=== PATIENT | male | born 1945 | race Caucasian/White ===

== ENCOUNTER 2017-02-23 08:22 | Inpatient (IN) | payer MEDICARE, MEDICAID ==
[~2017-02-23] VITALS: Ht 195.6 cm; Wt 133.3 kg
[~2017-02-23 08:22] MED LIST: /PANT40TA OR; AMLO5TAB OR; ATEN25TA OR; BACL10TA2 OR; CAPT50TA4 OR; CARA1SUS OR; COLA100C2 OR; ECOT325T5 OR; FAMO20TA2 OR; MULTIVIT PO; NITR0.2D TD; NITROGLYCERIN PATCH TD; NORVASC PO; PERC7.5T8 OR; TRAM50TA2 OR; VALI5TAB OR; VITA500T OR
[2017-02-23] MEDS ORDERED: NITR0.4D TD (08:38)
[2017-02-23] MEDS ORDERED: BACL10TA2 PO ×2 (08:38→10:57)
[2017-02-23 09:26] LABS: BASO % 0.7 % (0.0-1.0); EOS # 0.2 K/mm3 (0.0-0.50); EOS % 3.6 % (0.0-3.0); LARGE UNSTAINED CELL # 0.1 K/mm3 (0.0-0.4); LARGE UNSTAINED CELL % 2.7 % (0.0-4.0); LYMPH # 0.8 K/mm3 (1.5-4.5); LYMPH % 17.9 % (24.0-44.0); MEAN CORPUSCULAR HEMOGLOBIN 34.2 pg (27.0-33.0); MEAN CORPUSCULAR HGB CONC 34.3 g/dl (32.0-36.5); MEAN CORPUSCULAR VOLUME 99.8 fl (80.0-96.0); MONO # 0.3 K/mm3 (0.0-0.8); NEUTROPHILS % 68.1 % (36.0-66.0); PLATELET COUNT, AUTOMATED 133 k/mm3 (150-450); RED CELL DISTRIBUTION WIDTH 12.2 % (11.5-14.5); WHITE BLOOD COUNT 4.4 K/mm3 (4.0-10.0)
--- NOTE | 2017-02-23 09:27 | REP ---
CT BRAIN WITHOUT CONTRAST: 02/23/2017. CLINICAL HISTORY: Syncope. The patient fell. Trauma. COMPARISON: None. FINDINGS: Soft-tissue and bone windows are reviewed for each slice level. Ventricles are midline, symmetric and mildly dilated and proportionate to the diffuse cerebral atrophy. All of this is age appropriate. The basal ganglia show no acute lacunar infarct. There is some white matter changes in the basal ganglia and bilateral hemispheres representing chronic small vessel white matter ischemic change. I do not see a vascular territory infarct, intracranial hemorrhage, mass or mass effect. Brainstem and cerebellum are grossly intact. No mass, hemorrhage or focal lesion. Minimal atrophy of the cerebellum. Basal cisterns intact. Tortuous basilar artery. Calcified carotid siphons are noted. Mastoids and sinuses are clear. The skull base and calvarium show no fracture. There is a prominent right posterior parietal scalp hematoma near the vertex. No subjacent skull fracture and no contrecoup injury on the left. IMPRESSION: 1. No intracranial hemorrhage, acute infarct, mass or edema. 2. Ventricular size and atrophy are proportionate and age appropriate. 3. Sinuses, mastoids, skull base and calvarium intact without fracture or focal lesion. 4. Large scalp hematoma right posterior parietal vertex without subjacent injury, skull fracture or contrecoup injury. Signed by Erasmo Markham MD 02/23/2017 10:54 A
[2017-02-23 09:29] LABS: ANION GAP 5 MEQ/L (8-16); BLOOD UREA NITROGEN 21 MG/DL (7-18); CALCIUM LEVEL 8.3 MG/DL (8.8-10.2); CARBON DIOXIDE LEVEL 28 MEQ/L (21-32); CHLORIDE LEVEL 107 MEQ/L (98-107); GLOMERULAR FILTRATION RATE > 60.0 (>42); GLUCOSE, FASTING 119 MG/DL (83-110); MAGNESIUM LEVEL 2.2 MG/DL (1.8-2.4); POTASSIUM SERUM 4.1 MEQ/L (3.5-5.1); SODIUM LEVEL 140 MEQ/L (136-145)
--- NOTE | 2017-02-23 09:32 | REP ---
AP PORTABLE CHEST: 02/23/2017 at 09:05 AM. CLINICAL HISTORY: Syncope. COMPARISON: 02/23/2016, 01/06/2014. FINDINGS: This seated portable chest shows the lungs marginally adequate in the degree of inflation. Heart size difficult to multimedia artist because of AP portable technique with lordotic projection which exaggerates heart size. Scarring and elevation of the lateral attachment of the left diaphragm as on the previous chest. There is no pulmonary edema or definite acute infiltrate. Some minor fibrotic changes are suggested. IMPRESSION: 1. Lordotic chest exaggerates heart size with heart difficult to assess because of this and marginally adequate inflation. 2. No pulmonary edema, gross effusion or dense consolidation. Some underlying fibrotic change is seen. Diaphragm remains visible on that left side except for its lateral margin with effaced chronic scarring. 3. The aorta is mildly tortuous without aneurysm. Airway is intact. No vascular redistribution or pulmonary edema. Signed by Erasmo Markham MD 02/23/2017 10:56 A
[2017-02-23] MEDS ORDERED: COLA100C3 PO (10:57)
[2017-02-23] MEDS ORDERED: AMLO5TAB2 PO (10:57)
[2017-02-23] MEDS ORDERED: ATEN25TA PO (10:57)
[2017-02-23] MEDS ORDERED: NITR0.4D6 TD (10:57)
[2017-02-23] MEDS ORDERED: ASPI81TA13 PO (10:59)
[2017-02-23] MEDS ORDERED: OXYC1TAB23 PO (10:59)
[2017-02-23] MEDS ORDERED: TAB-TAB PO (10:59)
[2017-02-23] MEDS ORDERED: VITA500T88 PO (10:59)
[2017-02-23] MEDS ORDERED: CAPT1TAB18 PO (11:00)
[2017-02-23 11:03] LABS: ALBUMIN 3.5 GM/DL (3.2-5.2); ALBUMIN/GLOBULIN RATIO 1.21 (1.00-1.93); ALKALINE PHOSPHATASE 73 U/L (45-117); ALT/SGPT 20 U/L (12-78); AST/SGOT 14 U/L (15-37); BILIRUBIN,DIRECT 0.1 MG/DL (0.0-0.2); BILIRUBIN,TOTAL 0.6 MG/DL (0.2-1.0); TOTAL PROTEIN 6.4 GM/DL (6.4-8.2)
[2017-02-23] MEDS ORDERED: ONDANSETRON 4MG/2ML VIAL (J2405) IV PRN (11:15)
[2017-02-23] MEDS ORDERED: PERCOCET 5MG/325MG TAB PO PRN (11:15)
--- NOTE | 2017-02-23 11:57 | HPE ---
DATE OF ADMISSION: 02/23/2017 Mr. Al is a patient of Dr. Gilmore. The patient's tub attendant is Dr. Walton. CHIEF COMPLAINT: Passed out. SUMMARY OF HIS PRESENTATION: This is a 71-year-old who has been feeling well recently. He has had no complaints of pain or chest pain. No shortness of breath. No palpitations. He does have known atrial fibrillation and is not anticoagulated. He has a loop recorder in place for over a year for concern about possible arrhythmia. He was feeling well this morning, went to the [facility] to shop because traffic is less on Sundays, went shopping, came back and unlocked his door. In the process of unlocking his door, he lost consciousness and the next thing he knows, he was aroused by his neighbors who had called an ambulance because he was down. He has had no recent medication changes. He has not suffered from previous episodes like this. He does not use any alcohol or recreational drugs. PAST MEDICAL HISTORY: Notable for: 1. Hypertension. 2. Gastroesophageal reflux disease (GERD). 3. He had a schwannoma removed at T6-7. 4. He has a history of an aneurysm in the lower thoracic aorta which is stented. 5. He has a loop recorder in place. 6. He has known atrial fibrillation and has chosen not to be anticoagulated. FAMILY HISTORY: Noncontributory. SOCIAL HISTORY: He lives alone. He does have a wheelchair that he uses sometimes but he has been doing quite well recently and does not even use a cane. He does not use any tobacco, alcohol, or recreational drugs. 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 ALLERGIES: No known drug allergies. HOME MEDICATIONS: Are listed as: - Norvasc 5 mg daily - aspirin 81 mg daily - atenolol 25 mg daily - baclofen 10 mg twice a day - Colace 100 mg twice a day - sublingual nitroglycerin patch - Percocet tablet twice a day as needed for pain - vitamin C supplement - Captopril 50 mg daily - multivitamin tablet daily REVIEW OF SYSTEMS: Notable for headache where he struck his head. No visual changes. He has had previous laser corrective surgeries. No runny nose. No sore throat. No neck pain. He did have a cough recently and came to the emergency department yesterday. He is not complaining of a cough today. He is not short of breath. No abdominal pain. No changes in bowel or bladder habits. Otherwise unremarkable. PHYSICAL EXAMINATION: Temperature is 97.6, pulse 82, respiratory rate 18, blood pressure 146/86, 98% on room air. He is awake, appropriately interactive, good historian. Head is normocephalic. Sinuses are nontender. Pupils are equal, round, and reactive to light, anicteric, noninjected. Nasal septum is midline. He has poor dentition. Neck is supple, thick, partially obscured by a large beal. Breathing is symmetrical. I:E ratio is 1:3. No wheezes, rales, or rhonchi. No costovertebral angle (CVA) tenderness. Trace sacral edema. Heart is in an irregular rate and rhythm, distant sounding. Normal S1, S2. Radial pulses are 2+ bilaterally. There is trace to 1+ bilateral lower extremity edema. There are no foot ulcers. Sensation is grossly intact in his feet. Abdomen is soft, somewhat distended, nontender. He is moving all four extremities. Strength is symmetrical. Cranial nerves II-XII are grossly intact. He has normal mood and affect. LABORATORY DATA: White cell count 4.4, hemoglobin 16.5, and platelets of 133. BUN 21, creatinine 1.1, glucose of 119, troponin negative, TSH within normal limits. Blood glucose upon arrival was 114. Chest x-ray is unremarkable. Head CT shows no intracranial hemorrhage, acute infarct, mass or edema, intact skull with a large right posterior scalp hematoma. ASSESSMENT: This is a 71-year-old with a syncopal event, most likely from a cardiac arrhythmia. PLAN: 1. Cardiovascular. The patient has a loop recorder. We will need to attempt to figure out how to have the loop recorder read in regards to his event today because that seems the most likely cause of his syncope. He does have atrial fibrillation. During the course of my examination, his heart rate did run up to 115 at times. We will switch him to metoprolol and aim for rate control. He has chosen not to pursue anticoagulation. We will continue with blood pressure medications with hold parameters. We will monitor the patient on telemetry and obtain a 2D echocardiogram. 2. The patient seems to have macrocytosis. We will get a B12 and folate level. 3. The patient has a history of what appears to be chronic back pain. We will continue his pain medications. 4. Deep vein thrombosis (DVT) prophylaxis is ordered.
[2017-02-23] MEDS: NITROGLYCERIN 0.4 MG/HR PATCH TD SCH (12:22)
[2017-02-23] MEDS: amLODIPine 5 MG TAB PO SCH (12:23)
[2017-02-23] MEDS: ASPIRIN 81 MG ENTERIC TAB PO SCH (12:23)
[2017-02-23] MEDS: BACLOFEN 10 MG TAB PO SCH ×2 (12:23→21:03)
[2017-02-23] MEDS: DOCUSATE SODIUM 100 MG CAP PO SCH ×2 (12:23→21:04)
[2017-02-23 12:33] VITALS: BP 144/83
[2017-02-23 15:21] LABS: INR 1.06
[2017-02-23 16:00] VITALS: BP 167/74
--- NOTE | 2017-02-23 16:15 | ECGEPIP ---
Stationary ECG Study [facility] - ED Test Date: 2017-02-23 Pat Name: MARA RAUSCH Department: Room: [place] [address] Gender: M Bond Analyst: vaughn : 1945 Requested By: Manuel Mendoza Order Number: [id number] Reading MD: Manuel Flood Measurements Intervals [place] Rate: 78 P: ND: 0 QRS: 51 QRSD: 95 T: 56 QT: 356 QTc: 407 Interpretive Statements ATRIAL FIBRILLATION LOW QRS VOLTAGE IN EXTREMITY LEADS SIMILAR TO 10/30/15 Electronically Signed On 02-23-2017 16:15:02 EDT by Manuel Flood
[2017-02-23] MEDS: ACETAMINOPHEN TAB 650MG DOSE (2X325MG) PO PRN (18:26)
[2017-02-23 20:23] VITALS: BP 137/82
[2017-02-23] MEDS: **NOTE PATIENT COMMENT** MISC XX SCH (21:00)
[2017-02-24 00:43] VITALS: BP 110/59
[2017-02-24 04:28] VITALS: BP 140/79
[2017-02-24] MEDS: ACETAMINOPHEN TAB 650MG DOSE (2X325MG) PO PRN ×2 (04:31→13:46)
[2017-02-24 05:05] LABS: MEAN CORPUSCULAR HEMOGLOBIN 33.1 pg (27.0-33.0); MEAN CORPUSCULAR HGB CONC 33.3 g/dl (32.0-36.5); MEAN CORPUSCULAR VOLUME 99.4 fl (80.0-96.0); RED CELL DISTRIBUTION WIDTH 12.7 % (11.5-14.5); WHITE BLOOD COUNT 6.1 K/mm3 (4.0-10.0)
[2017-02-24 05:22] LABS: ANION GAP 6 MEQ/L (8-16); BLOOD UREA NITROGEN 22 MG/DL (7-18); CALCIUM LEVEL 8.5 MG/DL (8.8-10.2); CARBON DIOXIDE LEVEL 29 MEQ/L (21-32); CHLORIDE LEVEL 108 MEQ/L (98-107); CREATININE FOR GFR 0.99 MG/DL (0.70-1.30); GLOMERULAR FILTRATION RATE > 60.0 (>42); GLUCOSE, FASTING 118 MG/DL (83-110); MAGNESIUM LEVEL 2.2 MG/DL (1.8-2.4); POTASSIUM SERUM 4.1 MEQ/L (3.5-5.1); SODIUM LEVEL 143 MEQ/L (136-145)
[2017-02-24 08:00] VITALS: BP 142/96
[2017-02-24] MEDS: ENOXAPARIN 40 MG/0.4 ML SYRINGE (J1650) SC SCH (09:31)
[2017-02-24] MEDS: DOCUSATE SODIUM 100 MG CAP PO SCH ×2 (09:31→21:31)
[2017-02-24] MEDS: BACLOFEN 10 MG TAB PO SCH ×2 (09:31→21:31)
[2017-02-24] MEDS: amLODIPine 5 MG TAB PO SCH (09:32)
[2017-02-24] MEDS: ASPIRIN 81 MG ENTERIC TAB PO SCH (09:32)
[2017-02-24] MEDS: NITROGLYCERIN 0.4 MG/HR PATCH TD SCH (09:33)
[2017-02-24 09:56] LABS: VITAMIN B12 LEVEL 339 PG/ML (247-911)
[2017-02-24 09:57] LABS: FOLATE > 24.0 NG/ML (>5.4)
[2017-02-24] MEDS ORDERED: SLF 3 ML SYR IV PRN (10:30)
[2017-02-24 12:00] VITALS: BP 147/79
[2017-02-24] MEDS: SLF 3 ML SYR IV SCH ×2 (12:57→21:32)
[2017-02-24 16:05] VITALS: BP 165/94
--- NOTE | 2017-02-24 17:18 | IPN ---
DATE: 02/24/2017 Mr. Al is feeling well this morning. He has no complaints of pain, chest pain, shortness of breath. 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 PHYSICAL EXAMINATION: Temperature 98.8, pulse 76, respiratory rate 19, blood pressure 142/96, oxygen saturation 98% on room air. Intake and output notable for a negative fluid status of -435. Body mass index is 35.7. He is awake, pleasantly conversant. Breathing is symmetrical and rested. Heart is distant sounding and normal S1, S2. Telemetry shows periods of tachycardiac and relative bradycardia without significant pauses or other arrhythmias. Abdomen is soft, doughy, and nontender. There is a trace bilateral lower extremity edema. LABORATORY DATA: White cell count 6.1, hemoglobin 15.7, platelets 136, BUN 22, creatinine 0.99, magnesium 2.2, trops have been negative times 3. ASSESSMENT: This is a 71-year-old with a syncopal event, possibly from cardiac arhythmia. PLAN: 1. Cardiovascular. Patient has a loop recorder. I did arrange to have [employer] hospital insurance representative come to evaluate that today. It did not show any events around the time of his syncope. Over the course of the last month he did have a couple of brief pauses of 3 seconds or less but no other significant arhythmia. He has chosen not to pursue anticoagulation. 2D echocardiogram is pending. Patient's tax auditor Dr. Hardin who does have an office in [place], but does not come to our hospital. 2. Patient has macrocytosis. B12 level and folic acid level are within normal limits. 3. Patient has chronic back pain. Continue with pain medications. 4. Patient has appropriate deep venous thrombosis (DVT) prophylaxis. 5. Would recommend at least another 24 hours of monitoring based on his presentation and quick recovery, I believe this is most likely a cardiac cause and as such I am not pursing an aggressive neurologic workup.
[2017-02-24 20:00] VITALS: BP 155/83
[2017-02-24] MEDS: **NOTE PATIENT COMMENT** MISC XX SCH (21:00)
--- NOTE | 2017-02-24 22:48 | ECHO ---
DATE OF PROCEDURE: 02/24/2017 REFERRING PHYSICIAN: Alexis Barber MD INDICATION: Syncope. HEIGHT: 176 cm WEIGHT: 120 kg 2D MEASUREMENTS: Left atrium: 4.7 cm Ventricular septum: 1.59 cm Posterior wall: 1.40 cm Left ventricle diastole: 4.2 cm Aortic root: 4.0 cm LVOT: 2.5 cm Inferior vena cava: 2.6 cm DOPPLER MEASUREMENTS: Aortic valve velocity: 101 cm/s LVOT velocity: 80.5 cm/s Pulmonary artery systolic pressure: 52 mmHg by pulmonary acceleration time method. DESCRIPTION: Rhythm was atrial fibrillation with mostly controlled ventricular rate. This was a moderately technically difficult echocardiogram. No pericardial effusion. This is a 2D, M-mode, color flow Doppler and pulse wave Doppler examination that included mitral annular tissue Doppler. CONCLUSIONS: 1. Hyperdynamic IV systolic function. Left ventricular ejection fraction (LVEF) of 75% by visual estimate. Moderate concentric left ventricle hypertrophy. No regional LV wall motion abnormalities. Unable to adequately assess LV diastolic function in the setting of atrial fibrillation. 2. Moderate left atrial dilatation. 3. Mild dilatation of the aortic root at the level of sinus Valsalva. 4. Mild aortic valve sclerosis of a three-cuspid aortic valve. 5. 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 Suggestive of moderate elevation of pulmonary artery systolic pressure. 5. Moderately technically difficult echocardiogram.
[2017-02-25] VITALS: BP 124/64
[2017-02-25 04:00] VITALS: BP 130/64
[2017-02-25] MEDS: SLF 3 ML SYR IV SCH ×3 (05:05→20:36)
[2017-02-25 05:25] LABS: MEAN CORPUSCULAR HEMOGLOBIN 33.3 pg (27.0-33.0); MEAN CORPUSCULAR HGB CONC 33.7 g/dl (32.0-36.5); MEAN CORPUSCULAR VOLUME 99.1 fl (80.0-96.0); RED CELL DISTRIBUTION WIDTH 12.5 % (11.5-14.5); WHITE BLOOD COUNT 5.8 K/mm3 (4.0-10.0)
[2017-02-25 05:42] LABS: ANION GAP 4 MEQ/L (8-16); BLOOD UREA NITROGEN 22 MG/DL (7-18); CALCIUM LEVEL 8.4 MG/DL (8.8-10.2); CARBON DIOXIDE LEVEL 31 MEQ/L (21-32); CHLORIDE LEVEL 108 MEQ/L (98-107); CREATININE FOR GFR 1.01 MG/DL (0.70-1.30); GLOMERULAR FILTRATION RATE > 60.0 (>42); GLUCOSE, FASTING 114 MG/DL (83-110); MAGNESIUM LEVEL 2.2 MG/DL (1.8-2.4); POTASSIUM SERUM 4.6 MEQ/L (3.5-5.1); SODIUM LEVEL 143 MEQ/L (136-145)
[2017-02-25] MEDS: BACLOFEN 10 MG TAB PO SCH ×2 (07:52→20:35)
[2017-02-25] MEDS: amLODIPine 5 MG TAB PO SCH (07:52)
[2017-02-25] MEDS: DOCUSATE SODIUM 100 MG CAP PO SCH ×2 (07:53→20:35)
[2017-02-25] MEDS: ASPIRIN 81 MG ENTERIC TAB PO SCH (07:53)
[2017-02-25] MEDS: NITROGLYCERIN 0.4 MG/HR PATCH TD SCH (07:53)
[2017-02-25] MEDS: ENOXAPARIN 40 MG/0.4 ML SYRINGE (J1650) SC SCH (07:54)
[2017-02-25] MEDS: ACETAMINOPHEN TAB 650MG DOSE (2X325MG) PO PRN ×2 (07:54→20:43)
[2017-02-25 08:00] VITALS: BP 152/90
[2017-02-25] MEDS: FUROSEMIDE 40 MG/4 ML VIAL (J1940) IV SCH ×2 (08:48→16:04)
[2017-02-25] MEDS ORDERED: PREVNAR 13 VACCINE SYRINGE (CPT CODE:90670) IM ONE (09:00)
[2017-02-25] MEDS: ATENOLOL 25 MG TAB PO SCH (10:49)
[2017-02-25 12:00] VITALS: BP 144/83
--- NOTE | 2017-02-25 12:32 | IPN ---
DATE OF EXAMINATION: 02/25/2017 SUBJECTIVE: This morning, the patient tells me that he is feeling well. He has no complaints. He tells me that he still has shortness of breath with ambulation but otherwise he has not had any further episodes of dizziness or losing consciousness. OBJECTIVE: VITAL SIGNS: Temperature 97.8, pulse 80, respiratory rate 20, blood pressure (BP) 152/90, oxygen (O2) saturation 98% on room air. GENERAL: He is an elderly morbidly obese man lying in bed at a 30-degree angle. He does not appear to be in any acute distress. He is wearing sunglasses. HEENT: He has a large white beal which hides his neck. It is difficult to assess for any elevation in central venous pressure (CVP). CARDIOVASCULAR EXAMINATION: S2, S2, irregularly irregular. RESPIRATORY EXAMINATION: Diminished breath sounds at the bases. ABDOMINAL EXAMINATION: Grossly obese. EXTREMITIES: No clubbing or cyanosis. Trace edema bilaterally. LABORATORY STUDIES: WBC 5.8, hemoglobin 15.8, hematocrit 46.8, platelet count 145. Chemistry panel: Sodium 143, potassium 4.6, chloride 108, bicarbonate 31, BUN 22, creatinine 1.0. Two sets of cardiac enzymes were negative. He has a folate , B12, and TSH levels all within normal limits. INR of 1.0. The patient did have a CT scan of his head, which revealed no intracranial hemorrhage. Ventricular size and atrophy appropriate for age. A large scalp hematoma on the right parietal vertex. ASSESSMENT AND PLAN: This is a 71-year-old man, status post syncopal episode. PROBLEMS: 1. Syncope. Unclear etiology. The patient tells me that he sometimes gets off balance in carrying heavy bags, which he was, and this was an unusually strenuous activity for the patient. He also tells me that he has been feeling shortness of breath. His echocardiogram reveals elevation in CVP. I suspect he may have some fluid retention, as well as left ventricular hypertrophy (LVH). I suspect he may have some decompensated diastolic congestive heart failure, which may predispose him to a syncopal episode. The patient did have his Holter investigated. There was concerning arhythmia. He did have a brief pause of 3 seconds or less, but he has not had any other symptoms or any other episodes, and he has not had any other frequent falls or presyncopal-like symptoms; and as such, I do not feel that sick sinus syndrome or tachybrady syndrome is the culprit for his presentation. However, his atenolol will be restarted today and titrated down at a lower dose. I think he would benefit from followup with his adoption counselor, Dr. Walton. We will continuing following his loop recorder results. He does not have any neurological deficits. I suspect this may have been a vasovagal syncope. There has not been any recurrence. He is awaiting clearance from physical therapy (PT) prior to dispositioning. As mentioned above, will diurese him. 2. Macrocytosis. Thyroid-stimulating hormone (TSH), folic acid, and B12 levels are all within normal limits. He consented for the followup with his outpatient provider. 3. Chronic back pain. The patient is continued on Tylenol, Percocet, Baclofen. 4. Hypertension. The patient is continued on captopril, Norvasc, and atenolol. We will diurese him, as well. 5. Deep venous thrombosis (DVT) prophylaxis. The patient is on Lovenox. 6. Thoracic aortic aneurysm. The patient is on aspirin and beta boy. 7. Atrial fibrillation. He has declined anticoagulation in the past. He is rate controlled with atenolol, which we are restarting today. DISPOSITION: Will continue to follow his progress with physical therapy and with diuresis. I suspect he may be ready for discharge within the next 24-48 hours. [facility]
[2017-02-25 16:00] VITALS: BP_SYST 170; BP_SYST 172; BP_SYST 195; BP_DIAS 73; BP_DIAS 81; BP_DIAS 88
[2017-02-25 20:00] VITALS: BP 126/71
[2017-02-25] MEDS: **NOTE PATIENT COMMENT** MISC XX SCH (20:35)
[2017-02-26] VITALS: BP 124/72
[2017-02-26 04:00] VITALS: BP 131/89
[2017-02-26] MEDS: SLF 3 ML SYR IV SCH (04:38)
[2017-02-26] MEDS: ACETAMINOPHEN TAB 650MG DOSE (2X325MG) PO PRN (04:38)
[2017-02-26 05:14] LABS: MEAN CORPUSCULAR HEMOGLOBIN 33.1 pg (27.0-33.0); MEAN CORPUSCULAR VOLUME 100.2 fl (80.0-96.0); RED CELL DISTRIBUTION WIDTH 12.6 % (11.5-14.5); WHITE BLOOD COUNT 7.1 K/mm3 (4.0-10.0)
[2017-02-26 05:30] LABS: ANION GAP 4 MEQ/L (8-16); CALCIUM LEVEL 9.2 MG/DL (8.8-10.2); CARBON DIOXIDE LEVEL 33 MEQ/L (21-32); CHLORIDE LEVEL 106 MEQ/L (98-107); CREATININE FOR GFR 1.22 MG/DL (0.70-1.30); GLOMERULAR FILTRATION RATE > 60.0 (>42); GLUCOSE, FASTING 118 MG/DL (83-110); MAGNESIUM LEVEL 2.1 MG/DL (1.8-2.4); SODIUM LEVEL 143 MEQ/L (136-145)
[2017-02-26 05:54] LABS: BLOOD UREA NITROGEN 35 MG/DL (7-18)
[2017-02-26 08:00] VITALS: BP 169/92
[2017-02-26] MEDS ORDERED: ATEN25TA PO (08:51)
[2017-02-26] MEDS: ENOXAPARIN 40 MG/0.4 ML SYRINGE (J1650) SC SCH ×2 (09:00→09:28)
[2017-02-26] MEDS: NITROGLYCERIN 0.4 MG/HR PATCH TD SCH (09:26)
[2017-02-26] MEDS: amLODIPine 5 MG TAB PO SCH (09:27)
[2017-02-26] MEDS: ASPIRIN 81 MG ENTERIC TAB PO SCH (09:27)
[2017-02-26] MEDS: BACLOFEN 10 MG TAB PO SCH (09:27)
[2017-02-26] MEDS: DOCUSATE SODIUM 100 MG CAP PO SCH (09:27)
[2017-02-26 09:28] VITALS: BP 169/92
[2017-02-26] MEDS: ATENOLOL 25 MG TAB PO SCH (09:28)
--- NOTE | 2017-02-26 11:08 | DSES ---
DATE OF ADMISSION: 02/23/2017 DATE OF DISCHARGE: DISCHARGE DIAGNOSIS: Syncope. SECONDARY DIAGNOSES: 1. Atrial fibrillation. 2. Chronic back pain. 3. Macrocytosis. 4. Hypertension. 5. Thoracic aortic aneurysm. HOSPITAL COURSE: The patient is a 71-year-old man who was carrying heavy bags through his building, was having difficulty doing this, was struggling to open up with a blankenship to his apartment when he became lightheaded and collapsed. He lost consciousness very briefly, and he immediately woke up, oriented. There was no evidence of seizure activity. No bowel or bladder incontinence. He denied any concerning prodromal symptoms. He has known atrial fibrillation and has been wearing a loop recorded, as per treatment plant mechanic, Dr. Walton. This was interrogated and did not show any significant events at that time. He has previously had events, pauses close to 3 seconds, but no other falling or episodes or feeling faint-like episodes. While admitted in the hospital, he did have an echocardiogram, which revealed an ejection fraction (EF) of 75%, moderate concentric left ventricular hypertrophy (LVH), moderate left atrial dilation, and inferior vena cava plethora. He did receive minimal Lasix, which he did not report any change in symptoms. His symptoms did spontaneously resolve while in the hospital. He had no further episodes of vertigo, passing out, or fainting spells. He was seen by physical therapy, who have cleared him for discharge home at this time. SUBJECTIVE: Today, the patient reports he feels great. He is completely back to normal. He has no complaints. OBJECTIVE: VITAL SIGNS: Temperature 98. Pulse 62. Respiratory rate 20. Blood pressure (BP) 131/89. Oxygen (O2) saturation 94% on room air. GENERAL: He is a large morbidly obese elderly man, lying flat in bed, wearing sunglasses. He is in no acute distress. HEENT: Cranial nerves II-XII are grossly intact. He has moist mucous membranes. Difficult to assess for any elevation in central venous pressure (CVP) secondary to his large beal. CARDIOVASCULAR EXAMINATION: S1, S2, irregularly irregular. He is not tachycardic. RESPIRATORY EXAMINATION: Is clear. ABDOMINAL EXAMINATION: Is grossly obese. EXTREMITIES: No clubbing, cyanosis, or edema. LABORATORY STUDIES: WBC 7.1, hemoglobin 16.9, platelet count 155. Chemistry panel: Sodium 143, potassium 4.0, chloride 106, bicarbonate 33, BUN 35, creatinine 1.2. He had multiple sets of cardiac enzymes, which were negative. TSH within normal limits. He did have a CT scan of the head, which revealed no intracranial hemorrhage, large scalp hematoma of the right posterior parietal vertex without subjacent injury, skull fracture, or contrecoup injury. He had a chest x-ray, which was a lordotic chest. No pulmonary edema, gross effusion, or dense consolidation. ASSESSMENT AND PLAN: This is a 71-year-old man, status post a syncopal episode, likely vasovagal syncope. PROBLEMS: 1. Syncope, likely vasovagal. The patient tells me that he has a history of being off balance and difficulty with carrying many bags and heavy objects. He has had no further episodes and no significant events on telemetry since being in the hospital. He has been asymptomatic otherwise. His loop recorder did show some brief pauses. However, he did not have any associated symptoms with this. We are titrating down his atenolol from 25 mg daily to 12.5 mg daily. New prescription has been sent. 2. Hypertensive heart disease. He was treated with intravenous (IV) Lasix. He did not have changes in symptomatology significantly. I think he would benefit from close followup with his primary treatment plant mechanic, Dr. Walton, regarding the possibility of diastolic congestive heart failure and further interrogation and monitoring of his loop recorder. 3. Macrocytosis. Outpatient followup. His folate, B12 levels, and thyroid-stimulating hormone (TSH) were all within normal limits during his stay here. 4. Chronic back pain. He was continued on Tylenol, Percocet, and Baclofen. 5. Hypertension. He was continued on captopril and Norvasc. We did titrate down on the Tylenol as outlined above. 6. Thoracic aortic aneurysm. The patient is on aspirin and beta boy. He will followup with his primary care provider. 7. Atrial fibrillation. The patient has declined anticoagulation. He was rate controlled. He does not have an indication for a pacer at this time. 8. Deep venous thrombosis (DVT) prophylaxis. The patient has been on Lovenox. DISPOSITION: The patient is being discharged home. He has been cleared by physical therapy. He is independent of his activities of daily living (ADLs). He is to followup with his primary care provider within 7 days and followup with Dr. Walton, his treatment plant mechanic, as soon as possible. His activity and diet are as prior to admission. MEDICATIONS AT THE TIME OF DISCHARGE: - atenolol 12.5 mg daily - Norvasc 5 mg daily - vitamin C 500 mg daily - aspirin 81 mg daily - Baclofen 10 mg twice a day - captopril 50 mg daily - Colace 100 mg twice a day - nitroglycerin 0.4 mg transdermally daily - Percocet 5/325 one tablet by mouth daily, as per patient Greater than 30 minutes spent organizing disposition.
== END 2017-02-26 12:10 | disposition home health service (06) | DRG 312 ==
LOC: EDBD 08:22 → M ED 09:54 → M ED INP 11:33 → M PCU 11:59
PROVIDERS: ADMIT Internal Medicine; ATTEND Internal Medicine
DX: R55 Syncope and collapse (principal); D75.89 Other specified diseases of blood and blood-forming organs; I71.2 Thoracic aortic aneurysm, without rupture; I11.9 Hypertensive heart disease without heart failure; I48.91 Unspecified atrial fibrillation; M54.5 Low back pain; Z79.899 Other long term (current) drug therapy; Z79.82 Long term (current) use of aspirin; K21.9 Gastro-esophageal reflux disease without esophagitis

== ENCOUNTER 2017-03-09 08:11 | Inpatient (IN) | payer MEDICARE, MEDICAID ==
[~2017-03-09] VITALS: Ht 195.6 cm; Wt 125.7 kg
[~2017-03-09 08:11] MED LIST changes: +AMLO5TAB2 PO; +ASPI81TA24 PO; +ATEN25TA PO; +BACL10TA2 PO; +CAPT1TAB18 PO; +COLA100C5 PO; +NITR0.4D TD; +NITR0.4D6 TD; +OXYC1TAB23 PO; +TAB-TAB PO; +VITA500T88 PO
--- NOTE | 2017-03-09 08:55 | REP ---
Clinical: Syncope. Trauma. Comparison: 02/23/2017. Findings: Age-related atrophy and microvascular ischemic changes are appreciated. The ventricles and sulci are symmetric. Louie-white differentiation is maintained. There is no evidence for acute intracranial hemorrhage, mass/mass effect, pathology or infarction. No extra-axial fluid collection. Calvarium is intact. Paranasal sinuses and mastoid air cells are clear. A large right posterior parietal scalp hematoma and contusion has increased since prior examination and may represent acute on subacute trauma. Impression: Age related atrophy and microvascular ischemic changes. No acute intracranial hemorrhage, infarction, or mass/mass effect. Large right posterior parietal scalp hematoma/contusion increased from prior examination. Signed by Lobo Bonner MD 03/09/2017 08:46 A
--- NOTE | 2017-03-09 09:03 | REP ---
Clinical: Syncope . Comparison: 02/23/2017 . Findings: The mediastinum and cardiac silhouette are stable and within normal limits for portable technique. The lung gregory are clear without acute consolidation, effusion, or pneumothorax. Skeletal structures are intact. Impression: Chronic stable changes. No acute cardiopulmonary process appreciated. Signed by Lobo Bonner MD 03/09/2017 08:54 A
[2017-03-09 09:09] LABS: BASO # 0.2 K/mm3 (0.0-0.2); BASO % 2.4 % (0.0-1.0); EOS # 0.1 K/mm3 (0.0-0.50); EOS % 1.9 % (0.0-3.0); LARGE UNSTAINED CELL # 0.1 K/mm3 (0.0-0.4); LARGE UNSTAINED CELL % 1.7 % (0.0-4.0); LYMPH # 0.7 K/mm3 (1.5-4.5); LYMPH % 9.8 % (24.0-44.0); MEAN CORPUSCULAR HEMOGLOBIN 33.3 pg (27.0-33.0); MEAN CORPUSCULAR HGB CONC 33.7 g/dl (32.0-36.5); MONO # 0.3 K/mm3 (0.0-0.8); MONO % 4.5 % (0.0-5.0); NEUTROPHILS # 5.9 K/mm3 (1.8-7.7); NEUTROPHILS % 79.8 % (36.0-66.0); PLATELET COUNT, AUTOMATED 132 k/mm3 (150-450); RED CELL DISTRIBUTION WIDTH 12.5 % (11.5-14.5); WHITE BLOOD COUNT 7.4 K/mm3 (4.0-10.0)
[2017-03-09 09:33] LABS: ANION GAP 8 MEQ/L (8-16); BLOOD UREA NITROGEN 18 MG/DL (7-18); CALCIUM LEVEL 8.5 MG/DL (8.8-10.2); CARBON DIOXIDE LEVEL 26 MEQ/L (21-32); CHLORIDE LEVEL 106 MEQ/L (98-107); CREATININE FOR GFR 1.13 MG/DL (0.70-1.30); GLOMERULAR FILTRATION RATE > 60.0 (>42); GLUCOSE, FASTING 126 MG/DL (83-110); POTASSIUM SERUM 4.1 MEQ/L (3.5-5.1); SODIUM LEVEL 140 MEQ/L (136-145)
[2017-03-09] MEDS ORDERED: KETOROLAC 30 MG/ML VIAL (J1885) IV ONE (10:15)
[2017-03-09] MEDS ORDERED: ACETAMINOPHEN 500 MG TAB PO PRN (11:45)
[2017-03-09] MEDS: DOCUSATE SODIUM 100 MG CAP PO SCH ×2 (13:44→21:32)
[2017-03-09 13:45] VITALS: BP 142/88
[2017-03-09] MEDS: ASPIRIN 81 MG ENTERIC TAB PO SCH (13:45)
[2017-03-09] MEDS: amLODIPine 5 MG TAB PO SCH (13:45)
[2017-03-09] MEDS: LISINOPRIL 10 MG TAB PO SCH (13:45)
[2017-03-09] MEDS: KETOROLAC 30 MG/ML VIAL (J1885) IV PRN ×2 (13:48→21:33)
[2017-03-09] MEDS: FLUDROCORTISONE ACETATE 0.1 MG TAB PO SCH (14:13)
[2017-03-09] MEDS: ATENOLOL 12.5MG PER 1/2 TABLET PO SCH ×2 (14:13→21:32)
[2017-03-09 16:00] VITALS: BP 131/75
--- NOTE | 2017-03-09 17:59 | ECGEPIP ---
Stationary ECG Study 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
[2017-03-09 19:42] VITALS: BP 118/64
--- NOTE | 2017-03-09 21:31 | HPE ---
DATE OF ADMISSION: 03/09/2017 PRIMARY CARE PROVIDER: Dr. Ramon RESEARCH EDITOR: Dr. Walton CHIEF COMPLAINT: Sudden dizziness and passing out. PAST MEDICAL HISTORY: 1. Syncope, thought to be vasovagal syncope. 2. Hypertension. 3. Chronic atrial fibrillation, has chosen not to be anticoagulated. 4. History of schwannoma at T6-7 remote. 5. Has a loop recorder in place. 6. Lower thoracic aneurysm which has been stented. 7. Morbid obesity. 8. Chronic back pain. 9. History of cataracts status post removal and intraocular lens placement, now has light sensitivity. HISTORY OF PRESENT ILLNESS: This is a 71-year-old male who lives alone and is in a [place] rise apartment building who went out of his apartment to drop the garbage in the shoot, came back and was trying to unlock his door when he suddenly felt lightheaded and passed out. The next thing he remembered was there were two people trying to wake him up. He did not have any bowel or bladder incontinence, no one saw any seizure activity. Patient was brought to the emergency room for evaluation. Patient has a loop recorded in place which was interrogated by Dr. Gifford in the emergency room and it showed atrial fibrillation but no episodes of bradycardia or pauses so, as per Dr. Gifford, he does not have any cardiac event resulting in his syncope. Patient was noted to be in atrial fibrillation with rapid ventricular response. Patient was also noted to have a scalp hematoma on the back of his head. In the emergency department (ED), patient continued to complain of lightheadedness and dizziness when he was made to stand up for orthostatic blood pressure, so patient could not stand up for the full duration of the measurement and had to be put back into the bed. Patient is very anxious as this is his second syncopal episode in 2 weeks. Patient had a full workup of the syncope in the prior admission in January 2017, including an echocardiogram. Patient, however, did not have a carotid ultrasound, which we will get done this time. At present, patient is being admitted to the hospitalist service for syncope. PAST SURGICAL HISTORY: Loop recorded implantation, removal of schwannoma from T6-7, stenting of thoracic aortic aneurysm, left parotid resection and femoral bypass. SOCIAL HISTORY: Patient lives alone. Has a wheelchair which he sometimes uses, but at present he says he is doing very well and does not even use a cane. Does not use any tobacco, alcohol, or recreational drugs. ALLERGIES: To LATEX. REVIEW OF SYSTEMS: Patient denies any fever or chills. Denies any chest pain or shortness of breath. Does have mild tenderness at the back of the head where he hit when he fell. Denies any abdominal pain, nausea, vomiting, or diarrhea. Denies any palpitation. Patient does have light sensitivity so he is wearing dark glasses. He also complains of feeling very lightheaded and dizzy when he is standing up. HOME MEDICATIONS: - atenolol 12.5 mg by mouth daily - aspirin 81 mg by mouth daily - captopril 50 mg by mouth daily - Colace 100 mg by mouth twice a day - nitroglycerin 0.4 mg daily for 12 hours - oxycodone/acetaminophen one tablet twice a day as needed for pain - A-Sid one tablet by mouth daily - baclofen 10 mg by mouth twice a day - vitamin C 500 mg by mouth daily - amlodipine 5 mg by mouth daily PHYSICAL EXAMINATION: VITAL SIGNS: Temperature 97.2, pulse 104, blood pressure 150/72, pulse oximetry 93% in room air. Patient had second set of orthostatic blood pressure done in ED. Lying down his blood pressure was 165/90, sitting up his blood pressure 139/78 without any symptoms, and standing up his blood pressure was 154/80 with positive symptoms for dizziness, lightheadedness, tendency to fall. Patient's pulse also jumped from around 100 to 130s on standing up. GENERAL: Patient awake, alert, oriented times three, laying down in bed in no acute distress. HEENT: Normocephalic. Has two scalp hematomas on the back of the head. Moist mucous membranes. Anicteric eyes. CHEST: Clear to auscultation. CARDIOVASCULAR: S1, S2, irregular. No rub, murmur, or gallop. ABDOMEN: Obese, soft, nontender. Bowel sounds present. EXTREMITIES: No edema. LABORATORY DATA: WBC 7.4, hemoglobin 16.6, platelets 132, sodium 140, potassium 4.1, chloride 106, bicarbonate 26, BUN 18, creatinine 1.1, glucose 126, calcium 8.5, cardiac enzymes are negative. ASSESSMENT: This is a 71-year-old male admitted for syncope. PLAN: 1. For syncope, most probably this is orthostatic hypotension, but the patient's orthostatic blood pressures are positive in emergency department (ED) with symptoms. We have started the patient on fludrocortisone to see if it makes any difference. Patient did have an echocardiogram and loop recorder interrogation done which did not show any cardiology cause of syncope. Will also get a carotid ultrasound. Patient also was noted to hold his head in one particular position so that he would be able to overcome his lightheadedness and dizziness, so will also get physical therapy (PT) to evaluate the patient for benign positional vertigo. 2. Atrial fibrillation with rapid ventricular response (RVR). Will increase atenolol to 12.5 twice a day. Will monitor in telemetry. Patient has chosen not to be anticoagulated. 3. Hypertension. Will continue the patient on atenolol. Will change captopril to lisinopril as captopril is not available in the hospital. 4. Chronic back pain. Will continue only on Tylenol. Will discontinue baclofen and oxycodone as these may be contributing to his dizziness and lightheadedness. Will give the patient ketorolac if required for pain. 5. Scalp hematoma from the fall. CT scan did not show any intracranial bleed. 6. Deep venous thrombosis (DVT) prophylaxis has been ordered. 7. History of thoracic aortic aneurysm status post stenting.
[2017-03-10 00:07] VITALS: BP_SYST 119; BP_SYST 128; BP_SYST 138; BP_DIAS 61; BP_DIAS 69; BP_DIAS 76
[2017-03-10] MEDS ORDERED: SLF 3 ML SYR IV PRN (01:45)
[2017-03-10 05:25] VITALS: BP 159/83
[2017-03-10] MEDS: SLF 3 ML SYR IV SCH ×3 (05:32→21:46)
[2017-03-10 07:50] LABS: BASO % 0.2 % (0.0-1.0); EOS # 0.3 K/mm3 (0.0-0.50); EOS % 3.9 % (0.0-3.0); LARGE UNSTAINED CELL # 0.1 K/mm3 (0.0-0.4); LARGE UNSTAINED CELL % 1.7 % (0.0-4.0); LYMPH # 0.7 K/mm3 (1.5-4.5); LYMPH % 10.1 % (24.0-44.0); MEAN CORPUSCULAR HEMOGLOBIN 33.5 pg (27.0-33.0); MEAN CORPUSCULAR HGB CONC 33.4 g/dl (32.0-36.5); MEAN CORPUSCULAR VOLUME 100.2 fl (80.0-96.0); MONO # 0.4 K/mm3 (0.0-0.8); MONO % 5.4 % (0.0-5.0); NEUTROPHILS # 5.7 K/mm3 (1.8-7.7); NEUTROPHILS % 78.8 % (36.0-66.0); PLATELET COUNT, AUTOMATED 120 k/mm3 (150-450); RED CELL DISTRIBUTION WIDTH 12.6 % (11.5-14.5); WHITE BLOOD COUNT 7.3 K/mm3 (4.0-10.0)
[2017-03-10 07:51] VITALS: BP 160/98
[2017-03-10 08:11] LABS: ANION GAP 5 MEQ/L (8-16); BLOOD UREA NITROGEN 26 MG/DL (7-18); CALCIUM LEVEL 8.4 MG/DL (8.8-10.2); CARBON DIOXIDE LEVEL 28 MEQ/L (21-32); CHLORIDE LEVEL 109 MEQ/L (98-107); CREATININE FOR GFR 0.98 MG/DL (0.70-1.30); GLOMERULAR FILTRATION RATE > 60.0 (>42); GLUCOSE, FASTING 125 MG/DL (83-110); POTASSIUM SERUM 4.7 MEQ/L (3.5-5.1); SODIUM LEVEL 142 MEQ/L (136-145)
--- NOTE | 2017-03-10 08:39 | REP ---
CAROTID ULTRASOUND: Real-time ultrasound evaluation and duplex Doppler interrogation of the extracranial carotid vasculature is performed. There is mild to moderate plaquing and narrowing in both carotid bulbs extending into the internal and external carotid arteries. Luminal narrowing is less than 50%. There is no evidence of hemodynamically significant stenosis of either internal carotid artery. Normal flow velocities are seen. Vertebral arteries are not visualized. RIGHT LEFT Peak systolic velocity ICA 94.7 cm/s 46.3 cm/s End diastolic velocity ICA 28.5 cm/s 14.8 cm/s Peak systolic velocity CCA 111.6 cm/s 58 cm/s Peak systolic velocity ECA 149.4 cm/s 77.7 cm/s ICA/CCA ratio 0.85 0.8 IMPRESSION: Bilateral luminal narrowing of the internal carotid arteries less than 50%. No evidence of hemodynamically significant stenosis. Signed by Yash Louie MD 03/10/2017 08:31 A
[2017-03-10] MEDS: FLUDROCORTISONE ACETATE 0.1 MG TAB PO SCH (08:53)
[2017-03-10] MEDS: amLODIPine 5 MG TAB PO SCH (08:53)
[2017-03-10] MEDS: LISINOPRIL 10 MG TAB PO SCH (08:53)
[2017-03-10] MEDS: ASPIRIN 81 MG ENTERIC TAB PO SCH (08:54)
[2017-03-10] MEDS: DOCUSATE SODIUM 100 MG CAP PO SCH ×2 (08:54→21:44)
[2017-03-10] MEDS: ATENOLOL 12.5MG PER 1/2 TABLET PO SCH ×2 (08:54→21:44)
--- NOTE | 2017-03-10 09:53 | IPNPDOC ---
Subjective Date Seen The patient was seen on 03/10/17. Subjective Chief Complaint/HPI The patient is a 71-year-old male admitted with a reason for visit of Syncope. General: Denies: Chills, Night Sweats Constitutional: Denies: Chills, Fever, Malaise Eyes: Denies: Vision change, Conjunctivae inflammation Skin: Denies: Rash, Lesions, Jaundice, Bruising Pulmonary: Denies: Dyspnea, Cough Cardiovascular: Denies: Chest Pain, Palpitations Gastrointestinal: Denies: Nausea, Vomiting Genitourinary: Denies: Dysuria, Frequency Psych: Reports: Mood Normal Objective Physical Examination General Exam: Positive: Alert, Cooperative, No Acute Distress Eye Exam: Positive: EOMI ENT Exam: Positive: Atraumatic, Mucous membr. moist/pink Neck Exam: Positive: Supple Chest Exam: Positive: Clear to auscultation, Normal air movement, Negative: Rales, Rhonchi, Wheezing Heart Exam: Positive: Rate Normal, Normal S1, Normal S2 Abdomen Exam: Positive: Normal bowel sounds, Soft, Tenderness, Negative: Hepatospenomegaly Extremity Exam: Negative: Clubbing, Cyanosis, Edema Skin Exam: Positive: Nl turgor and temperature Assessment /Plan Problems (1) Syncope Status: Acute Response to Treatment: Stable Problem Text: pt still states dizziness upon standing, lasting a few seconds orthostatics positive pt begun on fludrocortisone loop recorder interrogated showed intermittent pauses will continue to monitor for improvement on fludrocortisone (2) Atrial fibrillation Status: Chronic Response to Treatment: Stable Problem Text: pt refused to be anticoagulated will continue atenolol Denies CP or palpitations (3) HTN (hypertension) Status: Chronic Response to Treatment: Stable Problem Text: stable around 160/90 continue atenolol caution w/addition of BP meds, for risk of hypotension and potential worsening of syncope orthostatics positive have begun fludrocortisone (4) Insomnia Status: Acute Response to Treatment: Stable Problem Text: pt states hes having a hard time sleeping at night will schedule ramelteon QHS (5) DVT prophylaxis Status: Acute Response to Treatment: Stable Problem Text: SCD TEDS Plan/VTE VTE Prophylaxis Ordered?: Yes VS, I&O, 24H, Fishbone Vital Signs/I&O Vital Signs Date Time Temp Pulse Resp B/P (MAP) Pulse Ox O2 Delivery O2 Flow Rate FiO2 03/10/17 08:54 74 160/98 03/10/17 07:51 98.2 19 96 Room Air I&O- Last 24 Hours up to 6 AM 03/10/17 06:00 Intake Total 1260 ml Output Total 975 ml Balance 285 ml Laboratory Data 24H LABS Laboratory Tests 2 03/10/17 07:40: White Blood Count 7.3, Red Blood Count 4.67, Hemoglobin 15.6, Hematocrit 46.8, Mean Corpuscular Volume 100.2H, Mean Corpuscular Hemoglobin 33.5H, Mean Corpuscular Hemoglobin Concent 33.4, Red Cell Distribution Width 12.6, Platelet Count 120L, Neutrophils (%) (Auto) 78.8H, Lymphocytes (%) (Auto) 10.1L, Monocytes (%) (Auto) 5.4H, Eosinophils (%) (Auto) 3.9H, Basophils (%) (Auto) 0.2 , Neutrophils # (Auto) 5.7, Lymphocytes # (Auto) 0.7L, Monocytes # (Auto) 0.4, Eosinophils # (Auto) 0.3, Basophils # (Auto) 0.0, Large Unclassified Cells % 1.7 , Large Unclassified Cells # 0.1, Anion Gap 5L, Glomerular Filtration Rate > 60.0, Blood Urea Nitrogen 26H, Creatinine 0.98, Sodium Level 142, Potassium Level 4.7, Chloride Level 109H, Carbon Dioxide Level 28, Calcium Level 8.4L CBC/BMP Laboratory Tests 03/10/17 07:40 Red Blood Count 4.67, Mean Corpuscular Volume 100.2 H, Mean Corpuscular Hemoglobin 33.5 H, Mean Corpuscular Hemoglobin Concent 33.4, Red Cell Distribution Width 12.6, Neutrophils (%) (Auto) 78.8 H, Lymphocytes (%) (Auto) 10.1 L, Monocytes (%) (Auto) 5.4 H, Eosinophils (%) (Auto) 3.9 H, Basophils (%) (Auto) 0.2, Neutrophils # (Auto) 5.7, Lymphocytes # (Auto) 0.7 L, Monocytes # ( Auto) 0.4, Eosinophils # (Auto) 0.3, Basophils # (Auto) 0.0, Calcium Level 8.4 L GME ATTESTATION GME ATTESTATION My preceptor for this patient encounter was physically present in the building during the encounter and was fully available. As needed, all aspects of the patient interview, examination, medical decision making process, and medical care plan development were reviewed and approved by the preceptor. Preceptor is aware and concurs with the plan as stated in the body of this note and will attest to such by his/her cosignature. LIZZY WU DO Mar 10, 2017 09:53
[2017-03-10 12:00] VITALS: BP_SYST 140; BP_SYST 151; BP_SYST 153; BP_DIAS 78; BP_DIAS 88; BP_DIAS 90
[2017-03-10] MEDS: KETOROLAC 30 MG/ML VIAL (J1885) IV PRN (14:12)
[2017-03-10 16:00] VITALS: BP 135/81
[2017-03-10 20:00] VITALS: BP 120/77
[2017-03-10] MEDS: RAMELTEON 8 MG TAB (ROZEREM) PO SCH (21:44)
[2017-03-11] VITALS: BP_SYST 111; BP_SYST 112; BP_SYST 141; BP_DIAS 77; BP_DIAS 78
[2017-03-11 04:00] VITALS: BP 119/64
[2017-03-11] MEDS: SLF 3 ML SYR IV SCH ×3 (05:34→20:15)
[2017-03-11 08:00] VITALS: BP 121/70
[2017-03-11] MEDS: amLODIPine 5 MG TAB PO SCH (08:46)
[2017-03-11] MEDS: FLUDROCORTISONE ACETATE 0.1 MG TAB PO SCH (08:47)
[2017-03-11] MEDS: LISINOPRIL 10 MG TAB PO SCH (08:47)
[2017-03-11] MEDS: DOCUSATE SODIUM 100 MG CAP PO SCH ×2 (08:47→20:15)
[2017-03-11] MEDS: ATENOLOL 12.5MG PER 1/2 TABLET PO SCH ×2 (08:47→20:15)
[2017-03-11] MEDS: ASPIRIN 81 MG ENTERIC TAB PO SCH (08:47)
--- NOTE | 2017-03-11 11:49 | IPNPDOC ---
Subjective Date Seen The patient was seen on 03/11/17. Subjective Chief Complaint/HPI The patient is a 71-year-old male admitted with a reason for visit of Syncope. Events since last encounter feeling a little better, still light headed on standing up but no longer nauseaous. feels very weak. Objective Physical Examination General Exam: Positive: Alert, Cooperative, No Acute Distress Eye Exam: Positive: EOMI ENT Exam: Positive: Atraumatic, Mucous membr. moist/pink Neck Exam: Positive: Supple Chest Exam: Positive: Clear to auscultation, Normal air movement, Negative: Rales, Rhonchi, Wheezing Heart Exam: Positive: Rate Normal, Normal S1, Normal S2 Abdomen Exam: Positive: Normal bowel sounds, Soft, Tenderness, Negative: Hepatospenomegaly Extremity Exam: Negative: Clubbing, Cyanosis, Edema Skin Exam: Positive: Nl turgor and temperature Assessment /Plan Problems (1) Syncope Status: Acute Response to Treatment: Stable Problem Text: Orthostatic hypotension and syncope. pt still states dizziness upon standing, lasting a few seconds orthostatics positive pt begun on fludrocortisone loop recorder interrogated showed intermittent pauses will continue to monitor for improvement on fludrocortisone (2) Atrial fibrillation Status: Chronic Response to Treatment: Stable Problem Text: pt refused to be anticoagulated will continue atenolol Denies CP or palpitations (3) HTN (hypertension) Status: Chronic Response to Treatment: Stable Problem Text: stable around 160/90 continue atenolol caution w/addition of BP meds, for risk of hypotension and potential worsening of syncope orthostatics positive have begun fludrocortisone (4) Insomnia Status: Acute Response to Treatment: Stable Problem Text: pt states hes having a hard time sleeping at night will schedule ramelteon QHS (5) DVT prophylaxis Status: Acute Response to Treatment: Stable Problem Text: SCD TEDS (6) Morbid obesity Plan/VTE VTE Prophylaxis Ordered?: Yes VS, I&O, 24H, Fishbone Vital Signs/I&O Vital Signs Date Time Temp Pulse Resp B/P (MAP) Pulse Ox O2 Delivery O2 Flow Rate FiO2 03/11/17 08:47 121/70 03/11/17 08:47 79 03/11/17 08:00 97.3 18 98 Room Air I&O- Last 24 Hours up to 6 AM 03/11/17 06:00 Intake Total 2040 ml Output Total 550 ml Balance 1490 ml MIGUEL BUTLER MD Mar 11, 2017 11:49
[2017-03-11 12:00] VITALS: BP_SYST 137; BP_SYST 145; BP_SYST 148; BP_DIAS 85; BP_DIAS 88; BP_DIAS 96
[2017-03-11 16:00] VITALS: BP 131/76
[2017-03-11] MEDS: KETOROLAC 30 MG/ML VIAL (J1885) IV PRN (17:53)
[2017-03-11 20:00] VITALS: BP 115/59
[2017-03-11] MEDS: RAMELTEON 8 MG TAB (ROZEREM) PO SCH (20:15)
[2017-03-12] VITALS: BP_SYST 106; BP_SYST 114; BP_SYST 131; BP_DIAS 65
[2017-03-12 04:00] VITALS: BP 151/90
[2017-03-12 05:19] LABS: BASO % 0.7 % (0.0-1.0); EOS # 0.5 K/mm3 (0.0-0.50); EOS % 8.5 % (0.0-3.0); LARGE UNSTAINED CELL # 0.1 K/mm3 (0.0-0.4); LARGE UNSTAINED CELL % 2.2 % (0.0-4.0); LYMPH # 1.1 K/mm3 (1.5-4.5); LYMPH % 18.4 % (24.0-44.0); MEAN CORPUSCULAR HEMOGLOBIN 33.5 pg (27.0-33.0); MEAN CORPUSCULAR HGB CONC 33.2 g/dl (32.0-36.5); MONO # 0.4 K/mm3 (0.0-0.8); MONO % 7.8 % (0.0-5.0); NEUTROPHILS # 3.4 K/mm3 (1.8-7.7); NEUTROPHILS % 62.4 % (36.0-66.0); PLATELET COUNT, AUTOMATED 111 k/mm3 (150-450); RED CELL DISTRIBUTION WIDTH 12.7 % (11.5-14.5); WHITE BLOOD COUNT 5.5 K/mm3 (4.0-10.0)
[2017-03-12] MEDS: SLF 3 ML SYR IV SCH (05:21)
[2017-03-12 05:31] LABS: ANION GAP 3 MEQ/L (8-16); BLOOD UREA NITROGEN 27 MG/DL (7-18); CALCIUM LEVEL 8.4 MG/DL (8.8-10.2); CARBON DIOXIDE LEVEL 30 MEQ/L (21-32); CHLORIDE LEVEL 109 MEQ/L (98-107); CREATININE FOR GFR 0.99 MG/DL (0.70-1.30); GLOMERULAR FILTRATION RATE > 60.0 (>42); GLUCOSE, FASTING 114 MG/DL (83-110); POTASSIUM SERUM 4.6 MEQ/L (3.5-5.1); SODIUM LEVEL 142 MEQ/L (136-145)
[2017-03-12 08:00] VITALS: BP 160/92
[2017-03-12 09:14] VITALS: BP 160/92
[2017-03-12] MEDS: LISINOPRIL 10 MG TAB PO SCH (09:14)
[2017-03-12] MEDS: ASPIRIN 81 MG ENTERIC TAB PO SCH (09:14)
[2017-03-12] MEDS: amLODIPine 5 MG TAB PO SCH (09:14)
[2017-03-12] MEDS: FLUDROCORTISONE ACETATE 0.1 MG TAB PO SCH (09:14)
[2017-03-12] MEDS: ATENOLOL 12.5MG PER 1/2 TABLET PO SCH (09:14)
[2017-03-12] MEDS: DOCUSATE SODIUM 100 MG CAP PO SCH (09:15)
[2017-03-12] MEDS ORDERED: ROZE8TAB16 PO (10:12)
[2017-03-12] MEDS ORDERED: FLUD0.1T PO (10:12)
[2017-03-12] MEDS ORDERED: ATEN25TA PO (10:12)
[2017-03-12 12:12] VITALS: BP 130/58
--- NOTE | 2017-03-13 23:45 | DSES ---
DATE OF ADMISSION: 03/11/2017 DATE OF DISCHARGE: 03/12/2017 PRIMARY CARE PROVIDER: Dr. Ramon DISCHARGE DIAGNOSES: Syncope due to orthostatic hypotension. Atrial fibrillation, not well controlled. Hypertension. Insomnia. Morbid obesity. Gait instability. History of lower thoracic aortic aneurysm, which has been stented. Chronic back pain. History of schwannoma at T6-T7 level, status post removal. Has a loop recorder in place. Chronic thrombocytopenia, etiology unknown. DISCHARGE MEDICATIONS: - atenolol 12.5 mg by mouth twice a day - fludrocortisone 0.1 mg by mouth daily - ramelteon 8 mg by mouth at bedtime - amlodipine 5 mg by mouth daily - ascorbic acid 500 mg by mouth daily - aspirin 81 mg by mouth daily - captopril 50 mg by mouth daily - Colace 100 mg by mouth twice a day - nitroglycerin 0.4 mg transdermal daily - oxycodone/acetaminophen 5-325 one tablet twice a day as needed for pain - multivitamin one tablet by mouth daily HOSPITAL COURSE: This is a 71-year-old male who lives in a handicapped apartment by himself. He was brought into the emergency room after an episode of syncope in the corridor of his apartment building. The patient had gone from his apartment to the garbage disposal shoot on his floor and after he disposed of garbage and came back to his apartment, he was trying to open his door when he apparently felt dizzy, lightheaded and the next thing he knows he was on the floor with two of the other neighbors trying to wake him up. Subsequently, the patient was brought to the emergency room. In the emergency department, the patient was found to be significantly positive for orthostatic hypotension, accompanied by drop in systolic and diastolic blood pressure, as well as severe symptoms of lightheadedness and dizziness. The patient was admitted for orthostatic syncope. The patient was noted to be in atrial fibrillation with rapid ventricular response (RVR). The patient's loop recorder was interrogated by Dr. Gifford, and there were no pauses or any other abnormality except for atrial fibrillation to account for his syncope. He was monitored in telemetry, and he was noted to have persistently high pulse rate, over 100, so his atenolol was again increased to 12.5 twice a day. After increase of atenolol, there were no significant pauses or bradycardia on the telemetry. The patient was also started on fludrocortisone for his orthostatic hypotension. Subsequently, the patient's symptoms improved, and the patient's drop in blood pressure with change of posture also improved, though it did not correct completely. The patient was educated regarding slow change in posture and to have enough time in between sitting and standing positions. The patient had a full workup for syncope in his prior admission 2 weeks ago. So we only did a carotid vascular ultrasound, which did not show any significant luminal narrowing. He was seen by physical therapy (PT), and it was felt that he would benefit from home PT as he did have lots of gait instability. The patient was referred to outpatient PT for addressing vestibular component and progression of dynamic balance. On the day of discharge, the patient was comfortable, did not have any complaints, his vital signs were stable. Functionally, he was close to his baseline. The patient was discharged home with home services set up and home PT referral. PHYSICAL EXAMINATION: Temperature 98.1, pulse 60, respiratory rate 17, blood pressure 160/92, pulse oximetry 98% in room air. GENERAL: Patient awake, alert, oriented times three, sitting up in bed in no acute distress. HEENT: Normocephalic but there is scalp hematoma present with bruising present on the right occipital region extending to the neck, as well as on the top of the head, which is mildly tender to palpation. Moist mucous membranes. Anicteric eyes. CHEST: Clear to auscultation. CARDIOVASCULAR: S1, S2, irregular, rate is controlled. No rub, murmur or gallop. ABDOMEN: Obese, soft, nontender. Bowel sounds present. EXTREMITIES: No edema. LABORATORY DATA: WBC 5.5, hemoglobin 14.2, platelets 111. Sodium 142, potassium 4.6, chloride 109, bicarbonate 30, BUN 27, creatinine 0.9, glucose 114, calcium 8.4. CT head showed age-related atrophy and microvascular ischemic changes. No acute intracranial hemorrhage, infarction or mass. There was a large right posterior parietal scalp hematoma and contusion, which is increased from the prior admission. Chest x-ray: Chronic stable changes. No acute cardiopulmonary process. Carotid vascular ultrasound as mentioned above. DISPOSITION: The patient is discharged home with home services in stable condition. DISCHARGE INSTRUCTIONS: Patient to followup with primary care provider in 1 week. Diet as tolerated. Activity as tolerated. MTDD
== END 2017-03-12 12:01 | disposition home health service (06) | DRG 312 ==
LOC: EDBD 08:11 → M ED 08:11 → M ED INP 11:32 → M PCU 13:24 → OBSVTOIN 03-11 11:38
PROVIDERS: ADMIT Internal Medicine Nephrology; ATTEND Internal Medicine Nephrology
DX: I95.1 Orthostatic hypotension (principal); I48.2 Chronic atrial fibrillation; G47.00 Insomnia, unspecified; E66.01 Morbid (severe) obesity due to excess calories; I10 Essential (primary) hypertension; D69.6 Thrombocytopenia, unspecified; M54.5 Low back pain; R26.89 Other abnormalities of gait and mobility; Z79.899 Other long term (current) drug therapy; Z79.82 Long term (current) use of aspirin; Z91.040 Latex allergy status

== ENCOUNTER → 2018-03-30 | Outpatient (CLI) | payer MEDICARE, MEDICAID ==
[2018-03-30 10:25] LABS: HEMATOCRIT 49.4 % (42.0-52.0); HEMOGLOBIN 16.6 g/dl (13.5-17.5); MEAN CORPUSCULAR HEMOGLOBIN 33.4 pg (27.0-33.0); MEAN CORPUSCULAR HGB CONC 33.6 g/dl (32.0-36.5); MEAN CORPUSCULAR VOLUME 99.4 fl (80.0-96.0); PLATELET COUNT, AUTOMATED 164 10^3/uL (150-450); RED BLOOD COUNT 4.97 10^6/uL (4.30-6.10); RED CELL DISTRIBUTION WIDTH 13.2 % (11.5-14.5); WHITE BLOOD COUNT 6.6 10^3/uL (4.0-10.0)
[2018-03-30 10:42] LABS: ANION GAP 8 MEQ/L (8-16); BLOOD UREA NITROGEN 27 MG/DL (7-18); CALCIUM LEVEL 8.5 MG/DL (8.8-10.2); CARBON DIOXIDE LEVEL 28 MEQ/L (21-32); CHLORIDE LEVEL 107 MEQ/L (98-107); GLOMERULAR FILTRATION RATE > 60.0 (>42); GLUCOSE, FASTING 125 MG/DL (70-100); POTASSIUM SERUM 4.6 MEQ/L (3.5-5.1); SODIUM LEVEL 143 MEQ/L (136-145)
== END ==
LOC: M LAB 09:34
DX: I48.91 Unspecified atrial fibrillation (principal)
CPT/HCPCS: 80048

== ENCOUNTER 2018-06-30 09:28 | Inpatient (IN) | payer MEDICARE, MEDICAID ==
[~2018-06-30] VITALS: Ht 195.6 cm; Wt 130.8 kg
[~2018-06-30 09:28] MED LIST changes: -AMLO5TAB2 PO; +AMLO5TAB6 PO; +FLUD0.1T PO; -NITR0.4D TD; +NITR0.4D10 TD; +ROZE8TAB16 PO
[2018-06-30 10:29] LABS: BASO % 0.4 % (0.0-1.0); EOS # 0.2 10^3/uL (0.0-0.50); EOS % 2.8 % (0.0-3.0); HEMATOCRIT 48.8 % (42.0-52.0); HEMOGLOBIN 16.5 g/dl (13.5-17.5); LYMPH # 1.2 10^3/uL (1.5-4.5); LYMPH % 14.9 % (24.0-44.0); MEAN CORPUSCULAR HGB CONC 33.8 g/dl (32.0-36.5); MEAN CORPUSCULAR VOLUME 97.6 fl (80.0-96.0); MONO # 0.9 10^3/uL (0.0-0.8); NEUTROPHILS # 5.9 10^3/uL (1.8-7.7); NEUTROPHILS % 70.4 % (36.0-66.0); PLATELET COUNT, AUTOMATED 152 10^3/uL (150-450); WHITE BLOOD COUNT 8.4 10^3/uL (4.0-10.0)
[2018-06-30] MEDS: NS 1,000 ML IV SCH ×4 (10:34→22:30)
[2018-06-30 10:38] LABS: INR 0.95; PROTHROMBIN TIME 12.8 SECONDS (12.1-14.4)
[2018-06-30 10:41] LABS: BLOOD UREA NITROGEN 23 MG/DL (7-18); CALCIUM LEVEL 8.5 MG/DL (8.8-10.2); CARBON DIOXIDE LEVEL 29 MEQ/L (21-32); CHLORIDE LEVEL 107 MEQ/L (98-107); CREATININE FOR GFR 0.99 MG/DL (0.70-1.30); GLOMERULAR FILTRATION RATE > 60.0 (>42); GLUCOSE, FASTING 138 MG/DL (70-100); POTASSIUM SERUM 4.5 MEQ/L (3.5-5.1); SODIUM LEVEL 140 MEQ/L (136-145)
--- NOTE | 2018-06-30 12:25 | REP ---
Emergency right lower extremity arterial Doppler ultrasound: History: Right foot pain and numbness. Cold to touch. Findings: A patent left to right fem-fem crossover graft is seen. Ankle brachial index could not be obtained on the right due to noncompressible vessels. The right external iliac artery is occluded. The right common femoral artery appears occluded. The profunda is patent and shows monophasic flow. The superficial femoral artery is occluded from its origin through the popliteal artery segment which is also occluded. The proximal anterior tibial artery is occluded. The tibioperoneal trunk, proximal [employer], distal [employer] and distal AT a are patent. Extensive plaquing is seen. Reversal of flow is seen in the distal anterior tibial artery. Velocity chart right lower extremity: Right profunda 93 cm/S, tibioperoneal trunk 24, proximal [employer] 7, distal [employer] 14, distal [employer] 5 cm/s. Electronically Signed by Harmeet Rodarte MD 06/30/2018 12:16 P
[2018-06-30] MEDS ORDERED: ATEN25TA PO (14:12)
[2018-06-30] MEDS ORDERED: VITMTA PO (14:12)
[2018-06-30] MEDS ORDERED: LOSA100T50 PO (14:13)
[2018-06-30] MEDS ORDERED: PLAV1TAB2 PO (14:13)
[2018-06-30] MEDS ORDERED: BACL1TAB8 PO (14:13)
[2018-06-30] MEDS ORDERED: HEPARIN SOD (PORCINE) 5000 UNITS/ML VIAL IV PRN (15:15)
--- NOTE | 2018-06-30 15:17 | HPEPDOC ---
General Date of Admission 06/3018 Attending Physician: Hiren Mcdonough MD Chief Complaint The patient is a 72-year-old male admitted with a reason for visit of Leg Problem. History of Present Illness A 72 yo former smoking male with PMH significant for HTN, PVD, AAA s/p EVAR, s/p Lt to Rt FemFem crossover bypass graft d/t RLE shut down secondary to EVAR and A Fib s/p Watchman procedure presents for RLE coldness, numbness and claudication. Pt had an AAA and enderwent EVAR with Dr Lees in [place] in 2007. 2 weeks after the procedure, Pt's RLE shut down. He was admitted to the hospital in [facility] for emergent Lt to Rt FemFem crossover bypass with Dr. Lees. Pt has followed up with Dr. Lees annually since then until March. Pt has Hx A Fib with episodic syncope. Pt underwent Watchman procedure in the [facility] in [place] on 03/18/18. Pt has been on prophylactic anticoagulation with Eliquis x 45 days then switched to Plavix 2-3 weeks ago. 4 days ago, pt noticed his RLE below knee to ankle was very cold and numbing. He couldn't stand on his foot for 2 minutes w/o causing the right leg pain. He has monitored the symptoms for 3 days w/o improvement and decided to come to ER today. Patient denies rest pain, TIA, amaurosis fugax, weakness of extremity, chest pain , SOB and N/V. RLE arterial US today shows patent left to right fem-fem crossover graft. DUSTIN could not be obtained on the right due to noncompressible vessels. The EIA, CARD GRINDER HELPER are occluded. The profunda is patent with monophasic flow. SFA is occluded from its origin through the PA segment which is also occluded. The proximal CEE is occluded. The TP trunk, proximal COURTROOM DEPUTY OR CALENDAR CLERK, distal COURTROOM DEPUTY OR CALENDAR CLERK and distal AT are patent. Extensive plaquing is seen. Reversal of flow is seen in the distal CEE. Pt was admitted for angiography tomorrow. Vascular surgery was consulted. Pt was admitted to hospital for RLE angiography with angioplasty and possible stenting. CBC, chem and coag profile are wnl. Home Medications Scheduled Amlodipine Besylate (Amlodipine Besylate) 5 Mg Tab, 5 MG PO DAILY, (Reported) Ascorbic Acid (Vitamin C) 500 Mg Tab, 500 MG PO DAILY, (Reported) Aspirin (Aspirin EC) 81 Mg Tab, 81 MG PO DAILY, (Reported) Atenolol (Atenolol) 25 Mg Tab, 25 MG PO DAILY, (Reported) Baclofen (Baclofen) 10 Mg Tab, 10 MG PO BID, (Reported) Clopidogrel Bisulfate (Plavix) 75 Mg Tab, 75 MG PO DAILY, (Reported) Docusate Sodium (Colace) 100 Mg Cap, 100 MG PO BID, (Reported) Losartan Potassium (Losartan Potassium) 100 Mg Tab, 100 MG PO DAILY, (Reported) Multivitamins *[facility] STOCKED* (Thera M Plus *[facility] STOCKED*) 1 Tab Tab, 1 TAB PO DAILY, (Reported) Nitroglycerin (Nitroglycerin) 0.4 Mg/Hr Dis, 0.4 MG TD DAILY, (Reported) APPLIES AT 0800 AND REMOVES AT 2000, EVEN DAYS RIGHT ARM, ODD DAYS LEFT ARM Scheduled PRN Oxycodone/Acetaminophen (Oxycodone/Acetaminophen 5-325 mg) 1 Tab Tab, 1 TAB PO BID PRN for PAIN, (Reported) Allergies Coded Allergies: Latex (Verified Allergy, Severe, RED BLOTCHES AND SOB, 12/02/12) Past Medical History Medical History 1. HTN 2. AAA 3. PVD RLE 4. A Fib w/Hx syncopy 5.Morbid obesity Surgical History 1. Watchman procedure for A Fib 04/07/18 2. EVAR for AAA 2007 3. 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 Father: d/t lung Ca GM: congenital heart disease Social History * Smoker: former Smoker (quit in 2007) Alcohol: Denies Drugs: denies Recent Travel/Sick Contacts: Denies: Recent travel, Recent sick contacts Psychosocial History: No pertinent psych hx Review of Systems Constitutional: Denies: Chills, Fever, Malaise, Night Sweats, Weakness Eyes: Denies: Vision change, Conjunctivae inflammation ENT: Denies: Head Aches, Ear Pain, Dysphagia Skin: Reports: Other (hyperpigmentation BLE below calves) Pulmonary: Denies: Dyspnea, Cough Cardiovascular: Denies: Chest Pain, Palpitations, Orthopnea, Edema, Lt Headedness Gastrointestinal: Denies: Nausea, Vomiting, Abdominal Pain, Diarrhea, Constipation Genitourinary: Denies: Dysuria, Frequency, Incontinence Hematologic: Denies: Bruising, Bleeding Excessively, Petecchia, Purpura Endocrine: Denies: Polydipsia, Polyphagia, Polyuria, Heat Intolerance, Cold Intolerance Musculoskeletal: Reports: Leg Pain; Denies: Neck Pain, Back Pain, Foot Pain, Joint Pain, Muscle Pain, Spasms Neurological: Denies: Weakness, Numbness, Change in speech, Confusion Psych: Reports: Mood Normal Physical Examination General Exam: Positive: Alert, Cooperative, Mild Distress Eye Exam: Positive: PERRLA, Conjunctiva & lids normal, EOMI ENT Exam: Positive: Atraumatic Neck Exam: Positive: Supple; Negative: JVD, +2 carotid pulse wo bruit, Other Chest Exam: Positive: Clear to auscultation, Normal air movement; Negative: Rales, Rhonchi, Wheezing, Diminished, Other Heart Exam: Positive: Rate Normal, Normal S1, Normal S2, Other (PP: all not pa lpable. Audible to Rt DP and PD, DP monophasic, audible to Lt PT, absent to DP) Abdomen Exam: Positive: Normal bowel sounds, Soft; Negative: Tenderness, Mass Extremity Exam: Positive: Tenderness (RLE below knee), Other (RLE: purple red and swelling toes ); Negative: Clubbing, Cyanosis, Edema, Normal pulses, Swelling Neuro Exam: Positive: Strength at 5/5 X4 ext, Cranial Nerves 3-12 NL Psych Exam: Positive: Mood NL, Oriented x 3 Vital Signs Vital Signs Date Time Temp Pulse Resp B/P (MAP) Pulse Ox O2 Delivery O2 Flow Rate FiO2 06/30/18 12:30 15 134/66 (88) 06/30/18 12:28 89 97 06/30/18 12:06 Room Air 06/30/18 09:39 97.5 Laboratory Data Labs 24H Laboratory Tests 2 06/30/18 10:20: Immature Granulocyte % (Auto) 0.5, White Blood Count 8.4, Red Blood Count 5.00, Hemoglobin 16.5, Hematocrit 48.8, Mean Corpuscular Volume 97.6H, Mean Corpuscular Hemoglobin 33.0, Mean Corpuscular Hemoglobin Concent 33.8, Red Cell Distribution Width 12.3, Platelet Count 152, Neutrophils (%) (Auto) 70.4H, Lymphocytes (%) (Auto) 14.9L, Monocytes (%) (Auto) 11.0H, Eosinophils (%) (Auto) 2.8, Basophils (%) (Auto) 0.4, Neutrophils # (Auto) 5.9, Lymphocytes # (Auto) 1.2L, Monocytes # (Auto) 0.9H, Eosinophils # (Auto) 0.2, Basophils # (Auto) 0.0, Nucleated Red Blood Cells % (auto) 0.0, Prothrombin Time 12.8, Prothromb Time International Ratio 0.95, Activated Partial Thromboplast Time 26.0, Anion Gap 4L, Glomerular Filtration Rate > 60.0, Blood Urea Nitrogen 23H, Creatinine 0.99, Sodium Level 140, Potassium Level 4.5, Chloride Level 107, Carbon Dioxide Level 29, Calcium Level 8.5L CBC/BMP Laboratory Tests 06/30/18 10:20 Red Blood Count 5.00, Mean Corpuscular Volume 97.6 H, Mean Corpuscular Hemoglobin 33.0, Mean Corpuscular Hemoglobin Concent 33.8, Red Cell Distribution Width 12.3, Neutrophils (%) (Auto) 70.4 H, Lymphocytes (%) (Auto) 14.9 L, Monocytes (%) (Auto) 11.0 H, Eosinophils (%) (Auto) 2.8, Basophils (%) (Auto) 0.4, Neutrophils # (Auto) 5.9, Lymphocytes # (Auto) 1.2 L, Monocytes # (Auto) 0.9 H, Eosinophils # (Auto) 0.2, Basophils # (Auto) 0.0, Calcium Level 8.5 L Assessment/Plan Pt is PVD with RLE ischemia s/p Rt to Lt FemFem 10 yrs ago Pt is a 72 yo former smoker with PMH significant for AAA s/p EVAR, Lt to Rt FemFem crossover bypass graft secondary to RLE inflow shut down from EVAR. Pt was admitted with severe RLE PVD with acute RLE ischemia. Arterial US demonstrated extensive atherosclerotic arterial occlusive disease in RLE arterial system including occlusion in EIA, CARD GRINDER HELPER SFA, PA and proximal CEE. The Lt to Rt FemFem crossover bypass is patent. Pt will undergo RLE angiography with possible angioplasty +/-stenting tomorrow. The risks and benefits of the procedure were thoroughly explained to and discussed with patient. Pt verbally understood it. Plan / VTE VTE Prophylaxis Ordered?: Yes Plan Plan 1. NPO after midnight 2. CBC, Coag profile, Chem 7 done 3. Heparin drip weight based protocol 4. Consent will be signed before procedure JEANNETTE TOMLINSON PA-C Jun 30, 2018 15:16
[2018-06-30 15:57] LABS: HEMOGLOBIN 15.6 g/dl (13.5-17.5); MEAN CORPUSCULAR HEMOGLOBIN 32.6 pg (27.0-33.0); MEAN CORPUSCULAR HGB CONC 32.5 g/dl (32.0-36.5); MEAN CORPUSCULAR VOLUME 100.2 fl (80.0-96.0); PLATELET COUNT, AUTOMATED 138 10^3/uL (150-450); RED BLOOD COUNT 4.79 10^6/uL (4.30-6.10); WHITE BLOOD COUNT 7.2 10^3/uL (4.0-10.0)
[2018-06-30] MEDS: HEPARIN DRIP 25,000 UNITS in APPROPRIATE DILUENT 1 EA IV SCH (16:08)
[2018-06-30 20:52] VITALS: BP 140/90
[2018-07-01] VITALS (11 sets, daily range): BP systolic 123–169; BP diastolic 65–94
[2018-07-01] MEDS ORDERED: DOCUSATE SODIUM 100 MG CAP PO PRN (02:15)
[2018-07-01] MEDS: PERCOCET 5MG/325MG TAB PO PRN ×2 (02:40→20:17)
[2018-07-01] MEDS ORDERED: LIDOCAINE 2% MDV 20 ML VIAL As Ordered ONE (06:55)
[2018-07-01] MEDS ORDERED: HEPARIN 1,000 UNITS/ML 10ML VIAL (FOR RADIOLOGY& DIALYSIS ONLY) As Ordered ONE (06:55)
[2018-07-01] MEDS ORDERED: ISOVUE-300 61% 50ML VIAL (Q9967) As Ordered ONE (06:56)
[2018-07-01] MEDS: LOSARTAN 50 MG TAB PO SCH ×2 (09:41→14:35)
[2018-07-01] MEDS: ASPIRIN 81 MG ENTERIC TAB PO SCH ×2 (09:41→14:35)
[2018-07-01] MEDS: NITROGLYCERIN 0.4 MG/HR PATCH TD SCH (09:41)
[2018-07-01] MEDS: CLOPIDOGREL 75 MG TAB PO SCH ×2 (09:42→14:37)
[2018-07-01] MEDS: ATENOLOL 25 MG TAB PO SCH ×2 (09:42→14:36)
[2018-07-01] MEDS: ASCORBIC ACID 500 MG TAB PO SCH ×2 (09:42→14:42)
[2018-07-01] MEDS: DOCUSATE SODIUM 100 MG CAP PO SCH ×3 (09:42→20:15)
[2018-07-01] MEDS: amLODIPine 5 MG TAB PO SCH ×2 (09:42→14:36)
[2018-07-01] MEDS: MULTIVITAMINS/MINERALS THERAP 1 TAB PO SCH ×2 (09:42→14:36)
[2018-07-01] MEDS: BACLOFEN 10 MG TAB PO SCH ×3 (09:43→20:17)
[2018-07-01] MEDS: HEPARIN DRIP 25,000 UNITS in APPROPRIATE DILUENT 1 EA IV SCH ×2 (09:48→13:30)
[2018-07-01] MEDS ORDERED: MIDAZOLAM INJ 2 MG/2 ML VIAL (J2250) As Ordered ONE (10:54)
[2018-07-01] MEDS ORDERED: fentaNYL 100 MCG/2 ML INJECTION (J3010) As Ordered ONE (10:54)
[2018-07-01] MEDS ORDERED: ALTEPLASE 2 MG/2 ML VIAL (J2997 PER 1MG) As Ordered ONE (12:01)
[2018-07-01] MEDS ORDERED: ALTEPLASE RECOMBINANT 10 MG in APPROPRIATE DILUENT 1 EA IV ONE (12:30)
[2018-07-01] MEDS: ALTEPLASE RECOMBINANT 25 MG in NS 225 ML IV SCH (13:30)
--- NOTE | 2018-07-01 17:29 | ECGEPIP ---
Stationary ECG Study [facility] - ED Test Date: 2018-06-30 Pat Name: MARA RAUSCH Department: Room: - Gender: M Fitness Coach: JRichelle : 1945 Requested By: MARIA INES NAVA PA-C. Order Number: [id number] Reading MD: Manuel Flood Measurements Intervals [place] Rate: 79 P: [place]: 0 QRS: 61 QRSD: 87 T: 58 QT: 361 QTc: 416 Interpretive Statements ATRIAL FIBRILLATION RATE CHANGE COMPARED TO 03/09/17 Electronically Signed On 07-01-2018 17:29:10 EDT by Manuel Flood
[2018-07-01 18:08] LABS: HEMATOCRIT 44.8 % (42.0-52.0); HEMOGLOBIN 15.2 g/dl (13.5-17.5)
[2018-07-01 18:28] LABS: INR 1.03; PROTHROMBIN TIME 13.6 SECONDS (12.1-14.4)
[2018-07-01 18:29] LABS: PARTIAL THROMBOPLASTIN TIME 40.8 SECONDS (25.4-37.6)
[2018-07-01] MEDS: **NOTE PATIENT COMMENT** MISC XX SCH (20:00)
[2018-07-02] VITALS (23 sets, daily range): BP systolic 112–198; BP diastolic 58–114
[2018-07-02 00:28] LABS: PARTIAL THROMBOPLASTIN TIME 32.8 SECONDS (25.4-37.6)
[2018-07-02 00:33] LABS: HEMATOCRIT 46.6 % (42.0-52.0); HEMOGLOBIN 15.4 g/dl (13.5-17.5)
[2018-07-02] MEDS: PERCOCET 5MG/325MG TAB PO PRN ×3 (00:55→14:23)
[2018-07-02 05:33] LABS: HEMATOCRIT 46.8 % (42.0-52.0); HEMOGLOBIN 15.9 g/dl (13.5-17.5); MEAN CORPUSCULAR HEMOGLOBIN 33.3 pg (27.0-33.0); MEAN CORPUSCULAR VOLUME 97.9 fl (80.0-96.0); PLATELET COUNT, AUTOMATED 127 10^3/uL (150-450); RED BLOOD COUNT 4.78 10^6/uL (4.30-6.10); WHITE BLOOD COUNT 7.8 10^3/uL (4.0-10.0)
[2018-07-02 05:43] LABS: PARTIAL THROMBOPLASTIN TIME 41.1 SECONDS (25.4-37.6)
[2018-07-02 05:54] LABS: BLOOD UREA NITROGEN 21 MG/DL (7-18); CALCIUM LEVEL 8.2 MG/DL (8.8-10.2); CARBON DIOXIDE LEVEL 25 MEQ/L (21-32); CHLORIDE LEVEL 109 MEQ/L (98-107); GLOMERULAR FILTRATION RATE > 60.0 (>42); GLUCOSE, FASTING 122 MG/DL (70-100); POTASSIUM SERUM 4.4 MEQ/L (3.5-5.1); SODIUM LEVEL 142 MEQ/L (136-145)
[2018-07-02] MEDS: MULTIVITAMINS/MINERALS THERAP 1 TAB PO SCH (07:52)
[2018-07-02] MEDS: BACLOFEN 10 MG TAB PO SCH ×2 (07:52→20:06)
[2018-07-02] MEDS: NITROGLYCERIN 0.4 MG/HR PATCH TD SCH (07:52)
[2018-07-02] MEDS: ATENOLOL 25 MG TAB PO SCH (07:53)
[2018-07-02] MEDS: DOCUSATE SODIUM 100 MG CAP PO SCH ×2 (07:53→20:06)
[2018-07-02] MEDS: amLODIPine 5 MG TAB PO SCH (07:53)
[2018-07-02] MEDS: ASPIRIN 81 MG ENTERIC TAB PO SCH (07:54)
[2018-07-02] MEDS: CLOPIDOGREL 75 MG TAB PO SCH (07:54)
[2018-07-02] MEDS: LOSARTAN 50 MG TAB PO SCH (07:54)
--- NOTE | 2018-07-02 10:00 | IPNPDOC ---
Subjective Date Seen The patient was seen on 07/02/18. Subjective Chief Complaint/HPI Pt stated his Rt foot got warm, still feels numbing. Objective Physical Examination General Exam: Positive: Alert, Cooperative, Mild Distress Eye Exam: Positive: PERRLA, Conjunctiva & lids normal, EOMI ENT Exam: Positive: Atraumatic Neck Exam: Positive: Supple; Negative: JVD, +2 carotid pulse wo bruit Chest Exam: Positive: Clear to auscultation, Normal air movement; Negative: Rales, Rhonchi, Wheezing, Diminished, Other Heart Exam: Positive: Rate Normal, Normal S1, Normal S2, Other (PP: Rt PT audible biphasic, Rt DP audible with intermittent monophsic and biphasic, Lt DP and PT biphasic) Abdomen Exam: Positive: Normal bowel sounds, Soft; Negative: Tenderness, Mass Extremity Exam: Positive: Tenderness (RLE below knee), Other (RLE: Rt foot warm and toes returned normal color.); Negative: Clubbing, Cyanosis, Edema, Normal pulses, Swelling Neuro Exam: Positive: Strength at 5/5 X4 ext, Cranial Nerves 3-12 NL Psych Exam: Positive: Mood NL, Oriented x 3 Assessment /Plan Assessment 1. Severe PVD with acute RLE ischemia on thrombolysis Plan/VTE VTE Prophylaxis Ordered?: Yes Plan 1. Continue thrombolysis with Heparin drip and TPA drip 2. Continue to monitor CBC, BMP, APTT, Fibrinogen 3. Plan to perform angiogram RLE this pm or tomorrow VS, I&O, 24H, Fishbone Vital Signs/I&O Vital Signs Date Time Temp Pulse Resp B/P (MAP) Pulse Ox O2 Delivery O2 Flow Rate FiO2 07/02/18 07:53 19 96 Room Air 07/02/18 07:53 86 07/02/18 07:52 198/89 07/02/18 07:33 99.4 I&O- Last 24 Hours up to 6 AM0 07/02/18 06:00 Intake Total 1000 ml Output Total 1255 ml Balance -255 ml Laboratory Data 24H LABS Laboratory Tests 2 07/01/18 17:52: Prothrombin Time 13.6, Prothromb Time International Ratio 1.03, Activated Partial Thromboplast Time 40.8H, Fibrinogen 339 07/01/18 23:55: Activated Partial Thromboplast Time 32.8, Fibrinogen 351 07/02/18 05:25: Activated Partial Thromboplast Time 41.1H, Fibrinogen 363, Nucleated Red Blood Cells % (auto) 0.0, Anion Gap 8, Glomerular Filtration Rate > 60.0, Blood Urea Nitrogen 21H, Creatinine 0.90, Sodium Level 142, Potassium Level 4.4, Chloride Level 109H, Carbon Dioxide Level 25, Calcium Level 8.2L CBC/BMP Laboratory Tests 07/01/18 17:52 07/01/18 23:55 07/02/18 05:25 Red Blood Count 4.78, Mean Corpuscular Volume 97.9 H, Mean Corpuscular Hemoglobin 33.3 H, Mean Corpuscular Hemoglobin Concent 34.0, Red Cell Dis tribution Width 12.5, Calcium Level 8.2 L JEANNETTE TOMLINSON PA-C Jul 02, 2018 10:00
[2018-07-02] MEDS: ALTEPLASE RECOMBINANT 25 MG in NS 225 ML IV SCH (11:05)
[2018-07-02] MEDS: HEPARIN DRIP 25,000 UNITS in APPROPRIATE DILUENT 1 EA IV SCH (11:06)
[2018-07-02 12:51] LABS: HEMATOCRIT 46.1 % (42.0-52.0); HEMOGLOBIN 15.3 g/dl (13.5-17.5)
[2018-07-02 12:57] LABS: PARTIAL THROMBOPLASTIN TIME 46.4 SECONDS (25.4-37.6)
[2018-07-02] MEDS: ASCORBIC ACID 500 MG TAB PO SCH (14:22)
[2018-07-02] MEDS ORDERED: SLF 3 ML SYR IV PRN (17:15)
[2018-07-02 18:13] LABS: HEMATOCRIT 43.9 % (42.0-52.0); HEMOGLOBIN 14.5 g/dl (13.5-17.5)
[2018-07-02 18:22] LABS: PARTIAL THROMBOPLASTIN TIME 35.8 SECONDS (25.4-37.6)
[2018-07-02] MEDS: **NOTE PATIENT COMMENT** MISC XX SCH (20:00)
[2018-07-02] MEDS: SLF 3 ML SYR IV SCH (22:00)
[2018-07-02] MEDS: ACETAMINOPHEN TAB 650MG DOSE (2X325MG) PO PRN (22:50)
[2018-07-02 23:19] LABS: HEMATOCRIT 46.5 % (42.0-52.0); HEMOGLOBIN 15.5 g/dl (13.5-17.5)
[2018-07-02 23:31] LABS: PARTIAL THROMBOPLASTIN TIME 34.3 SECONDS (25.4-37.6)
[2018-07-03] VITALS (20 sets, daily range): BP systolic 104–164; BP diastolic 55–85
[2018-07-03] MEDS: ACETAMINOPHEN TAB 650MG DOSE (2X325MG) PO PRN (04:38)
[2018-07-03] MEDS: SLF 3 ML SYR IV SCH ×3 (05:14→20:31)
[2018-07-03 05:54] LABS: HEMATOCRIT 46.3 % (42.0-52.0); HEMOGLOBIN 15.4 g/dl (13.5-17.5); MEAN CORPUSCULAR HEMOGLOBIN 32.3 pg (27.0-33.0); MEAN CORPUSCULAR HGB CONC 33.3 g/dl (32.0-36.5); MEAN CORPUSCULAR VOLUME 97.1 fl (80.0-96.0); PLATELET COUNT, AUTOMATED 115 10^3/uL (150-450); RED BLOOD COUNT 4.77 10^6/uL (4.30-6.10); WHITE BLOOD COUNT 6.4 10^3/uL (4.0-10.0)
[2018-07-03 06:16] LABS: BLOOD UREA NITROGEN 24 MG/DL (7-18); CALCIUM LEVEL 8.2 MG/DL (8.8-10.2); CARBON DIOXIDE LEVEL 24 MEQ/L (21-32); CHLORIDE LEVEL 109 MEQ/L (98-107); CREATININE FOR GFR 0.86 MG/DL (0.70-1.30); GLOMERULAR FILTRATION RATE > 60.0 (>42); GLUCOSE, FASTING 134 MG/DL (70-100); POTASSIUM SERUM 4.2 MEQ/L (3.5-5.1); SODIUM LEVEL 141 MEQ/L (136-145)
[2018-07-03 06:47] LABS: PARTIAL THROMBOPLASTIN TIME 39.4 SECONDS (25.4-37.6)
--- NOTE | 2018-07-03 09:14 | IPNPDOC ---
Subjective Date Seen The patient was seen on 07/03/18. Subjective Chief Complaint/HPI C/o numbness in RLE, not comfortable for bedridden but understand it is necessary for his Tx Objective Physical Examination General Exam: Positive: Alert, Cooperative, Mild Distress Eye Exam: Positive: PERRLA, Conjunctiva & lids normal, EOMI ENT Exam: Positive: Atraumatic Neck Exam: Positive: Supple; Negative: JVD, +2 carotid pulse wo bruit Chest Exam: Positive: Clear to auscultation, Normal air movement; Negative: Rales, Rhonchi, Wheezing, Diminished, Other Heart Exam: Positive: Rate Normal, Normal S1, Normal S2, Other (PP: Rt PT and DP audible with strong flow, biphasic, Lt DP and PT biphasic) Abdomen Exam: Positive: Normal bowel sounds, Soft; Negative: Tenderness, Mass Extremity Exam: Positive: Tenderness (RLE below knee improved, +numbnss), Other (RLE: Rt foot warm and toes returned normal color. LLE: no C/C/E, nontender but has been cold); Negative: Clubbing, Cyanosis, Edema, Normal pulses, Swelling Neuro Exam: Positive: Strength at 5/5 X4 ext, Cranial Nerves 3-12 NL Psych Exam: Positive: Mood NL, Oriented x 3 Assessment /Plan Assessment Severe PVD with acute RLE ischemia on thrombolysis, significantly improved with strong distal flow biphasic Plan/VTE VTE Prophylaxis Ordered?: Yes Plan Continue thrombolysis Keep NPO Will proceed with angiogram today VS, I&O, 24H, Fishbone Vital Signs/I&O Vital Signs Date Time Temp Pulse Resp B/P (MAP) Pulse Ox O2 Delivery O2 Flow Rate FiO2 07/03/18 06:00 78 117/76 (90) 96 Room Air 07/03/18 04:00 97.6 20 I&O- Last 24 Hours up to 6 AM 07/03/18 06:00 Intake Total 1109 ml Output Total 1220 ml Balance -111 ml Laboratory Data 24H LABS Laboratory Tests 2 07/02/18 12:13: Activated Partial Thromboplast Time 46.4H, Fibrinogen 339 07/02/18 17:56: Activated Partial Thromboplast Time 35.8, Fibrinogen 337 07/02/18 23:10: Activated Partial Thromboplast Time 34.3, Fibrinogen 352 07/03/18 05:38: Activated Partial Thromboplast Time 39.4H, Fibrinogen 348, Nucleated Red Blood Cells % (auto) 0.0, Anion Gap 8, Glomerular Filtration Rate > 60.0, Blood Urea Nitrogen 24H, Creatinine 0.86, Sodium Level 141, Potassium Level 4.2, Chloride Level 109H, Carbon Dioxide Level 24, Calcium Level 8.2L CBC/BMP Laboratory Tests 07/02/18 12:13 07/02/18 17:56 07/02/18 23:10 07/03/18 05:38 Red Blood Count 4.77, Mean Corpuscular Volume 97.1 H, Mean Corpuscular Hemoglobin 32.3, Mean Corpuscular Hemoglobin Concent 33.3, Red Cell Distribution Width 12.5, Calcium Level 8.2 L JEANNETTE TOMLINSON PA-C Jul 03, 2018 09:14
[2018-07-03] MEDS: LOSARTAN 50 MG TAB PO SCH (09:16)
[2018-07-03] MEDS: NITROGLYCERIN 0.4 MG/HR PATCH TD SCH (09:16)
[2018-07-03] MEDS: BACLOFEN 10 MG TAB PO SCH ×2 (09:16→20:27)
[2018-07-03] MEDS: ASPIRIN 81 MG ENTERIC TAB PO SCH (09:17)
[2018-07-03] MEDS: amLODIPine 5 MG TAB PO SCH (09:17)
[2018-07-03] MEDS: ATENOLOL 25 MG TAB PO SCH (09:17)
[2018-07-03] MEDS: DOCUSATE SODIUM 100 MG CAP PO SCH ×2 (09:17→20:27)
[2018-07-03] MEDS: ASCORBIC ACID 500 MG TAB PO SCH (09:17)
[2018-07-03] MEDS: MULTIVITAMINS/MINERALS THERAP 1 TAB PO SCH (09:17)
[2018-07-03] MEDS: CLOPIDOGREL 75 MG TAB PO SCH (09:18)
[2018-07-03] MEDS ORDERED: fentaNYL 100 MCG/2 ML INJECTION (J3010) As Ordered ONE (12:17)
[2018-07-03] MEDS ORDERED: MIDAZOLAM INJ 2 MG/2 ML VIAL (J2250) As Ordered ONE (12:17)
[2018-07-03] MEDS ORDERED: ISOVUE-300 61% 50ML VIAL (Q9967) As Ordered ONE (12:18)
[2018-07-03] MEDS ORDERED: LIDOCAINE 2% MDV 20 ML VIAL As Ordered ONE (12:18)
[2018-07-03] MEDS ORDERED: HEPARIN 1,000 UNITS/ML 10ML VIAL (FOR RADIOLOGY& DIALYSIS ONLY) As Ordered ONE (12:55)
[2018-07-03] MEDS: PERCOCET 5MG/325MG TAB PO PRN (18:20)
[2018-07-03] MEDS: **NOTE PATIENT COMMENT** MISC XX SCH (20:00)
[2018-07-04] VITALS (10 sets, daily range): BP systolic 118–150; BP diastolic 60–91
[2018-07-04] MEDS: PERCOCET 5MG/325MG TAB PO PRN ×3 (01:22→20:59)
[2018-07-04 04:30] LABS: HEMOGLOBIN 14.8 g/dl (13.5-17.5); MEAN CORPUSCULAR HEMOGLOBIN 32.7 pg (27.0-33.0); MEAN CORPUSCULAR HGB CONC 33.6 g/dl (32.0-36.5); MEAN CORPUSCULAR VOLUME 97.1 fl (80.0-96.0); PLATELET COUNT, AUTOMATED 104 10^3/uL (150-450); RED BLOOD COUNT 4.53 10^6/uL (4.30-6.10); WHITE BLOOD COUNT 7.6 10^3/uL (4.0-10.0)
[2018-07-04 04:50] LABS: BLOOD UREA NITROGEN 30 MG/DL (7-18); CALCIUM LEVEL 8.2 MG/DL (8.8-10.2); CARBON DIOXIDE LEVEL 25 MEQ/L (21-32); CHLORIDE LEVEL 111 MEQ/L (98-107); CREATININE FOR GFR 0.86 MG/DL (0.70-1.30); GLOMERULAR FILTRATION RATE > 60.0 (>42); GLUCOSE, FASTING 132 MG/DL (70-100); POTASSIUM SERUM 4.4 MEQ/L (3.5-5.1); SODIUM LEVEL 142 MEQ/L (136-145)
[2018-07-04] MEDS: SLF 3 ML SYR IV SCH ×3 (06:00→20:59)
[2018-07-04] MEDS: CLOPIDOGREL 75 MG TAB PO SCH (09:22)
[2018-07-04] MEDS: BACLOFEN 10 MG TAB PO SCH ×2 (09:22→20:59)
[2018-07-04] MEDS: ASPIRIN 81 MG ENTERIC TAB PO SCH (09:22)
[2018-07-04] MEDS: MULTIVITAMINS/MINERALS THERAP 1 TAB PO SCH (09:22)
[2018-07-04] MEDS: DOCUSATE SODIUM 100 MG CAP PO SCH ×2 (09:23→20:58)
[2018-07-04] MEDS: NITROGLYCERIN 0.4 MG/HR PATCH TD SCH (09:23)
[2018-07-04] MEDS: ASCORBIC ACID 500 MG TAB PO SCH (09:23)
[2018-07-04] MEDS: LOSARTAN 50 MG TAB PO SCH (09:24)
[2018-07-04] MEDS: amLODIPine 5 MG TAB PO SCH (09:24)
[2018-07-04] MEDS: ATENOLOL 25 MG TAB PO SCH (09:24)
[2018-07-04] MEDS: **NOTE PATIENT COMMENT** MISC XX SCH (20:00)
--- NOTE | 2018-07-04 22:39 | ROOPDOC ---
Hiren Mcdonough MD Jul 04, 2018 22:38
--- NOTE | 2018-07-04 22:39 | ROOPDOC ---
Hiren Mcdonough MD Jul 04, 2018 22:39
--- NOTE | 2018-07-04 22:40 | IPNPDOC ---
Subjective General Date/Time Seen The patient was seen on 07/04/18 at 22:39. Subject Chief Complaint/History The patient is a 72-year-old male admitted with a reason for visit of Peripheral Vascular Disease. Patient without complaints is beginning to ambulate and feels better. Current Medications Current Medications Current Medications Acetaminophen (Tylenol Tab) 650 mg Q6HP PRN PO PAIN Last administered on 07/03/18at 04:38; Start 07/02/18 at 22:45 Alteplase, Recombinant 25 mg/ Sodium Chloride 250 ml @ 10 mls/hr Q24H IV Last administered on 07/02/18at 11:05; Start 07/01/18 at 13:00; Stop 07/03/18 at 15:25; Status DC Amlodipine Besylate (Norvasc) 5 mg DAILY PO Last administered on 07/04/18at 09:24; Start 07/01/18 at 09:00 Ascorbic Acid (Vitamin C) 500 mg DAILY PO Last administered on 07/04/18at 09:23; Start 07/01/18 at 09:00 Aspirin (Ecotrin) 81 mg DAILY PO Last administered on 07/04/18at 09:22; Start 07/01/18 at 09:00 Atenolol (Tenormin) 25 mg DAILY PO Last administered on 07/04/18at 09:24; Start 07/01/18 at 09:00 Baclofen (Lioresal) 10 mg BID PO Last administered on 07/04/18at 20:59; Start 07/01/18 at 09:00 Clopidogrel Bisulfate (PLAVix) 75 mg DAILY PO Last administered on 07/04/18at 09:22; Start 07/01/18 at 09:00 Docusate Sodium (Colace) 100 mg BID PO Last administered on 07/04/18at 20:58; Start 07/01/18 at 09:00 Docusate Sodium (Colace) 100 mg BIDP PRN PO CONSTIPATION; Start 07/01/18 at 02:15; Stop 07/01/18 at 02:57; Status DC Heparin Sodium (Porcine) (Heparin) ASDIRECTED PRN IV SEE LABEL COMMENTS; Start 06/30/18 at 15:15; Stop 07/01/18 at 12:20; Status DC Heparin Sodium (Porcine) 87370 units/IV Miscellaneous Supplies 250 ml @ 0 mls/hr Q0M IV Last administered on 07/01/18at 09:48; Start 06/30/18 at 15:09; Stop 07/01/18 at 12:20; Status DC Heparin Sodium (Porcine) 00435 units/IV Miscellaneous Supplies 250 ml @ 9 mls/hr Q24H IV Last administered on 07/02/18at 11:06; Start 07/01/18 at 12:30; Stop 07/03/18 at 15:25; Status DC Home Med (Med Rec Complete!) ASDIRECTED XX ; Start 06/30/18 at 14:15; Stop 1 at 14:15; Status DC Losartan Potassium (Cozaar) 100 mg DAILY PO Last administered on 07/04/18at 09:24; Start 07/01/18 at 09:00 Multivitamins (Theragram-M) 1 tab DAILY PO Last administered on 07/04/18at 09:22; Start 07/01/18 at 09:00 Nitroglycerin (Nitrodur 0.4 Mg/ Hr) 1 patch DAILY@0800 TD Last administered on 07/04/18at 09:23; Start 07/01/18 at 08:00 Non-Formulary Medication ( See Comment Field Below ) DAILY@2000 XX Last administered on 07/04/18at 20:00; Start 07/01/18 at 20:00 Non-Formulary Medication (Heparin Iv Rate Change Documentation ml/ Hr) ASDIRECTED XX ; Start 06/30/18 at 15:00; Stop 06/30/18 at 15:25; Status DC Non-Formulary Medication (Heparin Iv Rate Change Documentation ml/ Hr) ASDIRECTED XX ; Start 06/30/18 at 15:15; Stop 07/01/18 at 12:20; Status DC Oxycodone/ Acetaminophen (Percocet 5mg/ 325mg Tablet) 1 tab BID PRN PO PAIN Last administered on 07/01/18at 20:17; Start 07/01/18 at 02:15; Stop 07/02/18 at 00:48; Status DC Oxycodone/ Acetaminophen (Percocet 5mg/ 325mg Tablet) 1 tab Q4HP PRN PO PAIN Last administered on 07/04/18at 20:59; Start 07/02/18 at 01:00 Sodium Chloride 1,000 ml @ 200 mls/hr Q5H IV Last administered on 06/30/18at 22:30; Start 06/30/18 at 10:00; Stop 07/01/18 at 02:37; Status DC Sodium Chloride (Saline Lock Flush) 2 ml ASDIRECTED PRN IV SEE LABEL COMMENTS; Start 07/02/18 at 17:15 Sodium Chloride (Saline Lock Flush) 2 ml SLF IV Last administered on 07/04/18at 20:59; Start 07/02/18 at 22:00 Allergies Coded Allergies: Latex (Verified Allergy, Severe, RED BLOTCHES AND SOB, 12/02/12) VITAL SIGNS VITAL SIGNS Vital Signs Date Time Temp Pulse Resp B/P (MAP) Pulse Ox O2 Delivery O2 Flow Rate FiO2 07/04/18 22:00 97.7 75 20 130/66 (87) 96 Room Air 07/04/18 21:29 16 Room Air 07/04/18 20:59 20 Room Air 07/04/18 16:30 97.8 78 18 121/68 (85) 95 07/04/18 13:00 97.7 73 18 118/60 (79) 95 Room Air 07/04/18 12:01 22 07/04/18 09:24 110 07/04/18 09:23 144/87 07/04/18 09:00 80 20 144/87 (106) 96 Room Air 07/04/18 07:00 97.4 105 20 149/68 (95) 96 Room Air 07/04/18 06:00 81 18 130/73 (92) 96 Room Air 07/04/18 05:00 79 19 118/82 (94) 95 Room Air 07/04/18 04:00 97.8 76 17 118/64 (82) 96 Room Air 07/04/18 03:30 79 18 118/72 (87) 97 Room Air 07/04/18 01:22 106 18 138/84 98 Room Air 07/04/18 00:00 98.0 74 21 150/91 (110) 98 Room Air 07/03/18 23:00 82 21 138/84 (102) 98 Room Air Intake & Output 07/04/18 05:59 Intake Total 739 ml Output Total 1025 ml Balance -286 ml Laboratory Tests 07/04/18 04:22: White Blood Count 7.6, Red Blood Count 4.53, Hemoglobin 14.8, Hematocrit 44.0, Mean Corpuscular Volume 97.1H, Mean Corpuscular Hemoglobin 32.7, Mean Corpuscular Hemoglobin Concent 33.6, Red Cell Distribution Width 12.8, Platelet Count 104L, Nucleated Red Blood Cells % (auto) 0.0, Blood Urea Nitrogen 30H, Creatinine 0.86, Sodium Level 142, Potassium Level 4.4, Chloride Level 111H, Carbon Dioxide Level 25, Calcium Level 8.2L, Anion Gap 6L, Glomerular Filtration Rate > 60.0, Fasting Glucose 132H Current Medications Medications (Trade) Dose Ordered Sig/Soraida Route PRN Reason Start Time Stop Time Status Last Admin Dose Admin Acetaminophen (Tylenol Tab) 650 mg Q6HP PRN PO PAIN 07/02/18 22:45 07/03/18 04:38 Amlodipine Besylate (Norvasc) 5 mg DAILY PO 07/01/18 09:00 07/04/18 09:24 Ascorbic Acid (Vitamin C) 500 mg DAILY PO 07/01/18 09:00 07/04/18 09:23 Aspirin (Ecotrin) 81 mg DAILY PO 07/01/18 09:00 07/04/18 09:22 Atenolol (Tenormin) 25 mg DAILY PO 07/01/18 09:00 07/04/18 09:24 Baclofen (Lioresal) 10 mg BID PO 07/01/18 09:00 07/04/18 20:59 Clopidogrel Bisulfate (PLAVix) 75 mg DAILY PO 07/01/18 09:00 07/04/18 09:22 Docusate Sodium (Colace) 100 mg BID PO 07/01/18 09:00 07/04/18 20:58 Losartan Potassium (Cozaar) 100 mg DAILY PO 07/01/18 09:00 07/04/18 09:24 Multivitamins (Theragram-M) 1 tab DAILY PO 07/01/18 09:00 07/04/18 09:22 Nitroglycerin (Nitrodur 0.4 Mg/ Hr) 1 patch DAILY@0800 TD 07/01/18 08:00 07/04/18 09:23 Non-Formulary Medication ( See Comment Field Below ) DAILY@1999 XX 07/01/18 20:00 07/04/18 20:00 Oxycodone/ Acetaminophen (Percocet 5mg/ 325mg Tablet) 1 tab Q4HP PRN PO PAIN 07/02/18 01:00 07/04/18 20:59 Sodium Chloride (Saline Lock Flush) 2 ml SLF IV 07/02/18 22:00 07/04/18 20:59 Laboratory Tests 07/02/18 23:10 07/03/18 05:38 Red Blood Count 4.77, Mean Corpuscular Volume 97.1 H, Mean Corpuscular Hemoglobin 32.3, Mean Corpuscular Hemoglobin Concent 33.3, Red Cell Distribution Width 12.5, Calcium Level 8.2 L 07/04/18 04:22 Red Blood Count 4.53, Mean Corpuscular Volume 97.1 H, Mean Corpuscular Hemoglobin 32.7, Mean Corpuscular Hemoglobin Concent 33.6, Red Cell Distribution Width 12.8, Calcium Level 8.2 L Objective Physical Examination General Exam: Positive: Alert, Cooperative, Mild Distress Eye Exam: Positive: PERRLA, Conjunctiva & lids normal, EOMI ENT Exam: Positive: Atraumatic Neck Exam: Positive: Supple; Negative: JVD, +2 carotid pulse wo bruit Chest Exam: Positive: Clear to auscultation, Normal air movement; Negative: Rales, Rhonchi, Wheezing, Diminished, Other Heart Exam: Positive: Rate Normal, Normal S1, Normal S2, Other (PP: Rt PT and DP audible with strong flow, biphasic, Lt DP and PT biphasic) Abdomen Exam: Positive: Normal bowel sounds, Soft; Negative: Tenderness, Mass Extremity Exam: Positive: Tenderness (RLE below knee improved, +numbnss), Other (RLE: Rt foot warm and toes returned normal color. LLE: no C/C/E, nontender but has been cold); Negative: Clubbing, Cyanosis, Edema, Normal pulses, Swelling Neuro Exam: Positive: Strength at 5/5 X4 ext, Cranial Nerves 3-12 NL Psych Exam: Positive: Mood NL, Oriented x 3 Assessment/Plan Assessment Right lower extremity is well-perfused. Pain is well controlled. Patient has begun to work with physical therapy and is aiming towards discharge in the next 2-3 days. Plan Continue to work with physical therapy with possible discharge in the next 2-3 days. Hiren Mcdonough MD Jul 04, 2018 22:40
[2018-07-05] MEDS: SLF 3 ML SYR IV SCH ×3 (05:07→20:57)
[2018-07-05 05:52] LABS: HEMATOCRIT 42.2 % (42.0-52.0); HEMOGLOBIN 13.6 g/dl (13.5-17.5); MEAN CORPUSCULAR HEMOGLOBIN 32.6 pg (27.0-33.0); MEAN CORPUSCULAR HGB CONC 32.2 g/dl (32.0-36.5); MEAN CORPUSCULAR VOLUME 101.2 fl (80.0-96.0); PLATELET COUNT, AUTOMATED 105 10^3/uL (150-450); RED BLOOD COUNT 4.17 10^6/uL (4.30-6.10)
[2018-07-05 06:00] VITALS: BP 136/72
[2018-07-05 06:17] LABS: BLOOD UREA NITROGEN 32 MG/DL (7-18); CALCIUM LEVEL 8.4 MG/DL (8.8-10.2); CARBON DIOXIDE LEVEL 22 MEQ/L (21-32); CHLORIDE LEVEL 115 MEQ/L (98-107); CREATININE FOR GFR 0.97 MG/DL (0.70-1.30); GLOMERULAR FILTRATION RATE > 60.0 (>42); GLUCOSE, FASTING 132 MG/DL (70-100); POTASSIUM SERUM 4.6 MEQ/L (3.5-5.1); SODIUM LEVEL 144 MEQ/L (136-145)
[2018-07-05] MEDS: DOCUSATE SODIUM 100 MG CAP PO SCH ×2 (08:37→20:56)
[2018-07-05] MEDS: MULTIVITAMINS/MINERALS THERAP 1 TAB PO SCH (08:37)
[2018-07-05] MEDS: NITROGLYCERIN 0.4 MG/HR PATCH TD SCH (08:37)
[2018-07-05] MEDS: ATENOLOL 25 MG TAB PO SCH (08:37)
[2018-07-05] MEDS: CLOPIDOGREL 75 MG TAB PO SCH (08:38)
[2018-07-05] MEDS: amLODIPine 5 MG TAB PO SCH (08:38)
[2018-07-05] MEDS: BACLOFEN 10 MG TAB PO SCH ×2 (08:38→20:56)
[2018-07-05] MEDS: ASPIRIN 81 MG ENTERIC TAB PO SCH (08:38)
[2018-07-05] MEDS: LOSARTAN 50 MG TAB PO SCH (08:39)
[2018-07-05] MEDS: ASCORBIC ACID 500 MG TAB PO SCH (08:39)
[2018-07-05] MEDS: PERCOCET 5MG/325MG TAB PO PRN (08:40)
[2018-07-05 14:00] VITALS: BP 135/75
[2018-07-05] MEDS: ACETAMINOPHEN TAB 650MG DOSE (2X325MG) PO PRN (15:04)
[2018-07-05] MEDS: **NOTE PATIENT COMMENT** MISC XX SCH (20:57)
[2018-07-05 22:00] VITALS: BP 141/72
--- NOTE | 2018-07-05 22:43 | IPNPDOC ---
Subjective General Date/Time Seen The patient was seen on 07/05/18 at 22:42. Subject Chief Complaint/History The patient is a 72-year-old male admitted with a reason for visit of Peripheral Vascular Disease. Current Medications Current Medications Current Medications Acetaminophen (Tylenol Tab) 650 mg Q6HP PRN PO PAIN Last administered on 07/05/18at 15:04; Start 07/02/18 at 22:45 Alteplase, Recombinant 25 mg/ Sodium Chloride 250 ml @ 10 mls/hr Q24H IV Last administered on 07/02/18at 11:05; Start 07/01/18 at 13:00; Stop 07/03/18 at 15:25; Status DC Amlodipine Besylate (Norvasc) 5 mg DAILY PO Last administered on 07/05/18at 08:38; Start 07/01/18 at 09:00 Ascorbic Acid (Vitamin C) 500 mg DAILY PO Last administered on 07/05/18at 08:39; Start 07/01/18 at 09:00 Aspirin (Ecotrin) 81 mg DAILY PO Last administered on 07/05/18at 08:38; Start 07/01/18 at 09:00 Atenolol (Tenormin) 25 mg DAILY PO Last administered on 07/05/18at 08:37; Start 07/01/18 at 09:00 Baclofen (Lioresal) 10 mg BID PO Last administered on 07/05/18at 20:56; Start 07/01/18 at 09:00 Clopidogrel Bisulfate (PLAVix) 75 mg DAILY PO Last administered on 07/05/18at 08:38; Start 07/01/18 at 09:00 Docusate Sodium (Colace) 100 mg BID PO Last administered on 07/05/18at 20:56; Start 07/01/18 at 09:00 Docusate Sodium (Colace) 100 mg BIDP PRN PO CONSTIPATION; Start 07/01/18 at 02:15; Stop 07/01/18 at 02:57; Status DC Heparin Sodium (Porcine) (Heparin) ASDIRECTED PRN IV SEE LABEL COMMENTS; Start 06/30/18 at 15:15; Stop 07/01/18 at 12:20; Status DC Heparin Sodium (Porcine) 88482 units/IV Miscellaneous Supplies 250 ml @ 0 mls/hr Q0M IV Last administered on 07/01/18at 09:48; Start 06/30/18 at 15:09; Stop 07/01/18 at 12:20; Status DC Heparin Sodium (Porcine) 99493 units/IV Miscellaneous Supplies 250 ml @ 9 mls/hr Q24H IV Last administered on 07/02/18at 11:06; Start 07/01/18 at 12:30; Stop 07/03/18 at 15:25; Status DC Home Med (Med Rec Complete!) ASDIRECTED XX ; Start 06/30/18 at 14:15; Stop 06/30/18 at 14:15; Status DC Losartan Potassium (Cozaar) 100 mg DAILY PO Last administered on 07/05/18at 08:39; Start 07/01/18 at 09:00 Multivitamins (Theragram-M) 1 tab DAILY PO Last administered on 07/05/18at 08:37; Start 07/01/18 at 09:00 Nitroglycerin (Nitrodur 0.4 Mg/ Hr) 1 patch DAILY@0800 TD Last administered on 07/05/18at 08:37; Start 07/01/18 at 08:00 Non-Formulary Medication ( See Comment Field Below ) DAILY@2000 XX Last administered on 07/05/18at 20:57; Start 07/01/18 at 20:00 Non-Formulary Medication (Heparin Iv Rate Change Documentation ml/ Hr) ASDIRECTED XX ; Start 06/30/18 at 15:00; Stop 06/30/18 at 15:25; Status DC Non-Formulary Medication (Heparin Iv Rate Change Documentation ml/ Hr) ASDIRECTED XX ; Start 06/30/18 at 15:15; Stop 07/01/18 at 12:20; Status DC Oxycodone/ Acetaminophen (Percocet 5mg/ 325mg Tablet) 1 tab BID PRN PO PAIN Last administered on 07/01/18at 20:17; Start 07/01/18 at 02:15; Stop 07/02/18 at 00:48; Status DC Oxycodone/ Acetaminophen (Percocet 5mg/ 325mg Tablet) 1 tab Q4HP PRN PO PAIN Last administered on 07/05/18at 08:40; Start 07/02/18 at 01:00 Sodium Chloride 1,000 ml @ 200 mls/hr Q5H IV Last administered on 06/30/18at 22:30; Start 06/30/18 at 10:00; Stop 07/01/18 at 02:37; Status DC Sodium Chloride (Saline Lock Flush) 2 ml ASDIRECTED PRN IV SEE LABEL COMMENTS; Start 07/02/18 at 17:15 Sodium Chloride (Saline Lock Flush) 2 ml SLF IV Last administered on 07/05/18at 20:57; Start 07/02/18 at 22:00 Allergies Coded Allergies: Latex (Verified Allergy, Severe, RED BLOTCHES AND SOB, 12/02/12) VITAL SIGNS VITAL SIGNS Vital Signs Date Time Temp Pulse Resp B/P (MAP) Pulse Ox O2 Delivery O2 Flow Rate FiO2 07/05/18 14:00 97.5 98 19 135/75 (95) 97 Room Air 07/05/18 09:10 18 07/05/18 08:40 18 07/05/18 08:39 136/72 07/05/18 08:38 98 136/72 07/05/18 08:37 136/72 07/05/18 08:37 98 136/72 07/05/18 06:00 97.7 98 20 136/72 (93) 96 Room Air Intake & Output 07/05/18 06:00 Intake Total 1320 ml Output Total 775 ml Balance 545 ml Laboratory Tests 07/05/18 05:33: White Blood Count 7.0, Red Blood Count 4.17L, Hemoglobin 13.6, Hematocrit 42.2, Mean Corpuscular Volume 101.2H, Mean Corpuscular Hemoglobin 32.6, Mean Corpuscular Hemoglobin Concent 32.2, Red Cell Distribution Width 13.1, Platelet Count 105L, Nucleated Red Blood Cells % (auto) 0.0, Blood Urea Nitrogen 32H, Creatinine 0.97, Sodium Level 144, Potassium Level 4.6, Chloride Level 115H, Carbon Dioxide Level 22, Calcium Level 8.4L, Anion Gap 7L, Glomerular Filtration Rate > 60.0, Fasting Glucose 132H Current Medications Medications (Trade) Dose Ordered Sig/Soraida Route PRN Reason Start Time Stop Time Status Last Admin Dose Admin Acetaminophen (Tylenol Tab) 650 mg Q6HP PRN PO PAIN 07/02/18 22:45 07/05/18 15:04 Amlodipine Besylate (Norvasc) 5 mg DAILY PO 10/31/18 09:00 07/05/18 08:38 Ascorbic Acid (Vitamin C) 500 mg DAILY PO 07/01/18 09:00 07/05/18 08:39 Aspirin (Ecotrin) 81 mg DAILY PO 07/01/18 09:00 07/05/18 08:38 Atenolol (Tenormin) 25 mg DAILY PO 07/01/18 09:00 07/05/18 08:37 Baclofen (Lioresal) 10 mg BID PO 07/01/18 09:00 07/05/18 20:56 Clopidogrel Bisulfate (PLAVix) 75 mg DAILY PO 07/01/18 09:00 07/05/18 08:38 Docusate Sodium (Colace) 100 mg BID PO 07/01/18 09:00 07/05/18 20:56 Losartan Potassium (Cozaar) 100 mg DAILY PO 07/01/18 09:00 07/05/18 08:39 Multivitamins (Theragram-M) 1 tab DAILY PO 07/01/18 09:00 07/05/18 08:37 Nitroglycerin (Nitrodur 0.4 Mg/ Hr) 1 patch DAILY@0800 TD 07/01/18 08:00 07/05/18 08:37 Non-Formulary Medication ( See Comment Field Below ) DAILY@1999 XX 07/01/18 20:00 07/05/18 20:57 Oxycodone/ Acetaminophen (Percocet 5mg/ 325mg Tablet) 1 tab Q4HP PRN PO PAIN 07/02/18 01:00 07/05/18 08:40 Sodium Chloride (Saline Lock Flush) 2 ml SLF IV 07/02/18 22:00 07/05/18 20:57 Laboratory Tests 07/04/18 04:22 Red Blood Count 4.53, Mean Corpuscular Volume 97.1 H, Mean Corpuscular Hemoglobin 32.7, Mean Corpuscular Hemoglobin Concent 33.6, Red Cell Distribution Width 12.8, Calcium Level 8.2 L 07/05/18 05:33 Red Blood Count 4.17 L, Mean Corpuscular Volume 101.2 H, Mean Corpuscular Hemog lobin 32.6, Mean Corpuscular Hemoglobin Concent 32.2, Red Cell Distribution Width 13.1, Calcium Level 8.4 L Objective Physical Examination General Exam: Positive: Alert, Cooperative, Mild Distress Eye Exam: Positive: PERRLA, Conjunctiva & lids normal, EOMI ENT Exam: Positive: Atraumatic Neck Exam: Positive: Supple; Negative: JVD, +2 carotid pulse wo bruit Chest Exam: Positive: Clear to auscultation, Normal air movement; Negative: Rales, Rhonchi, Wheezing, Diminished, Other Heart Exam: Positive: Rate Normal, Normal S1, Normal S2, Other (PP: Rt PT and DP audible with strong flow, biphasic, Lt DP and PT biphasic) Abdomen Exam: Positive: Normal bowel sounds, Soft; Negative: Tenderness, Mass Extremity Exam: Positive: Tenderness (RLE below knee improved, +numbnss), Other (RLE: Rt foot warm and toes returned normal color. 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 Plan Continue with physical therapy possible discharge next 24-48 hours. Hiren Mcdonough MD Jul 05, 2018 22:43
[2018-07-06] MEDS: SLF 3 ML SYR IV SCH ×3 (06:00→21:14)
[2018-07-06 06:15] LABS: HEMATOCRIT 42.2 % (42.0-52.0); HEMOGLOBIN 13.5 g/dl (13.5-17.5); MEAN CORPUSCULAR HEMOGLOBIN 32.3 pg (27.0-33.0); PLATELET COUNT, AUTOMATED 119 10^3/uL (150-450); RED BLOOD COUNT 4.18 10^6/uL (4.30-6.10); WHITE BLOOD COUNT 6.6 10^3/uL (4.0-10.0)
[2018-07-06 06:31] LABS: BLOOD UREA NITROGEN 34 MG/DL (7-18); CALCIUM LEVEL 8.4 MG/DL (8.8-10.2); CARBON DIOXIDE LEVEL 30 MEQ/L (21-32); CHLORIDE LEVEL 110 MEQ/L (98-107); CREATININE FOR GFR 1.05 MG/DL (0.70-1.30); GLOMERULAR FILTRATION RATE > 60.0 (>42); GLUCOSE, FASTING 121 MG/DL (70-100); POTASSIUM SERUM 4.2 MEQ/L (3.5-5.1); SODIUM LEVEL 145 MEQ/L (136-145)
[2018-07-06] MEDS: NITROGLYCERIN 0.4 MG/HR PATCH TD SCH (09:20)
[2018-07-06] MEDS: DOCUSATE SODIUM 100 MG CAP PO SCH ×2 (09:20→21:00)
[2018-07-06] MEDS: ASPIRIN 81 MG ENTERIC TAB PO SCH (09:20)
[2018-07-06] MEDS: LOSARTAN 50 MG TAB PO SCH (09:21)
[2018-07-06] MEDS: ATENOLOL 25 MG TAB PO SCH (09:21)
[2018-07-06] MEDS: BACLOFEN 10 MG TAB PO SCH ×2 (09:22→21:14)
[2018-07-06] MEDS: MULTIVITAMINS/MINERALS THERAP 1 TAB PO SCH (09:22)
[2018-07-06] MEDS: amLODIPine 5 MG TAB PO SCH (09:22)
[2018-07-06] MEDS: CLOPIDOGREL 75 MG TAB PO SCH (09:22)
[2018-07-06] MEDS: ASCORBIC ACID 500 MG TAB PO SCH (09:22)
[2018-07-06 14:00] VITALS: BP 119/60
--- NOTE | 2018-07-06 15:05 | IPNPDOC ---
Subjective Date Seen The patient was seen on 07/06/18. Subjective Chief Complaint/HPI Feeling better, OOB, up to chair, ambulate, +flatus, no BM yet. Objective Physical Examination General Exam: Positive: Alert, Cooperative, Mild Distress Eye Exam: Positive: PERRLA, Conjunctiva & lids normal, EOMI ENT Exam: Positive: Atraumatic Neck Exam: Positive: Supple; Negative: JVD, +2 carotid pulse wo bruit Chest Exam: Positive: Clear to auscultation, Normal air movement; Negative: Rales, Rhonchi, Wheezing, Diminished, Other Heart Exam: Positive: Rate Normal, Regular Rhythm, Normal S1, Normal S2, Other (PP: All audible biphasic and strong flow); Negative: Irregular Rhythm, Gallops, Murmurs, Rubs Abdomen Exam: Positive: BS Hyperactive, Soft, Other (very large elongated dark purple bruises across LLQ and pubic area, non tender); Negative: Tenderness, Mass Extremity Exam: Positive: Edema (Rt foot), Normal pulses, Tenderness (RLE below knee improved, +numbnss), Other (RLE: Rt foot warm and toes returned normal color. LLE: no C/C/E, nontender but has been cold); Negative: Clubbing, Cyanosis, Swelling Neuro Exam: Positive: Normal Speech, Strength at 5/5 X4 ext, Cranial Nerves 3- 12 NL Psych Exam: Positive: Mental status NL, Mood NL, Oriented x 3 Assessment /Plan Assessment Severe PVD with acute RLE ischemia, s/p RLE thrombolysis + angioplasty ans stenting of Rt PA aneurysm. Pt significantly improved with strong distal flow biphasic. Plan/VTE VTE Prophylaxis Ordered?: Yes Plan Continue current management per PMR PT Stool softener as directed May DC home in 2-3 days per PMR VS, I&O, 24H, Fishbone Vital Signs/I&O Vital Signs Date Time Temp Pulse Resp B/P (MAP) Pulse Ox O2 Delivery O2 Flow Rate FiO2 07/06/18 14:00 98.3 76 20 119/60 (79) 95 Room Air I&O- Last 24 Hours up to 6 AM 07/06/18 06:00 Intake Total 2140 ml Output Total 1750 ml Balance 390 ml Laboratory Data 24H LABS Laboratory Tests 2 07/06/18 05:40: Nucleated Red Blood Cells % (auto) 0.0, Anion Gap 5L, Glomerular Filtration Rate > 60.0, Blood Urea Nitrogen 34H, Creatinine 1.05, Sodium Level 145, Potassium Level 4.2, Chloride Level 110H, Carbon Dioxide Level 30, Calcium Level 8.4L CBC/BMP Laboratory Tests 07/06/18 05:40 Red Blood Count 4.18 L, Mean Corpuscular Volume 101.0 H, Mean Corpuscular Hemoglobin 32.3, Mean Corpuscular Hemoglobin Concent 32.0, Red Cell Distribution Width 12.9, Calcium Level 8.4 L JEANNETTE TOMLINSON PA-C Jul 06, 2018 15:05
[2018-07-06] MEDS: ACETAMINOPHEN TAB 650MG DOSE (2X325MG) PO PRN (15:40)
[2018-07-06] MEDS ORDERED: MOM 30ML SUSPENSION UDC PO PRN (19:30)
[2018-07-06] MEDS: **NOTE PATIENT COMMENT** MISC XX SCH (21:14)
[2018-07-06 22:00] VITALS: BP 120/66
[2018-07-07] MEDS: SLF 3 ML SYR IV SCH ×3 (05:33→20:09)
[2018-07-07 06:45] LABS: HEMATOCRIT 42.6 % (42.0-52.0); HEMOGLOBIN 13.8 g/dl (13.5-17.5); MEAN CORPUSCULAR HEMOGLOBIN 32.6 pg (27.0-33.0); MEAN CORPUSCULAR HGB CONC 32.4 g/dl (32.0-36.5); MEAN CORPUSCULAR VOLUME 100.7 fl (80.0-96.0); PLATELET COUNT, AUTOMATED 145 10^3/uL (150-450); RED BLOOD COUNT 4.23 10^6/uL (4.30-6.10)
[2018-07-07 07:03] LABS: BLOOD UREA NITROGEN 30 MG/DL (7-18); CALCIUM LEVEL 8.6 MG/DL (8.8-10.2); CARBON DIOXIDE LEVEL 30 MEQ/L (21-32); CHLORIDE LEVEL 108 MEQ/L (98-107); CREATININE FOR GFR 0.89 MG/DL (0.70-1.30); GLOMERULAR FILTRATION RATE > 60.0 (>42); GLUCOSE, FASTING 123 MG/DL (70-100); POTASSIUM SERUM 4.4 MEQ/L (3.5-5.1); SODIUM LEVEL 143 MEQ/L (136-145)
[2018-07-07] MEDS: NITROGLYCERIN 0.4 MG/HR PATCH TD SCH (09:58)
[2018-07-07] MEDS: DOCUSATE SODIUM 100 MG CAP PO SCH ×2 (09:59→20:00)
[2018-07-07] MEDS: ASCORBIC ACID 500 MG TAB PO SCH (09:59)
[2018-07-07] MEDS: MULTIVITAMINS/MINERALS THERAP 1 TAB PO SCH (09:59)
[2018-07-07] MEDS: BACLOFEN 10 MG TAB PO SCH ×2 (09:59→20:08)
[2018-07-07] MEDS: ATENOLOL 25 MG TAB PO SCH (10:00)
[2018-07-07] MEDS: amLODIPine 5 MG TAB PO SCH (10:00)
[2018-07-07] MEDS: CLOPIDOGREL 75 MG TAB PO SCH (10:00)
[2018-07-07] MEDS: ASPIRIN 81 MG ENTERIC TAB PO SCH (10:01)
[2018-07-07] MEDS: LOSARTAN 50 MG TAB PO SCH (10:02)
[2018-07-07 14:00] VITALS: BP 115/62
--- NOTE | 2018-07-07 16:02 | IPNPDOC ---
Subjective Date Seen The patient was seen on 07/07/18. Subjective Chief Complaint/HPI Doing good, no complaint. Take Tylenol only for pain control, ambulated x 3 w/o difficulty. Wanting to be discharged to home care on . Objective Physical Examination General Exam: Positive: Alert, Cooperative, Mild Distress Eye Exam: Positive: PERRLA, Conjunctiva & lids normal, EOMI ENT Exam: Positive: Atraumatic Neck Exam: Positive: Supple; Negative: JVD Chest Exam: Positive: Clear to auscultation, Normal air movement; Negative: Rales, Rhonchi, Wheezing, Diminished, Other Heart Exam: Positive: Rate Normal, Regular Rhythm, Normal S1, Normal S2, Other (PP: All audible biphasic and strong flow); Negative: Irregular Rhythm, Gallops, Murmurs, Rubs Abdomen Exam: Positive: Normal bowel sounds, Soft, Other (very large elongated dark purple bruises across LLQ and pubic area, non tender); Negative: Tenderness, Mass Extremity Exam: Positive: Normal pulses; Negative: Clubbing, Cyanosis, Edema Skin Exam: Positive: Nl turgor and temperature Neuro Exam: Positive: Normal Speech, Strength at 5/5 X4 ext, Cranial Nerves 3- 12 NL Psych Exam: Positive: Mental status NL, Mood NL, Oriented x 3 Assessment /Plan Assessment Severe PVD with acute RLE ischemia, s/p RLE thrombolysis + angioplasty and stenting of Rt PA aneurysm. Doing well w/o concern. Plan/VTE VTE Prophylaxis Ordered?: Yes Plan Continue current regimen. Continue PT. Increase ambulation as able. Plan to dc home /home care on . VS, I&O, 24H, Jacqueline Vital Signs/I&O Vital Signs Date Time Temp Pulse Resp B/P (MAP) Pulse Ox O2 Delivery O2 Flow Rate FiO2 07/07/18 10:00 100 136/72 07/06/18 22:00 96.7 18 97 Room Air I&O- Last 24 Hours up to 6 AM 07/07/18 06:00 Intake Total 840 ml Output Total 325 ml Balance 515 ml Laboratory Data 24H LABS Laboratory Tests 2 07/07/18 06:25: Nucleated Red Blood Cells % (auto) 0.0, Anion Gap 5L, Glomerular Filtration Rate > 60.0, Blood Urea Nitrogen 30H, Creatinine 0.89, Sodium Level 143, Potassium Level 4.4, Chloride Level 108H, Carbon Dioxide Level 30, Calcium Level 8.6L CBC/BMP Laboratory Tests 07/07/18 06:25 Red Blood Count 4.23 L, Mean Corpuscular Volume 100.7 H, Mean Corpuscular Hemoglobin 32.6, Mean Corpuscular Hemoglobin Concent 32.4, Red Cell Distribution Width 12.9, Calcium Level 8.6 L JEANNETTE TOMLINSON PA-C Jul 07, 2018 16:02
[2018-07-07] MEDS: ACETAMINOPHEN TAB 650MG DOSE (2X325MG) PO PRN (20:08)
[2018-07-07] MEDS: **NOTE PATIENT COMMENT** MISC XX SCH (20:10)
[2018-07-07 22:00] VITALS: BP 121/82
[2018-07-08] MEDS: SLF 3 ML SYR IV SCH ×3 (05:08→21:29)
[2018-07-08 06:00] VITALS: BP 127/78
[2018-07-08] MEDS: DOCUSATE SODIUM 100 MG CAP PO SCH ×2 (10:11→20:15)
[2018-07-08] MEDS: MULTIVITAMINS/MINERALS THERAP 1 TAB PO SCH (10:11)
[2018-07-08] MEDS: BACLOFEN 10 MG TAB PO SCH ×2 (10:11→20:14)
[2018-07-08] MEDS: ASCORBIC ACID 500 MG TAB PO SCH (10:11)
[2018-07-08] MEDS: NITROGLYCERIN 0.4 MG/HR PATCH TD SCH (10:11)
[2018-07-08] MEDS: ASPIRIN 81 MG ENTERIC TAB PO SCH (10:12)
[2018-07-08] MEDS: CLOPIDOGREL 75 MG TAB PO SCH (10:12)
[2018-07-08] MEDS: ATENOLOL 25 MG TAB PO SCH (10:13)
[2018-07-08] MEDS: amLODIPine 5 MG TAB PO SCH (10:13)
[2018-07-08] MEDS: LOSARTAN 50 MG TAB PO SCH (10:13)
[2018-07-08 14:00] VITALS: BP 139/72
--- NOTE | 2018-07-08 15:34 | IPNPDOC ---
Subjective Date Seen The patient was seen on 07/08/18. Subjective Chief Complaint/HPI Increased ambulation w/o intolerance. Wanting to be discharged to home care on Friday. Objective Physical Examination General Exam: Positive: Alert, Cooperative, Mild Distress Eye Exam: Positive: PERRLA, Conjunctiva & lids normal, EOMI ENT Exam: Positive: Atraumatic Neck Exam: Positive: Supple; Negative: JVD Chest Exam: Positive: Clear to auscultation, Normal air movement; Negative: Rales, Rhonchi, Wheezing, Diminished, Other Heart Exam: Positive: Rate Normal, Regular Rhythm, Normal S1, Normal S2, Other (PP: All audible biphasic and strong flow); Negative: Irregular Rhythm, Gallops, Murmurs, Rubs Abdomen Exam: Positive: Normal bowel sounds, Soft, Other (very large elongated dark purple bruises across LLQ and pubic area, non tender); Negative: Tenderness, Mass Extremity Exam: Positive: Normal pulses; Negative: Clubbing, Cyanosis, Edema Skin Exam: Positive: Nl turgor and temperature Neuro Exam: Positive: Normal Speech, Strength at 5/5 X4 ext, Cranial Nerves 3- 12 NL Psych Exam: Positive: Mental status NL, Mood NL, Oriented x 3 Assessment /Plan Assessment Severe PVD with acute RLE ischemia, s/p RLE thrombolysis + angioplasty and stenting of Rt PA aneurysm. Doing well w/o concern. Plan/VTE VTE Prophylaxis Ordered?: Yes Plan Continue current regimen Continue PT Planing to DC to home care on Friday VS, I&O, 24H, Fishbone Vital Signs/I&O Vital Signs Date Time Temp Pulse Resp B/P (MAP) Pulse Ox O2 Delivery O2 Flow Rate FiO2 07/08/18 14:00 98.3 80 16 139/72 (94) 95 Room Air I&O- Last 24 Hours up to 6 AM 07/08/18 06:00 Intake Total 1820 ml Output Total 200 ml Balance 1620 ml JEANNETTE TOMLINSON PA-C Jul 08, 2018 15:34
[2018-07-08] MEDS: **NOTE PATIENT COMMENT** MISC XX SCH (20:15)
[2018-07-08 22:00] VITALS: BP 133/75
[2018-07-09] MEDS: SLF 3 ML SYR IV SCH ×3 (05:19→20:28)
[2018-07-09 06:00] VITALS: BP 148/81
[2018-07-09] MEDS: CLOPIDOGREL 75 MG TAB PO SCH (08:51)
[2018-07-09] MEDS: BACLOFEN 10 MG TAB PO SCH ×2 (08:51→20:26)
[2018-07-09] MEDS: NITROGLYCERIN 0.4 MG/HR PATCH TD SCH (08:51)
[2018-07-09] MEDS: LOSARTAN 50 MG TAB PO SCH (08:51)
[2018-07-09] MEDS: DOCUSATE SODIUM 100 MG CAP PO SCH ×2 (08:52→20:26)
[2018-07-09] MEDS: ASCORBIC ACID 500 MG TAB PO SCH (08:52)
[2018-07-09] MEDS: ATENOLOL 25 MG TAB PO SCH (08:52)
[2018-07-09] MEDS: MULTIVITAMINS/MINERALS THERAP 1 TAB PO SCH (08:52)
[2018-07-09] MEDS: amLODIPine 5 MG TAB PO SCH (08:52)
[2018-07-09] MEDS: ASPIRIN 81 MG ENTERIC TAB PO SCH (08:52)
--- NOTE | 2018-07-09 11:33 | IPNPDOC ---
Subjective Date Seen The patient was seen on 07/09/18. Subjective Chief Complaint/HPI Doing good no c/o. Objective Physical Examination General Exam: Positive: Alert, Cooperative, No Acute Distress Eye Exam: Positive: PERRLA, Conjunctiva & lids normal, EOMI ENT Exam: Positive: Atraumatic Neck Exam: Positive: Supple Chest Exam: Positive: Clear to auscultation, Normal air movement Heart Exam: Positive: Rate Normal, Regular Rhythm, Normal S1, Normal S2, Other Abdomen Exam: Positive: Normal bowel sounds, Soft, Other (large black purple bruises from dissipating hematoma, nontender) Extremity Exam: Positive: Normal pulses; Negative: Clubbing, Cyanosis, Edema, Tenderness Skin Exam: Positive: Nl turgor and temperature Neuro Exam: Positive: Normal Speech, Strength at 5/5 X4 ext, Cranial Nerves 3- 12 NL Psych Exam: Positive: Mental status NL, Mood NL, Oriented x 3 Assessment /Plan Assessment Severe PVD with acute RLE ischemia, s/p RLE thrombolysis + angioplasty and stenting of Rt PA aneurysm. Continually improving. Plan/VTE VTE Prophylaxis Ordered?: Yes Plan Continue current regimen. Continue PT. Will DC to home care tomorrow. VS, I&O, 24H, Fishbone Vital Signs/I&O Vital Signs Date Time Temp Pulse Resp B/P (MAP) Pulse Ox O2 Delivery O2 Flow Rate FiO2 07/09/18 08:51 135/88 07/09/18 06:00 96.7 78 16 99 Room Air I&O- Last 24 Hours up to 6 AM 07/09/18 06:00 Intake Total 1320 ml Output Total 400 ml Balance 920 ml JEANNETTE TOMLINSON PA-C Jul 09, 2018 11:33
[2018-07-09 14:00] VITALS: BP 145/80
[2018-07-09] MEDS: **NOTE PATIENT COMMENT** MISC XX SCH (20:00)
[2018-07-09] MEDS: PERCOCET 5MG/325MG TAB PO PRN (20:27)
[2018-07-10 06:00] VITALS: BP 113/60
[2018-07-10] MEDS: SLF 3 ML SYR IV SCH (06:59)
[2018-07-10] MEDS: CLOPIDOGREL 75 MG TAB PO SCH (08:09)
[2018-07-10] MEDS: DOCUSATE SODIUM 100 MG CAP PO SCH (08:09)
[2018-07-10] MEDS: MULTIVITAMINS/MINERALS THERAP 1 TAB PO SCH (08:09)
[2018-07-10] MEDS: ASCORBIC ACID 500 MG TAB PO SCH (08:09)
[2018-07-10] MEDS: NITROGLYCERIN 0.4 MG/HR PATCH TD SCH (08:09)
[2018-07-10 08:10] VITALS: BP 143/91
[2018-07-10] MEDS: ATENOLOL 25 MG TAB PO SCH (08:10)
[2018-07-10] MEDS: LOSARTAN 50 MG TAB PO SCH (08:10)
[2018-07-10] MEDS: BACLOFEN 10 MG TAB PO SCH (08:10)
[2018-07-10] MEDS: amLODIPine 5 MG TAB PO SCH (08:10)
[2018-07-10] MEDS: ASPIRIN 81 MG ENTERIC TAB PO SCH (08:11)
[2018-07-10] MEDS ORDERED: OXYC1TAB23 PO (10:13)
--- NOTE | 2018-07-10 10:27 | IPNPDOC ---
Subjective Date Seen The patient was seen on 07/10/18. Subjective Chief Complaint/HPI Doing well w/o concern, Ambulating x3 per day, ready to be discharged to home care. Objective Physical Examination General Exam: Positive: Alert, Cooperative, No Acute Distress Eye Exam: Positive: PERRLA, Conjunctiva & lids normal, EOMI ENT Exam: Positive: Atraumatic Neck Exam: Positive: Supple Chest Exam: Positive: Clear to auscultation, Normal air movement Heart Exam: Positive: Rate Normal, Regular Rhythm, Normal S1, Normal S2, Other Abdomen Exam: Positive: Normal bowel sounds, Soft, Other (large black purple bruises from dissipating hematoma, nontender) Extremity Exam: Positive: Normal pulses (PP: Rt DP +PT biphasic, Lt DP + PT biphasic, but DP is weak); Negative: Clubbing, Cyanosis, Edema, Tenderness Skin Exam: Positive: Nl turgor and temperature Neuro Exam: Positive: Normal Speech, Strength at 5/5 X4 ext, Cranial Nerves 3- 12 NL Psych Exam: Positive: Mental status NL, Mood NL, Oriented x 3 Assessment /Plan Assessment Severe PVD with acute RLE ischemia, s/p RLE thrombolysis + angioplasty ans stenting of Rt PA aneurysm. Pt is doing well, and clinically RLE pain free. Ready to DC to home care. Plan/VTE VTE Prophylaxis Ordered?: Yes Plan DC to home care today. Instruction given. F/u with Dr. Mcdonough in 1-2 weeks. VS, I&O, 24H, Fishbone Vital Signs/I&O Vital Signs Date Time Temp Pulse Resp B/P (MAP) Pulse Ox O2 Delivery O2 Flow Rate FiO2 07/10/18 08:10 86 143/91 07/10/18 06:00 97.9 20 91 Room Air I&O- Last 24 Hours up to 6 AM 07/10/18 05:59 Intake Total 2460 ml Output Total 1100 ml Balance 1360 ml JEANNETTE TOMLINSON PA-C Jul 10, 2018 10:27
--- NOTE | 2018-07-10 10:51 | DS.PDOC ---
Discharge Summary General Date of Admission Jul 02, 2018 at 13:16 Date of Discharge 07/10/18 Attending Physician: Hiren Mcdonough MD Discharge Summary PROCEDURES PERFORMED DURING STAY: 1. RLE Thrombolysis. 2. RLE angiogram + angioplasty + Rt PA aneurysm stenting ADMITTING DIAGNOSES: 1. Critical PVD with RLE ACI 2. AAA s/p EVAR 3. Hx Lt to Rt FemFem bypass DISCHARGE DIAGNOSES: 1-3. same above. 4. Rt PA aneurysm. COMPLICATIONS/CHIEF COMPLAINT: Peripheral Vascular Disease. HISTORY OF PRESENT ILLNESS: A 72 yo former smoking male with PMH significant for HTN, PVD, AAA s/p EVAR, s/p Lt to Rt FemFem crossover bypass graft d/t RLE shut down secondary to EVAR and A Fib s/p Watchman procedure presents for RLE coldness, numbness and claudication. Pt had an AAA and enderwent EVAR with Dr Lees in [place] in 2007. 2 weeks after the procedure, Pt's RLE shut down. He was admitted to the hospital in [place] for emergent Lt to Rt FemFem crossover bypass with Dr. Lees. Pt has followed up with Dr. Lees annually since then until March. Pt has Hx A Fib with episodic syncope. Pt underwent Watchman procedure in the [facility] in [place] on 03/18/18. Pt has been on prophylactic anticoagulation with Eliquis x 45 days then switched to Plavix 2-3 weeks ago. 4 days ago, pt noticed his RLE below knee to ankle was very cold and numbing. He couldn't stand on his foot for 2 minutes w/o causing the right leg pain. He has monitored the symptoms for 3 days w/o improvement and decided to come to ER today. Patient denies rest pain, TIA, amaurosis fugax, weakness of extremity, chest pain , SOB and N/V. RLE arterial US today shows patent left to right fem-fem crossover graft. DUSTIN could not be obtained on the right due to noncompressible vessels. The EIA, [employer] are occluded. The profunda is patent with monophasic flow. SFA is occluded from its origin through the PA segment which is also occluded. The proximal CEE is occluded. The TP trunk, proximal [employer], distal [employer] and distal AT are patent. Extensive plaquing is seen. Reversal of flow is seen in the distal CEE. Pt was admitted for angiography tomorrow. Vascular surgery was consulted. Pt was admitted to hospital for RLE angiography with angioplasty and possible stenting. CBC, chem and coag profile are wnl. HOSPITAL COURSE: Pt was started immediately on thrombolysis and anticoagulation therapy. On 07/03/18 pt underwent RLE angiography with angioplasty and stenting of Rt PA aneurysm. Pt recuperated well. His RLE pain was resolved. He resumed ambulation w/o claudication. Since pt lives alone, he was discharged to home care today DISCHARGE MEDICATIONS: Please see below. ALLERGIES: Please see below. PHYSICAL EXAMINATION ON DISCHARGE: VITAL SIGNS: Please see below. GENERAL: AAO x3 no distress HEENT: NACD, DARREN, EOMI. NECK: SUpple, no carotid bruits CARDIOVASCULAR EXAMINATION: RRR, no G/M/R, PP: biphasic x4, Lt DP weaker RESPIRATORY EXAMINATION: CTAB ABDOMINAL EXAMINATION: BS nl, NT/ND, no pulsatile mass EXTREMITIES: No C/C/E. RLE: warm no paresthesia SKIN: moist and warm NEUROLOGICAL EXAMINATION: CN 2-12, motor and sensory intact no focal deficits PSYCHIATRIC EXAMINATION: appropriate mood and affect. LABORATORY DATA: Please see below. IMAGING: Angiogram PROGNOSIS: Good ACTIVITY: As tolerated. DIET: DASH DISCHARGE PLAN: discharge today DISPOSITION: Home care DISCHARGE INSTRUCTIONS: 1. Keep dressing clean and dry, change as needed. 2. No strenuous activity x 4 weeks. 3. Can have shower. 4. No driving prior to office visit. ITEMS TO FOLLOWUP ON ON OUTPATIENT: 1. F/u with Dr Mcdonough in 1-2 weeks DISCHARGE CONDITION: Good. TIME SPENT ON DISCHARGE: Greater than 60 minutes. Vital Signs/I&Os Vital Signs Date Time Temp Pulse Resp B/P (MAP) Pulse Ox O2 Delivery O2 Flow Rate FiO2 07/10/18 08:10 86 143/91 07/10/18 06:00 97.9 20 91 Room Air I&O- Last 24 Hours up to 6 AM 07/10/18 05:59 Intake Total 2460 ml Output Total 1100 ml Balance 1360 ml Discharge Medications Scheduled Amlodipine Besylate (Amlodipine Besylate) 5 Mg Tab, 5 MG PO DAILY, (Reported) Ascorbic Acid (Vitamin C) 500 Mg Tab, 500 MG PO DAILY, (Reported) Aspirin (Aspirin EC) 81 Mg Tab, 81 MG PO DAILY, (Reported) Atenolol (Atenolol) 25 Mg Tab, 25 MG PO DAILY, (Reported) Baclofen (Baclofen) 10 Mg Tab, 10 MG PO BID, (Reported) Clopidogrel Bisulfate (Plavix) 75 Mg Tab, 75 MG PO DAILY, (Reported) Docusate Sodium (Colace) 100 Mg Cap, 100 MG PO BID, (Reported) Losartan Potassium (Losartan Potassium) 100 Mg Tab, 100 MG PO DAILY, (Reported) Multivitamins *[facility] STOCKED* (Thera M Plus *[facility] STOCKED*) 1 Tab Tab, 1 TAB PO DAILY, (Reported) Nitroglycerin (Nitroglycerin) 0.4 Mg/Hr Dis, 0.4 MG TD DAILY, (Reported) APPLIES AT 0800 AND REMOVES AT 2000, EVEN DAYS RIGHT ARM, ODD DAYS LEFT ARM Scheduled PRN Oxycodone/Acetaminophen (Oxycodone/Acetaminophen 5-325 mg) 1 Tab Tab, 1 TAB PO BID PRN for PAIN Allergies Coded Allergies: Latex (Verified Allergy, Severe, RED BLOTCHES AND SOB, 12/02/12) JEANNETTE TOMLINSON PA-C Jul 10, 2018 10:51
--- NOTE | 2018-07-15 13:57 | REPIR ---
DATE OF PROCEDURE: 07/03/2018 ATTENDING PHYSICIAN: Dr. 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 PROCEDURE: Right lower extremity angiogram, right popliteal artery angioplasty and stent with an 8 x 55 Viabahn stent postdilated with 7 x 150 mm balloon, right superficial femoral artery angioplasty stent with an 8 x 100 Viabahn postdilated with a 7 x 150 mm balloon, right common femoral artery angioplasty with 7 x 150 balloon, right femoral-femoral bypass graft angioplasty with 7 x 150 balloon, Mynx closure of the left limb of the xjmv-vx-atlli femoral-femoral bypass graft. INDICATION: The patient is a 72-year-old male who presented with ischemia of his right lower extremity and was found to have a thrombosed popliteal artery aneurysm who underwent thrombolysis, which is now opened in the thrombosed aneurysm and the patient will undergo angioplasty and stenting to exclude the right popliteal artery aneurysm, as he is not a good operative candidate. ANESTHESIA: Local. FLUORO TIME: 4.0 minutes. HEPARIN: 6000 units. COMPLICATIONS: None. DRAINS: None. SPECIMENS: None. IMPLANTS: Viabahn stents. DESCRIPTION OF PROCEDURE: The patient was taken to the angiography suite, placed supine on the angiography room table and then prepped and draped in a standard surgical fashion. The infusion catheter was removed over a Bentson wire after which the right lower extremity angiogram was performed, after which the popliteal artery and superficial femoral artery were angioplasty and stented with two Viabahn stents. There was also stenosis noted at the graft to femoral artery, which was angioplastied with a 7 x 150 balloon. A completion angiogram showed resolution of the stenosis with excellent flow through the Viabahn with exclusion of the popliteal artery aneurysm and good flow distally into the foot. Catheters and wires were removed. A Mynx closure device was used close the arteriotomy in the left limb of the left femoral to right femoral bypass graft with an additional 20 minutes of adjunctive pressure applied for hemostasis. Dressings were then applied. The patient tolerated the procedure well. All instrument, sponge and needle counts were correct at the end of the case. There were no complications. Dr. Mcdonough was present for and directed the entire case. The patient was transferred to holding area and subsequently to the intensive care unit (ICU) in stable condition.
--- NOTE | 2018-07-15 14:42 | REPIR ---
DATE OF PROCEDURE: 07/01/2018 ATTENDING PHYSICIAN: Dr. Law Mcdonough WATERPROOFING MIXER: PREOPERATIVE DIAGNOSES: Right lower extremity ischemia, right popliteal artery aneurysm, occluded abdominal aortic aneurysm status post repair. POSTOPERATIVE DIAGNOSES: Right lower extremity ischemia, right popliteal artery aneurysm, occluded abdominal aortic aneurysm status post repair. PROCEDURE: Ultrasound-guided left femoral-femoral bypass graft, right lower extremity angiogram, selective right popliteal artery catheter placement, placement of a 50 cm infusion catheter with initiation of right lower extremity arterial thrombolysis. INDICATION: The patient is a 72-year-old male who presented with ischemia and pain in his right lower extremity and underwent an ultrasound, which showed a thrombosed popliteal artery aneurysm. The patient will undergo an angiogram with possible angioplasty stent and/or atherectomy. Risks, benefits and alternative options discussed with the patient. Anesthesia was local with sedation of 1 mg Versed, 50 mcg of fentanyl and 10 mL of 2% lidocaine. FLUORO TIME: 4.6 minutes. CONTRAST: 6 mL of Isovue-300. SEDATION TIME: From 11:45 a.m. to 12:15 a.m. for a total of 30 minutes. TPA bolus 10 mg. COMPLICATIONS: None. DRAINS: None. SPECIMENS: None. IMPLANTS: None. PROCEDURE: The patient was taken to the angiography suite, placed on the angiography room table and then prepped and draped in a standard surgical fashion. Ultrasound was used to guide cannulation of the left rim of his khbu-oi-ngmsi femoral-femoral bypass graft and a right lower extremity angiogram showed complete occlusion of his superficial femoral and popliteal arteries. These were recannulated and then a 50 cm infusion catheter was placed and thrombolysis initiated. Dressings were then applied. The patient tolerated the procedure well. All instrument, sponge and needle counts were correct at the end of the case were no complications. Dr. Mcdonough was present for and directed the entire case. The patient was transferred to the intensive care unit (ICU) for right lower extremity arterial thrombolysis for limb salvage. edited: 09/14/2018 1308 [id number] [id number]
== END 2018-07-10 13:05 | disposition home health service (06) | DRG 254 ==
LOC: M ED 09:28 → M ED INP 14:22 → M MSPAV 20:52 → M ICU 07-01 13:42 → OBSVTOIN 07-02 13:16 → M MS5PR 07-04 16:23
PROVIDERS: ADMIT Surgery Vascular Surgery; ATTEND Surgery Vascular Surgery
PROC: B41F1ZZ Fluoroscopy of Right Lower Extremity Arteries using Low Osmolar Contrast (ICD-10-PCS; 2018-07-01)
PROC: 3E05317 Introduction of Other Thrombolytic into Peripheral Artery, Percutaneous Approach (ICD-10-PCS; 2018-07-01)
PROC: 047M3DZ Dilation of Right Popliteal Artery with Intraluminal Device, Percutaneous Approach (ICD-10-PCS; principal; 2018-07-03)
PROC: 047K3DZ Dilation of Right Femoral Artery with Intraluminal Device, Percutaneous Approach (ICD-10-PCS; 2018-07-03)
PROC: B41F1ZZ Fluoroscopy of Right Lower Extremity Arteries using Low Osmolar Contrast (ICD-10-PCS; 2018-07-03)
DX: I70.211 Atherosclerosis of native arteries of extremities with intermittent claudication, right leg (principal); I72.4 Aneurysm of artery of lower extremity; Z87.891 Personal history of nicotine dependence; I10 Essential (primary) hypertension; I48.2 Chronic atrial fibrillation; Z79.01 Long term (current) use of anticoagulants; Z79.899 Other long term (current) drug therapy; Z79.82 Long term (current) use of aspirin; Z91.040 Latex allergy status; E66.01 Morbid (severe) obesity due to excess calories

== ENCOUNTER → 2018-08-17 | Outpatient (CLI) | payer MEDICARE, MEDICAID ==
[~2018-08-17] MED LIST changes: +AMLO5TAB4 PO; -AMLO5TAB6 PO; +BACL1TAB8 PO; +LOSA-4 PO; +PLAV1TAB2 PO; +VITMTA PO
--- NOTE | 2018-08-17 13:41 | REP ---
Bilateral lower extremity Doppler arterial ultrasound: History: Bilateral intermittent claudication. [place] artery atherosclerosis. Follow-up bypass graft. Status post thrombolysis right lower extremity. Sonographic findings: The right ankle-brachial index is 0.83 and the left 0.81. A patent left to right fem-fem crossover graft is seen. Arterial velocity in the proximal, left side of the crossover graft is 75 cm/sec and that in the distal, right side is 47 cm/sec. Right lower extremity flows improved post intervention. A patent popliteal artery stent is noted on the right. Monophasic waveforms are noted throughout both lower extremities. Arterial Doppler velocity chart right lower extremity: Right AUTOTRANSFUSIONIST 69 cm/S, profunda 108, proximal SFA 37, mid SFA 34, distal SFA 34, popliteal 47, proximal CEE not seen, tibioperoneal trunk 47, proximal PROCESS DEVELOPER 32, distal PROCESS DEVELOPER 67, distal CEE 12 reversed. Velocity chart left lower extremity arterial Doppler: Left AUTOTRANSFUSIONIST 75 cm/S, profunda 89, proximal SFA 46, mid SFA 46, distal SFA 61, popliteal 25, proximal AT A 59, tibioperoneal trunk 25, proximal PROCESS DEVELOPER 38, distal PROCESS DEVELOPER 29, distal CEE 20. Electronically Signed by Harmeet Rodarte MD 08/17/2018 08:05 P
== END ==
LOC: M RAD 08:54
PROVIDERS: ATTEND Surgery Vascular Surgery
DX: I70.213 Atherosclerosis of native arteries of extremities with intermittent claudication, bilateral legs (principal)

== ENCOUNTER → 2019-03-08 | Outpatient (CLI) | payer MEDICARE, MEDICAID ==
[~2019-03-08] MED LIST changes: -/PANT40TA OR; -AMLO5TAB4 PO; +AMLO5TAB6 PO; -LOSA-4 PO; +LOSA100T50 PO; +PROT1TAB2 OR
--- NOTE | 2019-03-08 23:14 | REP ---
Clinical: Right lower extremity claudication with history of recent intervention. Comparison: 08/17/2018 Technique: Real time gonzalez scale and color Doppler evaluation of the right lower extremity arterial vasculature using linear high frequency transducer. Findings: The right ankle to brachial index of the right lower extremity is 0.63. Patent qlml-ld-ljrqv femoral - femoral bypass graft is again identified. Velocity within the mid graft measures 53 cm/sec and that the distal outflow of the graft measures 58 cm/sec with a monophasic wave pattern noted throughout the visualized stent graft. Current examination demonstrates area of significant stenosis in the distal superficial femoral artery with subsequent decreased downstream flow velocities and monophasic wave patterns. A patent popliteal stent is again noted as well as reversed flow in the distal anterior tibial artery (CEE). PSV(cm/sec) LEFT Common femoral artery 29.0 cm/s Profunda femoris artery 90.0 cm/s Proximal superficial femoral artery 44.0 cm/s Mid superficial femoral artery 71.0 cm/s Distal superficial femoral artery 49 - 180 - 25 cm/s Popliteal artery 20 cm/s Proximal CEE not visualized cm/s Tibioperoneal trunk 24.0 cm/s Proximal SPEED BELT SANDER 38.0 cm/s Distal SPEED BELT SANDER 40.0 cm/s Distal CEE reversed Impression: New area of significant stenosis in the distal superficial femoral artery. Decreased velocities with monophasic wave patterns noted. Decreased DUSTIN. Electronically Signed by Lobo Bonner MD 03/08/2019 11:06 P
== END ==
LOC: M RAD 09:12
PROVIDERS: ATTEND Surgery Vascular Surgery
DX: I70.211 Atherosclerosis of native arteries of extremities with intermittent claudication, right leg (principal)

== ENCOUNTER → 2019-04-05 | Outpatient (CLI) | payer MEDICARE, MEDICAID ==
[~2019-04-05] MED LIST changes: +BUPIVACAINE HCL 0.5% 10 ML VIAL As Ordered ONE; +HEPARIN 1,000 UNITS/ML 10ML VIAL (FOR RADIOLOGY& DIALYSIS ONLY) As Ordered ONE; +ISOVUE-300 61% 50ML VIAL (Q9967) As Ordered ONE; +LIDOCAINE 2% MDV 20 ML VIAL As Ordered ONE; +MIDAZOLAM INJ 2 MG/2 ML VIAL (J2250) As Ordered ONE; +diphenhydrAMINE INJ 50MG/ML VIAL (J1200) As Ordered ONE; +fentaNYL 100 MCG/2 ML INJECTION (J3010) As Ordered ONE
[2019-04-05 14:20] VITALS: BP 138/62
--- NOTE | 2019-04-15 09:20 | REPIR ---
DATE OF PROCEDURE: 04/05/2019 ATTENDING SURGEON: Dr. Aimee Mcdonough PREOPERATIVE DIAGNOSIS: Abdominal aortic aneurysm, right lower extremity claudication. POSTOPERATIVE DIAGNOSIS: Abdominal aortic aneurysm, right lower extremity claudication. PROCEDURE: Right lower extremity angiogram. INDICATION: The patient is a 73-year-old male with an abdominal aortic aneurysm who underwent endovascular repair who now has a jzlp-as-ayutk femoral-femoral bypass graft. The patient has right lower extremity claudication and will undergo a right lower extremity angiogram. Risks, benefits and alternative options were discussed with the patient. PROCEDURE: The patient was taken to the angiography suite and placed supine on angiography table and then prepped and draped in a standard surgical fashion. The left limb of the femoral-femoral bypass graft was cannulated and a micropuncture catheter placed with an angiogram performing showing diffuse disease and the superficial femoral and popliteal arteries. Catheters and wires were removed. The micropuncture sheath was removed and manual compression applied at the puncture site for hemostasis. Dressings were then applied. The patient tolerated the procedure well. All instruments, sponge, and needle counts were correct at the end the case, There were no complications. Dr. Mcdonough was present for and directed the entire case. The patient was transferred to the holding area and subsequently discharged in stable condition.
== END ==
LOC: M IRPRO 07:50
PROVIDERS: ATTEND Surgery Vascular Surgery
DX: I70.211 Atherosclerosis of native arteries of extremities with intermittent claudication, right leg (principal); I10 Essential (primary) hypertension; I71.4 Abdominal aortic aneurysm, without rupture; I48.91 Unspecified atrial fibrillation
CPT/HCPCS: 36247; 75710; C1894; J1200; J2250; J3010; Q9967

== ENCOUNTER → 2019-04-12 | Outpatient (CLI) | payer MEDICARE, MEDICAID ==
[2019-04-12 12:30] VITALS: BP 158/85
--- NOTE | 2019-04-15 09:38 | REPIR ---
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 PROCEDURE: Left common femoral arterial cannulation. ATTENDING SURGEON: Dr. Law Mcdonough. CLOSET ORGANIZER: Wendy Miles, Robert Reed and Carmel Kim. ANESTHESIA: Local with 20 mL of 2% lidocaine mixed 0.5% Marcaine. FLUORO TIME: 0.1 minutes. CONTRAST: None. COMPLICATION: None. DRAINS: None. SPECIMENS: None. IMPLANTS: None. DESCRIPTION OF PROCEDURE: The patient was taken to the angiography suite, placed supine on the angiography room table and then prepped and draped in standard surgical fashion. The left common femoral artery was cannulated with a micropuncture needle after anesthetizing the overlying skin and subcutaneous tissue with local anesthesia. A micropuncture wire was advanced through the micropuncture needle, which was upsized to a micropuncture sheath. There was difficulty advancing the micropuncture sheath into the femoral artery and a stiff micropuncture was required during which a hematoma formed necessitating the termination of the procedure and removal of the micropuncture sheath with compression applied for hemostasis. Once hemostasis was obtained. Dressings were then applied. The patient tolerated the procedure well. All instrument, sponge and needle counts were correct at the end the case. There were no complications. Dr. Mcdonough was present for and directed the entire case. The patient was transferred to the holding area and subsequently discharged in stable condition.
== END ==
LOC: M IRPRO 06:17
PROVIDERS: ATTEND Surgery Vascular Surgery
DX: I70.213 Atherosclerosis of native arteries of extremities with intermittent claudication, bilateral legs (principal); I97.418 Intraoperative hemorrhage and hematoma of a circulatory system organ or structure complicating other circulatory system procedure; I65.23 Occlusion and stenosis of bilateral carotid arteries; T81.718A Complication of other artery following a procedure, not elsewhere classified, initial encounter; I10 Essential (primary) hypertension; I71.4 Abdominal aortic aneurysm, without rupture; I48.91 Unspecified atrial fibrillation; Z91.040 Latex allergy status; Z79.899 Other long term (current) drug therapy; Z79.82 Long term (current) use of aspirin; Z87.891 Personal history of nicotine dependence; X58.XXXA Exposure to other specified factors, initial encounter; Y93.9 Activity, unspecified; Y92.9 Unspecified place or not applicable; Y99.9 Unspecified external cause status
CPT/HCPCS: 36140; 99152; 99153; C1769; C1887; C1894; Q9967

== ENCOUNTER → 2019-04-21 | Outpatient (CLI) | payer MEDICARE, MEDICAID ==
[~2019-04-21] MED LIST changes: -BUPIVACAINE HCL 0.5% 10 ML VIAL As Ordered ONE; -HEPARIN 1,000 UNITS/ML 10ML VIAL (FOR RADIOLOGY& DIALYSIS ONLY) As Ordered ONE; -ISOVUE-300 61% 50ML VIAL (Q9967) As Ordered ONE; -LIDOCAINE 2% MDV 20 ML VIAL As Ordered ONE; -MIDAZOLAM INJ 2 MG/2 ML VIAL (J2250) As Ordered ONE; -diphenhydrAMINE INJ 50MG/ML VIAL (J1200) As Ordered ONE; -fentaNYL 100 MCG/2 ML INJECTION (J3010) As Ordered ONE
[2019-04-21 09:41] LABS: HEMATOCRIT 49.1 % (42.0-52.0); HEMOGLOBIN 16.4 g/dl (13.5-17.5); MEAN CORPUSCULAR HEMOGLOBIN 32.2 pg (27.0-33.0); MEAN CORPUSCULAR HGB CONC 33.4 g/dl (32.0-36.5); MEAN CORPUSCULAR VOLUME 96.5 fl (80.0-96.0); PLATELET COUNT, AUTOMATED 167 10^3/uL (150-450); RED BLOOD COUNT 5.09 10^6/uL (4.30-6.10)
[2019-04-21 10:00] LABS: BLOOD UREA NITROGEN 26 MG/DL (7-18); CALCIUM LEVEL 8.8 MG/DL (8.8-10.2); CARBON DIOXIDE LEVEL 26 MEQ/L (21-32); CHLORIDE LEVEL 107 MEQ/L (98-107); CREATININE FOR GFR 1.12 MG/DL (0.70-1.30); GLOMERULAR FILTRATION RATE > 60.0 (>42); GLUCOSE, FASTING 167 MG/DL (70-100); POTASSIUM SERUM 4.8 MEQ/L (3.5-5.1); SODIUM LEVEL 139 MEQ/L (136-145)
--- NOTE | 2019-04-21 12:24 | REP ---
REASON: Carotid arterial stenosis. COMPARISON: 03/09/2017, which showed less than 50% stenosis of the internal carotid artery bilaterally. Once again, there is patchy echogenic material seen along the carotid arterial farris, some of which casts an acoustic shadow, consistent with calcific deposition. RIGHT LEFT CCA systolic 75.9 cm/s 60.2 cm/s CCA diastolic 10.3 cm/s 8.4 cm/s ICA systolic 54.6 cm/s 81.0 cm/s ICA diastolic 19.7 cm/s 56.4 cm/s ICA/CCA ratio 0.72 1.34 Spectral waveform analysis shows no significant spectral broadening. There is antegrade flow seen in both vertebral arteries. IMPRESSION: According to the NASCET consensus criteria, once again, there is less than 50% stenosis of the internal carotid artery bilaterally. This is secondary to both calcified and noncalcified atheromatous plaque formation. Electronically Signed by Jesus Vasquez DO 04/21/2019 12:41 P
--- NOTE | 2019-04-21 12:26 | REP ---
ABDOMINAL AORTIC ULTRASOUND: 04/21/2019 CLINICAL HISTORY: Abdominal aortic aneurysm with an aortobi-iliac stent graft. He also has a hjdj-rl-nhrct cross femoral bypass. FINDINGS: No prior ultrasound or CT of this area available. Proximal aorta: 3.4 cm AP, 3 cm transverse. Renal artery level: 3.1 cm AP, 2.7 cm transverse. Mid aorta: 4.4 cm AP, 4.9 cm transverse. Distal aorta: 4.5 cm AP, 3.8 cm transverse. Right CL: 1.7 cm AP, 1.9 cm transverse. Left CL: 2.7 cm AP, 2.4 cm transverse. The aorta is ectatic throughout its course and the iliacs. There is an aortobi-iliac stent noted beginning at the level of the main renal arteries. The right stent is occluded. Cross femoral graft is noted. IMPRESSION: 1. Infrarenal abdominal aortic aneurysm, fusiform with maximum AP diameter 4.5 cm. Some atherosclerotic plaque noted. 2. Aortobi-iliac stent graft present with graft beginning just below the main renal arteries and with the right side of the graft occluded. 3. 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 Electronically Signed by Erasmo Markham MD 04/21/2019 12:30 P
== END ==
LOC: M RAD 08:53
PROVIDERS: ATTEND Physician Assistant
DX: I65.23 Occlusion and stenosis of bilateral carotid arteries (principal); I71.4 Abdominal aortic aneurysm, without rupture; I70.0 Atherosclerosis of aorta; I72.3 Aneurysm of iliac artery

== ENCOUNTER → 2019-04-26 | Outpatient (CLI) | payer MEDICARE, MEDICAID ==
[~2019-04-26] MED LIST changes: +BUPIVACAINE HCL 0.5% 10 ML VIAL As Ordered ONE; +HEPARIN 1,000 UNITS/ML 10ML VIAL (FOR RADIOLOGY& DIALYSIS ONLY) As Ordered ONE; +ISOVUE-300 61% 50ML VIAL (Q9967) As Ordered ONE; +LIDOCAINE 2% MDV 20 ML VIAL As Ordered ONE; +MIDAZOLAM INJ 2 MG/2 ML VIAL (J2250) As Ordered ONE; +diphenhydrAMINE INJ 50MG/ML VIAL (J1200) As Ordered ONE; +fentaNYL 100 MCG/2 ML INJECTION (J3010) As Ordered ONE
[2019-04-26 13:00] VITALS: BP 161/94
--- NOTE | 2019-05-05 07:44 | REPIR ---
Date or procedure: 04/26/2019 PREOPERATIVE DIAGNOSIS: Right lower extremity claudication. POSTOPERATIVE DIAGNOSIS: Right lower extremity claudication. PROCEDURE: Ultrasound-guided left femoral/femoral bypass graft cannulation. Selective right common femoral artery catheter placement with right lower extremity angiogram. Selective right superficial femoral artery catheter placement with right lower extremity angiogram. Selective right popliteal artery catheter placement with right lower extremity angiogram. Right superficial femoral and popliteal artery angioplasty stent with 7 x 120 Michelle drug-eluding stent postdilated with 6 x200 balloon. Right common femoral artery angioplasty with a 6 x 200 balloon. Right femoral/femoral bypass graft angioplasty with 6 x 200 balloon. Right superficial femoral artery angioplasty with a 6 x 200 balloon MYNX closure of the left limb of the femoral/femoral bypass graft. SURGEON: Dr. Law Mcdonough INTERVENTIONAL NEURORADIOLOGIST: Carmel Kim and Johnna Silvestre. ANESTHESIA: Local with sedation with 1 mg Versed 50, mcg fentanyl and 10 mL of 2% lidocaine mixed with 0.5% Marcaine. FLUORO TIME: 3.4 minutes. CONTRAST: 5 mL of Isovue-300. SEDATION TIME: 8:32 a.m. to 8:57 a.m. for a total of 25 minutes. HEPARIN: 7000 units. PROTAMINE: None. FINDINGS: The patient had nonpalpable pulses prior to the intervention. At the completion of the intervention, the patient had a 2+ palpable posterior tibial pulse on the right foot. INDICATION: The patient is a 73-year-old male with claudication in his right lower extremity who had previously undergone a qzad-wc-ylirx femoral/femoral bypass graft after occlusion of the right iliac artery secondary to placement of an Endograft. The patient has right lower extremity claudication and underwent angiography, which showed superficial femoral and popliteal arterial outlet exclusive disease as well as stenosis in the graft to the common femoral artery anastomosis. The patient undergo angiogram, possible angioplasty stent and/or atherectomy. Risks, benefits and alternative options discussed with the patient in the local. DESCRIPTION OF PROCEDURE: The patient was taken to the angiography room, placed supine on the angiography room table and then prepped draped in a standard surgical fashion. Ultrasound was used to guide cannulation of the left limb of the femoral/femoral bypass graft after which right lower extremity angiogram was performed. The right superficial femoral and popliteal artery underwent angioplasty and stenting with a 7 x 120 Michelle drug-eluting stent postdilated with a 6 x 200 balloon. The 6 x 200 balloon was then used to angioplasty the remainder of superficial femoral artery, common femoral artery, and the anastomosis of the femoral/femoral bypass graft to right common femoral artery with a completion angiogram showing resolution of stenosis with excellent flow distally. Catheters and wires were removed. A MYNX closure device was used to close the arteriotomy in the left limb of the femoral/femoral bypass graft with an additional 10 minutes of adjunctive pressure applied for hemostasis. Dressings were then applied. The patient tolerated the procedure well. All instrument, sponge, needle counts were correct at the end the case. There were no complications. Dr. Mcdonough was present for and directed the entire case. The patient was transferred to the holding area and subsequent discharged in stable condition.
== END ==
LOC: M IRPRO 06:30
PROVIDERS: ATTEND Surgery Vascular Surgery
DX: I70.213 Atherosclerosis of native arteries of extremities with intermittent claudication, bilateral legs (principal); I10 Essential (primary) hypertension; I48.91 Unspecified atrial fibrillation
CPT/HCPCS: 37226; 99152; 99153; C1725; C1760; C1769; C1874; C1887; C1894; J1200; J2250; J3010; Q9967

== ENCOUNTER → 2019-06-21 | Outpatient (CLI) | payer MEDICARE, MEDICAID ==
[~2019-06-21] MED LIST changes: -BUPIVACAINE HCL 0.5% 10 ML VIAL As Ordered ONE; -HEPARIN 1,000 UNITS/ML 10ML VIAL (FOR RADIOLOGY& DIALYSIS ONLY) As Ordered ONE; -ISOVUE-300 61% 50ML VIAL (Q9967) As Ordered ONE; -LIDOCAINE 2% MDV 20 ML VIAL As Ordered ONE; -MIDAZOLAM INJ 2 MG/2 ML VIAL (J2250) As Ordered ONE; -diphenhydrAMINE INJ 50MG/ML VIAL (J1200) As Ordered ONE; -fentaNYL 100 MCG/2 ML INJECTION (J3010) As Ordered ONE
--- NOTE | 2019-06-21 19:12 | REP ---
Clinical: Symptoms related to atherosclerotic disease and intermittent claudication. Technique: Real time gonzalez scale and color Doppler evaluation of the bilateral lower extremity arterial vasculature using linear high frequency transducer. Findings: Right DUSTIN 1.07 Left DUSTIN 0.87 A patent clcx-wz-twrqs femoral bypass graft is appreciated without evidence for significant stenosis. Velocity at the origin of the graft measures 51 cm/sec; the mid graft measures 55 cm/sec; the distal graft at the anastomosis to right femoral artery measures 63 cm/sec. A right superficial femoral arterial stent extending to the popliteal artery appears patent. Peak systolic velocities (cm/sec) RIGHT LEFT Common femoral artery 37 monophasic 85 biphasic Profunda femoris 76 monophasic 49 biphasic SFA (proximal) 42 monophasic 31 biphasic SFA (mid) 41 monophasic 65 biphasic SFA (distal) 29 monophasic 49 biphasic Popliteal artery 48 monophasic 20 biphasic CEE (prox.) 26 monophasic 9 monophasic Tibioperoneal trunk 35 monophasic 29 biphasic RN REHABILITATION (prox.) 62 monophasic 63 biphasic RN REHABILITATION (distal) 68 monophasic 39 monophasic CEE (distal) 11 monophasic 13 monophasic Impression: 1. Patent xbmb-fp-qtpqh femoral bypass graft. 2. Patent right femoral arterial stent. 3. Right lower extremity velocities slightly increased compared to prior examination. Left lower extremity essentially no change from prior examination. Electronically Signed by Lobo Bonner MD 06/21/2019 07:04 P
== END ==
LOC: M RAD 12:29
PROVIDERS: ATTEND Physician Assistant
DX: I70.213 Atherosclerosis of native arteries of extremities with intermittent claudication, bilateral legs (principal); Z95.820 Peripheral vascular angioplasty status with implants and grafts

== ENCOUNTER → 2019-09-28 | Outpatient (CLI) | payer MEDICARE, MEDICAID ==
[2019-09-28 11:11] LABS: BLOOD UREA NITROGEN 20 MG/DL (7-18); CREATININE FOR GFR 1.04 MG/DL (0.70-1.30); GLOMERULAR FILTRATION RATE > 60.0 (>42)
== END ==
LOC: M LAB 09:52
PROVIDERS: ATTEND Physician Assistant
DX: Z01.818 Encounter for other preprocedural examination (principal)

== ENCOUNTER → 2019-09-30 | Outpatient (CLI) | payer MEDICARE, MEDICAID ==
[~2019-09-30] MED LIST changes: +ISOVUE-370 76% 100ML VIAL (Q9967) As Ordered ONE
--- NOTE | 2019-10-01 10:47 | REP ---
CT ANGIOGRAM OF THE ABDOMINAL AORTA AND BILATERAL LOWER EXTREMITIES: CT angiogram abdominal aorta and bilateral lower extremities is performed following the intravenous administration of 100 mL of Isovue 370. Sagittal, coronal and 3D MIP reconstruction images are performed. Visualized lung bases demonstrate mild interstitial fibrotic change. Liver, spleen, adrenals, pancreas are grossly unremarkable. Small gallstones are seen in the dependent portion of the gallbladder without evidence of gallbladder wall edema. I do not see biliary dilatation. There is some cortical atrophy of both kidneys with what appear to be small subcentimeter cysts bilaterally. A two tiny calcifications are seen in the right lower pole collecting system. There is no adenopathy, free air or free fluid. No bowel wall thickening is seen. No pelvic mass is seen. There is mild atherosclerotic calcification of the abdominal aorta diffusely. There is slight aneurysmal dilatation of the distal abdominal aorta at 3.3 cm in maximum AP dimension. The main hepatic artery originates directly from the superior abdominal aorta and demonstrates mild to moderate stenosis at its origin. The splenic artery originates directly from the abdominal aorta as well with no stenosis. Superior mesenteric artery is widely patent. Inferior mesenteric artery occluded. Two small caliber right renal arteries are noted without evidence of focal stenosis. There is a single left main renal artery which demonstrates mild narrowing proximally. There is an aortobiiliac stent. The right iliac limb is occluded at its origin. The left iliac limb is patent. The distal right external iliac artery is quite small in caliber and is occluded. Right common femoral artery is also occluded. A left femoral artery cross over graft feeds the origin of the left superficial femoral artery, which demonstrates mild narrowing at its origin. Right profunda also appears mild to moderately narrowed at its origin. The more distal right superficial femoral artery, a few centimeters distal to its origin demonstrates moderate stenosis. Multiple stenoses are seen throughout the mid aspect of the right superficial femoral artery. There is a stent in the distal right superficial femoral artery with patent internal flow and there is also a stent in the popliteal artery with patient internal flow with mild peripheral eccentric thrombus not causing significant stenosis. There is mild narrowing of the distal end of the right popliteal artery. The proximal trifurcation vessels appear patent but there is apparent occlusion of the proximal right anterior tibial artery. A small caliber posterior tibial artery does traverse into the right foot. The peroneal artery is quite small in caliber and becomes occluded in the proximal third of the calf. There is single vessel runoff into the right foot via the posterior tibial artery. On the left, the common iliac artery is dilated up to 3.7 cm in diameter. This diameter is at the junction of the distal end of the stent with the cachil dehe vessel. There is moderate eccentric thrombus at that level within the lumen of the common iliac artery. The left internal iliac artery appears occluded. Left external iliac artery demonstrates mild narrowing at its origin and also diffusely throughout the more distal aspect. The left common femoral artery demonstrates some mild plaquing and narrowing. There is no stenosis at the anastomosis with the femoral cross-over graft. There is mild narrowing of the distal common femoral artery. There is moderate stenosis at the origin of the left superficial femoral artery. There is mild narrowing at the origin of the left profunda artery. Mild diffuse plaquing and narrowing is seen in the left superficial femoral artery with focal mild stenosis distally. Left popliteal artery demonstrates mild diffuse plaquing and narrowing without stenosis. Trifurcation vessels are patent. There is mild diffuse plaquing throughout the trifurcation arteries. The posterior tibial artery is dominant and traverses into the left foot. Posterior tibial artery is quite small in caliber and appears to be occluded in the distal third of the calf. The peroneal artery is also quite small in caliber but does appear to traverse into the left foot, with two-vessel runoff. IMPRESSION: There are separate origins of the main hepatic artery and splenic artery with mild to moderate stenosis at the origin of the main hepatic artery. Inferior mesenteric artery is occluded. Aortobiiliac stent present with occlusion of the right iliac limb, with occlusion of the right common iliac, external iliac and common femoral arteries. Right superficial femoral artery is supplied by a left femoral cross-over graft. Mild multifocal stenoses are seen in the right superficial femoral artery. There are patent stents in the distal right superficial femoral artery and popliteal artery. There is single vessel runoff into the right foot. On the left, the common iliac artery is dilated as discussed above. The left iliac limb of the stent is patent. There is moderate stenosis at the origin of the left superficial femoral artery There is two-vessel runoff into the left foot. Electronically Signed by Yash Louie MD 10/01/2019 12:54 P
== END ==
LOC: M RAD 10:10
PROVIDERS: ATTEND Physician Assistant
DX: I70.0 Atherosclerosis of aorta (principal); I70.213 Atherosclerosis of native arteries of extremities with intermittent claudication, bilateral legs; I71.4 Abdominal aortic aneurysm, without rupture; Z95.5 Presence of coronary angioplasty implant and graft
CPT/HCPCS: 75635; Q9967

== ENCOUNTER 2019-12-29 11:57 | Inpatient (IN) | payer OTHER, MEDICAID ==
[~2019-12-29] VITALS: Ht 195.6 cm; Wt 132.6 kg
[~2019-12-29 11:57] MED LIST changes: -ISOVUE-370 76% 100ML VIAL (Q9967) As Ordered ONE
[2019-12-29] MEDS ORDERED: CAPT1TAB18 PO (12:18)
[2019-12-29] MEDS ORDERED: NS 1,000 ML IV ONE (12:30)
[2019-12-29] MEDS ORDERED: PANTOPRAZOLE 40MG VIAL (C9113 PER 1) IV ONE (12:30)
[2019-12-29] MEDS ORDERED: MORPHINE 4 MG/ML 1ML VIAL/SYRINGE (J2270) IV ONE (13:15)
[2019-12-29 13:19] LABS: BASO # 0.1 10^3/uL (0.0-0.2); BASO % 0.5 % (0.0-1.0); EOS # 0.1 10^3/uL (0.0-0.5); EOS % 0.7 % (0.0-3.0); HEMATOCRIT 50.8 % (42.0-52.0); HEMOGLOBIN 16.6 g/dl (13.5-17.5); LYMPH # 1.1 10^3/uL (1.5-5.0); LYMPH % 10.5 % (24.0-44.0); MEAN CORPUSCULAR HGB CONC 32.7 g/dl (32.0-36.5); MEAN CORPUSCULAR VOLUME 98.1 fl (80.0-96.0); MONO # 1.1 10^3/uL (0.0-0.8); MONO % 10.4 % (0.0-5.0); NEUTROPHILS # 8.3 10^3/uL (1.5-8.5); NEUTROPHILS % 77.2 % (36.0-66.0); PLATELET COUNT, AUTOMATED 138 10^3/uL (150-450); RED BLOOD COUNT 5.18 10^6/uL (4.30-6.10); WHITE BLOOD COUNT 10.7 10^3/uL (4.0-10.0)
[2019-12-29 13:48] LABS: ALBUMIN 3.7 GM/DL (3.2-5.2); ALT/SGPT 28 U/L (12-78); BILIRUBIN,DIRECT 0.2 MG/DL (0.0-0.2); BILIRUBIN,TOTAL 0.7 MG/DL (0.2-1.0); BLOOD UREA NITROGEN 29 MG/DL (7-18); CALCIUM LEVEL 8.9 MG/DL (8.8-10.2); CARBON DIOXIDE LEVEL 29 MEQ/L (21-32); CHLORIDE LEVEL 107 MEQ/L (98-107); CK-MB VALUE MASS 2.8 NG/ML (<3.6); CPK CREATINE PHOSPHOKINASE 39 U/L (39-308); CREATININE FOR GFR 1.43 MG/DL (0.70-1.30); GLOMERULAR FILTRATION RATE 51.2 (>42); GLUCOSE, FASTING 179 MG/DL (70-100); LIPASE 56 U/L (73-393); MB/CK RELATIVE INDEX 7.18 (< OR =4); POTASSIUM SERUM 4.6 MEQ/L (3.5-5.1); SODIUM LEVEL 141 MEQ/L (136-145); TOTAL PROTEIN 6.6 GM/DL (6.4-8.2); TROPONIN I < 0.02 NG/ML (< 0.10)
--- NOTE | 2019-12-29 14:02 | REP ---
REASON FOR EXAM: Syncopal episode. COMPARISON: 03/09/2017 The ventricles and sulci are unchanged. The deep cerebral white matter is unchanged. There are no acute extra-axial fluid collections. There is no shift of the midline structures. The posterior fossa is unchanged. There is no evidence of an acute intracranial hemorrhagic or nonhemorrhagic event. There is no skull fracture. IMPRESSION: No change from the prior exam. Age-related chronic changes status quo. Electronically Signed by Jesus Vasquez DO 12/29/2019 02:26 P
[2019-12-29 14:34] LABS: INR 1.03; PROTHROMBIN TIME 13.2 SECONDS (11.8-14.0)
--- NOTE | 2019-12-29 14:38 | REP ---
ABDOMINAL SERIES: Supine and erect views of the abdomen demonstrate no free air and no evidence for bowel obstruction. No dilated small bowel loops are seen. Aortobiiliac graft stent is noted. Metallic clips are seen in both inguinal regions. Scattered vascular calcifications are noted. There are mild degenerative changes of the spine. An accompanying view of the chest demonstrates chronic pleural scarring on the left, unchanged since the prior study of 02/23/2016. No infiltrate is seen in either lung. IMPRESSION: No free air or obstruction. Lungs are clear. Electronically Signed by Yash Louie MD 12/29/2019 02:57 P
[2019-12-29] MEDS ORDERED: traMADol 50 MG TAB PO ONE (15:15)
[2019-12-29] MEDS ORDERED: ACETAMINOPHEN TAB 650MG DOSE (2X325MG) PO PRN (15:30)
--- NOTE | 2019-12-29 16:01 | HPEPDOC ---
General Date of Admission 12/29/19 Date of Service: Dec 29, 2019 Chief Complaint The patient is a 74-year-old male admitted with a reason for visit of Near Syncope. Source: Patient Exam Limitations: No limitations, Clinical conditions Timing/Duration: Day(s) Severity: Moderate Associated Symptoms: Syncope, Weakness, Mechanical fall History of Present Illness Patient 74 years old male with past medical history of syncope, atrial fibrillation has chosen not to be anticoagulated, loop recorder in place, hypertension presented to the hospital with lightheadedness, history of mechanical fall and bloody stool. Patient stated that he has been having red blood in his stool for past 2 days, subsequently he developed lightheadedness and today he developed mechanical fall because of syncope. After mechanical fall patient complains of left hip pain. In emergency room patient was found to have stool positive for blood, CT head was negative for acute bleed, hemoglobin was 16.6, hematocrit 50.8. Abdomen x- ray was unremarkable. Also patient was found to have tachycardia with heart rate of 108. Ortho vital signs were positive in ER. Home Medications Scheduled Amlodipine Besylate (Amlodipine Besylate) 5 Mg Tab, 5 MG PO DAILY, (Reported) Ascorbic Acid (Vitamin C) 500 Mg Tab, 500 MG PO DAILY, (Reported) Aspirin (Aspirin EC) 81 Mg Tab, 81 MG PO DAILY, (Reported) Atenolol (Atenolol) 25 Mg Tab, 12.5 MG PO DAILY, (Reported) Baclofen (Baclofen) 10 Mg Tab, 10 MG PO BID, (Reported) Captopril (Captopril) 50 Mg Tablet, 50 MG PO DAILY, (Reported) Docusate Sodium (Colace) 100 Mg Cap, 100 MG PO BID, (Reported) Multivitamins (Thera M Plus Tablet) 1 Tab Tab, 1 TAB PO DAILY, (Reported) Nitroglycerin (Nitroglycerin Patch) 0.4 Mg/Hr Dis, 0.4 MG TD DAILY, (Reported) APPLIES AT 0800 AND REMOVES AT 2000, EVEN DAYS RIGHT ARM, ODD DAYS LEFT ARM Allergies Coded Allergies: latex (Verified Allergy, Unknown, 12/29/19) Past Medical History Medical History PAST MEDICAL HISTORY: 1. Syncope, thought to be vasovagal syncope. 2. Hypertension. 3. Chronic atrial fibrillation, has chosen not to be anticoagulated. 4. History of schwannoma at T6-7 remote. 5. Has a loop recorder in place. 6. Lower thoracic aneurysm which has been stented. 7. Morbid obesity. 8. Chronic back pain. Surgical History Loop recorded implantation, removal of schwannoma from T6-7, stenting of thoracic aortic aneurysm, left parotid resection and femoral bypass. Family History I reviewed family history and found not pertinent Social History * Smoker: former Smoker Alcohol: Denies Drugs: denies A-FIB/CHADSVASC A-FIB History Current/History of A-Fib/PAF?: Yes Current PO Anticoag Therapy: No Treatment Reason Anticoagulant not given: Patient refusal, Other (patient doesn't want anticoagulation) Other reason anticoagulant not: refusal Review of Systems Constitutional: Reports: Weakness; Denies: Chills, Fever Eyes: Denies: Pain, Vision change ENT: Denies: Head Aches Skin: Denies: Rash, Lesions Pulmonary: Denies: Dyspnea Cardiovascular: Denies: Chest Pain Gastrointestinal: Denies: Nausea, Vomiting Genitourinary: Denies: Dysuria Hematologic: Denies: Bruising, Bleeding Excessively Endocrine: Denies: Polydipsia, Polyphagia Musculoskeletal: Denies: Neck Pain Neurological: Reports: Weakness, Numbness Psych: Reports: Mood Normal Physical Examination General Exam: Positive: Alert, Cooperative Eye Exam: Positive: PERRLA ENT Exam: Positive: Atraumatic Neck Exam: Positive: Supple; Negative: JVD Chest Exam: Positive: Clear to auscultation Heart Exam: Positive: Tachycardic; Negative: Rate Normal Telemetry: Positive: Tachycardia Abdomen Exam: Positive: Normal bowel sounds Extremity Exam: Negative: Clubbing, Cyanosis Skin Exam: Positive: Nl turgor and temperature Neuro Exam: Positive: Strength at 5/5 X4 ext, Cranial Nerves 3-12 NL Psych Exam: Positive: Mental status NL Vital Signs Vital Signs Date Time Temp Pulse Resp B/P (MAP) Pulse Ox O2 Delivery O2 Flow Rate FiO2 12/29/19 15:22 16 12/29/19 15:15 174/98 (123) 12/29/19 15:12 115 12/29/19 14:00 96 Room Air 12/29/19 12:16 97.0 Laboratory Data Labs 24H Laboratory Tests 2 12/29/19 12:59: Immature Granulocyte % (Auto) 0.7, Neutrophils (%) (Auto) 77.2H, Lymphocytes (%) (Auto) 10.5L, Monocytes (%) (Auto) 10.4H, Eosinophils (%) (Auto) 0.7, Basophils (%) (Auto) 0.5, Neutrophils # (Auto) 8.3, Lymphocytes # (Auto) 1.1L, Monocytes # (Auto) 1.1H, Eosinophils # (Auto) 0.1, Basophils # (Auto) 0.1, Nucleated Red Blood Cells % (auto) 0.0, Prothrombin Time 13.2, Prothromb Time International Ratio 1.03, Anion Gap 5L, Glomerular Filtration Rate 51.2, Calcium Level 8.9, Total Bilirubin 0.7, Direct Bilirubin 0.2, Aspartate Amino Transf (AST/SGOT) 18, Alanine Aminotransferase (ALT/SGPT) 28, Alkaline Phosphatase 84, Total Creatine Kinase 39, Creatine Kinase MB 2.8, Creatine Kinase MB Relative Index 7.18H, Troponin I < 0.02, Total Protein 6.6, Albumin 3.7, Albumin/Globulin Ratio 1.28, Lipase 56L CBC/BMP Laboratory Tests 12/29/19 12:59 Assessment/Plan Patient 74 years old male with past medical history of syncope, atrial fibrillation has chosen not to be anticoagulated, loop recorder in place, hypertension presented to the hospital with lightheadedness, history of mechanical fall and bloody stool. Patient stated that he has been having red blood in his stool for past 2 days, subsequently he developed lightheadedness and today he developed mechanical fall because of syncope. After mechanical fall patient complains of left hip pain. In emergency room patient was found to have stool positive for blood, CT head was negative for acute bleed, hemoglobin was 16.6, hematocrit 50.8. Abdomen x- ray was unremarkable. Also patient was found to have tachycardia with heart rate of 108. Problems (1) Syncope Status: Acute Problem Text: Patient described lightheadedness before syncope Most likely orthostatic due to dehydration or medication side effect. Unlikely GI bleed was cause of it given normal hemoglobin We'll proceed with echo Patient has loop recorder, I will ask cancellation clerk evaluated it EKG did not show any acute ischemic changes (2) GI bleed Status: Acute Problem Text: Acute GI bleed Patient takes aspirin Hemoglobin is stable We will hold aspirin Continue IV fluid We will transfuse if hemoglobin less than 7 (3) Atrial fibrillation Status: Chronic Problem Text: Patient was tachycardic most likely due to dehydration Continue cardioprotective medication Patient doesn't want anticoagulation (4) HTN (hypertension) Status: Chronic (5) Peripheral vascular disease Status: Chronic Problem Text: We will hold aspirin for now due to GI bleed (6) Hip pain, left Status: Acute Problem Text: There is concern for left hip fracture Left hip/pelvis x-ray Plan / VTE VTE Prophylaxis Ordered?: Yes FRANCIE PENA DO Dec 29, 2019 16:01
--- NOTE | 2019-12-29 16:03 | REP ---
PELVIS, SINGLE VIEW: Single view of the pelvis is performed. No fracture or dislocation is seen. There is mild degenerative change of each hip joint. Scattered vascular calcifications are present. There is aortobi-iliac stent graft present. Multiple metallic clips are seen in the inguinal regions. IMPRESSION: No acute fracture or dislocation. Electronically Signed by Yash Louie MD 12/29/2019 04:09 P
--- NOTE | 2019-12-29 16:06 | REP ---
LEFT FEMUR, AP AND LATERAL: AP and lateral views of left femur are performed. No acute fracture or dislocation is seen. There are mild degenerative changes at the left hip joint. Multiple metallic clips are seen in the left inguinal region. Scattered vascular calcifications are present. IMPRESSION: No acute fracture or dislocation. Mild degenerative changes left hip joint. Electronically Signed by Yash Louie MD 12/29/2019 04:09 P
--- NOTE | 2019-12-29 16:47 | ECGEPIP ---
[facility] - ED Test Date: 2019-12-29 Pat Name: MARA RAUSCH Department: Room: - Gender: Male Public Service Representative: : 1945 Requested By: INGE CUTLER Order Number: [id number] Reading MD: Viri Lee Measurements Intervals [place] Rate: 100 P: [place]: 0 QRS: 55 QRSD: 86 T: 52 QT: 328 QTc: 423 Interpretive Statements ATRIAL FIBRILLATION WITH RAPID VENTRICULAR RESPONSE LOW QRS VOLTAGE IN EXTREMITY LEADS ABNORMAL RHYTHM ECG INCREASED RATE 06/30/18 Electronically Signed on 12-29-2019 16:47:21 EDT by Viri Lee
[2019-12-29 16:54] LABS: HEMATOCRIT 49.2 % (42.0-52.0)
[2019-12-29 17:10] VITALS: BP 140/90
[2019-12-29] MEDS: NS 1,000 ML IV SCH (17:29)
[2019-12-29 17:43] VITALS: BP_SYST 100; BP_SYST 130; BP_SYST 140; BP_DIAS 70; BP_DIAS 80; BP_DIAS 90
[2019-12-29] MEDS: PERCOCET 5MG/325MG TAB PO PRN (19:50)
[2019-12-29] MEDS ORDERED: HEPARIN SOD (PORCINE) 5000UNITS/ML VIAL (J1644 PER 1000UNITS) SQ SCH (21:00)
[2019-12-29] MEDS: traMADol 50 MG TAB PO SCH (21:04)
[2019-12-29] MEDS: BACLOFEN 10 MG TAB PO SCH (21:04)
[2019-12-29] MEDS: PANTOPRAZOLE 40MG VIAL (C9113 PER 1) IV SCH (21:05)
[2019-12-29] MEDS: DOCUSATE SODIUM 100 MG CAP PO SCH (21:05)
[2019-12-29 22:00] VITALS: BP 143/90
[2019-12-29 22:16] LABS: HEMATOCRIT 47.4 % (42.0-52.0); HEMOGLOBIN 15.6 g/dl (13.5-17.5)
--- NOTE | 2019-12-30 00:10 | CR ---
DATE OF CONSULTATION: 12/29/2019 CARDIOLOGY CONSULTATION: REFERRING PHYSICIAN: Dr. Nabeel Ramirez REASON FOR CONSULTATION: Request for interrogation of implantable loop recorder because of syncope. Mr. Lg Al had a syncope episode earlier today. The patient tells me he follows with Dr. Beverly Walton, foreign language instructor/precision honing machine operator, out of [place], who follows the loop recorder. The patient tells me that his implantable loop recorder is a [employer]tronic and he, to his knowledge, believes it was placed about 2-1/2 years ago. I used the Medtronic interrogator and was unable to interrogate the device. No signal was detected. Therefore, assuming that the device actually is [employer], it would appear that the patient's implantable loop recorder battery is at end of life and cannot record or transmit. I reached out by text message to Dr. Nabeel Ramirez to let him know the situation, that I was unable to interrogate the patient's loop recorder because of battery. I suggested that, if nothing shows up on telemetry, that the patient be sent back to Dr. Beverly Walton for a followup of syncope.
[2019-12-30 02:00] VITALS: BP_SYST 148; BP_SYST 150; BP_SYST 158; BP_DIAS 78; BP_DIAS 80; BP_DIAS 88
[2019-12-30] MEDS: PERCOCET 5MG/325MG TAB PO PRN ×3 (02:06→21:48)
[2019-12-30] MEDS: NS 1,000 ML IV SCH ×2 (03:18→13:23)
[2019-12-30 04:09] LABS: HEMATOCRIT 47.5 % (42.0-52.0); HEMOGLOBIN 15.6 g/dl (13.5-17.5); MEAN CORPUSCULAR HEMOGLOBIN 32.1 pg (27.0-33.0); MEAN CORPUSCULAR HGB CONC 32.8 g/dl (32.0-36.5); MEAN CORPUSCULAR VOLUME 97.7 fl (80.0-96.0); PLATELET COUNT, AUTOMATED 126 10^3/uL (150-450); RED BLOOD COUNT 4.86 10^6/uL (4.30-6.10); WHITE BLOOD COUNT 8.5 10^3/uL (4.0-10.0)
[2019-12-30 04:32] LABS: CALCIUM LEVEL 8.2 MG/DL (8.8-10.2); CREATININE FOR GFR 1.48 MG/DL (0.70-1.30); GLOMERULAR FILTRATION RATE 49.2 (>42); POTASSIUM SERUM 4.7 MEQ/L (3.5-5.1)
[2019-12-30 06:00] VITALS: BP 160/98
[2019-12-30] MEDS: NITROGLYCERIN 0.4 MG/HR PATCH TD SCH (08:00)
[2019-12-30] MEDS ORDERED: amLODIPine 5 MG TAB PO SCH (09:00)
[2019-12-30] MEDS: BACLOFEN 10 MG TAB PO SCH ×2 (09:18→21:47)
[2019-12-30] MEDS: amLODIPine 10 MG TAB PO SCH (09:19)
[2019-12-30] MEDS: ATENOLOL 12.5MG PER 1/2 TABLET PO SCH (09:20)
[2019-12-30] MEDS: DOCUSATE SODIUM 100 MG CAP PO SCH ×2 (09:20→21:47)
[2019-12-30] MEDS: lisinopriL 20 MG TAB PO SCH ×2 (09:20→21:47)
[2019-12-30] MEDS: PANTOPRAZOLE 40MG VIAL (C9113 PER 1) IV SCH ×2 (09:21→21:48)
[2019-12-30] MEDS: traMADol 50 MG TAB PO SCH ×2 (09:31→17:30)
[2019-12-30 10:07] LABS: HEMATOCRIT 50.2 % (42.0-52.0); HEMOGLOBIN 16.3 g/dl (13.5-17.5)
[2019-12-30] MEDS ORDERED: MORPHINE 2 MG/ML 1ML VIAL (J2270) IV ONE (10:30)
[2019-12-30] MEDS ORDERED: LIDOCAINE 5% (LIDODERM) PATCH TD PRN (11:15)
[2019-12-30] MEDS ORDERED: LIDOCAINE 5% (LIDODERM) PATCH TD SCH (11:15)
[2019-12-30 14:00] VITALS: BP 148/62
--- NOTE | 2019-12-30 15:09 | IPNPDOC ---
Text Note Date of Service The patient was seen on 12/30/19. NOTE Subjective: Patient continues to complain of back pain in the lumbar area exa ggerated movement. Patient denied fever, chills, nausea, vomiting. PHYSICAL EXAMINATION ON DISCHARGE: VITAL SIGNS: Please see below. GENERAL: Obese male HEENT: NCAT, anicteric sclera, DARERN NECK: supple, no JVD CARDIOVASCULAR EXAMINATION: NS1S2, irregularly irregular RESPIRATORY EXAMINATION: CTA b/l, no wheezes/rales/rhonchi ABDOMINAL EXAMINATION: positive bowel sounds x 4, NT, obese EXTREMITIES: no cyanosis, clubbing, edema SKIN: warm, no rashes. NEUROLOGICAL EXAMINATION: AAO x 3, no motor/sensory deficits PSYCHIATRIC EXAMINATION: calm, normal affect Assessment/Plan Patient 74 years old male with past medical history of syncope, atrial fibrillation has chosen not to be anticoagulated, loop recorder in place, hypertension presented to the hospital with lightheadedness, history of mechan ical fall and bloody stool. Patient stated that he has been having red blood in his stool for past 2 days, subsequently he developed lightheadedness and today he developed mechanical fall because of syncope. After mechanical fall patient complains of left hip pain. In emergency room patient was found to have stool positive for blood, CT head was negative for acute bleed, hemoglobin was 16.6, hematocrit 50.8. Abdomen x- ray was unremarkable. Also patient was found to have tachycardia with heart rate of 108 and positive orthostatic vital signs. During hospital stay patient was treated with IV fluid. Aspirin is on hold due to GI bleed. Hb is stable. Follow-up with GI team in the outpatient settings. Patient will need follow-up with soils technician for loop recorder. DC tomorrow Problems (1) Syncope Patient described lightheadedness before syncope Most likely orthostatic due to dehydration or medication side effect. Unlikely GI bleed was cause of it given normal hemoglobin I changed captopril to lisinopril. We'll proceed with echo Dr. Gifford found that loop recorder does not work due to run out of batteries EKG did not show any acute ischemic changes (2) GI bleed Acute GI bleed Patient took aspirin. Hemoglobin is stable We will hold aspirin We will transfuse if hemoglobin less than 7 Follow-up with GI team in the outpatient settings (3) Atrial fibrillation Patient was tachycardic most likely due to dehydration Continue cardioprotective medication Patient doesn't want anticoagulation medicine (4) HTN (hypertension) Status: Chronic (5) Peripheral vascular disease We will hold aspirin for now due to GI bleed (6) Hip pain, left Left hip/pelvis x-ray negative for acute fracture 7) back pain I will proceed with lumbosacral x-ray Pain management Plan / VTE VS,Fishbone, I+O VS, Fishbone, I+O Laboratory Tests 12/29/19 16:27 12/29/19 21:54 12/30/19 03:58 12/30/19 09:53 Vital Signs Date Time Temp Pulse Resp B/P (MAP) Pulse Ox O2 Delivery O2 Flow Rate FiO2 12/30/19 14:00 98.2 87 18 148/62 (90) 94 Room Air I&O- Last 24 Hours up to 6 AM 12/30/19 06:00 Intake Total 2400 ml Output Total 550 ml Balance 1850 ml FRANCIE PENA DO Dec 30, 2019 15:09
[2019-12-30 16:16] LABS: HEMATOCRIT 49.9 % (42.0-52.0); HEMOGLOBIN 16.1 g/dl (13.5-17.5)
[2019-12-30] MEDS: **NOTE PATIENT COMMENT** MISC XX SCH (21:00)
[2019-12-30 21:10] VITALS: BP 149/73
--- NOTE | 2019-12-30 21:25 | ECHO ---
DATE OF PROCEDURE: 12/30/2019 REFERRING PHYSICIAN: Dr. Nabeel Lemonshzhijaydon HEIGHT: 196 cm WEIGHT: 133 kg INDICATION: Cardiac dysrhythmias, unspecified. 2D MEASUREMENTS: Aortic annulus: 2.1 cm Aortic root: 3.8 cm Left atrium: 4.1 cm Ventricular septum: 1.24 cm Posterior wall: 1.21 cm Left ventricle diastole: 4.7 cm Inferior vena cava: 2.6 cm DOPPLER MEASUREMENTS: No aortic stenosis. No aortic regurgitation. Aortic valve velocity: 91.4 cm/s LVOT velocity: 79.6 cm/s No mitral stenosis. No mitral regurgitation. Mitral E velocity: 89.5 cm/s Mitral deceleration time: 127 ms No tricuspid regurgitation. No pulmonic regurgitation. Pulmonary acceleration time: 106 ms MITRAL ANNULAR TISSUE DOPPLER: E prime septal: 12.8 cm/s E prime lateral: 10.6 cm/s DESCRIPTION: Rhythm was atrial fibrillation with controlled ventricular response. Occasional premature ventricular contractions (PVCs). No pericardial effusion. This was a technically difficult echocardiogram. CONCLUSIONS: 1. Very mild concentric left ventricle hypertrophy. Normal regional left ventricular (LV) wall motion and wall thickening. Normal LV systolic function. Left ventricular ejection fraction (LVEF) 60% by visual estimate. Difficult to fully assess LV diastolic function in the setting of atrial fibrillation. 2. Appearance of normal right ventricle size and systolic function. 3. Mild dilatation of the aortic root at the level of the sinus of Valsalva. 4. Inferior vena cava plethora. 5. Possible mild elevation of pulmonary artery systolic pressure.
[2019-12-30 21:42] LABS: HEMATOCRIT 47.2 % (42.0-52.0); HEMOGLOBIN 15.5 g/dl (13.5-17.5)
[2019-12-30] MEDS ORDERED: ACETAMINOPHEN 325 MG TAB PO ONE (21:45)
[2019-12-30] MEDS: CIPROFLOXACIN 400 MG in IV 1 EA IV SCH (21:47)
--- NOTE | 2019-12-30 23:05 | REP ---
LUMBOSACRAL SPINE: Five views of the lumbosacral spine are performed. I see no evidence of acute fracture or dislocation. There is normal alignment and lumbar lordosis. There is mild diffuse spurring. There are degenerative changes at the facets of L5-S1. Posterior elements are intact. IMPRESSION: No acute fracture or dislocation. Electronically Signed by Yash Louie MD 12/31/2019 09:31 A
[2019-12-31] MEDS: traMADol 50 MG TAB PO SCH ×4 (00:36→17:42)
[2019-12-31 04:20] LABS: HEMATOCRIT 45.9 % (42.0-52.0); HEMOGLOBIN 14.7 g/dl (13.5-17.5)
[2019-12-31 06:00] VITALS: BP 142/76
[2019-12-31] MEDS: lisinopriL 20 MG TAB PO SCH (08:28)
[2019-12-31] MEDS: NITROGLYCERIN 0.4 MG/HR PATCH TD SCH (08:28)
[2019-12-31] MEDS: DOCUSATE SODIUM 100 MG CAP PO SCH ×2 (08:29→20:59)
[2019-12-31] MEDS: amLODIPine 10 MG TAB PO SCH (08:29)
[2019-12-31] MEDS: PANTOPRAZOLE 40MG VIAL (C9113 PER 1) IV SCH ×2 (08:29→20:58)
[2019-12-31] MEDS: BACLOFEN 10 MG TAB PO SCH ×2 (08:29→20:59)
[2019-12-31] MEDS: ATENOLOL 12.5MG PER 1/2 TABLET PO SCH (08:29)
[2019-12-31] MEDS: CIPROFLOXACIN 400 MG in IV 1 EA IV SCH (08:30)
[2019-12-31 09:55] LABS: BASO % 0.4 % (0.0-1.0); EOS # 0.2 10^3/uL (0.0-0.5); EOS % 3.2 % (0.0-3.0); HEMATOCRIT 46.6 % (42.0-52.0); HEMOGLOBIN 15.2 g/dl (13.5-17.5); LYMPH # 1.2 10^3/uL (1.5-5.0); LYMPH % 15.6 % (24.0-44.0); MEAN CORPUSCULAR HEMOGLOBIN 32.2 pg (27.0-33.0); MEAN CORPUSCULAR HGB CONC 32.6 g/dl (32.0-36.5); MEAN CORPUSCULAR VOLUME 98.7 fl (80.0-96.0); MONO % 13.2 % (0.0-5.0); NEUTROPHILS % 67.1 % (36.0-66.0); PLATELET COUNT, AUTOMATED 110 10^3/uL (150-450); RED BLOOD COUNT 4.72 10^6/uL (4.30-6.10); WHITE BLOOD COUNT 7.5 10^3/uL (4.0-10.0)
[2019-12-31 10:23] LABS: BLOOD UREA NITROGEN 25 MG/DL (7-18); CALCIUM LEVEL 8.4 MG/DL (8.8-10.2); CARBON DIOXIDE LEVEL 28 MEQ/L (21-32); CHLORIDE LEVEL 109 MEQ/L (98-107); CREATININE FOR GFR 1.04 MG/DL (0.70-1.30); GLOMERULAR FILTRATION RATE > 60.0 (>42); GLUCOSE, FASTING 150 MG/DL (70-100); SODIUM LEVEL 141 MEQ/L (136-145)
[2019-12-31] MEDS: LACTOBACILLUS ACIDOPHILUS CAP (BACID) PO SCH ×2 (11:14→17:42)
[2019-12-31] MEDS: cefTRIAXone SOD 1 GM in D5W MINI-BAG PLUS 50 ML IV SCH (11:15)
[2019-12-31 14:00] VITALS: BP 121/74
--- NOTE | 2019-12-31 14:57 | REP ---
REASON FOR EXAM: Acute renal failure. There are no priors for comparison. The right kidney measures 11.4 x 6.2 x 5 cm and the left kidney measures 12.3 x 5.7 x 5.5. The renal cortical echoes are within normal limits bilaterally with preservation of cortical medullary differentiation. There is no hydronephrosis on either side. There are no right renal cystic or solid masses. In the left kidney, there are two hypoechoic structures, one in the upper mid pole region measuring 1.3 x 0.9 x 1.1 cm and the other in the lower pole region measuring 1.3 x 1.1 x 1.2 cm. Although both of these exhibit some posterior wall enhancement, there is no definite increased through transmission. Imaging of the urinary bladder was obtained for the sole purpose of assessing for urojet phenomena which was seen bilaterally. IMPRESSION: Two hypoechoic nodules seen in the left kidney as described above and whether or not they represent complex cysts or solid nodules, cannot be determined by this exam. Consider pre- and post-gadolinium enhanced renal MRI provided the patient has sufficient GFR to tolerate at last half dose of gadolinium. Electronically Signed by Jesus Vasquez DO 12/31/2019 04:16 P
[2019-12-31] MEDS: **NOTE PATIENT COMMENT** MISC XX SCH (20:59)
[2019-12-31 22:00] VITALS: BP 145/84
[2020-01-01] MEDS: traMADol 50 MG TAB PO SCH ×4 (05:27→18:03)
[2020-01-01 06:00] VITALS: BP 141/86
[2020-01-01 07:00] VITALS: BP_SYST 141; BP_SYST 144; BP_SYST 147; BP_DIAS 78; BP_DIAS 80
[2020-01-01] MEDS: NITROGLYCERIN 0.4 MG/HR PATCH TD SCH (09:11)
[2020-01-01] MEDS: PANTOPRAZOLE 40MG VIAL (C9113 PER 1) IV SCH (09:11)
[2020-01-01] MEDS: DOCUSATE SODIUM 100 MG CAP PO SCH (09:11)
[2020-01-01] MEDS: ATENOLOL 12.5MG PER 1/2 TABLET PO SCH (09:11)
[2020-01-01] MEDS: amLODIPine 10 MG TAB PO SCH (09:12)
[2020-01-01] MEDS: cefTRIAXone SOD 1 GM in D5W MINI-BAG PLUS 50 ML IV SCH (09:12)
[2020-01-01] MEDS: BACLOFEN 10 MG TAB PO SCH ×2 (09:12→21:02)
[2020-01-01] MEDS: LACTOBACILLUS ACIDOPHILUS CAP (BACID) PO SCH ×2 (09:13→18:03)
[2020-01-01] MEDS ORDERED: SENOKOT S TAB PO PRN (10:15)
[2020-01-01 10:20] LABS: BASO % 0.4 % (0.0-1.0); EOS # 0.2 10^3/uL (0.0-0.5); EOS % 3.5 % (0.0-3.0); HEMATOCRIT 48.6 % (42.0-52.0); HEMOGLOBIN 15.9 g/dl (13.5-17.5); LYMPH # 1.2 10^3/uL (1.5-5.0); LYMPH % 16.8 % (24.0-44.0); MEAN CORPUSCULAR HEMOGLOBIN 32.1 pg (27.0-33.0); MEAN CORPUSCULAR HGB CONC 32.7 g/dl (32.0-36.5); MONO # 0.8 10^3/uL (0.0-0.8); MONO % 12.2 % (0.0-5.0); NEUTROPHILS # 4.6 10^3/uL (1.5-8.5); NEUTROPHILS % 66.5 % (36.0-66.0); PLATELET COUNT, AUTOMATED 116 10^3/uL (150-450); RED BLOOD COUNT 4.96 10^6/uL (4.30-6.10); WHITE BLOOD COUNT 6.9 10^3/uL (4.0-10.0)
--- NOTE | 2020-01-01 10:25 | IPN ---
DATE: 12/31/2019 Patient complains of left-sided flank pain and not feeling well with nausea this morning. Patient had a temperature of 100.7 at 2100 hours yesterday. Had no increase in white count, but urine was positive for urinary tract infection (UTI). Was started on intravenous (IV) Cipro. Changed to IV ceftriaxone pending culture results. VITALS: Maximum temperature (Tmax) 100.7. Current temperature 98. Pulse 67. Respiratory rate 19. Blood pressure 121/74. 96% on room air. Generally, awake, alert, oriented times three. Answering questions appropriately. No jugular venous distention (JVD). No thyromegaly. No cervical lymphadenopathy. Lungs are clear to auscultation. No wheezing, rales, or rhonchi. Heart: S1, S2, irregular. Abdomen is obese, soft. Tender left flank. No rebound, guarding. Positive bowel sounds times four quadrants. Extremities: Chronic edema. No clubbing or cyanosis. LABORATORY DATA: Imaging studies have been reviewed. Urine culture contaminated. Renal ultrasound pending. ASSESSMENT AND PLAN: 74-year-old male, history of atrial fibrillation, ejection fracture (EF) of 60%, obesity, body mass index (BMI) of 34.7. Loop recorder secondary to history of syncope evaluated by Dr. Gifford. Unable to interrogate because of battery. Patient is to be sent back to Dr. Walton for followup of syncope if telemetry is unremarkable. History of Watchman procedure. Chose not to be anticoagulated. Had a mechanical fall at home and blood stool with stable hemoglobin of 16.6, hematocrit of 50 with a loop recorder. History of schwannoma, lower thoracic aneurysm which has been stented, morbid obesity, and probable sleep apnea. ACTIVE ISSUES ARE FOLLOWS: 1. Syncope. Loop recorder could not be interrogated has it had an battery. 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 Continued on telemetry. If negative, may discharge home once passes home safety evaluation. 2. Urinary tract infection. Currently on IV ceftriaxone. Received Cipro overnight. Patient had a Tmax of 100.7. If currently with no leukocytosis, to complete a 7-day course of antibiotics. 3. Gastrointestinal (GI) bleed. Takes aspirin, which has been held. Patient hemoglobin has remained stable. 4. Atrial fibrillation. Refused anticoagulation. Follows with a supervisor fireworks assembly in [place]. 5. Hypertension. Chronic. 6. Peripheral vascular disease. Held aspirin due to active GI bleed. 7. Left hip pain. X-rays show no acute fracture with mild degenerative disc disease. 8. Acute kidney injury. Resolved. DISPOSITION: Await physical therapy (PT) clearance. Continue antibiotics. MTDD
[2020-01-01 10:44] LABS: BLOOD UREA NITROGEN 24 MG/DL (7-18); CALCIUM LEVEL 8.6 MG/DL (8.8-10.2); CARBON DIOXIDE LEVEL 29 MEQ/L (21-32); CHLORIDE LEVEL 106 MEQ/L (98-107); CREATININE FOR GFR 1.01 MG/DL (0.70-1.30); GLOMERULAR FILTRATION RATE > 60.0 (>42); GLUCOSE, FASTING 157 MG/DL (70-100); POTASSIUM SERUM 4.4 MEQ/L (3.5-5.1); SODIUM LEVEL 141 MEQ/L (136-145)
[2020-01-01] MEDS ORDERED: PHENAZOPYRIDINE 100 MG TAB PO ONE (11:00)
[2020-01-01 14:00] VITALS: BP 121/70
[2020-01-01] MEDS: PHENAZOPYRIDINE 100 MG TAB PO SCH ×2 (16:15→21:02)
--- NOTE | 2020-01-01 17:03 | IPN ---
DATE: 01/01/2020 The patient this morning complains of dysuria, polyuria. He was found to have a fever of 100.7 two days ago and was started on Cipro initially but changed to ceftriaxone for presumed urinary tract infection. Initial urine culture shows contamination, repeat one on 12/31/2019 is still pending. The patient also states that after returning from renal ultrasound he felt very dizzy and lightheaded. When he sat down in the chair, the monitor put the telemetry unit on him again but they could not detect anything but rate controlled atrial fibrillation. Overnight at around 02:00 to 03:00 a.m., his heart rate did drop down to the 50s but recovered. He was hemodynamically stable and had no complaints and sleeping at that time. This morning, the patient denies any palpitations, lightheadedness, or dizziness. He says that he is still quite weak. He had an encouraging conversation with our physical therapist who recommended small devices to help at home that might make his transition safely for discharge. Afebrile overnight. No chills. Temperature 97.2, pulse 74, respiratory rate 17, blood pressure is 141/86, 94% on room air. GENERAL: Awake, alert and oriented to person, place and time. No jugular venous distention (JVD). No thyromegaly. Moist mucous membranes. LUNGS: Diminished breath sounds. Clear to auscultation. No wheezing or rales. HEART: S1, S2, irregularly irregular. Loop recorder noted in anterior chest. No erythema. No tenderness. No murmurs noted. ABDOMEN: Obese, soft, nontender, nondistended. Positive bowel sounds times four quadrants. EXTREMITIES: No clubbing or cyanosis. LABORATORY DATA: White count 6.9, hemoglobin 15, hematocrit 48, platelet count 116, previous platelet count 110. Sodium 141, potassium 4.4, chloride 106, bicarbonate 29, BUN 24, creatinine 1, glucose of 157. Urine culture 12/29/2019 contaminated. Repeat urine culture 12/31/2019 pending. Renal ultrasound: Two hypoechoic nodules seen in the left kidney as described, whether or not they represent complex cysts or solid nodules can not be determined, consider pre and post gadolinium contrast renal MRI provided the patient has sufficient GFR to tolerate at least half the dose of gadolinium. ASSESSMENT AND PLAN: This is a 74-year-old male admitted on 12/29/2019 with complaints of a mechanical fall and bloody stools. He was found to have a stable hemoglobin of 16 and was admitted for the following issues. 1. Syncope. Loop recorder could not be interrogated as the battery has . The patient is kept on telemetry. The patient is symptomatic with atrial fibrillation with rapid ventricular response (RVR). Cardiology, Dr. Gifford, recommends following up with Dr. Walton in order to replace the battery. Continue on telemetry monitoring. Check vital signs for orthostasis and replenish fluids if needed. 2. Urinary tract infection. Previously received two doses of Cipro due to maximum temperature (T-max) of 100.7 as well as complaints of dysuria. Repeat urine culture has been obtained on 12/31/2019. The result of which is unavailable. Currently on IV ceftriaxone and still complains of dysuria. He is being given Pyridium for comfort. 3. Gastrointestinal (GI) bleed. He takes aspirin which has been held. Hemoglobin and hematocrit remain stable. No overt GI bleed or hematemesis. No acute indication for red blood cell (RBC) transfusion. 4. Atrial fibrillation status post Watchman's procedure. He has a loop recorder, refused anticoagulation, follows with Dr. Walton for the loop recorder currently with no battery. Per Dr. Gifford, continue on telemetry monitoring. If symptomatic as the patient has atrial fibrillation with RVR, consider followup with cardiology for change in battery. 5. Hypertension, chronic. 6. Peripheral vascular disease. Aspirin held due to bloody stools. No acute indication for RBC transfusion, however. 7. Acute kidney injury. This has resolved with IV fluid hydration. DISPOSITION: Awaiting physical therapy (PT) clearance and identification of urine culture. Tentative discharge on Friday. [facility]
[2020-01-01 19:00] VITALS: BP_SYST 141; BP_SYST 144; BP_SYST 147; BP_DIAS 78; BP_DIAS 80
[2020-01-01] MEDS: **NOTE PATIENT COMMENT** MISC XX SCH (21:00)
[2020-01-01] MEDS: PANTOPRAZOLE 40MG TAB (PROTONIX) PO SCH (21:02)
[2020-01-01 22:00] VITALS: BP 128/76
[2020-01-01 22:29] VITALS: BP_SYST 114; BP_SYST 116; BP_SYST 127; BP_DIAS 69; BP_DIAS 71; BP_DIAS 75
[2020-01-02] MEDS: traMADol 50 MG TAB PO SCH ×4 (00:35→17:46)
[2020-01-02 02:30] VITALS: BP_SYST 132; BP_SYST 136; BP_SYST 144; BP_DIAS 74; BP_DIAS 82; BP_DIAS 86
[2020-01-02 06:00] VITALS: BP 143/88
[2020-01-02 06:22] VITALS: BP_SYST 142; BP_SYST 150; BP_SYST 159; BP_DIAS 83; BP_DIAS 96; BP_DIAS 98
[2020-01-02 08:51] LABS: BASO % 0.5 % (0.0-1.0); EOS # 0.3 10^3/uL (0.0-0.5); EOS % 4.4 % (0.0-3.0); HEMATOCRIT 50.5 % (42.0-52.0); HEMOGLOBIN 16.3 g/dl (13.5-17.5); LYMPH # 1.1 10^3/uL (1.5-5.0); LYMPH % 17.2 % (24.0-44.0); MEAN CORPUSCULAR HEMOGLOBIN 31.8 pg (27.0-33.0); MEAN CORPUSCULAR HGB CONC 32.3 g/dl (32.0-36.5); MEAN CORPUSCULAR VOLUME 98.6 fl (80.0-96.0); MONO # 0.8 10^3/uL (0.0-0.8); MONO % 11.9 % (0.0-5.0); NEUTROPHILS # 4.3 10^3/uL (1.5-8.5); NEUTROPHILS % 65.4 % (36.0-66.0); PLATELET COUNT, AUTOMATED 131 10^3/uL (150-450); RED BLOOD COUNT 5.12 10^6/uL (4.30-6.10); WHITE BLOOD COUNT 6.5 10^3/uL (4.0-10.0)
[2020-01-02] MEDS: PHENAZOPYRIDINE 100 MG TAB PO SCH ×3 (08:59→20:39)
[2020-01-02] MEDS: amLODIPine 10 MG TAB PO SCH (08:59)
[2020-01-02] MEDS: cefTRIAXone SOD 1 GM in D5W MINI-BAG PLUS 50 ML IV SCH (08:59)
[2020-01-02] MEDS: NITROGLYCERIN 0.4 MG/HR PATCH TD SCH (08:59)
[2020-01-02] MEDS: LACTOBACILLUS ACIDOPHILUS CAP (BACID) PO SCH ×2 (08:59→17:46)
[2020-01-02] MEDS: BACLOFEN 10 MG TAB PO SCH ×2 (09:00→20:39)
[2020-01-02] MEDS: ATENOLOL 12.5MG PER 1/2 TABLET PO SCH (09:00)
[2020-01-02] MEDS: PANTOPRAZOLE 40MG TAB (PROTONIX) PO SCH ×2 (09:00→20:39)
[2020-01-02 09:26] LABS: BLOOD UREA NITROGEN 24 MG/DL (7-18); CALCIUM LEVEL 8.6 MG/DL (8.8-10.2); CARBON DIOXIDE LEVEL 31 MEQ/L (21-32); CHLORIDE LEVEL 107 MEQ/L (98-107); CK-MB VALUE MASS 2.8 NG/ML (<3.6); CPK CREATINE PHOSPHOKINASE 61 U/L (39-308); CREATININE FOR GFR 1.03 MG/DL (0.70-1.30); GLOMERULAR FILTRATION RATE > 60.0 (>42); GLUCOSE, FASTING 121 MG/DL (70-100); MB/CK RELATIVE INDEX 4.59 (< OR =4); POTASSIUM SERUM 4.4 MEQ/L (3.5-5.1); SODIUM LEVEL 144 MEQ/L (136-145); THYROID STIMULATING HORMONE 0.709 uIU/ML (0.358-3.740); TROPONIN I < 0.02 NG/ML (< 0.10)
[2020-01-02 14:00] VITALS: BP 112/83
[2020-01-02 19:56] LABS: CHLAMYDIA DNA AMPLIFICATION NEGATIVE (NEGATIVE); GC DNA AMPLIFICATION NEGATIVE (NEGATIVE)
[2020-01-02 20:00] VITALS: BP_SYST 114; BP_SYST 116; BP_SYST 122; BP_DIAS 72; BP_DIAS 82
[2020-01-02] MEDS: **NOTE PATIENT COMMENT** MISC XX SCH (20:44)
[2020-01-02 22:00] VITALS: BP 116/82
[2020-01-03] MEDS: traMADol 50 MG TAB PO SCH ×4 (00:23→18:05)
[2020-01-03 06:00] VITALS: BP 119/80
[2020-01-03] MEDS: LACTOBACILLUS ACIDOPHILUS CAP (BACID) PO SCH ×2 (08:33→18:05)
[2020-01-03] MEDS: PANTOPRAZOLE 40MG TAB (PROTONIX) PO SCH ×2 (08:33→20:26)
[2020-01-03] MEDS: BACLOFEN 10 MG TAB PO SCH ×2 (08:33→20:26)
[2020-01-03] MEDS: PHENAZOPYRIDINE 100 MG TAB PO SCH (08:33)
[2020-01-03] MEDS: amLODIPine 10 MG TAB PO SCH (08:34)
[2020-01-03] MEDS: ATENOLOL 12.5MG PER 1/2 TABLET PO SCH (08:34)
[2020-01-03] MEDS: NITROGLYCERIN 0.4 MG/HR PATCH TD SCH (08:34)
[2020-01-03 14:00] VITALS: BP 120/61
--- NOTE | 2020-01-03 14:11 | IPN ---
DATE OF SERVICE: 01/02/2020 No issues per nursing overnight. The patient still continues to complain of dysuria, but had negative urine culture, still on IV Ceftriaxone. Possible prostatitis. The patient has been afebrile without any chills. He continues to complain of occasional dizziness when he ambulates. The loop recorder has no batteries. Telemetry has been reviewed, remains in atrial fibrillation, but rate has been controlled. He does have episodes of bradycardia when he sleeps, but has remained hemodynamically stable. Vital Signs: Temperature 96.4, pulse 83, respiratory rate 19, blood pressure 155/89, 94% on room air. Generally, awake, alert and oriented to person, place and time. Answering questions appropriately. No jugular venous distention (JVD). No thyromegaly. No cervical lymphadenopathy. Lungs are clear to auscultation. No wheezing, rales or rhonchi. Heart: S1, S2, irregularly irregular. Abdomen is obese, soft, nontender, nondistended. Positive bowel sounds. Extremities with chronic lower extremity trace edema. LABORATORY DATA: White count 6.5, hemoglobin 16, hematocrit 50, platelet count 131. Sodium 144, potassium 4.4, chloride 107, bicarbonate 31, BUN 24, creatinine 1.03, glucose of 121. ASSESSMENT AND PLAN: This is a 74-year-old male admitted on 12/29/2019 with complaints of a mechanical fall and bloody stools and found to have a stable hemoglobin admitted for the following issues. 1. Syncope. The patient's loop recorder could not be interrogated as it has run out of battery. The patient sees Dr. Walton in the [place] office and has had multiple battery changes in the past two years. Per Dr. Gifford, the patient is to remain on telemetry. If syncopal episode occurs with a documented atrial fibrillation with RVR that is rate uncontrolled or bradycardia, will need to do further intervention. The patient has been orthostatic and has received IV fluids. 2. Possible prostatitis. The patient's urine culture is negative, but he continues to complain of pain on urination. He is currently on Pyridium. Previously given Cipro. Currently on IV Ceftriaxone. Can transition to renally dosed ciprofloxacin. Continue on Pyridium. 3. Gastrointestinal (GI) bleed. Takes aspirin which has been held. Hemoglobin and hematocrit has remained stable. The patient does not want any workup at this time. H/H has had no decompensation. Does not require any blood transfusion. 4. Atrial fibrillation status post Watchman's procedure. Has a loop recorder due to syncopal episode. Has refused anticoagulation in the past. He sees Dr. Walton in the [place] office and will require loop recorder battery change prior to hospital discharge. 5. Hypertension, chronic. 6. Peripheral vascular disease. Aspirin held due to bloody stools for which he refuses to have workup. 7. Orthostasis. Currently on IV fluids. Holding his diuretics. DISPOSITION: Await physical therapy (PT) clearance. MTDD
[2020-01-03 14:27] LABS: HEMATOCRIT 47.9 % (42.0-52.0); HEMOGLOBIN 15.5 g/dl (13.5-17.5); MEAN CORPUSCULAR HEMOGLOBIN 31.6 pg (27.0-33.0); MEAN CORPUSCULAR HGB CONC 32.4 g/dl (32.0-36.5); MEAN CORPUSCULAR VOLUME 97.8 fl (80.0-96.0); PLATELET COUNT, AUTOMATED 135 10^3/uL (150-450); WHITE BLOOD COUNT 6.7 10^3/uL (4.0-10.0)
[2020-01-03 14:57] LABS: BLOOD UREA NITROGEN 26 MG/DL (7-18); CALCIUM LEVEL 9.1 MG/DL (8.8-10.2); CARBON DIOXIDE LEVEL 29 MEQ/L (21-32); CHLORIDE LEVEL 108 MEQ/L (98-107); CREATININE FOR GFR 1.05 MG/DL (0.70-1.30); GLOMERULAR FILTRATION RATE > 60.0 (>42); GLUCOSE, FASTING 148 MG/DL (70-100); POTASSIUM SERUM 4.2 MEQ/L (3.5-5.1); SODIUM LEVEL 142 MEQ/L (136-145)
[2020-01-03] MEDS: **NOTE PATIENT COMMENT** MISC XX SCH (20:26)
[2020-01-03 22:00] VITALS: BP 143/86
[2020-01-04] MEDS: traMADol 50 MG TAB PO SCH ×4 (00:16→18:35)
[2020-01-04 06:00] VITALS: BP 143/95
[2020-01-04] MEDS: PANTOPRAZOLE 40MG TAB (PROTONIX) PO SCH ×2 (08:01→21:01)
[2020-01-04] MEDS: ATENOLOL 12.5MG PER 1/2 TABLET PO SCH (08:02)
[2020-01-04] MEDS: LACTOBACILLUS ACIDOPHILUS CAP (BACID) PO SCH ×2 (08:02→18:35)
[2020-01-04] MEDS: amLODIPine 10 MG TAB PO SCH (08:02)
[2020-01-04] MEDS: BACLOFEN 10 MG TAB PO SCH ×2 (08:02→21:01)
[2020-01-04] MEDS: NITROGLYCERIN 0.4 MG/HR PATCH TD SCH (08:03)
[2020-01-04 08:06] LABS: BASO % 0.5 % (0.0-1.0); EOS # 0.3 10^3/uL (0.0-0.5); EOS % 5.6 % (0.0-3.0); HEMATOCRIT 50.3 % (42.0-52.0); HEMOGLOBIN 16.3 g/dl (13.5-17.5); LYMPH # 1.3 10^3/uL (1.5-5.0); LYMPH % 21.6 % (24.0-44.0); MEAN CORPUSCULAR HGB CONC 32.4 g/dl (32.0-36.5); MEAN CORPUSCULAR VOLUME 98.8 fl (80.0-96.0); MONO # 0.7 10^3/uL (0.0-0.8); MONO % 11.8 % (0.0-5.0); NEUTROPHILS # 3.7 10^3/uL (1.5-8.5); PLATELET COUNT, AUTOMATED 148 10^3/uL (150-450); RED BLOOD COUNT 5.09 10^6/uL (4.30-6.10); WHITE BLOOD COUNT 6.1 10^3/uL (4.0-10.0)
[2020-01-04 08:14] LABS: BLOOD UREA NITROGEN 25 MG/DL (7-18); CALCIUM LEVEL 8.6 MG/DL (8.8-10.2); CARBON DIOXIDE LEVEL 35 MEQ/L (21-32); CHLORIDE LEVEL 105 MEQ/L (98-107); CREATININE FOR GFR 1.13 MG/DL (0.70-1.30); GLOMERULAR FILTRATION RATE > 60.0 (>42); GLUCOSE, FASTING 125 MG/DL (70-100); MAGNESIUM LEVEL 1.9 MG/DL (1.8-2.4); SODIUM LEVEL 144 MEQ/L (136-145)
--- NOTE | 2020-01-04 12:24 | IPNPDOC ---
Text Note Date of Service The patient was seen on 01/04/20. NOTE Subjective: Patient is a 74-year-old male with PMHx of Hx of Vasovagal syncope, HTN, Chronic A. 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 Patient was admitted to hospitalist service for further evaluation and treatment. His hemoglobin had remained stable through the duration of the hospital course. Patient was seen and examined at the bedside. Currently patient denies any chest pain. She is breath or palpitations. He denies any nausea, vomiting, abdominal pain, diarrhea or urinary discomfort. Patient has been working with physical therapy and outpatient therapy, however, has not yet cleared. Objective: Vitals (See below) General: Lying in bed, appears comfortable, AAOx3 HEENT: NC, AT CVS: +S1S2 Lungs: Fair air entry b/l, -w/r/r Abdomen: Soft, ND, NT Extremities: - Edema, - Calf tenderness Assessment and plan: Syncope - posisbly 2/2 orthostatic - Patient loop recorder has ran out of battery - s/p orthostatic hypotension - Follows with Dr. Walton in the [place] office and has had multiple battery changes in the past two years - Per Dr. Gifford, the patient is to remain on telemetry - There have been no events on telemetry - c/w Atenolol - c/w PT and OT Possible prostatitis - Hemodynamically stable and afebrile - No leukocytosis - UA is negative - s/p Ceftriaxone and Pyridium Gastrointestinal (GI) bleed - Patient remains hemodynamically stable - Hemoglobin has remained stable and has not required any transfusions throughout the hospital course - c/w Protonix Atrial fibrillation - s/p Watchman's procedure; Has refused anticoagulation in the past - Follows with Dr. Walton in the [place] office Hypertension, chronic. - BP well controlled - c/w Atenolol and Amlodipine Peripheral vascular disease - ASA on hold GERD - c/w Protonix DVT prophylaxis - c/w Disposition: - Anticipate patient being transitioned to rehabilitation facility within 24-48 hours VS,Jacqueline, I+O VSJacqueline, I+O Laboratory Tests 01/03/20 14:07 01/04/20 07:36 Vital Signs Date Time Temp Pulse Resp B/P (MAP) Pulse Ox O2 Delivery O2 Flow Rate FiO2 01/04/20 11:48 18 01/04/20 06:30 95 01/04/20 06:00 97.6 69 143/95 (111) Room Air I&O- Last 24 Hours up to 6 AM 01/04/20 05:59 Intake Total 910 ml Output Total 1200 ml Balance -290 ml KODY FRAZIER MD January 04, 2020 12:24
[2020-01-04 14:00] VITALS: BP 130/86
[2020-01-04] MEDS: **NOTE PATIENT COMMENT** MISC XX SCH (21:00)
[2020-01-04 22:00] VITALS: BP 141/78
[2020-01-05] MEDS: traMADol 50 MG TAB PO SCH ×4 (00:07→17:27)
[2020-01-05 06:00] VITALS: BP 137/73
--- NOTE | 2020-01-05 06:37 | IPN ---
DATE OF SERVICE: 01/03/2020 The patient remains afebrile. Still complains of some discomfort when he urinates, however, urine culture as well as GC and Chlamydia have all been negative. He currently is afebrile. He complains of some imbalance. No more complaints of dizziness or lightheadedness, chest pain, pressure, tightness or shortness of breath. Telemetry remains with atrial fibrillation. The patient has a loop recorder with no battery and will need battery change as outpatient with Dr. Walton or Dr. Cotter in [facility] with a satellite office here in [place]. The patient has now passed physical therapy with recommendations for subacute placement. Vital Signs: Temperature 97.6, pulse 84, respiratory rate 16, blood pressure 119/80, 97% on room air. Generally, the patient is awake, alert and oriented to person, place and time. Answering questions appropriately. Lungs are clear to auscultation. No wheezing, rales or rhonchi. Heart: S1, S2, irregularly irregular. Abdomen is obese, soft, nontender, nondistended. Positive bowel sounds. Extremities with no cyanosis or clubbing. LABORATORY DATA: Pending. MICROBIOLOGY: Urine culture 12/31/2019 no growth. ASSESSMENT AND PLAN: This is a 74-year-old male admitted on 12/29/2019 with complaints of a mechanical fall and bloody stools found to have a stable hemoglobin of 16, who refused workup, aspirin had been held and no repeat episodes of GI bleed. He complained of left hip pain which improved. CT of the head after mechanical fall was negative for acute bleed and x-ray was negative. The patient was found to be tachycardic with possible orthostasis and was given IV fluids. Consult done due to GI bleed which has been stable and with no recurrent episodes. Due to syncopal episode, the patient's loop recorder was evaluated. 1. Syncope. Described as feeling lightheaded. The patient's loop recorder has no battery. On telemetry, patient remains in atrial fibrillation. Loop recorder was to be evaluated by cardiology, Dr. Gifford, but the battery has run out and unable to do so. Dr. Gifford recommends continued telemetry monitoring and battery change by his outpatient credit reporter, Dr. Walton, [facility] [place], with satellite office in [place]. EKG did not show any acute ischemic changes when he was admitted. 2. Acute GI bleed. The patient was on aspirin. Hemoglobin remained stable. Followup as outpatient with gastroenterology. Patient has had no recurrent GI bleed. 3. Atrial fibrillation with heart rate of 108 on admission, found to be secondary to orthostasis and dehydration. The patient's aspirin was held secondary to acute GI bleed, no recurrent GI bleeds now. He has a loop recorder to further evaluate his syncopal episode. He is currently on rate control medications, which is stable. 4. Chronic left hip pain, negative for acute fracture. Will need subacute rehabilitation. 5. Dysuria. Patient had a urine culture which was negative. He was treated with Cipro and ceftriaxone, with negative findings. Was also checked for Chlamydia and gonorrhea, both of which were negative on 01/02/2020. Therefore antibiotics have been discontinued. 6. Acute kidney injury secondary to over diuresis. Patient has done well and currently with baseline normal kidney function of 1. Renal ultrasound performed on 12/31/2019 however shows two hypoechoic nodules in the left kidney. Cannot determine whether these are complex or solid nodules. Consider pre and post contrast gadolinium enhanced renal MRI. The patient at this time is thinking about whether to proceed with MRI of the kidneys to further elucidate whether these are complex or solid renal cysts. 7. Chronic back pain exacerbated by mechanical fall. No acute fracture or dislocation. DISPOSITION: Patient is not medically stable for hospital discharge. Subacute rehabilitation is recommended.
[2020-01-05] MEDS ORDERED: BISACODYL 10 MG SUPP PR ONE (07:45)
[2020-01-05] MEDS: LACTULOSE 20 GM/30 ML SYRUP UD PO SCH ×5 (09:18→23:45)
[2020-01-05] MEDS: ATENOLOL 12.5MG PER 1/2 TABLET PO SCH (09:23)
[2020-01-05] MEDS: NITROGLYCERIN 0.4 MG/HR PATCH TD SCH (09:23)
[2020-01-05] MEDS: amLODIPine 10 MG TAB PO SCH (09:24)
[2020-01-05] MEDS: LACTOBACILLUS ACIDOPHILUS CAP (BACID) PO SCH ×2 (09:24→17:27)
[2020-01-05] MEDS: BACLOFEN 10 MG TAB PO SCH ×2 (09:24→19:57)
[2020-01-05] MEDS: PANTOPRAZOLE 40MG TAB (PROTONIX) PO SCH ×2 (09:24→19:57)
--- NOTE | 2020-01-05 11:36 | IPNPDOC ---
Text Note Date of Service The patient was seen on 01/05/20. NOTE Subjective: Patient is a 74-year-old male with PMHx of Hx of Vasovagal syncope, HTN, Chronic A. 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 Patient was admitted to hospitalist service for further evaluation and treatment. His hemoglobin had remained stable through the duration of the hospital course. Patient was seen and examined at the bedside. Patient denies nausea, vomiting, chest pain, short of breath, palpitations. He denies any discomfort with urination at this time has reported constipation, indicating that he is not a bowel movement in > 7 days. Objective: Vitals (See below) General: Lying in bed, appears comfortable, AAOx3 HEENT: NC, AT CVS: +S1S2 Lungs: Fair air entry b/l, she'll wheezing, rhonchi or rales Abdomen: Soft, nondistended, nontender, moderately obese Extremities: No evidence of lower extremity edema, - Calf tenderness Assessment and plan: Syncope - possibly 2/2 orthostatic hypotension - Patient loop recorder has ran out of battery - s/p orthostatic hypotension - Follows with Dr. Walton in the [place] office and has had multiple battery changes in the past two years - s/p Telemetry - c/w Atenolol with holding parameters - c/w PT and OT; recommending continued rehabilitation s/p Possible prostatitis - Hemodynamically stable and afebrile - No leukocytosis - UA is negative - s/p Ceftriaxone and Pyridium s/p Gastrointestinal (GI) bleed - Patient remains hemodynamically stable - Hemoglobin has remained stable and has not required any transfusions throughout the hospital course - c/w Protonix Atrial fibrillation - c/w rate / rhythm control with Atenolol - s/p Watchman's procedure; Has refused anticoagulation in the past - Follows with Dr. Walton in the [place] office Hypertension, chronic - BP well controlled - c/w Atenolol and Amlodipine Peripheral vascular disease - ASA on hold GERD - c/w Protonix DVT prophylaxis - c/w TEDs/Sequentials Disposition: - Awaiting disposition to rehabilitation facility Jacqueline LARRY, I+O VS, Jacqueline, I+O Vital Signs Date Time Temp Pulse Resp B/P (MAP) Pulse Ox O2 Delivery O2 Flow Rate FiO2 01/05/20 09:23 132/84 01/05/20 09:23 81 01/05/20 06:10 16 01/05/20 06:00 96.9 94 Room Air I&O- Last 24 Hours up to 6 AM 01/05/20 06:00 Intake Total 540 ml Output Total 950 ml Balance -410 ml KODY FRAZIER MD January 05, 2020 11:36
[2020-01-05 14:00] VITALS: BP 137/94
[2020-01-05] MEDS: **NOTE PATIENT COMMENT** MISC XX SCH (19:57)
[2020-01-05 22:00] VITALS: BP 132/74
[2020-01-06] MEDS: traMADol 50 MG TAB PO SCH ×3 (00:09→12:33)
[2020-01-06 06:00] VITALS: BP 148/95
[2020-01-06] MEDS: LACTULOSE 20 GM/30 ML SYRUP UD PO SCH ×2 (06:00→12:00)
[2020-01-06] MEDS ORDERED: RISATAB3 PO (08:14)
[2020-01-06] MEDS ORDERED: TRAM50TA2 PO (08:14)
[2020-01-06] MEDS ORDERED: PANT40TA3 PO (08:14)
[2020-01-06] MEDS ORDERED: SENN-52 PO (08:15)
[2020-01-06] MEDS: amLODIPine 10 MG TAB PO SCH (08:33)
[2020-01-06] MEDS: NITROGLYCERIN 0.4 MG/HR PATCH TD SCH (08:33)
[2020-01-06 08:34] VITALS: BP 163/93
[2020-01-06] MEDS: PANTOPRAZOLE 40MG TAB (PROTONIX) PO SCH (08:34)
[2020-01-06] MEDS: LACTOBACILLUS ACIDOPHILUS CAP (BACID) PO SCH (08:34)
[2020-01-06] MEDS: BACLOFEN 10 MG TAB PO SCH (08:34)
[2020-01-06] MEDS: ATENOLOL 12.5MG PER 1/2 TABLET PO SCH (08:34)
--- NOTE | 2020-01-06 09:47 | DS.PDOC ---
Discharge Summary General Date of Admission Dec 29, 2019 at 15:27 Date of Discharge 01/06/2020 Discharge Summary PROCEDURES PERFORMED DURING STAY: [None]. ADMITTING DIAGNOSES / DISCHARGE DIAGNOSES: Syncope - possibly 2/2 orthostatic hypotension s/p Possible prostatitis s/p Gastrointestinal (GI) bleed Atrial fibrillation Hypertension, chronic Peripheral vascular disease GERD DVT prophylaxis COMPLICATIONS/CHIEF COMPLAINT: Rectal bleed HISTORY OF PRESENT ILLNESS: Patient is a 74-year-old male with PMHx of Hx of Vasovagal syncope, HTN, Chronic A. 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 Patient was admitted to hospitalist service for further evaluation and treatment. His hemoglobin had remained stable through the duration of the hospital course. HOSPITAL COURSE: Syncope - possibly 2/2 orthostatic hypotension - Patient loop recorder has ran out of battery - unable to be interrogated - s/p orthostatic hypotension - Follows with Dr. Walton in the [place] office and has had multiple battery changes in the past two years - s/p Telemetry - c/w Atenolol with holding parameters - c/w PT and OT; will be transition to the acute rehabilitation unit - Will have outpatient follow-up with cardiology s/p Possible prostatitis - Hemodynamically stable and afebrile - No leukocytosis - UA is negative - s/p Ceftriaxone and Pyridium s/p Gastrointestinal (GI) bleed - Patient remains hemodynamically stable - Hemoglobin has remained stable and has not required any transfusions throughout the hospital course - c/w Protonix - Will resume ASA Atrial fibrillation - c/w rate / rhythm control with Atenolol - s/p Watchman's procedure; Has refused anticoagulation in the past - Follows with Dr. Walton in the [place] office Hypertension, chronic - BP well controlled - c/w Atenolol and Amlodipine Peripheral vascular disease - ASA on hold GERD - c/w Protonix DVT prophylaxis - c/w TEDs/Sequentials DISCHARGE MEDICATIONS: Please see below. ALLERGIES: Please see below. PHYSICAL EXAMINATION ON DISCHARGE: Vitals (See below) General: Lying in bed, appears comfortable, AAOx3 HEENT: NC, AT CVS: +S1S2 Lungs: Fair air entry b/l, auscultations without any rhonchi, crackles or wheezing Abdomen: Abdomen remains soft, without any distention or tenderness, morbid obesity Extremities: Lower extremities are without any evidence of edema, - Calf tenderness LABORATORY DATA: Please see below. ACTIVITY: [As tolerated]. DISCHARGE PLAN: Follow-up with Dr. Valdovinos. Upon transfer to acute rehabilitation unit Follow-up with primary care provider and cardiology as an outpatient Remain compliant with treatment plan and medications Return to the ER if you experience any problems DISPOSITION: Discharged to acute rehabilitation unit DISCHARGE CONDITION: [Stable]. TIME SPENT ON DISCHARGE: 35 minutes Vital Signs/I&Os Vital Signs Date Time Temp Pulse Resp B/P (MAP) Pulse Ox O2 Delivery O2 Flow Rate FiO2 01/06/20 08:34 78 163/93 01/06/20 06:16 16 01/06/20 06:00 97.4 95 Room Air I&O- Last 24 Hours up to 6 AM 01/06/20 06:00 Intake Total 720 ml Output Total 590 ml Balance 130 ml Microbiology Microbiology 01/03/20 Respiratory Virus Panel (PCR) (MISTY) - Final, Complete 12/31/19 Urine Culture - Final, Complete 12/29/19 Urine Culture - Final, Complete Discharge Medications Scheduled Amlodipine Besylate (Amlodipine Besylate) 5 Mg Tab, 5 MG PO DAILY, (Reported) Ascorbic Acid (Vitamin C) 500 Mg Tab, 500 MG PO DAILY, (Reported) Aspirin (Aspirin EC) 81 Mg Tab, 81 MG PO DAILY, (Reported) Atenolol (Atenolol) 25 Mg Tab, 12.5 MG PO DAILY, (Reported) Baclofen (Baclofen) 10 Mg Tab, 10 MG PO BID, (Reported) Docusate Sodium (Colace) 100 Mg Cap, 100 MG PO BID, (Reported) L.acidoph/L.bulg/B.bif/S.therm (Lara-Bid Caplet) 1 Each Tablet, 1 EA PO BIDWM Multivitamins (Thera M Plus Tablet) 1 Tab Tab, 1 TAB PO DAILY, (Reported) Nitroglycerin (Nitroglycerin Patch) 0.4 Mg/Hr Dis, 0.4 MG TD DAILY, (Reported) APPLIES AT 0800 AND REMOVES AT 2000, EVEN DAYS RIGHT ARM, ODD DAYS LEFT ARM Pantoprazole Sodium (Pantoprazole Sodium) 40 Mg Tablet.dr, 40 MG PO BID Scheduled PRN Sennosides/Docusate Sodium (Senna Plus Tablet) 1 Each Tablet, 2 TAB PO BIDP PRN for CONSTIPATION Tramadol HCl (Tramadol HCl) 50 Mg Tablet, 50 MG PO TIDP PRN for pain Allergies Coded Allergies: latex (Verified Allergy, Unknown, 12/29/19) KODY FRAZIER MD January 06, 2020 09:47
[2020-01-06 14:00] VITALS: BP 149/83
== END 2020-01-06 14:42 | DRG 378 ==
LOC: EDBD 11:57 → M ED 11:57 → M ED INP 15:27 → ENRESERV 15:50 → M MSPAV 16:59
PROVIDERS: ADMIT Internal Medicine; ATTEND Internal Medicine
DX: K92.1 Melena (principal); I48.20 Chronic atrial fibrillation, unspecified; N17.9 Acute kidney failure, unspecified; I95.1 Orthostatic hypotension; I10 Essential (primary) hypertension; G47.30 Sleep apnea, unspecified; R00.0 Tachycardia, unspecified; N41.9 Inflammatory disease of prostate, unspecified; E86.0 Dehydration; I73.9 Peripheral vascular disease, unspecified; M25.552 Pain in left hip; E66.9 Obesity, unspecified; Z79.82 Long term (current) use of aspirin; Z79.899 Other long term (current) drug therapy; Z98.62 Peripheral vascular angioplasty status; Z87.891 Personal history of nicotine dependence; Z91.040 Latex allergy status; Z95.818 Presence of other cardiac implants and grafts; Z68.34 Body mass index [BMI] 34.0-34.9, adult

== ENCOUNTER 2020-01-06 10:22 | Inpatient (IN) | payer OTHER, MEDICAID ==
[~2020-01-06] VITALS: Ht 195.6 cm; Wt 130.0 kg
[~2020-01-06 10:22] MED LIST changes: +PANT40TA3 PO; +RISATAB3 PO; +SENN-52 PO; +TRAM50TA2 PO
[2020-01-06] MEDS ORDERED: BISACODYL 10 MG SUPP PR PRN (12:45)
[2020-01-06 15:14] VITALS: BP 163/83
[2020-01-06] MEDS: ASPIRIN 81 MG ENTERIC TAB PO SCH (16:46)
[2020-01-06] MEDS: SUCRALFATE 1 GM TAB PO SCH ×2 (16:47→20:38)
[2020-01-06] MEDS: LACTOBACILLUS ACIDOPHILUS CAP (BACID) PO SCH (16:47)
[2020-01-06] MEDS: REMEDY PHYTOPLEX Z-GUARD PASTE 113GM TUBE (FROM STOREROOM PRODUCT) TOP SCH ×2 (16:55→20:38)
[2020-01-06 20:00] VITALS: BP 142/88
[2020-01-06] MEDS: BACLOFEN 10 MG TAB PO SCH (20:37)
[2020-01-06] MEDS: HEPARIN SOD (PORCINE) 5000UNITS/ML VIAL (J1644 PER 1000UNITS) SC SCH (20:37)
[2020-01-06] MEDS: PANTOPRAZOLE 40MG TAB (PROTONIX) PO SCH (20:38)
[2020-01-06] MEDS: SENNA 8.6 MG TAB (SENOKOT) PO SCH (20:38)
[2020-01-06] MEDS: LACTULOSE 20 GM/30 ML SYRUP UD PO SCH (20:38)
[2020-01-06] MEDS: DOCUSATE SODIUM 100 MG CAP PO SCH (20:38)
[2020-01-06] MEDS: **NOTE PATIENT COMMENT** MISC XX SCH (20:45)
[2020-01-07 07:05] LABS: BASO % 0.6 % (0.0-1.0); EOS # 0.3 10^3/uL (0.0-0.5); HEMATOCRIT 47.1 % (42.0-52.0); LYMPH # 1.2 10^3/uL (1.5-5.0); LYMPH % 19.8 % (24.0-44.0); MEAN CORPUSCULAR HEMOGLOBIN 33.2 pg (27.0-33.0); MEAN CORPUSCULAR VOLUME 97.7 fl (80.0-96.0); MONO # 0.8 10^3/uL (0.0-0.8); MONO % 12.6 % (0.0-5.0); NEUTROPHILS # 3.8 10^3/uL (1.5-8.5); NEUTROPHILS % 61.4 % (36.0-66.0); PLATELET COUNT, AUTOMATED 149 10^3/uL (150-450); RED BLOOD COUNT 4.82 10^6/uL (4.30-6.10); WHITE BLOOD COUNT 6.2 10^3/uL (4.0-10.0)
[2020-01-07 07:36] LABS: ALBUMIN 3.3 GM/DL (3.2-5.2); ALT/SGPT 41 U/L (12-78); BILIRUBIN,TOTAL 0.9 MG/DL (0.2-1.0); BLOOD UREA NITROGEN 31 MG/DL (7-18); CALCIUM LEVEL 8.2 MG/DL (8.8-10.2); CARBON DIOXIDE LEVEL 29 MEQ/L (21-32); CHLORIDE LEVEL 107 MEQ/L (98-107); CREATININE FOR GFR 0.98 MG/DL (0.70-1.30); GLOMERULAR FILTRATION RATE > 60.0 (>42); GLUCOSE, FASTING 120 MG/DL (70-100); POTASSIUM SERUM 4.3 MEQ/L (3.5-5.1); SODIUM LEVEL 142 MEQ/L (136-145); TOTAL PROTEIN 5.9 GM/DL (6.4-8.2)
[2020-01-07] MEDS: LACTULOSE 20 GM/30 ML SYRUP UD PO SCH ×2 (09:39→21:00)
[2020-01-07] MEDS: ATENOLOL 12.5MG PER 1/2 TABLET PO SCH (09:39)
[2020-01-07] MEDS: HEPARIN SOD (PORCINE) 5000UNITS/ML VIAL (J1644 PER 1000UNITS) SC SCH ×2 (09:39→21:47)
[2020-01-07] MEDS: PANTOPRAZOLE 40MG TAB (PROTONIX) PO SCH ×2 (09:39→21:47)
[2020-01-07] MEDS: NITROGLYCERIN 0.4 MG/HR PATCH TD SCH (09:39)
[2020-01-07] MEDS: DOCUSATE SODIUM 100 MG CAP PO SCH ×2 (09:39→21:47)
[2020-01-07] MEDS: amLODIPine 10 MG TAB PO SCH (09:40)
[2020-01-07] MEDS: LACTOBACILLUS ACIDOPHILUS CAP (BACID) PO SCH ×2 (09:40→17:16)
[2020-01-07] MEDS: ASPIRIN 81 MG ENTERIC TAB PO SCH (09:40)
[2020-01-07] MEDS: SUCRALFATE 1 GM TAB PO SCH ×4 (09:40→21:47)
[2020-01-07] MEDS: BACLOFEN 10 MG TAB PO SCH ×2 (09:40→21:47)
[2020-01-07] MEDS: REMEDY PHYTOPLEX Z-GUARD PASTE 113GM TUBE (FROM STOREROOM PRODUCT) TOP SCH ×3 (09:40→21:48)
--- NOTE | 2020-01-07 13:51 | HPEPDOC ---
[employer] Coreroom Note DATE OF ADMISSION: 01-06-20 DATE OF SERVICE: 01-06-20 TIME OF ADMISSION: Please refer to physician's admission order. SOURCE OF ADMISSION INFORMATION: [facility] record and patient CHIEF COMPLAINT: GI bleed with weakness HISTORY OF PRESENT ILLNESS: 74M pmh Afib s/p Watchmans procedure with loop recorder, not on AC, obesity, chronic low back pain, thoracic aneurysm s/p stent, T6-7 schwannoma s/p removal, HTN who fell at home and presented to [facility] ED on 12-29-19 complaining of dizziness and bloody stools. FOBT was positive, CTH negative for acute intracranial findings, and hip x-rays negative for fractures. His aspirin was initially held and he received IVF for what was thought to be orthostatics in the setting of acute GI bleed. Cardiac work-up did not how any significant findings except rate controlled afib on tele. He was started on antibiotics for presumed UTI due to complaints of dysuria, but two cultures came back negative and he did not test positive for gonorrhea or chlamydia. He was evaluated by therapy, found to be below his prior level of function and deemed medically appropriate for discharge to ARU on 01-06-20. REVIEW OF SYSTEMS: The following is a completed review of systems and has been reviewed. Review of systems otherwise unremarkable. PAIN: Patient self reports chronic low back pain EYES: No recent vision changes EARS, NOSE, & THROAT: No throat pain, or dysphagia, or rhinorrhea CARDIOVASCULAR: Denies chest pain or palpitations PULMONARY: Denies shortness of breath GASTROINTESTINAL: Denies constipation/diarrhea GENITOURINARY: +dysuria MUSCULOSKELETAL: generalized weakness NEUROLOGICAL:no paresthesias or tremor HEMATOLOGICAL: denies easy bruising SKIN: denies rash PSYCHIATRIC: Unremarkable All other review of systems found to be negative. PAST MEDICAL HISTORY: as per HPI PAST SURGICAL HISTORY: as per HPI and s/p aorto-iliac graft and RLE angioplasty procedures ALLERGIES: Please see below. MEDICATIONS: Please see below. SOCIAL HISTORY: former smoker, no eoth/illicit drugs DIET: low sodium PHYSICAL EXAMINATION: VITAL SIGNS: Please see below. GENERAL: Pleasant and cooperative. No acute distress. HEENT: PERRL. Extraocular movements intact. Clear conjunctiva CARDIOVASCULAR: Irregular rate and rhythm. No murmurs, rubs, or gallops LUNGS: Clear to auscultation bilaterally. No wheezes. No rhonchi ABDOMEN: Soft, nontender, nondistended. Positive bowel sounds. Normal active bowel sounds NEUROLOGICAL: Alert and oriented times three. Cranial nerves II through XII g rossly intact. Sensation grossly intact in all 4 limbs EXTREMITIES: 5\5 strength bilateral upper extremities. 5\5 strength right lower extremity. 5/5 strength in left lower extremity. SKIN: no sacral ulcers LABORATORY DATA: Please see below. IMAGING:[Imaging documentation personally reviewed by record]. FUNCTIONAL STATUS: Premorbid: Independent with all activities of daily life as well as mobility On Admission: contact guard for functional transfers, ambulation, and ADL management GOALS: Independent without AD for community distances, stairs, dressing, bathing, toileting, functional transfers ASSESSMENT:74-year-old M with past medical history of HTN and Afib who presents status post GI bleed PLAN: 1. REhab-PT/Ot advance gait and ADL training, incorporate back program into treatments, strengthen/stretch/maintain ROM all 4 limbs 2. cardiac- Afib s/p watchman's procedure, not on AC, c/u beta-boy -hx PVD c/u ASa, patient f/u with vascular [id number] -HTN c/u BP meds, adjust prn, medicine consulted to assist in overall management 3. Resp: encourage incentive spirometry, monitor for infection 4. Ortho: chronic low back pain, with hx of T6-T7 schwanoma s/p resection 5. GI: +FOBT, c/u protonx bId and sucralfate, monitor for drop in Hgb, will transfuse if <8 or if symptomatic 6. DVT ppx: heparin and teds 7. Pain: baclofen and tramdol prn, tylenol prn 8. : will order repeat UA/ucx due to persistent dysuria 9. Dispo: TBD POST ADMISSION PHYSICIAN EVALUATION: Medical and functional status: Description of medical status, medical assessment: As above. Rehabilitation diagnosis and current and prior cold morbid medical conditions as above. Risk of complications and plans to mitigate them as above. Description of functional status current status is as above. Prior status as above. Status compared to preadmission: There are no clinically significant differences between the patient's current status and the information described on the preadmission screening document. Treatment plan anticipated: Treatment plan is as described above. Required di sciplines including physical therapy, occupational therapy, others as noted above Intensity of services: 3 hours a day, 6 days a week. Special considerations: There are no specific special or safety considerations that would likely preclude immediate implementation of an intensive rehabilitation program or subsequently influence the plan of care. ATTESTATION: Considering all the information above, it is my best judgment that this patient requires intensive rehabilitation therapy as described above and an inpatient hospital environment due to the complexity of nursing, medical, and rehabilitation needs required by the patient. Furthermore, this patient can reasonably be expected to participate in an benefit from an inpatient rehabilitation stay with an interdisciplinary team approach to the delivery of rehabilitation care under the direction and supervision of rehabilitation physician PROGNOSIS: Excellent. ESTIMATED LENGTH OF STAY:7-10 days. PROJECTED DISCHARGE DESTINATION: Home with family support and any durable medical equipment required to increase functional safety and mobility. TIME SPENT COUNSELING AND COORDINATING INITIAL CARE: Greater than 70 minutes. Vital Signs Vital Sign - Last 24 Hours 01/06/20 01/06/20 01/07/20 01/07/20 15:14 20:00 06:00 09:39 Temp 97.8 97.9 96.0 Pulse 76 86 82 82 Resp 18 17 16 B/P (MAP) 163/83 (109) 142/88 (106) 142/88 Pulse Ox 100 94 98 O2 Delivery Room Air Room Air Room Air 01/07/20 01/07/20 09:39 09:40 Pulse 82 B/P (MAP) 142/88 142/88 Laboratory Data CBC/BMP Laboratory Tests 01/07/20 06:38 Labs 24H Laboratory Tests 2 01/06/20 21:48: Urine Color YELLOW, Urine Appearance CLEAR, Urine pH 6.0, Urine Specific [place] 1.020, Urine Protein NEGATIVE, Urine Glucose (UA) NEGATIVE, Urine Ketones 1+H, Urine Blood NEGATIVE, Urine Nitrite NEGATIVE, Urine Bilirubin NEGATIVE, Urine Urobilinogen 2.0H, Urine Leukocyte Esterase NEGATIVE, Urine WBC (Auto) 2, Urine RBC (Auto) 2, Urine Hyaline Casts (Auto) 1, Urine Bacteria (Auto) NEGATIVE, Urine Squamous Epithelial Cells 0, Urine Mucus (Auto) SMALL, Urine Sperm (Auto) SMALLH 01/07/20 06:38: Immature Granulocyte % (Auto) 0.6, Neutrophils (%) (Auto) 61.4, Lymphocytes (%) (Auto) 19.8L, Monocytes (%) (Auto) 12.6H, Eosinophils (%) (Auto) 5.0H, Basophils (%) (Auto) 0.6, Neutrophils # (Auto) 3.8, Lymphocytes # (Auto) 1.2L, Monocytes # (Auto) 0.8, Eosinophils # (Auto) 0.3, Basophils # (Auto) 0.0, Nucleated Red Blood Cells % (auto) 0.0, Anion Gap 6L, Glomerular Filtration Rate > 60.0, Calcium Level 8.2L, Total Bilirubin 0.9, Aspartate Amino Transf (AST/SGOT) 18, Alanine Aminotransferase (ALT/SGPT) 41, Alkaline Phosphatase 77, Total Protein 5.9L, Albumin 3.3, Albumin/Globulin Ratio 1.27 Home Medications Scheduled Amlodipine Besylate (Amlodipine Besylate) 5 Mg Tab, 5 MG PO DAILY, (Reported) Ascorbic Acid (Vitamin C) 500 Mg Tab, 500 MG PO DAILY, (Reported) Aspirin (Aspirin EC) 81 Mg Tab, 81 MG PO DAILY, (Reported) Atenolol (Atenolol) 25 Mg Tab, 12.5 MG PO DAILY, (Reported) Baclofen (Baclofen) 10 Mg Tab, 10 MG PO BID, (Reported) Docusate Sodium (Colace) 100 Mg Cap, 100 MG PO BID, (Reported) L.acidoph/L.bulg/B.bif/S.therm (Lara-Bid Caplet) 1 Each Tablet, 1 EA PO BIDWM Multivitamins (Thera M Plus Tablet) 1 Tab Tab, 1 TAB PO DAILY, (Reported) Nitroglycerin (Nitroglycerin Patch) 0.4 Mg/Hr Dis, 0.4 MG TD DAILY, (Reported) APPLIES AT 0800 AND REMOVES AT 2000, EVEN DAYS RIGHT ARM, ODD DAYS LEFT ARM Pantoprazole Sodium (Pantoprazole Sodium) 40 Mg Tablet.dr, 40 MG PO BID Scheduled PRN Sennosides/Docusate Sodium (Senna Plus Tablet) 1 Each Tablet, 2 TAB PO BIDP PRN for CONSTIPATION Tramadol HCl (Tramadol HCl) 50 Mg Tablet, 50 MG PO TIDP PRN for pain Allergies Coded Allergies: latex (Verified Allergy, Unknown, 12/29/19) A-FIB/CHADSVASC A-FIB History Current/History of A-Fib/PAF?: Yes Current PO Anticoag Therapy: No SWARTZ-JUSTEN,KYMBERLY MD January 07, 2020 13:51
[2020-01-07 14:00] VITALS: BP 137/81
[2020-01-07] MEDS: traMADol 50 MG TAB PO PRN (17:18)
--- NOTE | 2020-01-07 18:58 | IPNPDOC ---
Date Seen The patient was seen on 01/07/20. Progress Note Patient is a 74-year-old male with PMHx of Hx of Vasovagal syncope, HTN, Chronic A. fib (not on anticoagulation), Loop recorder, Hx of Schwannoma at T6/7, Lower thoracic aneurysm (s/p stent), Morbid obesity, Chronic back pain, who initially presented with lightheadedness / mechanical fall / blood stools. During his hospital course, his syncope was thought to be secondary to orthostatic hypotension and pt's loop recorder has ran out of battery and was unable to be interrogated (Follows with Dr. Walton in the [place] office and has had multiple battery changes in the past two years), dc recs to f/u with cardiology. He was also tx with Ceftriaxone and Pyridium for possible prosta titis. Pt did not require transfusions for GI bleed. Patient was discharged on 01/06/2020 from the hospital and admitted to acute rehabilitation. Today, patient feels fine, had a bowel movement, he does admit to intermittent dysuria, upon review of labs. Urinalysis is not suggestive of UTI. Review of hypo-colic nodules in the left kidney seen on renal sono performed on 12/31/2019. During our conversation, patient had intermittent coughs, but was afebrile. PHYSICAL EXAMINATION: VITAL SIGNS: Please see below. GENERAL: No distress HEENT: Normocephalic, atraumatic, moist mucous membranes NECK: Supple CARDIOVASCULAR EXAMINATION: S1, S2, RESPIRATORY EXAMINATION: CTAB ABDOMINAL EXAMINATION: Soft, nontender, nondistended, positive bowel sounds EXTREMITIES: no edema, has compressions SKIN: No rash NEUROLOGICAL EXAMINATION: Awake PSYCHIATRIC EXAMINATION: Calm and cooperative, appropriate affect Assessment and plan: Patient is a 74-year-old male with PMHx of Hx of Vasovagal syncope, HTN, Chronic A. fib (not on anticoagulation), Loop recorder, Hx of Schwannoma at T6/7, Lower thoracic aneurysm (s/p stent), Morbid obesity, Chronic back pain, who initially presented with lightheadedness / mechanical fall / blood stools. Here in rehabilitation for deconditioning. #Deconditioning, continue primary team's recommendations for rehabilitation #Dysuria, likely secondary to prostatitis, complete an antibiotic course, if worsens, consider urology consult for further evaluation as an outpatient #Cough, likely secondary to GERD, if febrile, consider chest x-ray for pneumonia versus CHF evaluation vs other #s/p Gastrointestinal (GI) bleed/GERD: continue Protonix - Will resume ASA #A. fib not on Anticoagulation, s/p watchman's procedure: cont Atenolol #loop recorder -f/u as outpt, cont home atenolol #HTN: cont Atenolol and Amlodipine #Peripheral vascular disease: cont ASA DVT ppx: freq ambulation Thank you for the medical consult. 32 minutes were spent on pt care. VS, I&O, 24H, Fishbone Vital Signs/I&O Vital Signs Date Time Temp Pulse Resp B/P (MAP) Pulse Ox O2 Delivery O2 Flow Rate FiO2 01/07/20 17:48 16 01/07/20 14:00 98.2 83 137/81 (99) 95 Room Air I&O- Last 24 Hours up to 6 AM 01/07/20 06:00 Intake Total 480 ml Balance 480 ml Laboratory Data 24H LABS Laboratory Tests 2 01/06/20 21:48: Urine Color YELLOW, Urine Appearance CLEAR, Urine pH 6.0, Urine Specific [place] 1.020, Urine Protein NEGATIVE, Urine Glucose (UA) NEGATIVE, Urine Ketones 1+H, Urine Blood NEGATIVE, Urine Nitrite NEGATIVE, Urine Bilirubin NEGATIVE, Urine Urobilinogen 2.0H, Urine Leukocyte Esterase NEGATIVE, Urine WBC (Auto) 2, Urine RBC (Auto) 2, Urine Hyaline Casts (Auto) 1, Urine Bacteria (Auto) NEGATIVE, Urine Squamous Epithelial Cells 0, Urine Mucus (Auto) SMALL, Urine Sperm (Auto) SMALLH 01/07/20 06:38: Immature Granulocyte % (Auto) 0.6, Neutrophils (%) (Auto) 61.4, Lymphocytes (%) (Auto) 19.8L, Monocytes (%) (Auto) 12.6H, Eosinophils (%) (Auto) 5.0H, Basophils (%) (Auto) 0.6, Neutrophils # (Auto) 3.8, Lymphocytes # (Auto) 1.2L, Monocytes # (Auto) 0.8, Eosinophils # (Auto) 0.3, Basophils # (Auto) 0.0, Nucleated Red Blood Cells % (auto) 0.0, Anion Gap 6L, Glomerular Filtration Rate > 60.0, Calcium Level 8.2L, Total Bilirubin 0.9, Aspartate Amino Transf (AST/SGOT) 18, Alanine Aminotransferase (ALT/SGPT) 41, Alkaline Phosphatase 77, Total Protein 5.9L, Albumin 3.3, Albumin/Globulin Ratio 1.27 CBC/BMP Laboratory Tests 01/07/20 06:38 SHAYNA HUNTER MD January 07, 2020 18:57
[2020-01-07 20:00] VITALS: BP 115/62
[2020-01-07] MEDS: **NOTE PATIENT COMMENT** MISC XX SCH (20:00)
[2020-01-07] MEDS: SENNA 8.6 MG TAB (SENOKOT) PO SCH (21:47)
[2020-01-08 06:00] VITALS: BP 146/79
[2020-01-08] MEDS: SUCRALFATE 1 GM TAB PO SCH ×4 (07:27→20:47)
[2020-01-08] MEDS: LACTOBACILLUS ACIDOPHILUS CAP (BACID) PO SCH ×2 (07:27→16:51)
[2020-01-08] MEDS: NITROGLYCERIN 0.4 MG/HR PATCH TD SCH (07:28)
[2020-01-08] MEDS: LACTULOSE 20 GM/30 ML SYRUP UD PO SCH ×2 (08:38→20:48)
[2020-01-08] MEDS: HEPARIN SOD (PORCINE) 5000UNITS/ML VIAL (J1644 PER 1000UNITS) SC SCH ×2 (08:39→20:47)
[2020-01-08] MEDS: ATENOLOL 12.5MG PER 1/2 TABLET PO SCH (08:39)
[2020-01-08] MEDS: REMEDY PHYTOPLEX Z-GUARD PASTE 113GM TUBE (FROM STOREROOM PRODUCT) TOP SCH ×3 (08:39→20:48)
[2020-01-08] MEDS: DOCUSATE SODIUM 100 MG CAP PO SCH ×2 (08:39→20:48)
[2020-01-08] MEDS: amLODIPine 10 MG TAB PO SCH (08:39)
[2020-01-08] MEDS: ASPIRIN 81 MG ENTERIC TAB PO SCH (08:39)
[2020-01-08] MEDS: PANTOPRAZOLE 40MG TAB (PROTONIX) PO SCH ×2 (08:39→20:47)
[2020-01-08] MEDS: BACLOFEN 10 MG TAB PO SCH ×2 (08:39→20:47)
[2020-01-08 14:00] VITALS: BP 135/85
[2020-01-08 20:00] VITALS: BP 145/83
[2020-01-08] MEDS: SENNA 8.6 MG TAB (SENOKOT) PO SCH (20:47)
[2020-01-08] MEDS: **NOTE PATIENT COMMENT** MISC XX SCH (20:48)
[2020-01-09 06:00] VITALS: BP 154/79
[2020-01-09] MEDS: NITROGLYCERIN 0.4 MG/HR PATCH TD SCH (07:50)
[2020-01-09] MEDS: HEPARIN SOD (PORCINE) 5000UNITS/ML VIAL (J1644 PER 1000UNITS) SC SCH ×2 (07:50→20:16)
[2020-01-09] MEDS: LACTOBACILLUS ACIDOPHILUS CAP (BACID) PO SCH ×2 (07:50→17:05)
[2020-01-09] MEDS: SUCRALFATE 1 GM TAB PO SCH ×4 (07:50→20:15)
[2020-01-09] MEDS: ATENOLOL 12.5MG PER 1/2 TABLET PO SCH (07:51)
[2020-01-09] MEDS: PANTOPRAZOLE 40MG TAB (PROTONIX) PO SCH ×2 (07:51→20:15)
[2020-01-09] MEDS: DOCUSATE SODIUM 100 MG CAP PO SCH ×2 (07:51→20:15)
[2020-01-09] MEDS: BACLOFEN 10 MG TAB PO SCH ×2 (07:51→20:15)
[2020-01-09] MEDS: ASPIRIN 81 MG ENTERIC TAB PO SCH (07:51)
[2020-01-09] MEDS: amLODIPine 10 MG TAB PO SCH (07:51)
[2020-01-09] MEDS: REMEDY PHYTOPLEX Z-GUARD PASTE 113GM TUBE (FROM STOREROOM PRODUCT) TOP SCH ×3 (07:51→20:16)
[2020-01-09] MEDS: LACTULOSE 20 GM/30 ML SYRUP UD PO SCH ×2 (08:01→20:16)
[2020-01-09 14:00] VITALS: BP 154/91
[2020-01-09 19:53] VITALS: BP 141/81
[2020-01-09] MEDS: SENNA 8.6 MG TAB (SENOKOT) PO SCH (20:15)
[2020-01-09] MEDS: **NOTE PATIENT COMMENT** MISC XX SCH (20:16)
[2020-01-09] MEDS: traMADol 50 MG TAB PO PRN (20:27)
[2020-01-10 05:36] VITALS: BP 135/75
[2020-01-10 08:08] LABS: BASO % 0.8 % (0.0-1.0); EOS # 0.3 10^3/uL (0.0-0.5); EOS % 6.3 % (0.0-3.0); HEMATOCRIT 47.6 % (42.0-52.0); HEMOGLOBIN 15.7 g/dl (13.5-17.5); LYMPH # 0.9 10^3/uL (1.5-5.0); LYMPH % 17.8 % (24.0-44.0); MEAN CORPUSCULAR HEMOGLOBIN 32.7 pg (27.0-33.0); MEAN CORPUSCULAR VOLUME 99.2 fl (80.0-96.0); MONO # 0.6 10^3/uL (0.0-0.8); MONO % 11.1 % (0.0-5.0); NEUTROPHILS # 3.3 10^3/uL (1.5-8.5); NEUTROPHILS % 63.4 % (36.0-66.0); PLATELET COUNT, AUTOMATED 172 10^3/uL (150-450); WHITE BLOOD COUNT 5.2 10^3/uL (4.0-10.0)
[2020-01-10] MEDS: BACLOFEN 10 MG TAB PO SCH ×2 (08:36→20:40)
[2020-01-10] MEDS: amLODIPine 10 MG TAB PO SCH (08:36)
[2020-01-10] MEDS: SUCRALFATE 1 GM TAB PO SCH ×4 (08:36→20:40)
[2020-01-10] MEDS: ATENOLOL 12.5MG PER 1/2 TABLET PO SCH (08:36)
[2020-01-10] MEDS: LACTOBACILLUS ACIDOPHILUS CAP (BACID) PO SCH ×2 (08:37→18:15)
[2020-01-10] MEDS: DOCUSATE SODIUM 100 MG CAP PO SCH ×2 (08:37→20:40)
[2020-01-10] MEDS: HEPARIN SOD (PORCINE) 5000UNITS/ML VIAL (J1644 PER 1000UNITS) SC SCH ×2 (08:37→20:41)
[2020-01-10] MEDS: PANTOPRAZOLE 40MG TAB (PROTONIX) PO SCH ×2 (08:37→20:40)
[2020-01-10] MEDS: ASPIRIN 81 MG ENTERIC TAB PO SCH (08:37)
[2020-01-10] MEDS: REMEDY PHYTOPLEX Z-GUARD PASTE 113GM TUBE (FROM STOREROOM PRODUCT) TOP SCH ×3 (08:39→20:41)
[2020-01-10] MEDS: NITROGLYCERIN 0.4 MG/HR PATCH TD SCH (08:39)
[2020-01-10] MEDS: LACTULOSE 20 GM/30 ML SYRUP UD PO SCH ×2 (08:39→20:40)
[2020-01-10 08:51] LABS: BLOOD UREA NITROGEN 24 MG/DL (7-18); CALCIUM LEVEL 8.4 MG/DL (8.8-10.2); CARBON DIOXIDE LEVEL 31 MEQ/L (21-32); CHLORIDE LEVEL 109 MEQ/L (98-107); GLOMERULAR FILTRATION RATE > 60.0 (>42); GLUCOSE, FASTING 160 MG/DL (70-100); POTASSIUM SERUM 4.4 MEQ/L (3.5-5.1); SODIUM LEVEL 142 MEQ/L (136-145)
--- NOTE | 2020-01-10 13:35 | IPNPDOC ---
PM&R Progress Note DATE OF SERVICE: January 10, 2020 Call Taker Progress Note Subjective: Patient reporting exertional shortness of breath, but otherwise thinks he is doing well. Denies cough, fever, or chills. REVIEW OF SYSTEMS: The following is a completed review of systems and has been reviewed. Review of systems otherwise unremarkable. PAIN: Patient self reports chronic low back pain EYES: No recent vision changes EARS, NOSE, & THROAT: No throat pain, or dysphagia, or rhinorrhea CARDIOVASCULAR: Denies chest pain or palpitations PULMONARY: +exertional dyspnea GASTROINTESTINAL: Denies constipation/diarrhea GENITOURINARY: +dysuria (improving) MUSCULOSKELETAL: generalized weakness NEUROLOGICAL:no paresthesias or tremor HEMATOLOGICAL: denies easy bruising SKIN: denies rash PSYCHIATRIC: Unremarkable All other review of systems found to be negative. PHYSICAL EXAMINATION: VITAL SIGNS: Please see below. GENERAL: Pleasant and cooperative. No acute distress. HEENT: PERRL. Extraocular movements intact. Clear conjunctiva CARDIOVASCULAR: Irregular rate and rhythm. No murmurs, rubs, or gallops LUNGS: Clear to auscultation bilaterally. No wheezes. No rhonchi, +exertional dyspnea ABDOMEN: Soft, nontender, nondistended. Positive bowel sounds. Normal active bowel sounds NEUROLOGICAL: Alert and oriented times three. Cranial nerves II through XII grossly intact. Sensation grossly intact in all 4 limbs EXTREMITIES: 5\5 strength bilateral upper extremities. 5\5 strength right lower extremity. 5/5 strength in left lower extremity. SKIN: no sacral ulcers ASSESSMENT:74-year-old M with past medical history of HTN and Afib who presents status post GI bleed PLAN: 1. REhab-PT/Ot advance gait and ADL training, incorporate back program into treatments, strengthen/stretch/maintain ROM all 4 limbs 2. cardiac- Afib s/p watchman's procedure, not on AC, c/u beta-boy -hx PVD c/u ASA, patient f/u with vascular [id number] -HTN c/u BP meds, adjust prn, medicine consulted to assist in overall management 3. Resp: encourage incentive spirometry, monitor for infection -patient reporting shortness of breath with exertion, will start breathing treatments 4. Ortho: chronic low back pain, with hx of T6-T7 schwannoma s/p resection 5. GI: +FOBT, c/u Protonix bid and sucralfate, monitor for drop in Hgb, will transfuse if <8 or if symptomatic-stable 6. DVT ppx: heparin and Teds 7. Pain: baclofen and tramadol prn, tylenol prn 8. : repeat UA negative 9. Dispo: 01-13-20 to home, progressing towards goals Allergies Coded Allergies: latex (Verified Allergy, Unknown, 12/29/19) Vital Signs Vital Signs Date Time Temp Pulse Resp B/P (MAP) Pulse Ox O2 Delivery O2 Flow Rate FiO2 01/10/20 05:36 97.8 81 18 135/75 (95) 97 Room Air Laboratory Data CBC/BMP Laboratory Tests 01/10/20 07:52 Labs 24H Laboratory Tests 2 01/10/20 07:52: Immature Granulocyte % (Auto) 0.6, Neutrophils (%) (Auto) 63.4, Lymphocytes (%) (Auto) 17.8L, Monocytes (%) (Auto) 11.1H, Eosinophils (%) (Auto) 6.3H, Basophils (%) (Auto) 0.8, Neutrophils # (Auto) 3.3, Lymphocytes # (Auto) 0.9L, Monocytes # (Auto) 0.6, Eosinophils # (Auto) 0.3, Basophils # (Auto) 0.0, Nucleated Red Blood Cells % (auto) 0.0, Anion Gap 2L, Glomerular Filtration Rate > 60.0, Calcium Level 8.4L Current Medications Current Medications Current Medications Medications (Trade) Dose Ordered Sig/Soraida Route PRN Reason Start Time Stop Time Status Last Admin Dose Admin Acetaminophen (Tylenol Tab) 650 mg Q4HP PRN PO fever/MILD PAIN (PS 1-4) 01/06/20 12:45 Amlodipine Besylate (Norvasc) 10 mg DAILY PO 01/07/20 09:00 01/10/20 08:36 Aspirin (Ecotrin) 81 mg DAILY PO 01/06/20 09:00 01/10/20 08:37 Atenolol (Tenormin) 12.5 mg DAILY PO 01/07/20 09:00 01/10/20 08:36 Baclofen (Lioresal) 10 mg BID PO 01/06/20 21:00 01/10/20 08:36 Bisacodyl (Dulcolax Suppository) 10 mg DAILYPRN PRN SD CONSTIPATION 01/06/20 12:45 Docusate Sodium (Colace) 100 mg BID PO 01/06/20 21:00 01/10/20 08:37 Heparin Sodium (Porcine) (Heparin) 5,000 units Q12H SC 01/06/20 21:00 01/10/20 08:37 Lactobacillus Acidophilus (Bacid) 1 ea BIDWM PO 01/06/20 18:00 01/10/20 08:37 Lactulose (Cephulac) 30 ml BID PO 01/06/20 21:00 01/07/20 09:39 Nitroglycerin (Nitrodur 0.4 Mg/ Hr) 1 patch DAILY@0800 TD 01/07/20 08:00 01/10/20 08:39 Non-Formulary Medication ( See Comment Field Below ) DAILY@1999 XX 01/06/20 20:00 01/09/20 20:16 Pantoprazole Sodium (Protonix) 40 mg BID PO 01/06/20 21:00 01/10/20 08:37 Senna (Senokot) 1 tab QHS PO 01/06/20 21:00 01/09/20 20:15 Sucralfate (Carafate) 1 gm ACHS PO 01/06/20 17:30 01/10/20 12:31 Tramadol HCl (Ultram) 50 mg Q4HP PRN PO MODERATE PAIN (PS 5-7) 01/06/20 12:45 01/09/20 20:27 KYMBERLY SALAZAR MD January 10, 2020 13:35
[2020-01-10 14:00] VITALS: BP 132/83
[2020-01-10] MEDS: IPRATROPIUM 0.5MG/ALBUTEROL 2.5MG INH SOL UD 3ML (DUONEB)(J7620) NEB SCH ×2 (14:37→19:20)
[2020-01-10 20:00] VITALS: BP 134/68
[2020-01-10] MEDS: SENNA 8.6 MG TAB (SENOKOT) PO SCH (20:40)
[2020-01-10] MEDS: **NOTE PATIENT COMMENT** MISC XX SCH (20:41)
[2020-01-11 05:00] VITALS: BP 132/58
[2020-01-11] MEDS: IPRATROPIUM 0.5MG/ALBUTEROL 2.5MG INH SOL UD 3ML (DUONEB)(J7620) NEB SCH ×3 (07:17→19:08)
[2020-01-11] MEDS: SUCRALFATE 1 GM TAB PO SCH ×4 (07:30→20:19)
[2020-01-11] MEDS: ATENOLOL 12.5MG PER 1/2 TABLET PO SCH (10:15)
[2020-01-11] MEDS: amLODIPine 10 MG TAB PO SCH (10:16)
[2020-01-11] MEDS: HEPARIN SOD (PORCINE) 5000UNITS/ML VIAL (J1644 PER 1000UNITS) SC SCH ×2 (10:16→20:14)
[2020-01-11] MEDS: DOCUSATE SODIUM 100 MG CAP PO SCH ×2 (10:16→20:19)
[2020-01-11] MEDS: BACLOFEN 10 MG TAB PO SCH ×2 (10:16→20:19)
[2020-01-11] MEDS: LACTOBACILLUS ACIDOPHILUS CAP (BACID) PO SCH ×2 (10:16→17:07)
[2020-01-11] MEDS: PANTOPRAZOLE 40MG TAB (PROTONIX) PO SCH ×2 (10:16→20:19)
[2020-01-11] MEDS: ASPIRIN 81 MG ENTERIC TAB PO SCH (10:16)
[2020-01-11] MEDS: REMEDY PHYTOPLEX Z-GUARD PASTE 113GM TUBE (FROM STOREROOM PRODUCT) TOP SCH ×3 (10:17→20:20)
[2020-01-11] MEDS: LACTULOSE 20 GM/30 ML SYRUP UD PO SCH ×2 (10:21→20:19)
[2020-01-11] MEDS: NITROGLYCERIN 0.4 MG/HR PATCH TD SCH (10:21)
[2020-01-11 14:00] VITALS: BP 125/89
[2020-01-11 20:00] VITALS: BP 120/75
[2020-01-11] MEDS: **NOTE PATIENT COMMENT** MISC XX SCH (20:19)
[2020-01-11] MEDS: SENNA 8.6 MG TAB (SENOKOT) PO SCH (20:19)
[2020-01-12 05:35] VITALS: BP 128/67
[2020-01-12 06:49] LABS: BASO % 0.8 % (0.0-1.0); EOS # 0.3 10^3/uL (0.0-0.5); EOS % 6.6 % (0.0-3.0); HEMATOCRIT 46.2 % (42.0-52.0); LYMPH # 1.1 10^3/uL (1.5-5.0); LYMPH % 22.1 % (24.0-44.0); MEAN CORPUSCULAR HEMOGLOBIN 32.1 pg (27.0-33.0); MEAN CORPUSCULAR HGB CONC 32.5 g/dl (32.0-36.5); MEAN CORPUSCULAR VOLUME 98.7 fl (80.0-96.0); MONO # 0.7 10^3/uL (0.0-0.8); MONO % 13.6 % (0.0-5.0); NEUTROPHILS # 2.7 10^3/uL (1.5-8.5); NEUTROPHILS % 56.5 % (36.0-66.0); PLATELET COUNT, AUTOMATED 145 10^3/uL (150-450); RED BLOOD COUNT 4.68 10^6/uL (4.30-6.10); WHITE BLOOD COUNT 4.8 10^3/uL (4.0-10.0)
[2020-01-12 07:11] LABS: BLOOD UREA NITROGEN 27 MG/DL (7-18); CARBON DIOXIDE LEVEL 29 MEQ/L (21-32); CHLORIDE LEVEL 111 MEQ/L (98-107); CREATININE FOR GFR 0.96 MG/DL (0.70-1.30); GLOMERULAR FILTRATION RATE > 60.0 (>42); GLUCOSE, FASTING 133 MG/DL (70-100); POTASSIUM SERUM 4.5 MEQ/L (3.5-5.1); SODIUM LEVEL 145 MEQ/L (136-145)
[2020-01-12] MEDS: amLODIPine 10 MG TAB PO SCH (08:54)
[2020-01-12] MEDS: NITROGLYCERIN 0.4 MG/HR PATCH TD SCH (08:54)
[2020-01-12] MEDS: HEPARIN SOD (PORCINE) 5000UNITS/ML VIAL (J1644 PER 1000UNITS) SC SCH ×2 (08:54→20:16)
[2020-01-12] MEDS: SUCRALFATE 1 GM TAB PO SCH ×4 (08:54→20:15)
[2020-01-12] MEDS: LACTOBACILLUS ACIDOPHILUS CAP (BACID) PO SCH ×2 (08:54→17:21)
[2020-01-12] MEDS: DOCUSATE SODIUM 100 MG CAP PO SCH ×2 (08:54→20:15)
[2020-01-12] MEDS: BACLOFEN 10 MG TAB PO SCH ×2 (08:55→20:15)
[2020-01-12] MEDS: PANTOPRAZOLE 40MG TAB (PROTONIX) PO SCH ×2 (08:55→20:15)
[2020-01-12] MEDS: ATENOLOL 12.5MG PER 1/2 TABLET PO SCH (08:55)
[2020-01-12] MEDS: ASPIRIN 81 MG ENTERIC TAB PO SCH (08:55)
[2020-01-12] MEDS: LACTULOSE 20 GM/30 ML SYRUP UD PO SCH ×2 (08:55→20:16)
[2020-01-12] MEDS: REMEDY PHYTOPLEX Z-GUARD PASTE 113GM TUBE (FROM STOREROOM PRODUCT) TOP SCH ×3 (08:56→20:16)
[2020-01-12] MEDS: IPRATROPIUM 0.5MG/ALBUTEROL 2.5MG INH SOL UD 3ML (DUONEB)(J7620) NEB SCH ×2 (10:23→19:39)
[2020-01-12 14:00] VITALS: BP 121/70
--- NOTE | 2020-01-12 15:18 | IPNPDOC ---
PM&R Progress Note DATE OF SERVICE: January 11, 2020 Family Consumer Scientist Progress Note Subjective: Patient reporting his endurance is better today and that he feels stronger. REVIEW OF SYSTEMS: The following is a completed review of systems and has been reviewed. Review of systems otherwise unremarkable. PAIN: Patient self reports chronic low back pain EYES: No recent vision changes EARS, NOSE, & THROAT: No throat pain, or dysphagia, or rhinorrhea CARDIOVASCULAR: Denies chest pain or palpitations PULMONARY: +exertional dyspnea GASTROINTESTINAL: Denies constipation/diarrhea GENITOURINARY: +dysuria (improving) MUSCULOSKELETAL: generalized weakness NEUROLOGICAL:no paresthesias or tremor HEMATOLOGICAL: denies easy bruising SKIN: denies rash PSYCHIATRIC: Unremarkable All other review of systems found to be negative. PHYSICAL EXAMINATION: VITAL SIGNS: Please see below. GENERAL: Pleasant and cooperative. No acute distress. HEENT: PERRL. Extraocular movements intact. Clear conjunctiva CARDIOVASCULAR: Irregular rate and rhythm. No murmurs, rubs, or gallops LUNGS: Clear to auscultation bilaterally. No wheezes. No rhonchi, +exertional dyspnea ABDOMEN: Soft, nontender, nondistended. Positive bowel sounds. Normal active bowel sounds NEUROLOGICAL: Alert and oriented times three. Cranial nerves II through XII grossly intact. Sensation grossly intact in all 4 limbs EXTREMITIES: 5\5 strength bilateral upper extremities. 5\5 strength right lower extremity. 5/5 strength in left lower extremity. SKIN: no sacral ulcers ASSESSMENT:74-year-old M with past medical history of HTN and Afib who presents status post GI bleed PLAN: 1. REhab-PT/Ot advance gait and ADL training, incorporate back program into treatments, strengthen/stretch/maintain ROM all 4 limbs 2. cardiac- Afib s/p watchman's procedure, not on AC, c/u beta-boy -hx PVD c/u ASA, patient f/u with vascular [id number] -HTN c/u BP meds, adjust prn, medicine consulted to assist in overall management 3. Resp: encourage incentive spirometry, monitor for infection -patient reporting shortness of breath with exertion, will start breathing treatments 4. Ortho: chronic low back pain, with hx of T6-T7 schwannoma s/p resection 5. GI: +FOBT, c/u Protonix bid and sucralfate, monitor for drop in Hgb, will transfuse if <8 or if symptomatic-stable 6. DVT ppx: heparin and Teds 7. Pain: baclofen and tramadol prn, Tylenol prn 8. : repeat UA negative 9. Dispo: 01-13-20 to home, progressing towards goals Allergies Coded Allergies: latex (Verified Allergy, Unknown, 12/29/19) Vital Signs Vital Signs Date Time Temp Pulse Resp B/P (MAP) Pulse Ox O2 Delivery O2 Flow Rate FiO2 01/12/20 14:00 97.2 76 18 121/70 (87) 96 Room Air Laboratory Data CBC/BMP Laboratory Tests 01/12/20 06:30 Labs 24H Laboratory Tests 2 01/12/20 06:30: Immature Granulocyte % (Auto) 0.4, Neutrophils (%) (Auto) 56.5, Lymphocytes (%) (Auto) 22.1L, Monocytes (%) (Auto) 13.6H, Eosinophils (%) (Auto) 6.6H, Basophils (%) (Auto) 0.8, Neutrophils # (Auto) 2.7, Lymphocytes # (Auto) 1.1L, Monocytes # (Auto) 0.7, Eosinophils # (Auto) 0.3, Basophils # (Auto) 0.0, Nucleated Red Blood Cells % (auto) 0.0, Anion Gap 5L, Glomerular Filtration Rate > 60.0, Calcium Level 9.0 Current Medications Current Medications Current Medications Medications (Trade) Dose Ordered Sig/Soraida Route PRN Reason Start Time Stop Time Status Last Admin Dose Admin Acetaminophen (Tylenol Tab) 650 mg Q4HP PRN PO fever/MILD PAIN (PS 1-4) 01/06/20 12:45 Albuterol/ Ipratropium (Duoneb (Ipr 0.5mg/Alb 2.5mg)) 3 ml RTID NEB 01/10/20 14:00 01/12/20 10:23 Amlodipine Besylate (Norvasc) 10 mg DAILY PO 01/07/20 09:00 01/12/20 08:54 Aspirin (Ecotrin) 81 mg DAILY PO 01/06/20 09:00 01/12/20 08:55 Atenolol (Tenormin) 12.5 mg DAILY PO 01/07/20 09:00 01/12/20 08:55 Baclofen (Lioresal) 10 mg BID PO 01/06/20 21:00 01/12/20 08:55 Bisacodyl (Dulcolax Suppository) 10 mg DAILYPRN PRN [place] CONSTIPATION 01/06/20 12:45 Docusate Sodium (Colace) 100 mg BID PO 01/06/20 21:00 01/12/20 08:54 Heparin Sodium (Porcine) (Heparin) 5,000 units Q12H SC 01/06/20 21:00 01/12/20 08:54 Lactobacillus Acidophilus (Bacid) 1 ea BIDWM PO 01/06/20 18:00 01/12/20 08:54 Lactulose (Cephulac) 30 ml BID PO 01/06/20 21:00 01/10/20 20:40 Nitroglycerin (Nitrodur 0.4 Mg/ Hr) 1 patch DAILY@0800 TD 01/07/20 08:00 01/12/20 08:54 Non-Formulary Medication ( See Comment Field Below ) DAILY@1999 XX 01/06/20 20:00 01/11/20 20:19 Pantoprazole Sodium (Protonix) 40 mg BID PO 01/06/20 21:00 01/12/20 08:55 Senna (Senokot) 1 tab QHS PO 01/06/20 21:00 01/11/20 20:19 Sucralfate (Carafate) 1 gm ACHS PO 01/06/20 17:30 01/12/20 12:29 Tramadol HCl (Ultram) 50 mg Q4HP PRN PO MODERATE PAIN (PS 5-7) 01/06/20 12:45 01/12/20 13:03 DC 01/09/20 20:27 KYMBERLY SALAZAR MD January 12, 2020 15:18
[2020-01-12 20:00] VITALS: BP 117/72
[2020-01-12] MEDS: ACETAMINOPHEN TAB 650MG DOSE (2X325MG) PO PRN (20:15)
[2020-01-12] MEDS: SENNA 8.6 MG TAB (SENOKOT) PO SCH (20:16)
[2020-01-12] MEDS: **NOTE PATIENT COMMENT** MISC XX SCH (20:16)
[2020-01-13 06:04] VITALS: BP 140/83
[2020-01-13] MEDS: IPRATROPIUM 0.5MG/ALBUTEROL 2.5MG INH SOL UD 3ML (DUONEB)(J7620) NEB SCH (07:27)
[2020-01-13 08:43] VITALS: BP 132/83
[2020-01-13] MEDS: ATENOLOL 12.5MG PER 1/2 TABLET PO SCH (08:43)
[2020-01-13] MEDS: ASPIRIN 81 MG ENTERIC TAB PO SCH (08:43)
[2020-01-13] MEDS: LACTOBACILLUS ACIDOPHILUS CAP (BACID) PO SCH (08:43)
[2020-01-13] MEDS: BACLOFEN 10 MG TAB PO SCH (08:43)
[2020-01-13] MEDS: DOCUSATE SODIUM 100 MG CAP PO SCH (08:43)
[2020-01-13] MEDS: HEPARIN SOD (PORCINE) 5000UNITS/ML VIAL (J1644 PER 1000UNITS) SC SCH (08:43)
[2020-01-13] MEDS: amLODIPine 10 MG TAB PO SCH (08:44)
[2020-01-13] MEDS: PANTOPRAZOLE 40MG TAB (PROTONIX) PO SCH (08:44)
[2020-01-13] MEDS: REMEDY PHYTOPLEX Z-GUARD PASTE 113GM TUBE (FROM STOREROOM PRODUCT) TOP SCH (08:44)
[2020-01-13] MEDS: SUCRALFATE 1 GM TAB PO SCH (08:44)
[2020-01-13] MEDS: LACTULOSE 20 GM/30 ML SYRUP UD PO SCH (08:56)
[2020-01-13] MEDS: NITROGLYCERIN 0.4 MG/HR PATCH TD SCH (08:56)
[2020-01-13] MEDS ORDERED: SUCR1TA PO (10:06)
[2020-01-13] MEDS ORDERED: BACL10TA2 PO (10:06)
[2020-01-13] MEDS ORDERED: ATEN25TA PO (10:06)
[2020-01-13] MEDS ORDERED: ASPI81TAEC PO (10:06)
[2020-01-13] MEDS ORDERED: PANT40TA3 PO (10:06)
[2020-01-13] MEDS ORDERED: AMLO10TA5 PO (10:06)
[2020-01-13] MEDS ORDERED: RISATAB3 PO (10:06)
[2020-01-13] MEDS: ACETAMINOPHEN TAB 650MG DOSE (2X325MG) PO PRN (10:25)
--- NOTE | 2020-01-13 14:53 | IPNPDOC ---
PM&R Progress Note DATE OF SERVICE: January 12, 2020 [employer] Progress Note Subjective: Patient reporting he is ready to go home tomorrow. REVIEW OF SYSTEMS: The following is a completed review of systems and has been reviewed. Review of systems otherwise unremarkable. PAIN: Patient self reports chronic low back pain EYES: No recent vision changes EARS, NOSE, & THROAT: No throat pain, or dysphagia, or rhinorrhea CARDIOVASCULAR: Denies chest pain or palpitations PULMONARY: +exertional dyspnea GASTROINTESTINAL: Denies constipation/diarrhea GENITOURINARY: +dysuria (improving) MUSCULOSKELETAL: generalized weakness NEUROLOGICAL:no paresthesias or tremor HEMATOLOGICAL: denies easy bruising SKIN: denies rash PSYCHIATRIC: Unremarkable All other review of systems found to be negative. PHYSICAL EXAMINATION: VITAL SIGNS: Please see below. GENERAL: Pleasant and cooperative. No acute distress. HEENT: PERRL. Extraocular movements intact. Clear conjunctiva CARDIOVASCULAR: Irregular rate and rhythm. No murmurs, rubs, or gallops LUNGS: Clear to auscultation bilaterally. No wheezes. No rhonchi, +exertional dyspnea ABDOMEN: Soft, nontender, nondistended. Positive bowel sounds. Normal active bowel sounds NEUROLOGICAL: Alert and oriented times three. Cranial nerves II through XII grossly intact. Sensation grossly intact in all 4 limbs EXTREMITIES: 5\5 strength bilateral upper extremities. 5\5 strength right lower extremity. 5/5 strength in left lower extremity. SKIN: no sacral ulcers ASSESSMENT:74-year-old M with past medical history of HTN and Afib who presents status post GI bleed PLAN: 1. REhab-PT/Ot advance gait and ADL training, incorporate back program into treatments, strengthen/stretch/maintain ROM all 4 limbs-room privileges 2. cardiac- Afib s/p watchman's procedure, not on AC, c/u beta-boy -hx PVD c/u ASA, patient f/u with vascular [id number] -HTN c/u BP meds, adjust prn, medicine consulted to assist in overall management 3. Resp: encourage incentive spirometry, monitor for infection -patient reporting shortness of breath with exertion, will start breathing treatments 4. Ortho: chronic low back pain, with hx of T6-T7 schwannoma s/p resection 5. GI: +FOBT, c/u Protonix bid and sucralfate, monitor for drop in Hgb, will transfuse if <8 or if symptomatic-stable 6. DVT ppx: heparin and Teds 7. Pain: baclofen and tramadol prn, Tylenol prn 8. : repeat UA negative 9. Dispo: 01-13-20 to home, progressing towards goals Allergies Coded Allergies: latex (Verified Allergy, Unknown, 12/29/19) Vital Signs Vital Signs Date Time Temp Pulse Resp B/P (MAP) Pulse Ox O2 Delivery O2 Flow Rate FiO2 01/13/20 08:43 78 132/83 01/13/20 06:04 97.0 18 96 Room Air Current Medications Current Medications Current Medications Medications (Trade) Dose Ordered Sig/Soraida Route PRN Reason Start Time Stop Time Status Last Admin Dose Admin Acetaminophen (Tylenol Tab) 650 mg Q4HP PRN PO fever/MILD PAIN (PS 1-4) 01/06/20 12:45 01/13/20 14:48 DC 01/13/20 10:25 Albuterol/ Ipratropium (Duoneb (Ipr 0.5mg/Alb 2.5mg)) 3 ml RTID NEB 01/10/20 14:00 01/13/20 14:48 DC 01/13/20 07:27 Amlodipine Besylate (Norvasc) 10 mg DAILY PO 01/07/20 09:00 01/13/20 14:48 DC 01/13/20 08:44 Aspirin (Ecotrin) 81 mg DAILY PO 01/06/20 09:00 01/13/20 14:48 DC 01/13/20 08:43 Atenolol (Tenormin) 12.5 mg DAILY PO 01/07/20 09:00 01/13/20 14:48 DC 01/13/20 08:43 Baclofen (Lioresal) 10 mg BID PO 01/06/20 21:00 01/13/20 14:48 DC 01/13/20 08:43 Bisacodyl (Dulcolax Suppository) 10 mg DAILYPRN PRN SD CONSTIPATION 01/06/20 12:45 01/13/20 14:48 DC Docusate Sodium (Colace) 100 mg BID PO 01/06/20 21:00 01/13/20 14:48 DC 01/13/20 08:43 Heparin Sodium (Porcine) (Heparin) 5,000 units Q12H SC 01/06/20 21:00 01/13/20 14:48 DC 01/13/20 08:43 Lactobacillus Acidophilus (Bacid) 1 ea BIDWM PO 01/06/20 18:00 01/13/20 14:48 DC 01/13/20 08:43 Lactulose (Cephulac) 30 ml BID PO 01/06/20 21:00 01/13/20 14:48 DC 01/10/20 20:40 Miscellaneous (Unresolved Clarification Entry) SEE LABEL COMMENTS DAILY XX 01/13/20 09:00 01/13/20 14:49 DC Nitroglycerin (Nitrodur 0.4 Mg/ Hr) 1 patch DAILY@0800 TD 01/07/20 08:00 01/13/20 14:48 DC 01/13/20 08:56 Non-Formulary Medication ( See Comment Field Below ) DAILY@1999 XX 01/06/20 20:00 01/13/20 14:48 DC 01/12/20 20:16 Pantoprazole Sodium (Protonix) 40 mg BID PO 01/06/20 21:00 01/13/20 14:48 DC 01/13/20 08:44 Senna (Senokot) 1 tab QHS PO 01/06/20 21:00 01/13/20 14:48 DC 01/12/20 20:16 Sucralfate (Carafate) 1 gm ACHS PO 01/06/20 17:30 01/13/20 14:48 DC 01/13/20 08:44 Tramadol HCl (Ultram) 50 mg Q4HP PRN PO MODERATE PAIN (PS 5-7) 01/06/20 12:45 01/12/20 13:03 DC 01/09/20 20:27 KYMBERLY SALAZAR MD January 13, 2020 14:53
--- NOTE | 2020-01-20 11:33 | PMRDS ---
DATE OF ADMISSION: 01/06/2020 DATE OF DISCHARGE: 01/13/2020 CHIEF COMPLAINT/ DISCHARGE DIAGNOSIS: GI bleed. HISTORY OF PRESENT ILLNESS: 74M pmh Afib s/p Watchmans procedure with loop recorder, not on AC, obesity, chronic low back pain, thoracic aneurysm s/p stent, T6-7 schwannoma s/p removal, HTN who fell at home and presented to [facility] ED on 12-29-19 complaining of dizziness and bloody stools. FOBT was positive, CTH negative for acute intracranial findings, and hip x-rays negative for fractures. His aspirin was initially held and he received IVF for what was thought to be orthostatics in the setting of acute GI bleed. Cardiac work-up did not how any significant findings except rate controlled afib on tele. He was started on antibiotics for presumed UTI due to complaints of dysuria, but two cultures came back negative and he did not test positive for gonorrhea or chlamydia. He was evaluated by therapy, found to be below his prior level of function and deemed medically appropriate for discharge to ARU on 01-06-20.AST PAST MEDICAL HISTORY: As per HPI. HOSPITAL COURSE: The patient was admitted on a comprehensive physical therapy, occupational therapy (PT/OT) program. He [id number] nursing supervision and weekly team meetings were held to discuss his progress. The patient complained of chronic low back pain during hospital course which was treated with pain medication including baclofen and tramadol as needed. The patient complained of dysuria, however, he would urinalysis (UA) was negative and his dysuria did resolve. The patient initially reported shortness of breath with exertion, started on breathing treatments and overall his endurance improved. He was deemed to be medically and functionally stable to return home. DISCHARGE MEDICATIONS: As per instructions. FUNCTIONAL HISTORY ON DISCHARGE: The patient was independent for all functional transfers. Able to ambulate 225 feet at an independent level. With occupational therapy, he was modified independent as well. Thank you for this referral.
== END 2020-01-13 12:10 | disposition home health service (06) | DRG 948 ==
LOC: M PM&R 14:49
PROVIDERS: ADMIT Physical Medicine & Rehabilitation; ATTEND Physical Medicine & Rehabilitation
DX: R53.1 Weakness (principal); R26.89 Other abnormalities of gait and mobility; I48.91 Unspecified atrial fibrillation; E66.9 Obesity, unspecified; M54.5 Low back pain; Z95.828 Presence of other vascular implants and grafts; I10 Essential (primary) hypertension; R30.0 Dysuria; Z98.62 Peripheral vascular angioplasty status; Z87.891 Personal history of nicotine dependence; I73.9 Peripheral vascular disease, unspecified; Z79.82 Long term (current) use of aspirin; Z79.899 Other long term (current) drug therapy; Z91.040 Latex allergy status; Z68.34 Body mass index [BMI] 34.0-34.9, adult; I71.2 Thoracic aortic aneurysm, without rupture

== ENCOUNTER → 2020-04-17 | Outpatient (CLI) | payer OTHER, MEDICAID, MEDICARE ==
[~2020-04-17] MED LIST changes: +AMLO1TAB24 PO; +AMLO1TAB25 PO; -AMLO5TAB6 PO; +ASPI81TAEC PO; +PANT40TA29 PO; -PANT40TA3 PO; +SUCR1TA PO; -TAB-TAB PO; +TAB-TAB2 PO
[2020-06-12 21:51] LABS: HEMOGLOBIN A1c 6.6 %
[2020-06-13 00:44] LABS: ALBUMIN 3.8 GM/DL (3.2-5.2); ALT/SGPT 28 U/L (12-78); BILIRUBIN,TOTAL 0.9 MG/DL (0.2-1.0); BLOOD UREA NITROGEN 16 MG/DL (7-18); CALCIUM LEVEL 8.8 MG/DL (8.8-10.2); CARBON DIOXIDE LEVEL 32 MEQ/L (21-32); CHLORIDE LEVEL 106 MEQ/L (98-107); CHOLESTEROL LEVEL 185 MG/DL (<200); CHOLESTEROL RISK RATIO 7.115 (<5); CREATININE FOR GFR 1.09 MG/DL (0.70-1.30); GLOMERULAR FILTRATION RATE > 60.0 (>42); GLUCOSE, FASTING 146 MG/DL (70-100); HDL CHOLESTEROL 26 MG/DL (>40); HEPATITIS C VIRUS ABY INDEX 0.2 INDEX (<0.8); HIV 1&2 SCREEN CENTAUR NEGATIVE (NEGATIVE); LDL CHOLESTEROL 123 MG/DL (<100); NON-HDL-C 159 MG/DL; POTASSIUM SERUM 4.4 MEQ/L (3.5-5.1); SODIUM LEVEL 141 MEQ/L (136-145); TOTAL PROTEIN 6.5 GM/DL (6.4-8.2); TRIGLYCERIDES LEVEL 179 MG/DL (<150)
== END ==
LOC: M LAB 09:22
DX: Z00.00 Encounter for general adult medical examination without abnormal findings (principal); I71.4 Abdominal aortic aneurysm, without rupture; E66.9 Obesity, unspecified; Z79.899 Other long term (current) drug therapy

== ENCOUNTER → 2020-05-03 | Outpatient (CLI) | payer OTHER, MEDICAID ==
--- NOTE | 2020-05-30 14:58 | REP ---
BILATERAL LOWER EXTREMITY ARTERIAL ULTRASOUND CLINICAL: History of claudication and stent placement for followup. COMPARISON: 06/21/2019. TECHNIQUE: Real-time louie scale and color Doppler evaluation using linear high frequency transducer. FINDINGS: Louie scale and color Doppler evaluation was performed and demonstrates [id number] atheromatous changes throughout the lower extremities bilaterally. A left to right fem-fem bypass graft is again identified and patent without evidence for significant stenosis demonstrating relatively monophasic wave patterns. A right proximal superficial femoral artery to popliteal artery stent is also appreciated without stenosis and demonstrates monophasic wave patterns. No evidence for stenosis or occlusion is appreciated bilaterally. The right lower extremity demonstrates primarily monophasic wave patterns, but with improved increased velocities as compared to prior examination. The left lower extremity demonstrates biphasic wave patterns and also demonstrates improved velocities as compared to prior examination. Right DUSTIN equals 1.0. Left DUSTIN equals 1.02. IMPRESSION: Patent [id number] fem-fem bypass graft and patent right lower extremity superficial femoral artery to popliteal artery stent graft. Overall velocities appear improved as compared to prior examination. Please refer to worksheet for detailed velocities. MTDD
== END ==
LOC: M RAD 09:09
PROVIDERS: ATTEND Physician Assistant
DX: I70.213 Atherosclerosis of native arteries of extremities with intermittent claudication, bilateral legs (principal)

== ENCOUNTER → 2020-05-30 | Outpatient (CLI) | payer OTHER, MEDICAID ==
--- NOTE | 2020-06-08 09:01 | REP ---
DUPLEX CAROTID SONOGRAPHY HISTORY: Carotid stenosis. COMPARISON: 04/21/2019. FINDINGS: Antegrade flow is observed in the right vertebral artery. Flow could not be seen in the left vertebral artery. RIGHT CAROTID: There is mild diffuse intimal thickening in the right common carotid artery. There is mild soft and calcific plaquing in the proximal ICA on the right. Color flow and spectral Doppler interrogation are unremarkable on the right, however. VELOCITY CHART RIGHT CAROTID PSV EDV CCA 92 cm/s ICA 85 cm/s 17 cm/s ECA 90 cm/s ICA/CCA ratio 0.93 (normal) IMPRESSION: Less than 50% category narrowing in the right internal carotid artery (ICA) by Doppler velocity criteria. Doppler velocities have not increased in the interval since the prior study. LEFT CAROTID: The left common carotid artery shows soft plaquing and diffuse intimal thickening. There is mixed plaquing in the bulb and proximal ICA on the left side. Color flow and spectral Doppler interrogation are unremarkable. Velocities have not increased on the left since the prior study. VELOCITY CHART LEFT CAROTID PSV EDV CCA 66 cm/s ICA 48 cm/s 21 cm/s ECA 82 cm/s ICA/CCA ratio 0.7 (normal) IMPRESSION: Less than 50% category narrowing in the left internal carotid artery (ICA) by Doppler velocity criteria. Doppler velocities have not increased on the left in the interval since the prior study. MTDD
== END ==
LOC: M RAD 09:12
PROVIDERS: ATTEND Physician Assistant
DX: I65.23 Occlusion and stenosis of bilateral carotid arteries (principal); I73.9 Peripheral vascular disease, unspecified; I10 Essential (primary) hypertension; Z79.899 Other long term (current) drug therapy

== ENCOUNTER → 2020-05-30 | Outpatient (CLI) | payer OTHER, MEDICAID ==
[2020-05-30 10:06] LABS: HEMATOCRIT 53.2 % (42.0-52.0); HEMOGLOBIN 17.5 g/dl (13.5-17.5); MEAN CORPUSCULAR HEMOGLOBIN 31.7 pg (27.0-33.0); MEAN CORPUSCULAR HGB CONC 32.9 g/dl (32.0-36.5); MEAN CORPUSCULAR VOLUME 96.4 fl (80.0-96.0); RED BLOOD COUNT 5.52 10^6/uL (4.30-6.10); WHITE BLOOD COUNT 6.7 10^3/uL (4.0-10.0)
[2020-05-30 10:29] LABS: HEMOGLOBIN A1c 6.6 %
[2020-05-30 10:35] LABS: PLATELET COUNT, AUTOMATED 81 10^3/uL (150-450)
[2020-05-30 10:36] LABS: ALBUMIN 3.7 GM/DL (3.2-5.2); ALT/SGPT 36 U/L (12-78); BILIRUBIN,TOTAL 0.9 MG/DL (0.2-1.0); BLOOD UREA NITROGEN 20 MG/DL (7-18); CALCIUM LEVEL 8.9 MG/DL (8.8-10.2); CARBON DIOXIDE LEVEL 27 MEQ/L (21-32); CHLORIDE LEVEL 107 MEQ/L (98-107); CHOLESTEROL LEVEL 189 MG/DL (<200); CREATININE FOR GFR 1.02 MG/DL (0.70-1.30); GLOMERULAR FILTRATION RATE > 60.0 (>42); GLUCOSE, FASTING 157 MG/DL (70-100); HDL CHOLESTEROL 25 MG/DL (>40); LDL CHOLESTEROL 119 MG/DL (<100); NON-HDL-C 164 MG/DL; POTASSIUM SERUM 4.6 MEQ/L (3.5-5.1); SODIUM LEVEL 141 MEQ/L (136-145); TOTAL PROTEIN 6.6 GM/DL (6.4-8.2); TRIGLYCERIDES LEVEL 227 MG/DL (<150)
== END ==
LOC: M LAB 08:54
DX: I73.9 Peripheral vascular disease, unspecified (principal); I10 Essential (primary) hypertension

== ENCOUNTER → 2020-07-24 | Outpatient (REF) | payer OTHER, MEDICAID ==
[2020-07-24 12:08] LABS: BASO % 0.6 % (0.0-1.0); EOS # 0.3 10^3/uL (0.0-0.5); EOS % 4.8 % (0.0-3.0); HEMATOCRIT 51.6 % (42.0-52.0); HEMOGLOBIN 16.2 g/dl (13.5-17.5); LYMPH # 1.2 10^3/uL (1.5-5.0); LYMPH % 18.9 % (24.0-44.0); MEAN CORPUSCULAR HEMOGLOBIN 30.9 pg (27.0-33.0); MEAN CORPUSCULAR HGB CONC 31.4 g/dl (32.0-36.5); MEAN CORPUSCULAR VOLUME 98.5 fl (80.0-96.0); MONO # 0.8 10^3/uL (0.0-0.8); MONO % 11.5 % (0.0-5.0); NEUTROPHILS # 4.1 10^3/uL (1.5-8.5); NEUTROPHILS % 63.6 % (36.0-66.0); PLATELET COUNT, AUTOMATED 156 10^3/uL (150-450); RED BLOOD COUNT 5.24 10^6/uL (4.30-6.10); WHITE BLOOD COUNT 6.5 10^3/uL (4.0-10.0)
[2020-07-24 15:05] LABS: ALBUMIN 3.8 GM/DL (3.2-5.2); ALT/SGPT 30 U/L (12-78); BILIRUBIN,TOTAL 0.7 MG/DL (0.2-1.0); BLOOD UREA NITROGEN 26 MG/DL (7-18); CALCIUM LEVEL 8.7 MG/DL (8.8-10.2); CARBON DIOXIDE LEVEL 31 MEQ/L (21-32); CHLORIDE LEVEL 108 MEQ/L (98-107); CHOLESTEROL LEVEL 184 MG/DL (<200); CHOLESTEROL RISK RATIO 6.814 (<5); CREATININE FOR GFR 1.15 MG/DL (0.70-1.30); FREE T4 1.31 NG/DL (0.76-1.46); GLOMERULAR FILTRATION RATE > 60.0 (>42); GLUCOSE, FASTING 165 MG/DL (70-100); HDL CHOLESTEROL 27 MG/DL (>40); LDL CHOLESTEROL 128 MG/DL (<100); NON-HDL-C 157 MG/DL; POTASSIUM SERUM 4.7 MEQ/L (3.5-5.1); PROSTATIC SPECIFIC AG MONITOR 0.71 NG/ML (< 4.00); SODIUM LEVEL 142 MEQ/L (136-145); TOTAL PROTEIN 6.5 GM/DL (6.4-8.2); TRIGLYCERIDES LEVEL 146 MG/DL (<150)
[2020-07-24 19:11] LABS: HEMOGLOBIN A1c 6.8 %
== END ==
LOC: M LAB REF 11:23
PROVIDERS: ATTEND Nurse Practitioner Family
DX: I10 Essential (primary) hypertension (principal); R97.20 Elevated prostate specific antigen [PSA]; Z79.899 Other long term (current) drug therapy

== ENCOUNTER → 2020-08-03 | Outpatient (REF) | payer OTHER, MEDICAID ==
[2020-08-03 19:00] LABS: ALBUMIN 4.1 GM/DL (3.2-5.2); ALT/SGPT 40 U/L (12-78); BILIRUBIN,TOTAL 0.8 MG/DL (0.2-1.0); BLOOD UREA NITROGEN 21 MG/DL (7-18); CALCIUM LEVEL 9.2 MG/DL (8.8-10.2); CARBON DIOXIDE LEVEL 27 MEQ/L (21-32); CHLORIDE LEVEL 105 MEQ/L (98-107); CREATININE FOR GFR 1.08 MG/DL (0.70-1.30); GLOMERULAR FILTRATION RATE > 60.0 (>42); GLUCOSE, FASTING 164 MG/DL (70-100); MAGNESIUM LEVEL 2.3 MG/DL (1.8-2.4); POTASSIUM SERUM 4.6 MEQ/L (3.5-5.1); SODIUM LEVEL 137 MEQ/L (136-145); TOTAL PROTEIN 7.1 GM/DL (6.4-8.2)
== END ==
LOC: M LAB REF 16:29
PROVIDERS: ATTEND Nurse Practitioner Family
DX: I10 Essential (primary) hypertension (principal)

== ENCOUNTER 2020-09-11 15:58 | Inpatient (IN) | payer OTHER, MEDICAID ==
[~2020-09-11] VITALS: Ht 195.6 cm; Wt 122.0 kg
--- OUTSIDE RECORDS SUMMARY | 2020-09-11 16:02 | CCD ---
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 Active Not available atenolol 25 mg tablet Active Not availa ble baclofen 10 mg tablet TAKE ONE TABLET BY MOUTH TWICE A DAY NEEDED Active Not available captopril 50 mg tablet Active Not avail able Lipitor 20 mg tablet Take 1 tablet every day by oral route in the evening. Active Not available lisinopril 10 mg tablet Completed 07/04/20 20 nitroglycerin 0.4 mg/hr transdermal 24 hour patch Active Not available pantoprazole 40 mg tablet,delayed release Completed 07/04/2020 senna 8.6 mg tablet Take 2 tablets as needed by oral route. Active Not available sucralfate 1 gram tablet Completed 020 tramadol 50 mg tablet Completed 07/04/2020 Problems None recorded. Procedures Date Name Performed by 09/01/2017 Implantation of Insertable Loop Recorder Information not available 09/01/2007 Sapheno-femoral Crossover Bypass Graft I nformation not available 09/01/2007 Repair of Aneurysm of Abdomi nal Aorta with Insertion of Endovascular Stent Information not available 09/01/2002 Excision of Carotid Body Tumor Informati on not available 09/01/2002 Laminectomy Notes: schwannoma on back Information not available Angioplasty Information not avai lable Angiography Information not avai lable Angiography Information not avai lable Angiography Information not avai lable Results Lab Results Date Name Specimen Result Interpretation Description Value Range Status Address 08/03/2020 CMP, Serum or Plasma Blood venous High Glu cose, Fasting 164 mg/dL 70-100 mg/dL Final [facility] nter: [address] [facility] Blood venous High Blood Urea Nitrogen 21 mg/dL 7-18 mg/dL [facility]: [address] [facility] Blood venous Normal Creatinine for GFR 1.08 mg/dL 0.70-1.30 mg/dL [facility]: [address] [facility] Blood venous Normal Glomerular Filtration Rate > 60.0 >42 [facility]: [address] [facility] Blood venous Normal Sodium Level 137 mEq/L 136-14 5 mEq/L [facility]: [address] [facility] Blood venous Normal Potassium Serum 4.6 mEq/L 3.5 -5.1 mEq/L [facility]: [address] [facility] Blood venous Normal Chloride Level 105 mEq/L 98-1 07 mEq/L [facility]: [address] [facility] Blood venous Normal Carbon Dioxide Level 27 mEq/L 21-32 mEq/L [facility]: [address] [facility] Blood venous Low Anion Gap 5 mEq/L 8-16 mEq/L [facility]: [address] [facility] Blood venous Normal Calcium Level 9.2 mg/dL 8.8-1 0.2 mg/dL [facility]: [address] [facility] Blood venous Normal AST/SGOT 21 U/L 7-37 U/L [facility]: [address] [facility] Blood venous Normal ALT/SGPT 40 U/L 12-78 U/L [facility]: [address] [facility] Blood venous Normal Alkaline Phosphatase 91 U/L 4 5-117 U/L [facility]: [address] [facility] Blood venous Normal Bilirubin,total 0.8 mg/dL 0.2 -1.0 mg/dL [facility]: [address] [facility] Blood venous Normal Total Protein 7.1 gm/dL 6.4-8 .2 gm/dL [facility]: [address] [facility] Blood venous Normal Albumin 4.1 gm/dL 3.2-5.2 gm/ dL [facility]: [address] [place] [address] Blood venous Normal Albumin/globulin Ratio 1.4 [facility]: [address] [place] [address] 08/03/2020 Magnesium, Serum or Plasma Blood venous Normal Magnesium Level 2.3 mg/dL 1.8-2.4 mg/dL [facility] nter: [address] [place] [address] 07/24/2020 CBC W/ Auto Diff Normal White Blood Count 6.5 10 4.0-10.[address] [facility]: [address] [place] [address] Normal Red Blood Count 5.24 10 4.30-6.[address] [facility]: [address] [place] [address] Normal Hemoglobin 16.2 g/dL 13.5-17.5 g/dL [facility]: [address] [place] [address] Normal Hematocrit 51.6 % 42.0-52.0 % [facility]: [address] [place] [address] High Mean Corpuscular Volume 98.5 fL 80.0 -96.[address] [facility]: [address] [place] [address] Normal Mean Corpuscular Hemoglobin 30.9 pg 27.0-33.[address] [facility]: [address] [place] [address] Low Mean Corpuscular HGB Conc 31.4 g/dL 32.0-36.5 g/dL [facility]: [address] [place] [address] Normal Red Cell Distribution Width 12.7 % 1 1.5-14.5 % [facility]: [address] [place] [address] Normal Platelet Count, Automated 156 10 150 -[address] [facility]: [address] [place] [address] Normal Neutrophils % 63.6 % 36.0-66.0 % [facility]: [address] [place] [address] Low Lymph % 18.9 % 24.0-44.0 % [facility]: [address] [place] [address] High Mingo % 11.5 % 0.0-5.0 % [facility]: [address] [place] [address] High Eos % 4.8 % 0.0-3.0 % [facility]: [address] [place] [address] Normal Baso % 0.6 % 0.0-1.0 % [facility]: [address] [place] [address] Normal Immature Granulocyte % 0.6 % 0-3.0 % [facility]: [address] [place] [address] Normal Nucleated Red Blood Cell % 0.0 % 0- 0 % [facility]: [address] [place] [address] Normal Neutrophils # 4.1 10 1.5-8.5 10 [facility]: [address] [place] [address] Low Lymph # 1.2 10 1.5-5.0 10 [facility]: 0 [facility] Normal Mingo # 0.8 10 0.0-0.8 10 [facility]: [address] [place] [address] Normal Eos # 0.3 10 0.0-0.5 10 [facility]: 0 [facility] Normal Baso # 0.0 10 0.0-0.2 10 [facility]: [address] [place] [address] 07/24/2020 CMP, Serum or Plasma Blood venous High Glu cose, Fasting 165 mg/dL 70-100 mg/dL [facility] nter: [address] [place] [address] Blood venous High Blood Urea Nitrogen 26 mg/dL 7-18 mg/dL [facility]: [address] [place] [address] Blood venous Normal Creatinine for GFR 1.15 mg/dL 0.70-1.30 mg/dL [facility]: [address] [place] [address] Blood venous Normal Glomerular Filtration Rate > 60.[address] >42 [facility]: [address] [place] [address] Blood venous Normal Sodium Level 142 mEq/L 136-14 5 mEq/L [facility]: [address] [place] [address] Blood venous Normal Potassium Serum 4.7 mEq/L 3.5 -5.1 mEq/L [facility]: [address] [place] [address] Blood venous High Chloride Level 108 mEq/L 98-1 07 mEq/L [facility]: [address] [facility] Blood venous Normal Carbon Dioxide Level 31 mEq/L 21-32 mEq/L [facility]: [address] [facility] Blood venous Low Anion Gap 3 mEq/L 8-16 mEq/L [facility]: [address] [facility] Blood venous Low Calcium Level 8.7 mg/dL 8.8-1 0.2 mg/dL [facility]: [address] [facility] Blood venous Normal AST/SGOT 16 U/L 7-37 U/L [facility]: [address] [place] [address] Blood venous Normal ALT/SGPT 30 U/L 12-78 U/L [facility]: [address] [facility] Blood venous Normal Alkaline Phosphatase 89 U/L 4 5-117 U/L [facility]: [address] [facility] Blood venous Normal Bilirubin,total 0.7 mg/dL 0.2 -1.0 mg/dL [facility]: 0 [facility] Blood venous Normal Total Protein 6.5 gm/dL 6.4-8 .2 gm/dL [facility]: [address] [place] [address] Blood venous Normal Albumin 3.8 gm/dL 3.2-5.2 gm/ dL [facility]: [address] [place] [address] Blood venous Normal Albumin/globulin Ratio 1.4 [facility]: [address] [place] [address] 07/24/2020 Lipid Panel, Blood Blood venous Normal Trigl ycerides Level 146 mg/dL <150 mg/dL [facility] nter: [address] [facility] Blood venous Normal Cholesterol Level 184 mg/dL < 200 mg/dL [facility]: [address] [place] [address] Blood venous Low HDL Cholesterol 27 mg/dL >40 mg/dL [facility]: 0 [facility] Blood venous High LDL Cholesterol 128 mg/dL <10 0 mg/dL [facility]: [address] [facility] Blood venous Normal Non-hdl-c 157 mg/dL Fi nal [facility]: [address] [place] [address] Blood venous High Cholesterol Risk Ratio 6.[address] <5 [facility]: [address] [place] [address] 07/24/2020 PSA, Serum or Plasma Normal Prostat ic Specific Ag Monitor 0.71 NG/mL < 4.00 NG/mL [facility] nter: [address] [place] [address] 07/24/2020 TSH + Free T4, Serum Blood venous Normal Thyroid Stimulating Hormone 1.260 uIU/mL 0.358-3.740 uIU/mL [facility] ical Center: [address] [place] [address] Blood venous Normal Free T4 1.31 NG/dL 0.76-1.46 NG/dL [facility]: [address] [place] [address] 07/24/2020 Vitamin D, 25-Hydroxy, Total, Serum Blood venous Low Total 25(Oh) Vitamin D 28.0 NG/mL 30.0-100.0 NG/mL [facility] Center: [address] [place] [address] 07/24/2020 HbA1C (Hemoglobin a1C), Blood Blood venous Normal Hemoglobin a1C 6.8 % [facility]: [address] [place] [address] Blood venous High Estimated Average Glucose 148 mg/dL 60-110 mg/dL [facility]: [address] [place] [address] Past Encounters 08/03/2020 Hypertensive Disorder; Patient Asked to Attend; Hyperlipidemia; Prediabetes [facility] [address] [place] [phone], Ph. 07/24/2020 [facility] [address] [place] [phone], Ph. 07/04/2020 Hypertensive Disorder; Essential Hypertension; Chronic Pain; Adult Health [facility] [address] [place] [phone], Ph. Social History Tobacco Smoking Status Former Smoker Notes: quit 12 ye ars ago Vaccine List Notes: Pt declined Flu Vaccine Plan of Care Patient Instructions Annual physical exam done for you today . Please continue medications as prescribed. Please continue healthy diet and physical activities. Fasting labs ordered to be done prior to next visit. Reminders Provider Appointments None recorded. Lab None recorded. Referral None recorded. Procedures None recorded. Surgeries None recorded. Imaging None recorded. Vitals 08/03/2020 09:40AM ESTABLISHED [id number] Height Weight BMI Blood Pressure 77 in 282 lbs 16 oz 33.6 kg/m2 166/91 mm[Hg] 07/04/2020 09:40AM NEW PATIENT EXAM Height Weight BMI Blood Pressure 77 in 285 lbs 12.8 oz 33.9 kg/m2 102/66 mm[H g]
--- OUTSIDE RECORDS SUMMARY | 2020-09-11 16:03 | CCD ---
Author Organization Unknown Address [address] [place] [id number] Phone [phone] Care Team Providers Care Student Name Role Phone Tierra Lyon Unavailable Unavailable Allergies Code Code System Name Reaction Severity Status Onset [id number] RxNorm Latex Anaphylaxis Severe Active Medications Name Status Start Date Stop Date amlodipine 10 mg tablet Completed 07/04/20 20 amlodipine 5 mg tablet Take 1 tablet every day by oral route as directed. Active Not available aspirin 81 mg tablet,delayed release Take 1 tablet every day by oral route. Active Not available atenolol 25 mg tablet Active Not availa ble baclofen 10 mg tablet TAKE ONE TABLET BY MOUTH TWICE A DAY NEEDED Active Not available captopril 50 mg tablet TAKE ONE TABLET BY MOUTH EVERY DAY Active Not available lisinopril 10 mg tablet Completed 07/04/20 20 nitroglycerin 0.4 mg/hr transdermal 24 h our patch APPLY 1 PATCH TO SKIN EVERY 24 HOURS NEEDED Active Not available pantoprazole 40 mg tablet,delayed [...] Result Interpretation Description Value Range Status Address 07/24/2020 CBC W/ Auto Diff Normal White Blood Count 6.5 10 4.0-10.0 10 Final [facility]: [address] [facility] Normal Red Blood Count 5.24 10 4.30-6.[address] [facility]: [address] [facility] Normal Hemoglobin 16.2 g/dL 13.5-17.5 g/dL [facility]: [address] [place] [address] Normal Hematocrit 51.6 % 42.0-52.0 % [facility]: [address] [place] [address] High Mean Corpuscular Volume 98.5 fL 80.0 -96.[address] [facility]: [address] [place] [address] Normal Mean Corpuscular Hemoglobin 30.9 pg 27.0-33.[address] [facility]: [address] [place] [address] Low Mean Corpuscular HGB Conc 31.4 g/dL 32.0-36.5 g/dL [facility]: [address] [place] [address] Normal Red Cell Distribution Width 12.7 % 1 1.5-14.5 % [facility]: [address] [place] [address] Normal Platelet Count, Automated 156 10 150 -[address] [facility]: 0 [facility] Normal Neutrophils % 63.6 % 36.0-66.0 % Fin [facility]: 0 [facility] Low Lymph % 18.9 % 24.0-44.0 % [facility]: [address] [facility] High Trimble % 11.5 % 0.0-5.0 % Final [facility]: 0 [facility] High Eos % 4.8 % 0.0-3.0 % [facility]: 0 [facility] Normal Baso % 0.6 % 0.0-1.0 % [facility]: [address] [place] [address] Normal Immature Granulocyte % 0.6 % 0-3.0 % [facility]: [address] [place] [address] Normal Nucleated Red Blood Cell % 0.0 % 0- 0 % [facility]: [address] [place] [address] Normal Neutrophils # 4.1 10 1.5-8.5 10 Verena l [facility]: 0 [facility] Low Lymph # 1.2 10 1.5-5.0 10 [facility]: [address] [facility] Normal Trimble # 0.8 10 0.0-0.[address] [facility]: [address] [place] [address] Normal Eos # 0.3 10 0.0-0.5 10 [facility]: [address] [facility] Normal Baso # 0.0 10 0.0-0.[address] [facility]: [address] [place] [address] 07/24/2020 CMP, Serum or Plasma Blood venous High Glu cose, Fasting 165 mg/dL 70-100 mg/dL [facility] nter: [address] [place] [address] Blood venous High Blood Urea Nitrogen 26 mg/dL 7-18 mg/dL [facility]: [address] [place] [address] Blood venous Normal Creatinine for GFR 1.15 mg/dL 0.70-1.30 mg/dL [facility]: [address] [place] [address] Blood venous Normal Glomerular Filtration Rate > 60.[address] >42 [facility]: [address] [place] [address] Blood venous Normal Sodium Level 142 mEq/L 136-14 5 mEq/L [facility]: [address] [place] [address] Blood venous Normal Potassium Serum 4.7 mEq/L 3.5 -5.1 mEq/L [facility]: [address] [place] [address] Blood venous High Chloride Level 108 mEq/L 98-1 07 mEq/L [facility]: [address] [place] [address] Blood venous Normal Carbon Dioxide Level 31 mEq/L 21-32 mEq/L [facility]: [address] [place] [address] Blood venous Low Anion Gap 3 mEq/L 8-16 mEq/L [facility]: [address] [place] [address] Blood venous Low Calcium Level 8.7 mg/dL 8.8-1 0.2 mg/dL [facility]: [address] [place] [address] Blood venous Normal AST/SGOT 16 U/L 7-37 U/L [facility] judy [facility]: [address] [facility] Blood venous Normal ALT/SGPT 30 U/L 12-78 U/L [facility]: [address] [facility] Blood venous Normal Alkaline Phosphatase 89 U/L 4 5-117 U/L [facility]: [address] [facility] Blood venous Normal Bilirubin,total 0.7 mg/dL 0.2 -1.0 mg/dL [facility]: [address] [facility] Blood venous Normal Total Protein 6.5 gm/dL 6.4-8 .2 gm/dL [facility]: [address] [place] [address] Blood venous Normal Albumin 3.8 gm/dL 3.2-5.2 gm/ dL [facility]: [address] [place] [address] Blood venous Normal Albumin/globulin Ratio 1.4 [facility]: [address] [place] [address] 07/24/2020 Lipid Panel, Blood Blood venous Normal Trigl ycerides Level 146 mg/dL <150 mg/dL [facility] Ce nter: [address] [facility] Blood venous Normal Cholesterol Level 184 mg/dL < 200 mg/dL [facility]: [address] [place] [address] Blood venous Low HDL Cholesterol 27 mg/dL >40 mg/dL [facility]: [address] [place] [address] Blood venous High LDL Cholesterol 128 mg/dL <10 0 mg/dL [facility]: [address] [facility] Blood venous Normal Non-hdl-c 157 mg/dL [facility]: [address] [facility] Blood venous High Cholesterol Risk Ratio 6.[address] <5 [facility]: [address] [place] [address] 07/24/2020 PSA, Serum or Plasma Normal Prostat ic Specific Ag Monitor 0.71 NG/mL < 4.00 NG/mL [facility] Ce nter: 0 [facility] 07/24/2020 TSH + Free T4, Serum Blood venous Normal Thyroid Stimulating Hormone 1.260 uIU/mL 0.358-3.740 uIU/mL Final [facility] Center: [address] [facility] Blood venous Normal Free T4 1.31 NG/dL 0.76-1.46 NG/dL Final [facility] Center: [address] [facility] 07/24/2020 Vitamin D, 25-Hydroxy, Total, Serum Blood venous Low Total 25(Oh) Vitamin D 28.0 NG/mL 30.0-100.0 NG/mL Final [facility] Center: [address] [facility] 07/24/2020 HbA1C (Hemoglobin a1C), Blood Blood venous Normal Hemoglobin a1C 6.8 % Final [facility] Center: [address] [place] [address] Blood venous High Estimated Average Glucose 148 mg/dL 60-110 mg/dL Final [facility] Center: 0 [facility] Past Encounters 07/24/2020 Adult Health Examination [facility]: [address] [place] [address], Ph. 07/04/2020 Hypertensive Disorder; Essential Hypertension; Chronic Pain; Adult Health Examination [facility]: [address] [place] [address], Ph. Social History Tobacco Smoking Status Former Smoker Notes: quit 12 ye ars ago Vaccine List None recorded. Plan of Care Patient Instructions Annual physical exam done for you today . Please continue medications as prescribed. Please continue healthy diet and physical activities. Fasting labs ordered to be done prior to next visit. Reminders Provider Appointments None recorded. Lab None recorded. Referral None recorded. Procedures None recorded. Surgeries None recorded. Imaging None recorded. Vitals Height Weight BMI Blood Pressure 77 in 285 lbs 12.8 oz 33.9 kg/m2 102/66 mm[H g]
--- OUTSIDE RECORDS SUMMARY | 2020-09-11 16:03 | CCD ---
Author Author [facility] Organization [facility] Address Unknown Phone Unavailable Care Team Providers Care As400 Operator Name Role Phone Camron, A Tierra MORTICIAN INVESTIGATOR Unavailable Unavailable Camron, A Tierra MORTICIAN INVESTIGATOR Unavailable Unavailable Camron, A Tierra MORTICIAN INVESTIGATOR Unavailable Unavailable Camron, A Tierra MORTICIAN INVESTIGATOR Unavailable Unavailable Camron, A Tierra MORTICIAN INVESTIGATOR Unavailable Unavailable Camron, A Tierra MORTICIAN INVESTIGATOR Unavailable Unavailable Camron, A Tierra MORTICIAN INVESTIGATOR Unavailable Unavailable Camron, A Tierra MORTICIAN INVESTIGATOR Unavailable Unavailable Camron, A Tierra MORTICIAN INVESTIGATOR Unavailable Unavailable Camron, A Tierra MORTICIAN INVESTIGATOR Unavailable Unavailable Camron, A Tierra MORTICIAN INVESTIGATOR Unavailable Unavailable Camron, A Tierra MORTICIAN INVESTIGATOR Unavailable Unavailable Camron, A Tierra MORTICIAN INVESTIGATOR Unavailable Unavailable Camron, A Tierra MORTICIAN INVESTIGATOR Unavailable Unavailable Camron, A Tierra MORTICIAN INVESTIGATOR Unavailable Unavailable Camron, A Tierra MORTICIAN INVESTIGATOR Unavailable Unavailable Camron, A Tierra MORTICIAN INVESTIGATOR Unavailable Unavailable Camron, A Tierra MORTICIAN INVESTIGATOR Unavailable Unavailable Camron, A Tierra MORTICIAN INVESTIGATOR Unavailable Unavailable Camron, A Tierra MORTICIAN INVESTIGATOR Unavailable Unavailable Camron, A Tierra MORTICIAN INVESTIGATOR Unavailable Unavailable Camron, A Tierra MORTICIAN INVESTIGATOR Unavailable Unavailable Camron, A Tierra MORTICIAN INVESTIGATOR Unavailable Unavailable Camron, A Tierra MORTICIAN INVESTIGATOR Unavailable Unavailable Camron, A Tierra MORTICIAN INVESTIGATOR Unavailable Unavailable Camron, A Tierra MORTICIAN INVESTIGATOR Unavailable Unavailable Camron, A Tierra MORTICIAN INVESTIGATOR Unavailable Unavailable Katarzyna Mcmillan RPA Unavailable Unavailable Mcmillan, L Brittany RPA Unavailable Unavailable Mcmillan, L Brittany RPA Unavailable Unavailable Mcmillan, L Brittany RPA Unavailable Unavailable Mcmillan, L Brittany RPA Unavailable Unavailable Mcmillan, L Brittany RPA Unavailable Unavailable Mcmillan, L Brittany RPA Unavailable Unavailable Mcmillan, L Brittany RPA Unavailable Unavailable Mcmillan, L Brittany RPA Unavailable Unavailable Mcmillan, L Brittany RPA Unavailable Unavailable Mcmillan, L Brittany RPA Unavailable Unavailable Mcmillan, L Brittany RPA Unavailable Unavailable Mcmillan, L Brittany RPA Unavailable Unavailable Mcmillan, L Brittany RPA Unavailable Unavailable Mcmillan, L Brittany RPA Unavailable Unavailable Mcmillan, L Brittany RPA Unavailable Unavailable Mcmillan, L Brittany RPA Unavailable Unavailable Mcmillan, L Brittany RPA Unavailable Unavailable Mcmillan, L Brittany RPA Unavailable Unavailable Mcmillan, L Brittany RPA Unavailable Unavailable Mcmillan, L Brittany RPA Unavailable Unavailable Mcmillan, L Brittany RPA Unavailable Unavailable Mcmillan, L Brittany RPA Unavailable Unavailable Mcmillan, L Brittany RPA Unavailable Unavailable Mcmillan, L Brittany RPA Unavailable Unavailable Mcmillan, L Brittany RPA Unavailable Unavailable Mcmillan, L Brittany RPA Unavailable Unavailable Mcmillan, L Brittany RPA Unavailable Unavailable Mcmillan, L Brittany RPA Unavailable Unavailable Mcmillan, L Brittany RPA Unavailable Unavailable Mcmillan, L Brittany RPA Unavailable Unavailable Mcmillan, L Brittany RPA Unavailable Unavailable Re-disclosure Warning The records that you are about to access may contain information from federally-assisted alcohol or drug abuse programs. If such information is present, then the following federally mandated warning applies: This information has been disclosed to you from records protected by federal confidentiality rules (42 CFR part 2). The federal rules prohibit you from making any further disclosure of this information unless further disclosure is expressly permitted by the written consent of the person to whom it pertains or as otherwise permitted by 42 CFR part 2. A general authorization for the release of medical or other information is NOT sufficient for this purpose. The Federal rules restrict any use of the information to criminally investigate or prosecute any alcohol or drug abuse patient.The records that you are about to access may contain highly sensitive health information, the redisclosure of which is protected by Article 27-F of the [facility] Public Health law. If you continue you may have access to information: Regarding HIV / AIDS; Provided by facilities licensed or operated by the [facility] Office of Mental Health; or Provided by the [facility] Office for People With Developmental Disabilities. If such information is present, then the following [facility] mandated warning applies: This information has been disclosed to you from confidential records which are protected by state law. State law prohibits you from making any further disclosure of this information without the specific written consent of the person to whom it pertains, or as otherwise permitted by law. Any unauthorized further disclosure in violation of state law may result in a fine or mcfp sentence or both. A general authorization for the release of medical or other information is NOT sufficient authorization for further disc losure. Allergies and Adverse Reactions Type Description Substance Reaction Status Data Source(s ) Drug allergy Latex Gloves Drug allergy anaphylaxis Active eCW1 ( [facility]) Family History Family Member Name Family Member Gender Family Member Status Date o f Status Description Data Source(s) Unknown Female Problem MEDENT ([facility]) Encounters Encounter Providers Location Date Indications Data Source(s ) [facility] [address] [place] [address], Ph. Attender: Tierra Lyon [facility] Medical 08/03/2020 12:00:00 AM EST SAL[facility]ADOR ([facility]) [facility]DAY [facility]: [address], [place] [address], Ph. Attender: Tierra Lyon [facility] Medical 07/24/2020 12:00:00 AM EST SALVADOR ([facility]) [facility]: [address], [place] [address], Ph. Attender: Tierra Lyon [facility] Medical 07/24/2020 12:00:00 AM EST SALVADOR ([facility]) [facility]: [address], [place] [address], Ph. Attender: Tierra Lyon [facility] Medical 07/24/2020 12:00:00 AM EST [facility]ADOR ([facility]) [facility] [address], [place] [address], Ph. Attender: Tierra Lyon [facility] Medical 07/04/2020 12:00:00 AM EST SALVADOR ([facility]) [facility] [address], [place] [address], Ph. Attender: Tierra Lyon [facility] Medical 07/04/2020 12:00:00 AM EST SAL[facility]ADOR ([facility]) [facility] [address], [place] [address], Ph. Attender: Tierra Lyon [facility] Medical 07/04/2020 12:00:00 AM EST SALVADOR ([facility]) [place] [address] [facility] [address] 07/04/2020 12:00:00 AM EST eCW1 (Critical access hospital) [facility] [address] [place] [address], Ph. Attender: Tierra Lyon [facility] Medical 07/04/2020 12:00:00 AM EST SALVADOR ([facility]) [place] [address] [facility] [address] 06/05/2020 12:00:00 AM EDT eCW1 (Critical access hospital) Outpatient Attender: Brittany West/May/Wilfred/Adria craig 05/10/2020 11:15:00 AM EDT MEDENT ([facility]) [place] [address] [facility] [address] 02/08/2020 12:00:00 AM EDT eCW1 ([facility]) [place] [address] [facility] [address] 02/04/2020 12:00:00 AM EDT eCW1 ([facility]) [place] [address] [facility] [address] 02/03/2020 12:00:00 AM EDT eCW1 ([facility]) [facility] [address] [facility] [address] 01/19/2020 12:00:00 AM EDT eCW1 ([facility]) [facility] [address] [facility] [address] 01/18/2020 12:00:00 AM EDT eCW1 ([facility]) [facility] [address] [facility] [address] 01/14/2020 12:00:00 AM EDT eCW1 ([facility]) [facility] GME Resident [address] [place] [id number] 01/14/2020 12:00:00 AM EDT eCW1 ([facility]) [facility] [address] [facility] [address] 01/12/2020 12:00:00 AM EDT eCW1 ([facility]) [facility] [address] [facility] [address] 01/07/2020 12:00:00 AM EDT eCW1 ([facility]) [facility] [address] [place] [address], [place] [address] 12/16/2019 12:00:00 AM EDT eCW1 ([facility]) [facility] [address] [place] [address], [place] [address] 11/22/2019 12:00:00 AM EDT eCW1 ([facility]) [facility] GME Resident [address] [place] [address] 11/15/2019 12:00:00 AM EDT eCW1 (Critical access hospital) [facility] [place] [address] [facility] [address] 10/29/2019 12:00:00 AM EST eCW1 (Critical access hospital) Outpatient 10/21/2019 07:55:00 PM EST [facility] GME Resident [address] [place] [address] 10/15/2019 12:00:00 AM EST eCW1 (Critical access hospital) Immunizations Vaccine Date Status Description Data Source(s) pneumococcal polysaccharide PPV23 01/14/2020 02:21:00 PM EDT comple faheem eCW1 ([facility]) pneumococcal polysaccharide PPV23 01/14/2020 02:21:00 PM EDT comple faheem eCW1 ([facility]) pneumococcal polysaccharide PPV23 01/14/2020 02:21:00 PM EDT comple faheem eCW1 ([facility]) pneumococcal polysaccharide PPV23 01/14/2020 02:21:00 PM EDT comple faheem eCW1 ([facility]) pneumococcal polysaccharide PPV23 01/14/2020 02:21:00 PM EDT comple faheem eCW1 ([facility]) pneumococcal polysaccharide PPV23 01/14/2020 02:21:00 PM EDT comple faheem eCW1 ([facility]) Medications Medication Brand Name Start Date Product Form Dose Route Admi nistrative Instructions Pharmacy Instructions Status Indications Reaction Description Data Source(s) atorvastatin 20 MG Oral Tablet ATORVASTATIN CALCIUM 08/06/2020 1 2:00:00 AM EST tablet 30 TAKE ONE TABLET BY MOUTH EVERY E VENING TAKE ONE TABLET BY MOUTH EVERY EVENING SOLD: 08/07/2020 [facility] 5 mg 08/02/2020 12:00:00 AM EST tablet 90 TAKE ONE TABLET BY MOUTH EVERY DAY DIRECTED TAKE ONE TABLET BY MOUTH EVERY DAY DIRECTED SOLD: 08/03/2020 [facility] 0.4 mg/hr 08/02/2020 12:00:00 AM EST patch 24 hour 90 APPLY 1 PATCH TOPICALLY ONCE DAILY APPLY 1 PATCH TOPICALLY ONCE DAILY SOLD: 08/03/2020 [facility] 50 mg 07/05/2020 12:00:00 AM EST tablet 85 TAKE ONE TABLET BY MOUTH EVERY DAY TAKE ONE TABLET BY MOUTH EVERY DAY SOLD: 08/07/2020 [facility] Atenolol 25 MG Oral Tablet ATENOLOL 07/04/2020 12:00:00 AM EST tablet 45 TAKE 1/2 TABLET BY MOUTH ONCE DAILY TAKE 1/2 TABLET BY MOUTH ONCE DAILY SOLD: 08/03/2020 [facility] 0.4 mg/hr 06/14/2020 12:00:00 AM EDT patch 24 hour 30 APPLY 1 PATCH TO SKIN EVERY 24 HOURS NEEDED APPLY 1 PATCH TO SKIN EVERY 24 HOURS NEEDED SOLD: 06/14/2020 [facility] 0.4 mg/hr 06/14/2020 12:00:00 AM EDT patch 24 hour 30 APPLY 1 PATCH TO SKIN EVERY 24 HOURS NEEDED APPLY 1 PATCH TO SKIN EVERY 24 HOURS NEEDED SOLD: 07/10/2020 [facility] 25 mg 06/09/2020 12:00:00 AM EDT tablet 15 TAKE 1/2 TABLET BY MOUTH ONCE DAILY TAKE 1/2 TABLET BY MOUTH ONCE DAILY SOLD: 06/13/2020 [facility] 10 mg 05/19/2020 12:00:00 AM EDT tablet 30 TAKE ONE TABLET BY MOUTH EVERY DAY TAKE ONE TABLET BY MOUTH EVERY DAY SOLD: 06/13/2020 [facility] 10 mg 05/19/2020 12:00:00 AM EDT tablet 30 TAKE ONE TABLET BY MOUTH EVERY DAY TAKE ONE TABLET BY MOUTH EVERY DAY SOLD: 05/21/2020 [facility] 50 mg 05/19/2020 12:00:00 AM EDT tablet 14 TAKE ONE TABLET BY MOUTH EVERY DAY NEEDED FOR PAIN , MAXIMUM DAILY DOSE = 1 TABLETS TAKE ONE TABLET BY MOUTH EVERY DAY NEEDED FOR PAIN , MAXIMUM DAILY DOSE = 1 TABLETS SOLD: 05/21/2020 [facility] 10 mg 04/08/2020 12:00:00 AM EDT tablet 180 TAKE ONE TABLET BY MOUTH TWICE A DAY TAKE ONE TABLET BY MOUTH TWICE A DAY SOLD: 04/09/2020 [facility] 0.4 mg/hr 04/08/2020 12:00:00 AM EDT patch 24 hour 90 APPLY ONE PATCH ONCE DAILY REMOVE AFTER 12 HOURS APPLY ONE PATCH ONCE DAILY REMOVE AFTER 12 HOURS SOLD: 04/09/2020 [facility] 50 mg 03/24/2020 12:00:00 AM EDT tablet 14 TAKE ONE TABLET BY MOUTH EVERY DAY NEEDED, MAXIMUM DAILY DOSE = ONE TABLET TAKE ONE TABLET BY MOUTH EVERY DAY NEEDED, MAXIMUM DAILY DOSE = ONE TABLET SOLD: 03/26/2020 [facility] 100 mg 03/24/2020 12:00:00 AM EDT capsule 30 TAKE ONE CAPSULE BY MOUTH EVERY DAY TAKE ONE CAPSULE BY MOUTH EVERY DAY SOLD: 03/26/2020 [facility] 100 mg 03/24/2020 12:00:00 AM EDT capsule 30 TAKE ONE CAPSULE BY MOUTH EVERY DAY TAKE ONE CAPSULE BY MOUTH EVERY DAY SOLD: 05/04/2020 [facility] 10 mg 03/24/2020 12:00:00 AM EDT tablet 30 TAKE ONE TABLET BY MOUTH EVERY DAY TAKE ONE TABLET BY MOUTH EVERY DAY SOLD: 03/26/2020 [facility] 81 mg 03/24/2020 12:00:00 AM EDT tablet,delayed release (DR/EC) 30 TAKE ONE TABLET BY MOUTH EVERY DAY TAKE ONE TABLET BY MOUTH EVERY DAY SOLD: 03/26/2020 [facility] 25 mg 02/11/2020 12:00:00 AM EDT tablet 90 TAKE ONE TABLET BY MOUTH EVERY DAY TAKE ONE TABLET BY MOUTH EVERY DAY SOLD: 02/11/2020 [facility] 0.4 mg/hr 01/20/2020 12:00:00 AM EDT patch 24 hour 30 APPLY 1 PATCH TOPICALLY ONCE DAILY - REMOVE AFTER 12 HOURS APPLY 1 PATCH TOPICALLY ONCE DAILY - REMOVE AFTER 12 HOURS SOLD: 02/18/2020 [facility] 0.4 mg/hr 01/20/2020 12:00:00 AM EDT patch 24 hour 30 APPLY 1 PATCH TOPICALLY ONCE DAILY - REMOVE AFTER 12 HOURS APPLY 1 PATCH TOPICALLY ONCE DAILY - REMOVE AFTER 12 HOURS SOLD: 01/20/2020 [facility] 50 mg 01/15/2020 12:00:00 AM EDT tablet 7 TAKE ONE TABLET BY MOUTH EVERY DAY NEEDED MAXIMUM DAILY DOSE = ONE TABLET TAKE ONE TABLET BY MOUTH EVERY DAY NEEDED MAXIMUM DAILY DOSE = ONE TABLET SOLD: 02/19/2020 [facility] 50 mg 01/15/2020 12:00:00 AM EDT tablet 7 TAKE ONE TABLET BY MOUTH EVERY DAY NEEDED MAXIMUM DAILY DOSE = ONE TABLET TAKE ONE TABLET BY MOUTH EVERY DAY NEEDED MAXIMUM DAILY DOSE = ONE TABLET SOLD: 01/17/2020 [facility] tramadol hydrochloride 50 MG Oral Tablet [Ultram] Ultram 50 MG Ultram 50 MG 01/14/2020 12:00:00 AM EDT 1.0 {tablet_as_needed} active Ultram 50 MG eCW1 ([facility]) tramadol hydrochloride 50 MG Oral Tablet [Ultram] Ultram 50 MG Ultram 50 MG 01/14/2020 12:00:00 AM EDT 1.0 {tablet_as_needed} active Ultram 50 MG eCW1 ([facility]) tramadol hydrochloride 50 MG Oral Tablet [Ultram] Ultram 50 MG Ultram 50 MG 01/14/2020 12:00:00 AM EDT active 1 tablet as needed eCW1 ([facility]) tramadol hydrochloride 50 MG Oral Tablet [Ultram] Ultram 50 MG Ultram 50 MG 01/14/2020 12:00:00 AM EDT 1.0 {tablet_as_needed} active Ultram 50 MG eCW1 ([facility]) tramadol hydrochloride 50 MG Oral Tablet [Ultram] Ultram 50 MG Ultram 50 MG 01/14/2020 12:00:00 AM EDT 1.0 {tablet_as_needed} active Ultram 50 MG eCW1 ([facility]) tramadol hydrochloride 50 MG Oral Tablet [Ultram] Ultram 50 MG Ultram 50 MG 01/14/2020 12:00:00 AM EDT 1.0 {tablet_as_needed} active Ultram 50 MG eCW1 ([facility]) 25 mg 01/13/2020 12:00:00 AM EDT tablet 15 TAKE 1/2 TABLET BY MOUTH ONCE DAILY TAKE 1/2 TABLET BY MOUTH ONCE DAILY SOLD: 01/13/2020 [facility] 10 mg 01/13/2020 12:00:00 AM EDT tablet 90 TAKE ONE TABLET BY MOUTH TWICE A DAY TAKE ONE TABLET BY MOUTH TWICE A DAY SOLD: 01/13/2020 [facility] 10 mg 01/13/2020 12:00:00 AM EDT tablet 30 TAKE ONE TABLET BY MOUTH EVERY DAY TAKE ONE TABLET BY MOUTH EVERY DAY SOLD: 01/13/2020 [facility] 81 mg 01/13/2020 12:00:00 AM EDT tablet,delayed release (DR/EC) 30 TAKE ONE TABLET BY MOUTH EVERY DAY TAKE ONE TABLET BY MOUTH EVERY DAY SOLD: 01/13/2020 [facility] 1 gram 01/13/2020 12:00:00 AM EDT tablet 120 TAKE ONE TABLET BY MOUTH BEFORE MEALS AND AT BEDTIME DAILY TAKE ONE TABLET BY MOUTH BEFORE MEALS AN D AT BEDTIME DAILY SOLD: 01/13/2020 [facility] 1 billion cell- 250 mg 01/07/2020 12:00:00 AM EDT tablet 60 TAKE ONE TABLET BY MOUTH TWICE A DAY WITH FOOD TAKE ONE TABLET BY MOUTH TWICE A DAY WITH FOOD SOLD: 01/10/2020 [facility] 8.6-50 mg 01/07/2020 12:00:00 AM EDT tablet 60 TAKE TWO TABLETS BY MOUTH TWICE A DAY NEEDED FOR CONSTIPATION TAKE TWO TABLETS BY MOUTH TWICE A DAY NEEDED FOR CONSTIPATION SOLD: 01/13/2020 [facility] 40 mg 01/06/2020 12:00:00 AM EDT tablet,delayed release (DR/EC) 60 TAKE ONE TABLET BY MOUTH TWICE A DAY TAKE ONE TABLET BY MOUTH TWICE A DAY SOLD: 01/13/2020 [facility] Hospital bed [facility] 10/29/2019 12:00:00 AM EST activ e Hospital bed [facility] ([facility]) Hospital bed [facility] 10/29/2019 12:00:00 AM EST activ e Hospital bed [facility] ([facility]) Hospital bed [facility] 10/29/2019 12:00:00 AM EST activ e Hospital bed [facility] ([facility]) Hospital bed [facility] 10/29/2019 12:00:00 AM EST activ e as directed eC ([facility]) Hospital bed [facility] 10/29/2019 12:00:00 AM EST activ e as directed eC ([facility]) Hospital bed [facility] 10/29/2019 12:00:00 AM EST activ e Hospital bed [facility] ([facility]) Hospital bed [facility] 10/29/2019 12:00:00 AM EST activ e as directed eC ([facility]) Hospital bed [facility] 10/29/2019 12:00:00 AM EST activ e as directed eC ([facility]) Hospital bed [facility] 10/29/2019 12:00:00 AM EST activ e Hospital bed [facility] ([facility]) Aspirin 81 MG Delayed Release Oral Tablet Aspirin Adul t Low Strength 81 MG Aspirin Adult Low Strength 81 MG 10/15/2019 12:00:00 AM EST active as directed eCW1 (Critical access hospital) 50 mg 10/13/2019 12:00:00 AM EST tablet 90 TAKE ONE TABLET BY MOUTH EVERY DAY TAKE ONE TABLET BY MOUTH EVERY DAY SOLD: 01/13/2020 [facility] 50 mg 10/13/2019 12:00:00 AM EST tablet 90 TAKE ONE TABLET BY MOUTH EVERY DAY TAKE ONE TABLET BY MOUTH EVERY DAY SOLD: 10/13/2019 [facility] 5 mg 10/11/2019 12:00:00 AM EST tablet 90 TAKE ONE TABLET BY MOUTH EVERY DAY TAKE ONE TABLET BY MOUTH EVERY DAY SOLD: 01/13/2020 [facility] 5 mg 10/11/2019 12:00:00 AM EST tablet 90 TAKE ONE TABLET BY MOUTH EVERY DAY TAKE ONE TABLET BY MOUTH EVERY DAY SOLD: 05/04/2020 [facility] 5 mg 10/11/2019 12:00:00 AM EST tablet 90 TAKE ONE TABLET BY MOUTH EVERY DAY TAKE ONE TABLET BY MOUTH EVERY DAY SOLD: 10/13/2019 [facility] 50 mg 05/25/2019 12:00:00 AM EDT tablet 55 TAKE ONE TABLET BY MOUTH EVERY DAY TAKE ONE TABLET BY MOUTH EVERY DAY SOLD: 07/19/2019 [facility] 5 mg 04/22/2019 12:00:00 AM EDT tablet 90 TAKE ONE TABLET BY MOUTH EVERY DAY TAKE ONE TABLET BY MOUTH EVERY DAY SOLD: 07/18/2019 [facility] 500 mg 04/20/2019 12:00:00 AM EDT tablet 90 TAKE ONE TABLET BY MOUTH EVERY DAY TAKE ONE TABLET BY MOUTH EVERY DAY SOLD: 10/13/2019 [facility] 100 mg 04/20/2019 12:00:00 AM EDT capsule 180 TAKE ONE CAPSULE BY MOUTH TWICE A DAY TAKE ONE CAPSULE BY MOUTH TWICE A DAY SOLD: 10/13/2019 [facility] 25 mg 04/20/2019 12:00:00 AM EDT tablet 45 TAKE 1/2 TABLET BY MOUTH ONCE DAILY TAKE 1/2 TABLET BY MOUTH ONCE DAILY SOLD: 10/13/2019 [facility] 0.4 mg/hr 04/20/2019 12:00:00 AM EDT patch 24 hour 90 APPLY 1 PATCH TOPICALLY ONCE DAILY - REMOVE AFTER 12 HOURS APPLY 1 PATCH TOPICALLY ONCE DAILY - REMOVE AFTER 12 HOURS SOLD: 07/18/2019 [facility] 100 mg 04/20/2019 12:00:00 AM EDT capsule 180 TAKE ONE CAPSULE BY MOUTH TWICE A DAY TAKE ONE CAPSULE BY MOUTH TWICE A DAY SOLD: 07/18/2019 [facility] 10 mg 04/20/2019 12:00:00 AM EDT tablet 180 TAKE ONE TABLET BY MOUTH TWICE A DAY TAKE ONE TABLET BY MOUTH TWICE A DAY SOLD: 07/18/2019 [facility] 0.4 mg/hr 04/20/2019 12:00:00 AM EDT patch 24 hour 90 APPLY 1 PATCH TOPICALLY ONCE DAILY - REMOVE AFTER 12 HOURS APPLY 1 PATCH TOPICALLY ONCE DAILY - REMOVE AFTER 12 HOURS SOLD: 10/13/2019 [facility] 25 mg 04/20/2019 12:00:00 AM EDT tablet 45 TAKE 1/2 TABLET BY MOUTH ONCE DAILY TAKE 1/2 TABLET BY MOUTH ONCE DAILY SOLD: 07/18/2019 [facility] 10 mg 04/20/2019 12:00:00 AM EDT tablet 180 TAKE ONE TABLET BY MOUTH TWICE A DAY TAKE ONE TABLET BY MOUTH TWICE A DAY SOLD: 10/13/2019 [facility] 500 mg 04/20/2019 12:00:00 AM EDT tablet 90 TAKE ONE TABLET BY MOUTH EVERY DAY TAKE ONE TABLET BY MOUTH EVERY DAY SOLD: 07/18/2019 [facility] MULTIVITAMIN 04/19/2019 12:00:00 AM EDT tablet 90 TAKE ONE TABLET BY MOUTH EVERY DAY WITH FOOD TAKE ONE TABLET BY MOUTH EVERY DAY WITH FOOD SOLD: 10/13/2019 [facility] MULTIVITAMIN 04/19/2019 12:00:00 AM EDT tablet 90 TAKE ONE TABLET BY MOUTH EVERY DAY WITH FOOD TAKE ONE TABLET BY MOUTH EVERY DAY WITH FOOD SOLD: 07/18/2019 [facility] Lisinopril 10 MG Oral Tablet lisinopril 10 mg tablet lisinopril 10 mg tablet completed lisinopril 10 MG Oral Tablet SALVADOR ([facility]) Amlodipine 10 MG Oral Tablet amlodipine 10 mg tablet amlodipine 10 mg tablet completed amlodipine 10 MG Oral Tablet SMOCK ([facility]) Lisinopril 10 MG Oral Tablet lisinopril 10 mg tablet lisinopril 10 mg tablet completed lisinopril 10 MG Oral Tablet [facility] ([facility]) tramadol hydrochloride 50 MG Oral Tablet tramadol 50 m g tablet tramadol 50 mg tablet completed tramadol hydroc hloride 50 MG Oral Tablet [facility] ([facility]) Lisinopril 10 MG Oral Tablet lisinopril 10 mg tablet lisinopril 10 mg tablet completed lisinopril 10 MG Oral Tablet [facility] ([facility]) Sucralfate 1000 MG Oral Tablet sucralfate 1 gram table t sucralfate 1 gram tablet completed sucralfate 1000 MG Oral Tablet SAL[facility]ADOR ([facility]) tramadol hydrochloride 50 MG Oral Tablet tramadol 50 m g tablet tramadol 50 mg tablet completed tramadol hydroc hloride 50 MG Oral Tablet [facility]ADOR ([facility]) Sucralfate 1000 MG Oral Tablet sucralfate 1 gram table t sucralfate 1 gram tablet completed sucralfate 1000 MG Oral Tablet [facility] ([facility]) pantoprazole 40 MG Delayed Release Oral Tablet pantoprazole 40 mg tablet,delayed release pantoprazole 40 mg tablet,delayed release completed pantoprazole 40 MG Delayed Release Oral Tablet [facility] ([facility]) Amlodipine 10 MG Oral Tablet amlodipine 10 mg tablet amlodipine 10 mg tablet completed amlodipine 10 MG Oral Tablet [facility] ([facility]) pantoprazole 40 MG Delayed Release Oral Tablet pantoprazole 40 mg tablet,delayed release pantoprazole 40 mg tablet,delayed release completed pantoprazole 40 MG Delayed Release Oral Tablet [facility] ([facility]) Amlodipine 10 MG Oral Tablet amlodipine 10 mg tablet amlodipine 10 mg tablet completed amlodipine 10 MG Oral Tablet [facility] ([facility]) pantoprazole 40 MG Delayed Release Oral Tablet pantoprazole 40 mg tablet,delayed release pantoprazole 40 mg tablet,delayed release completed pantoprazole 40 MG Delayed Release Oral Tablet [facility] ([facility]) Sucralfate 1000 MG Oral Tablet sucralfate 1 gram table t sucralfate 1 gram tablet completed sucralfate 1000 MG Oral Tablet [place] ([facility]) Sucralfate 1000 MG Oral Tablet sucralfate 1 gram table t sucralfate 1 gram tablet completed sucralfate 1000 MG Oral Tablet [place] ([facility]) pantoprazole 40 MG Delayed Release Oral Tablet pantoprazole 40 mg tablet,delayed release pantoprazole 40 mg tablet,delayed release completed pantoprazole 40 MG Delayed Release Oral Tablet [place] ([facility]) tramadol hydrochloride 50 MG Oral Tablet tramadol 50 m g tablet tramadol 50 mg tablet completed tramadol hydroc hloride 50 MG Oral Tablet [place] ([facility]) tramadol hydrochloride 50 MG Oral Tablet tramadol 50 m g tablet tramadol 50 mg tablet completed tramadol hydroc hloride 50 MG Oral Tablet [place] ([facility]) Amlodipine 10 MG Oral Tablet amlodipine 10 mg tablet amlodipine 10 mg tablet completed amlodipine 10 MG Oral Tablet [place] ([facility]) Lisinopril 10 MG Oral Tablet lisinopril 10 mg tablet lisinopril 10 mg tablet completed lisinopril 10 MG Oral Tablet [place] ([facility]) Insurance Providers Payer name Policy type / Coverage type Policy ID Covered alliance party ID Covered alliance party's relationship to keith Policy Keith Plan Information EMEDNY [id number] SP [id number] HUMANA GOLD [id number] SP [id number] HUMANA GOLD O [id number] S [id number] MEDICAID [id number] S [id number] HUMANA GOLD [id number] SP [id number] MEDICARE [id number] SP [id number] MEDICARE [id number] SP [id number] MEDICAID [id number] SP [id number] [id number] SP [id number] [facility] [id number] SP [id number] MEDICAID [id number] SP [id number] [facility] [id number] S [id number] [facility] MCRO [id number] SP [id number] MEDICAID [id number] SP [id number] MEDICARE [id number] SP [id number] M MEDICARE A [id number] Self [id number] MEDICAID M [id number] Self [id number] MEDICARE A [id number] Self [id number] M Medicaid Medigap Part B [id number] Self [id number] Medicare Part B Medicare Primary [id number] Self [id number] MEDICARE PART A -O/P [id number] 18 [id number] MEDICAID-O/P [id number] S MEDICARE -O/P [id number] 18 [id number] Medicaid Medigap Part B Self Medicare Part B Medicare Primary Self MEDICAID [id number] SP [id number] MEDICARE [id number] SP [id number] M Problems, Conditions, and Diagnoses Code Display Name Description Problem Type Effective Dates Data Source(s) K59.00 26391236 Constipation, unspecified constipation ty pe Problem 03/23/2020 12:00:00 AM EDT eCW1 ([facility]) E66.9 462013569 Obesity (BMI 30-39.9) Problem 01/14/2020 12: 00:00 AM EDT eCW1 ([facility]) E66.9 114181226 Obesity (BMI 30-39.9) Problem 01/14/2020 12: 00:00 AM EDT eCW1 ([facility]) Z98.41 [id number] Cataract extraction status, right eye Pro blem 11/15/2019 12:00:00 AM EDT eCW1 ([facility]) Z98.42 [id number] Cataract extraction status, left eye Prob sandeep 11/15/2019 12:00:00 AM EDT eCW1 ([facility]) Z98.42 [id number] Cataract extraction status, left eye Prob sandeep 11/15/2019 12:00:00 AM EDT eCW1 ([facility]) Z98.41 [id number] Cataract extraction status, right eye Pro blem 11/15/2019 12:00:00 AM EDT eCW1 ([facility]) I10 Essential hypertension Essential hypertension Problem 10/17/2019 12:00:00 AM EST eCW1 ([facility]) G89.29 Chronic pain Other chronic pain Problem 10/17/2019 12:0 0:00 AM EST eCW1 ([facility]) I10 Essential hypertension Essential hypertension Problem 10/17/2019 12:00:00 AM EST eCW1 ([facility]) G89.29 Chronic pain Other chronic pain Problem 10/17/2019 12:0 0:00 AM EST eCW1 ([facility]) I73.9 [id number] Peripheral vascular disease Problem 10/15/19 20 12:00:00 AM EST eCW1 ([facility]) Z95.818 [id number] Presence of Watchman left atrial appendage closure device Problem 10/15/2019 12:00:00 AM EST eCW1 ([facility]) I48.91 [id number] Unspecified atrial fibrillation Problem 10/15/2019 12:00:00 AM EST eCW1 ([facility]) I48.91 [id number] Atrial fibrillation, unspecified type Pro blem 10/15/2019 12:00:00 AM EST eCW1 ([facility]) I71.4 02507535 AAA (abdominal aortic aneurysm) without r upture Problem 10/15/2019 12:00:00 AM EST eCW1 ([facility]) Z95.818 [id number] Presence of Watchman left atrial appendage closure device Problem 10/15/2019 12:00:00 AM EST eCW1 ([facility]) I73.9 [id number] Peripheral vascular disease Problem 10/15/19 12:00:00 AM EST eCW1 ([facility]) I48.91 [id number] Atrial fibrillation, unspecified type Pro blem 10/15/2019 12:00:00 AM EST eCW1 ([facility]) I71.4 [id number] AAA (abdominal aortic aneurysm) without r upture Problem 10/15/2019 12:00:00 AM EST eCW1 ([facility]) F17.200 Smoking Smoking Problem 10/15/2019 12:00:00 AM ES T eCW1 ([facility]) Surgeries/Procedures Procedure Description Date Indications Data Source(s) TRANS CARE MGMT 7 DAY DISCH 01/14/2020 12:00:00 AM EDT eCW1 ([facility]) Pneumococcal Adult 0.5mL (Pneumovax 23) 01/14/2020 12: 00:00 AM EDT eCW1 ([facility]) Administration of pneumococcal vaccine 01/14/2020 12:0 0:00 AM EDT eCW1 ([facility]) Office Visit, Est Pt., Level 3 FC 01/14/2020 12:00:00 AM EDT eCW1 ([facility]) Office Visit, Est Pt., Level 4 PC 01/14/2020 12:00:00 AM EDT eCW1 ([facility]) Transitional Care NO CHARGE Visit 01/14/2020 12:00:00 AM EDT eCW1 ([facility]) Office Visit, New Pt., Level 3 FC 10/15/2019 12:00:00 AM EST eCW1 ([facility]) Office Visit, New Pt., Level 3 PC 10/15/2019 12:00:00 AM EST eCW1 ([facility]) Results ID Date Data Source [id number] 08/03/2020 11:00:00 AM EST [place] ([facility]) Name Value Range Interpretation Code Description Data Jennifer rce(s) Supporting Document(s) magnesium level 2.3 mg/dL 1.8-2.4 normal Magnesium Level ATHE NA ([facility]) ID Date Data Source [id number] 08/03/2020 11:00:00 AM EST [place] ([facility]) Name Value Range Interpretation Code Description Data Jennifer rce(s) Supporting Document(s) blood urea nitrogen 21 mg/dL 7-18 Above high normal Blood Ure a Nitrogen [place] ([facility]) glucose, fasting 164 mg/dL 70-100 Above high normal Glucose, Fas ting [place] ([facility]) creatinine for GFR 1.08 mg/dL 0.70-1.30 normal Creatinine for GF R [place] ([facility]) sodium level 137 mEq/L 136-145 normal Sodium Level [place] ([facility]) potassium serum 4.6 mEq/L 3.5-5.1 normal Potassium Serum ATHE NA ([facility]) glomerular filtration rate > 60.0 >42 normal Glomerula r Filtration Rate [place] ([facility]) calcium level 9.2 mg/dL 8.8-10.2 normal Calcium Level [place] ( [facility]) carbon dioxide level 27 mEq/L 21-32 normal Carbon Dioxide Level [place] ([facility]) anion gap 5 mEq/L 8-16 Below low normal Anion Gap [place] ( [facility]) chloride level 105 mEq/L 98-107 normal Chloride Level [place] ([facility]) alkaline phosphatase 91 U/L 45-117 normal Alkaline Phosph atase [place] ([facility]) ALT/SGPT 40 U/L 12-78 normal ALT/SGPT [place] ([facility]) AST/SGOT 21 U/L 7-37 normal AST/SGOT [place] ([facility]) albumin 4.1 gm/dL 3.2-5.2 normal Albumin [place] ([facility]) total protein 7.1 gm/dL 6.4-8.2 normal Total Protein [place] ( [facility]) albumin/globulin ratio normal Albumin/globu vamshi Ratio [place] ([facility]) bilirubin,total 0.8 mg/dL 0.2-1.0 normal Bilirubin,total [facility] ([facility]) ID Date Data Source [id number] 07/24/2020 08:20:00 AM EST [facility]) Name Value Range Interpretation Code Description Data Jennifer rce(s) Supporting Document(s) Hemoglobin A1c/Hemoglobin.total in Blood 6.8 % normal Hemoglobin a1C [place] ([facility]) estimated average glucose 148 mg/dL 60-110 Above high norm al Estimated Average Glucose [place] ([facility]) ID Date Data Source [id number] 07/24/2020 08[facility]20[facility]00 [facility] Name Value Range Interpretation Code Description Data Jennifer rce(s) Supporting Document(s) total 25(oh) vitamin D 28.0 NG/mL 30.0-100.0 Below low normal T otal 25(Oh) Vitamin D [place] ([facility]) ID Date Data Source [id number] 07/24/2020 08:20:00 AM EST [facility]) Name Value Range Interpretation Code Description Data Jennifer rce(s) Supporting Document(s) free T4 1.31 NG/dL 0.76-1.46 normal Free T4 [place] ([facility]) thyroid stimulating hormone 1.260 uIU/mL 0.358-3.740 normal Thyroid Stimulating Hormone [place] ([facility]) ID Date Data Source [id number] 07/24/2020 08:20:00 AM EST [place] ([facility]) Name Value Range Interpretation Code Description Data Jennifer rce(s) Supporting Document(s) prostatic specific Ag monitor 0.71 NG/mL < 4.00 normal Prostatic Specific Ag Monitor [place] ([facility]) ID Date Data Source [id number] 07/24/2020 08:20:00 AM EST [place] ([facility]) Name Value Range Interpretation Code Description Data Jennifer rce(s) Supporting Document(s) triglycerides level 146 mg/dL <150 normal Triglycerides Le al [place] ([facility]) HDL cholesterol 27 mg/dL >40 Below low normal HDL Cholestero l [place] ([facility]) cholesterol level 184 mg/dL <200 normal Cholesterol Level [place] ([facility]) non-HDL-C 157 mg/dL normal Non-hdl-c [place] ([facility]) Cholesterol in LDL [Mass/volume] in Serum or Plasma 128 mg/dL <100 Above high normal LDL Cholesterol [facility] ([facility]) cholesterol risk ratio <5 Above high normal Choles terol Risk Ratio [place] ([facility]) ID Date Data Source [id number] 07/24/2020 08:20:00 AM EST [place] ([facility]) Name Value Range Interpretation Code Description Data Jennifer rce(s) Supporting Document(s) blood urea nitrogen 26 mg/dL 7-18 Above high normal Blood Ure a Nitrogen [place] ([facility]) glucose, fasting 165 mg/dL 70-100 Above high normal Glucose, Fas ting [place] ([facility]) potassium serum 4.7 mEq/L 3.5-5.1 normal Potassium Serum ATHE NA ([facility]) creatinine for GFR 1.15 mg/dL 0.70-1.30 normal Creatinine for GF R [place] ([facility]) glomerular filtration rate > 60.0 >42 normal Glomerula r Filtration Rate [place] ([facility]) sodium level 142 mEq/L 136-145 normal Sodium Level [facility] ([facility]) anion gap 3 mEq/L 8-16 Below low normal Anion Gap [place] ( [facility]) AST/SGOT 16 U/L 7-37 normal AST/SGOT [place] ([facility]) chloride level 108 mEq/L 98-107 Above high normal Chloride Level [place] ([facility]) carbon dioxide level 31 mEq/L 21-32 normal Carbon Dioxide Level [place] ([facility]) calcium level 8.7 mg/dL 8.8-10.2 Below low normal Calcium Level AT [facility]) bilirubin,total 0.7 mg/dL 0.2-1.0 normal Bilirubin,total [facility] alkaline phosphatase 89 U/L 45-117 normal Alkaline Phosph atase [place] ([facility]) ALT/SGPT 30 U/L 12-78 normal ALT/SGPT [place] ([facility]) total protein 6.5 gm/dL 6.4-8.2 normal Total Protein [place] ( [facility]) albumin/globulin ratio normal Albumin/globu vamshi Ratio [place] ([facility]) albumin 3.8 gm/dL 3.2-5.2 normal Albumin [place] ([facility]) ID Date Data Source [id number] 07/24/2020 08:20:00 AM EST [place] ([facility]) Name Value Range Interpretation Code Description Data Jennifer rce(s) Supporting Document(s) white blood count 6.5 10 4.0-10.0 normal White Blood Count [place] ([facility]) hematocrit 51.6 % 42.0-52.0 normal Hematocrit [place] ([facility]) red blood count 5.24 10 4.30-6.10 normal Red Blood [facility]) hemoglobin 16.2 g/dL 13.5-17.5 normal Hemoglobin [place] ([facility]) mean corpuscular hemoglobin 30.9 pg 27.0-33.0 normal Mean Corpuscular Hemoglobin [place] ([facility]) mean corpuscular HGB conc 31.4 g/dL 32.0-36.5 Below low kelsy l Mean Corpuscular HGB Conc [place] ([facility]) mean corpuscular volume 98.5 fL 80.0-96.0 Above high normal Mean Corpuscular Volume [place] ([facility]) red cell distribution width 12.7 % 11.5-14.5 normal Red Cell Distribution Width [place] ([facility]) lymph % 18.9 % 24.0-44.0 Below low normal Lymph % [place] ( [facility]) platelet count, automated 156 10 150-450 normal Platelet C ount, Automated [place] ([facility]) neutrophils % 63.6 % 36.0-66.0 normal Neutrophils % [place] ( [facility]) mono % 11.5 % 0.0-5.0 Above high normal Mccone % [place] ([facility]) baso % 0.6 % 0.0-1.0 normal Baso % [facility] ([facility]) immature granulocyte % 0.6 % 0-3.0 normal Immature Gran ulocyte % [place] ([facility]) eos % 4.8 % 0.0-3.0 Above high normal Eos % [place] ([facility]) nucleated red blood cell % 0.0 % 0-0 normal Nucleated Red Blood Cell % [place] ([facility]) neutrophils # 4.1 10 1.5-8.5 normal Neutrophils # [place] ( [facility]) mono # 0.8 10 0.0-0.8 normal Mccone # [place] ([facility]) lymph # 1.2 10 1.5-5.0 Below low normal Lymph # [place] ( [facility]) baso # 0.0 10 0.0-0.2 normal Baso # [place] ([facility]) eos # 0.3 10 0.0-0.5 normal Eos # [place] ([facility]) ID Date Data Source [id number] 07/24/2020 08:20:00 AM EST [place] ([facility]) Name Value Range Interpretation Code Description Data Jennifer rce(s) Supporting Document(s) estimated average glucose 148 mg/dL 60-110 Above high norm al Estimated Average Glucose [facility] ([facility]) Hemoglobin A1c/Hemoglobin.total in Blood 6.8 % normal Hemoglobin a1C [place] ([facility]) ID Date Data Source [id number] 07/24/2020 08:20:00 AM EST [place] ([facility]) Name Value Range Interpretation Code Description Data Jennifer rce(s) Supporting Document(s) total 25(oh) vitamin D 28.0 NG/mL 30.0-100.0 Below low normal T otal 25(Oh) Vitamin D [place] ([facility]) ID Date Data Source [id number] 07/24/2020 08:20:00 AM EST [place] ([facility]) Name Value Range Interpretation Code Description Data Jennifer rce(s) Supporting Document(s) thyroid stimulating hormone 1.260 uIU/mL 0.358-3.740 normal Thyroid Stimulating Hormone [place] ([facility]) free T4 1.31 NG/dL 0.76-1.46 normal Free T4 [place] ([facility]) ID Date Data Source [id number] 07/24/2020 08:20:00 AM EST [place] ([facility]) Name Value Range Interpretation Code Description Data Jennifer rce(s) Supporting Document(s) prostatic specific Ag monitor 0.71 NG/mL < 4.00 normal Prostatic Specific Ag Monitor [place] ([facility]) ID Date Data Source [id number] 07/24/2020 08:20:00 AM [facility] Name Value Range Interpretation Code Description Data Jennifer rce(s) Supporting Document(s) cholesterol level 184 mg/dL <200 normal Cholesterol Level [place] ([facility]) HDL cholesterol 27 mg/dL >40 Below low normal HDL Cholestero l [place] ([facility]) triglycerides level 146 mg/dL <150 normal Triglycerides Le al [place] ([facility]) Cholesterol in LDL [Mass/volume] in Serum or Plasma 128 mg/dL <100 Above high normal LDL Cholesterol [facility] ([facility]) non-HDL-C 157 mg/dL normal Non-hdl-c [place] ([facility]) cholesterol risk ratio <5 Above high normal Choles terol Risk Ratio [place] ([facility]) ID Date Data Source [id number] 07/24/2020 08:20:00 AM EST [place] ([facility]) Name Value Range Interpretation Code Description Data Jennifer rce(s) Supporting Document(s) glucose, fasting 165 mg/dL 70-100 Above high normal Glucose, Fas ting [place] ([facility]) sodium level 142 mEq/L 136-145 normal Sodium Level [facility] ([facility]) glomerular filtration rate > 60.0 >42 normal Glomerula r Filtration Rate [place] ([facility]) blood urea nitrogen 26 mg/dL 7-18 Above high normal Blood Ure a Nitrogen [place] ([facility]) creatinine for GFR 1.15 mg/dL 0.70-1.30 normal Creatinine for GF R [place] ([facility]) chloride level 108 mEq/L 98-107 Above high normal Chloride Level [place] ([facility]) anion gap 3 mEq/L 8-16 Below low normal Anion Gap [place] ( [facility]) carbon dioxide level 31 mEq/L 21-32 normal Carbon Dioxide Level [place] ([facility]) potassium serum 4.7 mEq/L 3.5-5.1 normal Potassium Serum ATHE NA ([facility]) calcium level 8.7 mg/dL 8.8-10.2 Below low normal Calcium Level AT [place] ([facility]) alkaline phosphatase 89 U/L 45-117 normal Alkaline Phosph atase [place] ([facility]) AST/SGOT 16 U/L 7-37 normal AST/SGOT [place] ([facility]) ALT/SGPT 30 U/L 12-78 normal ALT/SGPT [place] ([facility]) albumin 3.8 gm/dL 3.2-5.2 normal Albumin [place] ([facility]) total protein 6.5 gm/dL 6.4-8.2 normal Total Protein [place] ( [facility]) bilirubin,total 0.7 mg/dL 0.2-1.0 normal Bilirubin,total ATHE NA ([facility]) albumin/globulin ratio normal Albumin/globu vamshi Ratio [place] ([facility]) ID Date Data Source [id number] 07/24/2020 08:20:00 AM EST [place] ([facility]) Name Value Range Interpretation Code Description Data Jennifer rce(s) Supporting Document(s) white blood count 6.5 10 4.0-10.0 normal White Blood Count [place] ([facility]) hemoglobin 16.2 g/dL 13.5-17.5 normal Hemoglobin [facility] ([facility]) red blood count 5.24 10 4.30-6.10 normal Red Blood Count ATHE ([facility]) hematocrit 51.6 % 42.0-52.0 normal Hematocrit [place] ([facility]) mean corpuscular volume 98.5 fL 80.0-96.0 Above high normal Mean Corpuscular Volume [facility] ([facility]) mean corpuscular hemoglobin 30.9 pg 27.0-33.0 normal Mean Corpuscular Hemoglobin [place] ([facility]) red cell distribution width 12.7 % 11.5-14.5 normal Red Cell Distribution Width [place] ([facility]) platelet count, automated 156 10 150-450 normal Platelet C ount, Automated [place] ([facility]) mean corpuscular HGB conc 31.4 g/dL 32.0-36.5 Below low kelsy l Mean [facility] lymph % 18.9 % 24.0-44.0 Below low normal Lymph % [facility] ( [facility]) mono % 11.5 % 0.0-5.0 Above high normal Mccone % [place] ([facility]) neutrophils % 63.6 % 36.0-66.0 normal Neutrophils % [place] ( [facility]) nucleated red blood cell % 0.0 % 0-0 normal Nucleated Red Blood Cell % [place] ([facility]) eos % 4.8 % 0.0-3.0 Above high normal Eos % [place] ([facility]) baso % 0.6 % 0.0-1.0 normal Baso % [facility] ([facility]) immature granulocyte % 0.6 % 0-3.0 normal Immature Gran ulocyte % [facility] ([facility]) lymph # 1.2 10 1.5-5.0 Below low normal Lymph # [place] ( [facility]) mono # 0.8 10 0.0-0.8 normal Mccone # [place] ([facility]) neutrophils # 4.1 10 1.5-8.5 normal Neutrophils # [place] ( [facility]) eos # 0.3 10 0.0-0.5 normal Eos # [place] ([facility]) baso # 0.0 10 0.0-0.2 normal Baso # [facility] ([facility]) Procedure Social History Code Duration Value Status Description Data Source(s ) Smoking 03/23/2020 12:00:00 AM EDT Former Smoker completed Former Smoker eC ([facility]) Smoking 03/23/2020 12:00:00 AM EDT Former Smoker completed Former Smoker eCW1 ([facility]) Smoking 01/14/2020 12:00:00 AM EDT Former Smoker completed Former Smoker eCW1 ([facility]) Smoking 01/14/2020 12:00:00 AM EDT Former Smoker completed Former Smoker eCW1 ([facility]) Smoking 01/14/2020 12:00:00 AM EDT Former Smoker completed Former Smoker eCW1 ([facility]) Vital Signs ID Date Data Source UNK Name Value Range Interpretation Code Description Data Source(s) Body weight 4528 [oz_av] 4528 [oz_av] [facility] ([facility]) Systolic blood pressure 166 mm[Hg] 166 mm[Hg] [facility] Body mass index (BMI) [Ratio] 33.6 kg/m2 33.6 k g/m2 [facility] ([facility]) Body height 77 [in_i] 77 [in_i] [facility] ([facility]) Diastolic blood pressure 91 mm[Hg] 91 mm[Hg] [facility] ([facility]) Body weight 4572.8 [oz_av] 4572.8 [oz_av] ATHEN A ([facility]) Systolic blood pressure 102 mm[Hg] 102 mm[Hg] A THENA ([facility]) Body mass index (BMI) [Ratio] 33.9 kg/m2 33.9 k g/m2 [facility] ([facility]) Body height 77 [in_i] 77 [in_i] [facility] ([facility]) Diastolic blood pressure 66 mm[Hg] 66 mm[Hg] [facility] ([facility]) Body weight 4572.8 [oz_av] 4572.8 [oz_av] ATHEN A ([facility]) Systolic blood pressure 102 mm[Hg] 102 mm[Hg] A THENA ([facility]) Body mass index (BMI) [Ratio] 33.9 kg/m2 33.9 k g/m2 [facility] ([facility]) Body height 77 [in_i] 77 [in_i] [facility] ([facility]) Diastolic blood pressure 66 mm[Hg] 66 mm[Hg] [facility] ([facility]) Body weight 4572.8 [oz_av] 4572.8 [oz_av] ATHEN A ([facility]) Systolic blood pressure 102 mm[Hg] 102 mm[Hg] A THENA ([facility]) Body mass index (BMI) [Ratio] 33.9 kg/m2 33.9 k g/m2 [facility] ([facility]) Body height 77 [in_i] 77 [in_i] [facility] ([facility]) Diastolic blood pressure 66 mm[Hg] 66 mm[Hg] [facility] ([facility]) Body weight 4572.8 [oz_av] 4572.8 [oz_av] ATHEN A ([facility]) Systolic blood pressure 102 mm[Hg] 102 mm[Hg] A THENA ([facility]) Body mass index (BMI) [Ratio] 33.9 kg/m2 33.9 k g/m2 [facility] ([facility]) Body height 77 [in_i] 77 [in_i] [facility] ([facility]) Diastolic blood pressure 66 mm[Hg] 66 mm[Hg] [facility] ([facility]) Body weight 127.008 kg 127.008 kg MEDENT ([facility], ) [place] body weight 208 [lb_av] 208 [lb_av] MEDEN T ([facility], ) Body mass index (BMI) [Ratio] 33.2 kg/m2 33.2 k g/m2 [facility] ([facility], ) Body weight 280.00 [lb_av] 280.00 [lb_av] MEDEN T ([facility], ) Body height 77 [in_i] 77 [in_i] MEDENT ([facility], ) 6'5" Diastolic blood pressure 74 mm[Hg] 74 mm[Hg] [facility] ([facility], ) Left 132/75 Systolic blood pressure 148 mm[Hg] 148 mm[Hg] [facility] Left 132/75 Body weight 127.008 kg 127.008 kg [facility] ([facility], ) [place] body weight 208 [lb_av] 208 [lb_av] MEDEN T ([facility], ) Body mass index (BMI) [Ratio] 33.2 kg/m2 33.2 k g/m2 [facility] ([facility], ) Body weight 280.00 [lb_av] 280.00 [lb_av] MEDEN T ([facility], ) Stated Body height 77 [in_i] 77 [in_i] MEDENT ([facility], ) 6'5" Diastolic blood pressure 95 mm[Hg] 95 mm[Hg] MEDENT ([facility], ) Systolic blood pressure 167 mm[Hg] 167 mm[Hg] M EDENT ([facility], ) Diastolic blood pressure 70 mm[Hg] 70 mm[Hg] eCW1 ([facility]) Systolic blood pressure 110 mm[Hg] 110 mm[Hg] e CW1 ([facility]) Body temperature 97 [degF] 97 [degF] eCW1 ([facility]) Respiratory rate 20 /min 20 /min eCW1 ([facility]) Heart rate 88 /min 88 /min eCW1 ([facility]) Body mass index (BMI) [Ratio] 34.03 kg/m2 34.03 kg/m2 eCW1 ([facility]) Body height 77 [in_us] 77 [in_us] eCW1 ([facility]) Body weight Measured 287 [lb_av] 287 [lb_av] eC W1 ([facility]) Diastolic blood pressure 76 mm[Hg] 76 mm[Hg] eCW1 ([facility]) Systolic blood pressure 126 mm[Hg] 126 mm[Hg] e CW1 ([facility]) Body temperature 98.7 [degF] 98.7 [degF] eCW1 ( [facility]) Respiratory rate 20 /min 20 /min eCW1 ([facility]) Heart rate 76 /min 76 /min eCW1 ([facility]) Body mass index (BMI) [Ratio] 34.67 kg/m2 34.67 kg/m2 eCW1 ([facility]) Body height 77 [in_us] 77 [in_us] eCW1 ([facility]) Body weight Measured 292.4 [lb_av] 292.4 [lb_av ] eCW1 ([facility]) Diastolic blood pressure 78 mm[Hg] 78 mm[Hg] eCW1 ([facility]) Systolic blood pressure 120 mm[Hg] 120 mm[Hg] e CW1 ([facility]) Body temperature 98.2 [degF] 98.2 [degF] eCW1 ( [facility]) Respiratory rate 20 /min 20 /min eCW1 ([facility]) Heart rate 102 /min 102 /min eCW1 ([facility]) Body mass index (BMI) [Ratio] 34.48 kg/m2 34.48 kg/m2 W1 ([facility]) Body height 77 [in_us] 77 [in_us] [facility] ([facility]) Body weight Measured 290.8 [lb_av] 290.8 [lb_av ] W1 ([facility]) Body weight 132.168 kg 132.168 kg [facility] ([facility], ) Body mass index (BMI) [Ratio] 34.5 kg/m2 34.5 k g/m2 [facility] ([facility]) Body weight 291.38 [lb_av] 291.38 [lb_av] [facility] Body height 77 [in_i] 77 [in_i] [facility] ([facility]) 6'5" Diastolic blood pressure 78 mm[Hg] 78 mm[Hg] [facility] ([facility]) Systolic blood pressure 126 mm[Hg] 126 mm[Hg] [facility] Patient Treatment Plan of Care Planned Activity Planned Date Details Description Data Source (s) tramadol hydrochloride 50 MG Oral Tablet [Ultram] 01/14/2020 12: 00:00 AM EDT [facility] ([facility]) tramadol hydrochloride 50 MG Oral Tablet [Ultram] 01/14/2020 12: 00:00 AM EDT eCW ([facility]) tramadol hydrochloride 50 MG Oral Tablet [Ultram] 01/14/2020 12: 00:00 AM EDT eCW ([facility]) tramadol hydrochloride 50 MG Oral Tablet [Ultram] 01/14/2020 12: 00:00 AM EDT eCW1 ([facility]) tramadol hydrochloride 50 MG Oral Tablet [Ultram] 01/14/2020 12: 00:00 AM EDT eCW ([facility]) tramadol hydrochloride 50 MG Oral Tablet [Ultram] 01/14/2020 12: 00:00 AM EDT eCW ([facility]) Hospital bed 10/29/2019 12:00:00 AM EST e CW1 ([facility]) Aspirin 81 MG Delayed Release Oral Tablet 10/15/2019 12:00:00 AM ES T eCW1 ([facility]) Amlodipine 10 MG Oral Tablet [facility] ([facility]) tramadol hydrochloride 50 MG Oral Tablet [facility] ([facility]) Sucralfate 1000 MG Oral Tablet [facility] ([facility]) pantoprazole 40 MG Delayed Release Oral Tablet [facility] ([facility]) Lisinopril 10 MG Oral Tablet [facility] ([facility]) Amlodipine 10 MG Oral Tablet [facility] ([facility]) tramadol hydrochloride 50 MG Oral Tablet [facility] ([facility]) Sucralfate 1000 MG Oral Tablet [facility] ([facility]) pantoprazole 40 MG Delayed Release Oral Tablet [facility] ([facility]) Lisinopril 10 MG Oral Tablet [facility] ([facility]) Amlodipine 10 MG Oral Tablet [facility] ([facility]) tramadol hydrochloride 50 MG Oral Tablet [facility] ([facility]) Sucralfate 1000 MG Oral Tablet [facility] ([facility]) pantoprazole 40 MG Delayed Release Oral Tablet [facility] ([facility]) Lisinopril 10 MG Oral Tablet [facility] ([facility]) Amlodipine 10 MG Oral Tablet [facility] ([facility]) tramadol hydrochloride 50 MG Oral Tablet [facility] ([facility]) Sucralfate 1000 MG Oral Tablet [facility] ([facility]) pantoprazole 40 MG Delayed Release Oral Tablet [facility] ([facility]) Lisinopril 10 MG Oral Tablet [facility] ([facility])
--- OUTSIDE RECORDS SUMMARY | 2020-09-11 16:03 | CCD ---
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 Active Not available aspirin 81 mg tablet,delayed release Take 1 tablet every day by oral route. Active Not available atenolol 25 mg tablet Take 0.5 tablets every day by oral route. Active Not available baclofen 10 mg tablet Take 1 tablet twice a day by oral route as needed. Active Not available captopril 50 mg tablet Take 1 tablet every day by oral route. Active Not available lisinopril 10 mg tablet Completed 07/04/20 20 nitroglycerin 0.4 mg/hr transdermal 24 h our patch Apply 1 patch every day by transdermal route. Active Not available pantoprazole 40 mg tablet,delayed [...] Information not avai lable Results Lab Results None recorded. Past Encounters 07/04/2020 Hypertensive Disorder; Essential Hypertension; Chronic Pain; Adult Health Examination [facility]: [address] [place] [address], Ph. Social History Tobacco Smoking Status Former [...]
--- OUTSIDE RECORDS SUMMARY | 2020-09-11 16:03 | CCD | Continuity of Care Document ---
Author Author Lg JACK PA Organization Unknown Address [address], [address] [place] [address] Phone [phone] Care Team Providers Care Communications Department Head Name Role Phone Eder Ramon M.D. AUTM [phone] AUT[facility] Unavailable Erasmo Vogt M.D. AUTM [phone] Ervin Pickens DO AUTM [phone] Problems Description No Information Available Social History Type Date Description Comments Sex Unknown ETOH Use Denies alcohol use Tobacco Use Start: Unknown End: Unknown Patient is a former smoker 1 PPD X44 YRS Recreational Drug Use Denies Drug Use Tobacco Use Start: Unknown Quit 2007 Smoking Status Reviewed: 08/05/18 Quit 2007 Allergies, Adverse Reactions, Alerts Active Allergies Reaction Severity Comments Date Latex RASH,SHORTNESS OF BREATH 10/2017 Medications Active Medications SIG Qnty Indications Ordering Provide r Date Amlodipine Besylate 5mg Tablets 1 every day Unknown Ascorbic Acid 500mg Tablets 1 by mouth every day Unknown Aspirin 81mg Tablets DR 1 by mouth every day Unknown Atenolol 25mg Tablets 1 by mouth every day Unknown Baclofen 10mg Tablets 1 tab 2 times a day Unknown Docusate Sodium 100mg Tablets 1 tab by mouth twice a day Unknown Losartan Potassium 100mg Tablets 1 qd Unknown Multivitamin Adult Tablets 1 by mouth every day Unknown Nitroglycerin 0.4mg Tablets Sub as needed Unknown Immunizations Description No Information Available Vital Signs Date Vital Result Comment 06/13/2020 9:47am BP Systolic 148 mmHg Left 132/7 5 BP Diastolic 74 mmHg Left 132/75 Height 77 inches 6'5" Weight 280.00 lb BMI (Body Mass Index) 33.2 kg/m2 [place] Body Weight 208 lb Weight 127.008 kg 05/10/2020 11:12am BP Systolic 167 mmHg BP Diastolic 95 mmHg Height 77 inches 6'5" Weight 280.00 lb Stated BMI (Body Mass Index) 33.2 kg/m2 [place] Body Weight 208 lb Weight 127.008 kg Results Description No Information Available Procedures Description No Information Available Medical Devices Description No Information Available Encounters Type Date Location Provider Dx Diagnosis Office Visit 05/10/2020 11:15a [facility] RUSLAN Ribeiro I70.213 Ath[place]cl [place] arteries of extrm w intrmt vladimir, bi legs I71.4 Abdominal aortic aneurysm, w ithout rupture 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
--- OUTSIDE RECORDS SUMMARY | 2020-09-11 16:03 | CCD ---
Author Organization Unknown Address [address] [place] [address] Phone [phone] Care Team Providers Care Communication Signals Intelligence Name Role Phone Tierra Lyon Unavailable Unavailable Allergies Code Code System Name Reaction Severity Status Onset 4632072 RxNorm Latex Anaphylaxis Severe Active Medications Name [...] Results Lab Results None recorded. Past Encounters 07/24/2020 [facility]: [address] [place] [address], Ph. 07/04/2020 Hypertensive Disorder; Essential Hypertension; Chronic Pain; Adult Health Examination Tierra Lyon, [facility]: [address] [place] [address], Ph. Social History Tobacco Smoking Status Former [...]
--- OUTSIDE RECORDS SUMMARY | 2020-09-11 16:03 | CCD ---
Author Author [facility] Organization [facility] ems Address Unknown Phone Unavailable Care Team Providers Care Partition Making Machine Operator Name Role Phone Nelia Ervin Unavailable PROBLEMS Type Condition ICD9-CM Code [id number] Code Onset Dates Condition S tatus SNOMED Code Notes Problem AAA (abdominal aortic aneurysm) without rupture I7 1.4 Active 61230383 Problem Atrial fibrillation, unspecified type I48.91 Ac tive 36338401 Problem Unspecified atrial fibrillation I48.91 Active 850523215 Problem Obesity (BMI 30-39.9) E66.9 Active 553114531 Problem Presence of Watchman left atrial appendage closure device Z95.818 Active 125194769 Problem Constipation, unspecified constipation type K59.00 Active 25042680 Problem Peripheral vascular disease I73.9 Active 4000 07202 Problem Other chronic pain G89.29 Active 22426995 Problem Essential hypertension I10 Active 25362315 Problem Cataract extraction status, left eye Z98.42 Act cosmo 070413102 Problem Cataract extraction status, right eye Z98.41 Ac tive 511607641 ALLERGIES Allergen (clinical drug ingredient) Drug/Non Drug Allergy do cumented on EMR Reaction Allergy Type Onset Date Status Latex Gloves([facility] Code:95899-45708) anaphylaxis Drug Allerg y Active ENCOUNTERS from 1945 to 2020-07-05 Encounter Location Date Provider Diagnosis [address] [address] Jul, Ervin Pickens IMMUNIZATIONS Vaccine Route Administration Date Status Pneumococcal Adult 0.5mL (Pneumovax 23) IM Intramuscular January 14, 2020 Administered Pneumococcal 0.5mL (Prevnar 13) Unknown February 25, 2017 Administered SOCIAL HISTORY Tobacco Use: Social History Observation Description Date Details (start date - stop date) Former Smoker Sex Assigned At : Social History Observation Description Sex Assigned At Unknown Audit Question Answer Notes Total Score: 0 Interpretation: Alcohol Education Drug and Alcohol Question Answer Notes Total Score: 0 Interpretation: No problems reported Tobacco Use: Question Answer Notes Are you a: former smoker How long has it been since you last smoked? > 10 years REASON FOR REFERRAL No Information VITAL SIGNS No information MEDICATIONS Medication SIG (Take, Route, Frequency, Duration) Start Date En d Date Status Hospital bed as directed Dx: G89.29 28 Oct, 2019 Activ e Docusate Sodium 100 MG 1 capsule Orally Daily for 30 days Active Baclofen 10 MG 1 tablet with food or milk Orally Twice a day Active Ultram 50 MG 1 tablet as needed Orally Once a day for 14 day(s) December, Active Aspirin Adult Low Strength 81 MG 1 tablet Orally Once a day for 30 Days Active Lara-Bid Probiotic 1 1 tablet Orally Twice dialy with meals Not-Taking Senna Plus 8.6-50 MG 2 tablets as needed Orally Twice a day Active Atenolol 25 MG take 1/2 tablet by mouth once daily Oral Once a day for 30 Days Active Sucralfate 1 GM 1 tablet on an empty stomach Orally Befo re meals and at bedtime Active Pantoprazole Sodium 40 MG 1 tablet Orally Twice a day Not-Taking Tab-A-Sid 1 1 tablet Orally Once a day A ctive Amlodipine Besylate 10 MG take one tablet by mouth apolinar day Orally Daily for 30 Days Active Nitroglycerin 0.4 MG/HR 1 patch to skin remove after 12 hours Transdermal Once a day for 30 Days Active Vitamin C 500 MG 1 tablet Orally Once a day Active PROCEDURES No Information RESULTS No Results REASON FOR VISIT left the practice MEDICAL (GENERAL) HISTORY Type Description Date Medical History Afib s/p watchman Medical History Loop recorder Medical History PAD Medical History history of positive FOBT 12/2019 Medical History Last colonscopy 2008 - negative Medical History HTN Medical History Chronic low back pain Medical History Orthostatic Sycope 12/2019 Medical History History Tobacco Abuse Medical History Hx of Bilateral Cataracts Surgical History AAA stents 2007 Surgical 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 Surgical History 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 Surgical History Cross femoral bypass 2008 Surgical History Angiogram x3 Surgical History Angioplasty Surgical History watchmen placement 2018 Hospitalization History [place] x[place] Hospitalization History Angioplasty - 8 days Goals Section No Information Health Concerns No Information MEDICAL EQUIPMENT No Information MENTAL STATUS No Information FUNCTIONAL STATUS No Information ASSESSMENTS No Information PLAN OF TREATMENT Medication Medication Name Sig Start Date Stop Date Aspirin Adult Low Strength 81 MG 1 tablet Orally Once a day for 30 Days Amlodipine Besylate 10 MG take one tablet by mouth apolinar ry day Orally Daily for 30 Days Docusate Sodium 100 MG 1 capsule Orally Daily for 30 days Ultram 50 MG 1 tablet as needed Orally Once a day for 14 day( s) December, Atenolol 25 MG take 1/2 tablet by mouth once daily Oral Once a day for 30 Days Insurance Providers Payer Name Payer Address Payer Phone Insured Name Patient Relati onship to Insured Coverage Start Date Coverage End Date MEDICAID [employer] [address] [facility] [id number] MARA RAUSCH self [employer] [facility] [address] [address] [facility] [id number] MARA DE JESUS self
[2020-09-11] MEDS ORDERED: IBUPROFEN 800 MG TAB PO ONE (16:30)
--- NOTE | 2020-09-11 17:07 | REP ---
INDICATION: CHEST PAIN COMPARISON: 12/09/2019 TECHNIQUE: Portable AP view of the chest FINDINGS: Lung gregory demonstrate chronic changes with superimposed scattered opacities. Stable cardiomegaly. No definite effusion. No pneumothorax. Skeletal structures intact. IMPRESSION: Findings suggesting subtle scattered bilateral opacities/airspace disease. <Electronically signed by Lobo Bonner > 09/11/20 [id number]
[2020-09-11 17:19] LABS: BASO % 0.4 % (0.0-1.0); HEMATOCRIT 48.8 % (42.0-52.0); HEMOGLOBIN 15.8 g/dl (13.5-17.5); LYMPH # 0.4 10^3/uL (1.5-5.0); LYMPH % 3.9 % (24.0-44.0); MEAN CORPUSCULAR HEMOGLOBIN 31.5 pg (27.0-33.0); MEAN CORPUSCULAR HGB CONC 32.4 g/dl (32.0-36.5); MEAN CORPUSCULAR VOLUME 97.2 fl (80.0-96.0); MONO # 0.8 10^3/uL (0.0-0.8); MONO % 7.9 % (0.0-5.0); NEUTROPHILS # 8.6 10^3/uL (1.5-8.5); NEUTROPHILS % 86.6 % (36.0-66.0); PLATELET COUNT, AUTOMATED 136 10^3/uL (150-450); RED BLOOD COUNT 5.02 10^6/uL (4.30-6.10); WHITE BLOOD COUNT 9.9 10^3/uL (4.0-10.0)
[2020-09-11] MEDS ORDERED: cefTRIAXone SOD 1 GM in D5W MINI-BAG PLUS 50 ML IV ONE (17:45)
[2020-09-11] MEDS ORDERED: ACETAMINOPHEN 325 MG TAB PO ONE (17:45)
[2020-09-11] MEDS ORDERED: NS 500 ML IV ONE (17:45)
[2020-09-11] MEDS ORDERED: methylPREDNISolone 125MG 2ML VIAL IV ONE (17:45)
[2020-09-11] MEDS ORDERED: AZITHROMYCIN INJ 500 MG, VIAL MATE ADAPTER 1 EACH in D5W 250 ML IV ONE (17:45)
[2020-09-11 17:51] LABS: ALBUMIN 3.5 GM/DL (3.2-5.2); ALT/SGPT 31 U/L (12-78); BILIRUBIN,DIRECT 0.4 MG/DL (0.0-0.2); BILIRUBIN,TOTAL 1.1 MG/DL (0.2-1.0); BLOOD UREA NITROGEN 33 MG/DL (7-18); CALCIUM LEVEL 9.1 MG/DL (8.8-10.2); CARBON DIOXIDE LEVEL 25 MEQ/L (21-32); CHLORIDE LEVEL 103 MEQ/L (98-107); CREATININE FOR GFR 1.37 MG/DL (0.70-1.30); GLOMERULAR FILTRATION RATE 53.6 (>42); GLUCOSE, FASTING 201 MG/DL (70-100); LIPASE 102 U/L (73-393); POTASSIUM SERUM 4.6 MEQ/L (3.5-5.1); SODIUM LEVEL 137 MEQ/L (136-145); THYROID STIMULATING HORMONE 0.965 uIU/ML (0.358-3.740); TOTAL PROTEIN 6.4 GM/DL (6.4-8.2)
[2020-09-11 17:59] LABS: INR 1.16; PROTHROMBIN TIME 15.1 SECONDS (12.5-14.3)
[2020-09-11 18:00] LABS: FIBRINOGEN 584 MG/DL (221-452); PARTIAL THROMBOPLASTIN TIME 31.2 SECONDS (24.2-38.5)
[2020-09-11] MEDS: COMBIVENT RESPIMAT 100-20MCG INHALER 4GM INH SCH ×3 (18:00→18:47)
[2020-09-11 18:10] LABS: CPK CREATINE PHOSPHOKINASE 113 U/L (39-308); FERRITIN 1967 NG/ML (26-388); LDH LACTATE DEHYDROGENASE 359 U/L (87-241); MAGNESIUM LEVEL 2.1 MG/DL (1.8-2.4); MB/CK RELATIVE INDEX 1.77 (< OR =4); TROPONIN I < 0.02 NG/ML (< 0.10)
[2020-09-11] MEDS ORDERED: ATEN25TA PO (18:14)
[2020-09-11] MEDS ORDERED: AMLO1TAB24 PO (18:14)
[2020-09-11 18:32] LABS: D-DIMER QUANT > 4000 ng/ml (<500)
[2020-09-11] MEDS: BACLOFEN 10 MG TAB PO SCH (21:00)
[2020-09-11] MEDS ORDERED: ENOXAPARIN 100MG/1ML SYRINGE (J1650 PER 10MG) SC SCH (21:00)
--- OUTSIDE RECORDS SUMMARY | 2020-09-11 21:14 | CCD ---
Author Author [facility] Organization [facility] Address Unknown Phone Unavailable Care Team Providers Care Doubler Helper Name Role Phone Camron, A Tierra ALUMNAE SECRETARY Unavailable Unavailable Camron, A Tierra ALUMNAE SECRETARY Unavailable Unavailable Camron, A Tierra ALUMNAE SECRETARY Unavailable Unavailable Camron, A Tierra ALUMNAE SECRETARY Unavailable Unavailable Camron, A Tierra ALUMNAE SECRETARY Unavailable Unavailable Camron, A Tierra ALUMNAE SECRETARY Unavailable Unavailable Camron, A Tierra ALUMNAE SECRETARY Unavailable Unavailable Camron, A Tierra ALUMNAE SECRETARY Unavailable Unavailable Camron, A Tierra ALUMNAE SECRETARY Unavailable Unavailable Camron, A Tierra ALUMNAE SECRETARY Unavailable Unavailable Camron, A Tierra ALUMNAE SECRETARY Unavailable Unavailable Camron, A Tierra ALUMNAE SECRETARY Unavailable Unavailable Camron, A Tierra ALUMNAE SECRETARY Unavailable Unavailable Camron, A Tierra ALUMNAE SECRETARY Unavailable Unavailable Camron, A Tierra ALUMNAE SECRETARY Unavailable Unavailable Camron, A Tierra ALUMNAE SECRETARY Unavailable Unavailable Camron, A Tierra ALUMNAE SECRETARY Unavailable Unavailable Camron, A Tierra ALUMNAE SECRETARY Unavailable Unavailable Camron, A Tierra ALUMNAE SECRETARY Unavailable Unavailable Camron, A Tierra ALUMNAE SECRETARY Unavailable Unavailable Camron, A Tierra ALUMNAE SECRETARY Unavailable Unavailable Camron, A Tierra ALUMNAE SECRETARY Unavailable Unavailable Camron, A Tierra ALUMNAE SECRETARY Unavailable Unavailable Camron, A Tierra ALUMNAE SECRETARY Unavailable Unavailable Camron, A Tierra ALUMNAE SECRETARY Unavailable Unavailable Camron, A Tierra ALUMNAE SECRETARY Unavailable Unavailable Camron, A Tierra ALUMNAE SECRETARY Unavailable Unavailable Katarzyna Mcmillan RPA Unavailable Unavailable [...] is protected by Article 27-F of the [facility] Public Health law. If you continue you may have access to information: Regarding HIV / AIDS; Provided by facilities licensed or operated by the [facility] Office of Mental Health; or Provided by the [facility] Office for People With Developmental Disabilities. If such information is present, then the following [facility] mandated warning applies: This information has [...] law may result in a fine or long term sentence or both. A general authorization for the release of medical or other information is NOT sufficient authorization for further disc losure. Allergies and Adverse Reactions Type Description Substance Reaction Status Data Source(s ) Drug allergy Latex Gloves Drug allergy anaphylaxis Active eCW1 ( [facility]) Family History Family Member Name Family Member Gender Family Member Status Date o f Status Description Data Source(s) Unknown Female Problem MEDENT ([facility]) Encounters Encounter Providers Location Date Indications Data Source(s ) [facility] [address], [place] [address], Ph. Attender: Tierra Lyon [facility] Medical 08/03/2020 12:00:00 AM EST [facility] ([facility]) UDAY Maciel: [address], [place] [address], Ph. Attender: Tierra Lyon [facility] Medical 07/24/2020 12:00:00 AM EST [facility] ([facility]) UDAY Maciel: [address], [place] [address], Ph. Attender: Tierra Lyon [facility] Medical 07/24/2020 12:00:00 AM EST SAL[facility]ADOR ([facility]) UDAY Maciel: [address], [place] [address], Ph. Attender: Tierra Lyon [facility] Medical 07/24/2020 12:00:00 AM EST [facility] ([facility]) [facility] [address], [place] [address], Ph. Attender: Tierra Lyon [facility] Medical 07/04/2020 12:00:00 AM EST [facility] ([facility]) [facility] [address], [place] [address], Ph. Attender: Tierra Lyon [facility] Medical 07/04/2020 12:00:00 AM EST [facility] ([facility]) [facility] [address], [place] [address], Ph. Attender: Tierra Lyon [facility] Medical 07/04/2020 12:00:00 AM EST [facility]ADOR ([facility]) [place] [address] [facility] [address] 07/04/2020 12:00:00 AM EST eCW1 ([facility]) [facility] [address] [place] [address], Ph. Attender: Tierra Lyon [facility] Medical 07/04/2020 12:00:00 AM EST [facility] ([facility]) [place] [address] [facility] [address] 06/05/2020 12:00:00 AM EDT eCW1 ([facility]) Outpatient Attender: Brittany West/May/Wilfred/Adria craig 05/10/2020 11:15:00 AM EDT MEDENT ([facility]) [place] [address] [facility] [address] 02/08/2020 12:00:00 AM EDT eCW1 ([facility]) [place] [address] [facility] [address] 02/04/2020 12:00:00 AM EDT eCW1 ([facility]) [place] [address] [facility] [address] 02/03/2020 12:00:00 AM EDT eCW1 ([facility]) [facility] [address] [facility] [address] 01/19/2020 12:00:00 AM EDT eCW1 ([facility]) [facility] [address] [facility] [address] 01/18/2020 12:00:00 AM EDT eCW1 ([facility]) [facility] [address] [facility] [address] 01/14/2020 12:00:00 AM EDT eCW1 ([facility]) [facility] Resident [address] [place] [address] 01/14/2020 12:00:00 AM EDT eCW1 ([facility]) [facility] [address] [facility] [address] 01/12/2020 12:00:00 AM EDT eCW1 ([facility]) [facility] [address] [facility] [address] 01/07/2020 12:00:00 AM EDT eCW1 ([facility]) [facility] [address] [place] [address] [address] 12/16/2019 12:00:00 AM EDT eCW1 ([facility]) [facility] [address] [place] [address], [place] [address] 11/22/2019 12:00:00 AM EDT eCW1 ([facility]) [facility] Resident [address] [place] [address] 11/15/2019 12:00:00 AM EDT eCW1 ([facility]) [facility] [place] [address] [facility] [address] 10/29/2019 12:00:00 AM EST eCW1 ([facility]) Outpatient 10/21/2019 07:55:00 PM EST [facility] Resident [address] [place] [address] 10/15/2019 12:00:00 AM EST eCW1 ([facility]) Immunizations Vaccine Date Status Description Data Source(s) pneumococcal polysaccharide PPV23 01/14/2020 02:21:00 PM EDT comple faheem eCW1 ([facility]) pneumococcal polysaccharide PPV23 01/14/2020 02:21:00 PM EDT comple faheem eCW1 ([facility]) pneumococcal polysaccharide PPV23 01/14/2020 02:21:00 PM EDT comple faheem eCW1 ([facility]) pneumococcal polysaccharide PPV23 01/14/2020 02:21:00 PM EDT comple faheem eCW1 ([facility]) pneumococcal polysaccharide PPV23 01/14/2020 02:21:00 PM EDT comple faheem eCW1 ([facility]) pneumococcal polysaccharide PPV23 01/14/2020 02:21:00 PM EDT comple faheem eCW1 ([facility]) Medications Medication Brand Name Start Date Product [...] 1.0 {tablet_as_needed} active Ultram 50 MG eCW1 ([facility]) tramadol hydrochloride 50 MG Oral Tablet [Ultram] Ultram 50 MG Ultram 50 MG 01/14/2020 12:00:00 AM EDT 1.0 {tablet_as_needed} active Ultram 50 MG eCW1 ([facility]) tramadol hydrochloride 50 MG Oral Tablet [Ultram] Ultram 50 MG Ultram 50 MG 01/14/2020 12:00:00 AM EDT active 1 tablet as needed eCW1 ([facility]) tramadol hydrochloride 50 MG Oral Tablet [Ultram] Ultram 50 MG Ultram 50 MG 01/14/2020 12:00:00 AM EDT 1.0 {tablet_as_needed} active Ultram 50 MG eCW1 ([facility]) tramadol hydrochloride 50 MG Oral Tablet [Ultram] Ultram 50 MG Ultram 50 MG 01/14/2020 12:00:00 AM EDT 1.0 {tablet_as_needed} active Ultram 50 MG eCW1 ([facility]) tramadol hydrochloride 50 MG Oral Tablet [Ultram] Ultram 50 MG Ultram 50 MG 01/14/2020 12:00:00 AM EDT 1.0 {tablet_as_needed} active Ultram 50 MG eCW1 ([facility]) 25 mg 01/13/2020 12:00:00 AM EDT tablet 15 TAKE 1/2 TABLET BY MOUTH ONCE DAILY TAKE 1/2 TABLET BY MOUTH ONCE DAILY SOLD: 01/13/2020 [facility] 10 mg 01/13/2020 12:00:00 AM EDT tablet 90 TAKE ONE TABLET BY MOUTH TWICE A DAY TAKE ONE TABLET BY MOUTH TWICE A DAY SOLD: 01/13/2020 [facility] 10 mg 01/13/2020 12:00:00 AM EDT [...] DAY SOLD: 01/13/2020 [facility] Hospital bed [facility] 10/29/2019 12:00:00 AM EST activ e Hospital bed [facility] ([facility]) Hospital bed [facility] 10/29/2019 12:00:00 AM EST activ e Hospital bed [facility] ([facility]) Hospital bed [facility] 10/29/2019 12:00:00 AM EST activ e Hospital bed [facility] ([facility]) Hospital bed [facility] 10/29/2019 12:00:00 AM EST activ e as directed eC ([facility]) Hospital bed [facility] 10/29/2019 12:00:00 AM EST activ e as directed eC ([facility]) Hospital bed [facility] 10/29/2019 12:00:00 AM EST activ e Hospital bed [facility] ([facility]) Hospital bed [facility] 10/29/2019 12:00:00 AM EST activ e as directed eC ([facility]) Hospital bed [facility] 10/29/2019 12:00:00 AM EST activ e as directed eC ([facility]) Hospital bed [facility] 10/29/2019 12:00:00 AM EST activ e Hospital bed [facility] ([facility]) Aspirin 81 MG Delayed Release Oral Tablet Aspirin Adul t Low Strength 81 MG Aspirin Adult Low Strength 81 MG 10/15/2019 12:00:00 AM EST active as directed eCW1 ([facility]) 50 mg 10/13/2019 12:00:00 AM EST tablet [...] completed lisinopril 10 MG Oral Tablet [facility] ([facility]) Amlodipine 10 MG Oral Tablet amlodipine 10 mg tablet amlodipine 10 mg tablet completed amlodipine 10 MG Oral Tablet [place] ([facility]) Lisinopril 10 MG Oral Tablet lisinopril 10 mg tablet lisinopril 10 mg tablet completed lisinopril 10 MG Oral Tablet [place] ([facility]) tramadol hydrochloride 50 MG Oral Tablet tramadol 50 m g tablet tramadol 50 mg tablet completed tramadol hydroc hloride 50 MG Oral Tablet [place] ([facility]) Lisinopril 10 MG Oral Tablet lisinopril 10 mg tablet lisinopril 10 mg tablet completed lisinopril 10 MG Oral Tablet [place] ([facility]) Sucralfate 1000 MG Oral Tablet sucralfate 1 gram table t sucralfate 1 gram tablet completed sucralfate 1000 MG Oral Tablet [facility] ([facility]) tramadol hydrochloride 50 MG Oral Tablet tramadol 50 m g tablet tramadol 50 mg tablet completed tramadol hydroc hloride 50 MG Oral Tablet [facility] ([facility]) Sucralfate 1000 MG Oral Tablet sucralfate 1 gram table t sucralfate 1 gram tablet completed sucralfate 1000 MG Oral Tablet [place] ([facility]) pantoprazole 40 MG Delayed Release Oral Tablet pantoprazole 40 mg tablet,delayed release pantoprazole 40 mg tablet,delayed release completed pantoprazole 40 MG Delayed Release Oral Tablet [place] ([facility]) Amlodipine 10 MG Oral Tablet amlodipine 10 mg tablet amlodipine 10 mg tablet completed amlodipine 10 MG Oral Tablet [place] ([facility]) pantoprazole 40 MG Delayed Release Oral Tablet pantoprazole 40 mg tablet,delayed release pantoprazole 40 mg tablet,delayed release completed pantoprazole 40 MG Delayed Release Oral Tablet [place] ([facility]) Amlodipine 10 MG Oral Tablet amlodipine 10 mg tablet amlodipine 10 mg tablet completed amlodipine 10 MG Oral Tablet [place] ([facility]) pantoprazole 40 MG Delayed Release Oral Tablet pantoprazole 40 mg tablet,delayed release pantoprazole 40 mg tablet,delayed release completed pantoprazole 40 MG Delayed Release Oral Tablet [place] ([facility]) Sucralfate 1000 MG Oral Tablet sucralfate 1 gram table t sucralfate 1 gram tablet completed sucralfate 1000 MG Oral Tablet [facility] ([facility]) Sucralfate 1000 MG Oral Tablet sucralfate 1 gram table t sucralfate 1 gram tablet completed sucralfate 1000 MG Oral Tablet [place] ([facility]) pantoprazole 40 MG Delayed Release Oral Tablet pantoprazole 40 mg tablet,delayed release pantoprazole 40 mg tablet,delayed release completed pantoprazole 40 MG Delayed Release Oral Tablet [place] ([facility]) tramadol hydrochloride 50 MG Oral Tablet tramadol 50 m g tablet tramadol 50 mg tablet completed tramadol hydroc hloride 50 MG Oral Tablet [facility] ([facility]) tramadol hydrochloride 50 MG Oral Tablet tramadol 50 m g tablet tramadol 50 mg tablet completed tramadol hydroc hloride 50 MG Oral Tablet [place] ([facility]) Amlodipine 10 MG Oral Tablet amlodipine 10 mg tablet amlodipine 10 mg tablet completed amlodipine 10 MG Oral Tablet [place] ([facility]) Lisinopril 10 MG Oral Tablet lisinopril 10 mg tablet lisinopril 10 mg tablet completed lisinopril 10 MG Oral Tablet [place] ([facility]) Insurance Providers Payer name Policy type / Coverage type Policy ID Covered alliance party ID Covered alliance party's relationship to keith Policy Keith Plan Information EMEDNY [id number] SP [id number] HUMANA GOLD [id number] SP [id number] HUMANA GOLD O [id number] S [id number] MEDICAID M [id number] HUMANA GOLD [id number] SP [id number] MEDICARE [id number] SP [id number] MEDICARE [id number] SP [id number] MEDICAID [id number] SP [id number] [facility] [id number] SP [id number] [facility] [id number] SP [id number] MEDICAID [id number] SP [id number] [facility] [id number] S [id number] [facility] MCRO [id number] SP [id number] MEDICAID [id number] SP [id number] MEDICARE [id number] SP [id number] M MEDICARE A [id number] Self [id number] MEDICAID M [id number] Self [id number] MEDICARE A [id number] Self [id number] M Medicaid Medigap Part B [id number] Self [id number] Medicare Part B Medicare Primary [id number] Self [id number] MEDICARE PART A -O/P [id number] 18 [id number] MEDICAID-O/P [id number] 18 [id number] S MEDICARE -O/P [id number] 18 [id number] Medicaid Medigap Part B Self Medicare Part B Medicare Primary Self MEDICAID [id number] SP [id number] MEDICARE [id number] SP [id number] M Problems, Conditions, and Diagnoses Code Display Name Description Problem Type Effective Dates Data Source(s) K59.00 [id number] Constipation, unspecified constipation ty pe Problem 03/23/2020 12:00:00 AM EDT eCW1 ([facility]) E66.9 [id number] Obesity (BMI 30-39.9) Problem 01/14/2020 12: 00:00 AM EDT eCW1 ([facility]) E66.9 [id number] Obesity (BMI 30-39.9) Problem 01/14/2020 12: 00:00 AM EDT eCW1 ([facility]) Z98.41 [id number] Cataract extraction status, right eye Pro blem 11/15/2019 12:00:00 AM EDT eCW1 ([facility]) Z98.42 [id number] Cataract extraction status, left eye Prob sandeep 11/15/2019 12:00:00 AM EDT eCW1 ([facility]) Z98.42 [id number] Cataract extraction status, left eye Prob sandeep 11/15/2019 12:00:00 AM EDT eCW1 ([facility]) Z98.41 [id number] Cataract extraction status, right eye Pro blem 11/15/2019 12:00:00 AM EDT eCW1 ([facility]) I10 Essential hypertension Essential hypertension Problem 10/17/2019 12:00:00 AM EST eCW1 ([facility]) G89.29 Chronic pain Other chronic pain Problem 10/17/2019 12:0 0:00 AM EST eCW1 ([facility]) I10 Essential hypertension Essential hypertension Problem 10/17/2019 12:00:00 AM EST eCW1 ([facility]) G89.29 Chronic pain Other chronic pain Problem 10/17/2019 12:0 0:00 AM EST eCW1 ([facility]) I73.9 [id number] Peripheral vascular disease Problem 10/15/19 20 12:00:00 AM EST eCW1 ([facility]) Z95.818 [id number] Presence of Watchman left atrial appendage closure device Problem 10/15/2019 12:00:00 AM EST eCW1 ([facility]) I48.91 [id number] Unspecified atrial fibrillation Problem 10/15/2019 12:00:00 AM EST eCW1 ([facility]) I48.91 [id number] Atrial fibrillation, unspecified type Pro blem 10/15/2019 12:00:00 AM EST eCW1 ([facility]) I71.4 [id number] AAA (abdominal aortic aneurysm) without r upture Problem 10/15/2019 12:00:00 AM EST eCW1 ([facility]) Z95.818 [id number] Presence of Watchman left atrial appendage closure device Problem 10/15/2019 12:00:00 AM EST eCW1 ([facility]) I73.9 [id number] Peripheral vascular disease Problem 10/15/19 12:00:00 AM EST eCW1 ([facility]) I48.91 [id number] Atrial fibrillation, unspecified type Pro blem 10/15/2019 12:00:00 AM EST eCW1 ([facility]) I71.4 [id number] AAA (abdominal aortic aneurysm) without r upture Problem 10/15/2019 12:00:00 AM EST eCW1 ([facility]) F17.200 Smoking Smoking Problem 10/15/2019 12:00:00 AM ES T eCW1 ([facility]) Surgeries/Procedures Procedure Description Date Indications Data Source(s) TRANS CARE MGMT 7 DAY DISCH 01/14/2020 12:00:00 AM EDT eCW1 ([facility]) Pneumococcal Adult 0.5mL (Pneumovax 23) 01/14/2020 12: 00:00 AM EDT eCW1 ([facility]) Administration of pneumococcal vaccine 01/14/2020 12:0 0:00 AM EDT eCW1 ([facility]) Office Visit, Est Pt., Level 3 FC 01/14/2020 12:00:00 AM EDT eCW1 ([facility]) Office Visit, Est Pt., Level 4 PC 01/14/2020 12:00:00 AM EDT eCW1 ([facility]) Transitional Care NO CHARGE Visit 01/14/2020 12:00:00 AM EDT eCW1 ([facility]) Office Visit, New Pt., Level 3 FC 10/15/2019 12:00:00 AM EST eCW1 ([facility]) Office Visit, New Pt., Level 3 PC 10/15/2019 12:00:00 AM EST eCW1 ([facility]) Results ID Date Data Source [id number] 08/03/2020 11:00:00 AM EST [facility] ([facility]) Name Value Range Interpretation Code Description Data Jennifer rce(s) Supporting Document(s) magnesium level 2.3 mg/dL 1.8-2.4 normal Magnesium Level ATHE NA ([facility]) ID Date Data Source [id number] 08/03/2020 11:00:00 AM EST [facility]AD[facility] ([facility]) Name Value Range Interpretation Code Description Data Jennifer rce(s) Supporting Document(s) blood urea nitrogen 21 mg/dL 7-18 Above high normal Blood Ure a Nitrogen SAL[facility]ADOR ([facility]) glucose, fasting 164 mg/dL 70-100 Above high normal Glucose, Fas ting SAL[facility]AD[facility] ([facility]) creatinine for GFR 1.08 mg/dL 0.70-1.30 normal Creatinine for GF R SALVADOR ([facility]) sodium level 137 mEq/L 136-145 normal Sodium Level [facility]AD[facility] ([facility]) potassium serum 4.6 mEq/L 3.5-5.1 normal Potassium Serum ATHE NA ([facility]) glomerular filtration rate > 60.0 >42 normal Glomerula r Filtration Rate SALVADOR ([facility]) calcium level 9.2 mg/dL 8.8-10.2 normal Calcium Level SALVADOR ( [facility]) carbon dioxide level 27 mEq/L 21-32 normal Carbon Dioxide Level SALVADOR ([facility]) anion gap 5 mEq/L 8-16 Below low normal Anion Gap SALVADOR ( [facility]) chloride level 105 mEq/L 98-107 normal Chloride Level SALVADOR ([facility]) alkaline phosphatase 91 U/L 45-117 normal Alkaline Phosph atase SAL[facility]ADOR ([facility]) ALT/SGPT 40 U/L 12-78 normal ALT/SGPT [facility] ([facility]) AST/SGOT 21 U/L 7-37 normal AST/SGOT [facility] ([facility]) albumin 4.1 gm/dL 3.2-5.2 normal Albumin SAL[facility]ADOR ([facility]) total protein 7.1 gm/dL 6.4-8.2 normal Total Protein SAL[facility]ADOR ( [facility]) albumin/globulin ratio normal Albumin/globu vamshi Ratio SAL[facility]ADOR ([facility]) bilirubin,total 0.8 mg/dL 0.2-1.0 normal Bilirubin,total ATHE ([facility]) ID Date Data Source [id number] 07/24/2020 08:20:00 AM EST [facility]) Name Value Range Interpretation Code Description Data Jennifer rce(s) Supporting Document(s) Hemoglobin A1c/Hemoglobin.total in Blood 6.8 % normal Hemoglobin a1C SAL[facility] ([facility]) estimated average glucose 148 mg/dL 60-110 Above high norm al Estimated Average Glucose [facility] ([facility]) ID Date Data Source [id number] 07/24/2020 08:20:00 [facility] Name Value Range Interpretation Code Description Data Jennifer rce(s) Supporting Document(s) total 25(oh) vitamin D 28.0 NG/mL 30.0-100.0 Below low normal T otal 25(Oh) Vitamin D SALVADOR ([facility]) ID Date Data Source [id number] 07/24/2020 08:20:00 AM EST [facility]) Name Value Range Interpretation Code Description Data Jennifer rce(s) Supporting Document(s) free T4 1.31 NG/dL 0.76-1.46 normal Free T4 [facility] ([facility]) thyroid stimulating hormone 1.260 uIU/mL 0.358-3.740 normal Thyroid Stimulating Hormone SAL[facility]OR ([facility]) ID Date Data Source [id number] 07/24/2020 08:20:00 AM EST SAL[facility]ADOR ([facility]) Name Value Range Interpretation Code Description Data Jennifer rce(s) Supporting Document(s) prostatic specific Ag monitor 0.71 NG/mL < 4.00 normal Prostatic Specific Ag Monitor [facility] ([facility]) ID Date Data Source [id number] 07/24/2020 08:20:00 AM EST [facility]AD[facility] ([facility]) Name Value Range Interpretation Code Description Data Jennifer rce(s) Supporting Document(s) triglycerides level 146 mg/dL <150 normal Triglycerides Le al [facility] ([facility]) HDL cholesterol 27 mg/dL >40 Below low normal HDL Cholestero l SAL[facility]ADOR ([facility]) cholesterol level 184 mg/dL <200 normal Cholesterol Level [facility] ([facility]) non-HDL-C 157 mg/dL normal Non-hdl-c [facility] ([facility]) Cholesterol in LDL [Mass/volume] in Serum or Plasma 128 mg/dL <100 Above high normal LDL Cholesterol [facility]) cholesterol risk ratio <5 Above high normal Choles terol Risk Ratio [facility] ([facility]) ID Date Data Source [id number] 07/24/2020 08:20:00 AM EST [place] ([facility]) Name Value Range Interpretation Code Description Data Jennifer rce(s) Supporting Document(s) blood urea nitrogen 26 mg/dL 7-18 Above high normal Blood Ure a Nitrogen [place] ([facility]) glucose, fasting 165 mg/dL 70-100 Above high normal Glucose, Fas ting [place] ([facility]) potassium serum 4.7 mEq/L 3.5-5.1 normal Potassium Serum ATHE NA ([facility]) creatinine for GFR 1.15 mg/dL 0.70-1.30 normal Creatinine for GF R [place] ([facility]) glomerular filtration rate > 60.0 >42 normal Glomerula r Filtration Rate [place] ([facility]) sodium level 142 mEq/L 136-145 normal Sodium Level [place] (No Counts include 234 beds at the [facility]) anion gap 3 mEq/L 8-16 Below low normal Anion Gap [place] ( [facility]) AST/SGOT 16 U/L 7-37 normal AST/SGOT [place] ([facility]) chloride level 108 mEq/L 98-107 Above high normal Chloride Level [place] ([facility]) carbon dioxide level 31 mEq/L 21-32 normal Carbon Dioxide Level [place] ([facility]) calcium level 8.7 mg/dL 8.8-10.2 Below low normal Calcium Level AT [facility]) bilirubin,total 0.7 mg/dL 0.2-1.0 normal [facility] alkaline phosphatase 89 U/L 45-117 normal Alkaline Phosph atase [place] ([facility]) ALT/SGPT 30 U/L 12-78 normal ALT/SGPT [place] ([facility]) total protein 6.5 gm/dL 6.4-8.2 normal Total Protein [place] ( [facility]) albumin/globulin ratio normal Albumin/globu vamshi Ratio [place] ([facility]) albumin 3.8 gm/dL 3.2-5.2 normal Albumin [place] ([facility]) ID Date Data Source [id number] 07/24/2020 08:20:00 AM EST [place] ([facility]) Name Value Range Interpretation Code Description Data Jennifer rce(s) Supporting Document(s) white blood count 6.5 10 4.0-10.0 normal White Blood Count [place] ([facility]) hematocrit 51.6 % 42.0-52.0 normal Hematocrit [place] ([facility]) red blood count 5.24 10 4.30-6.10 normal [facility] hemoglobin 16.2 g/dL 13.5-17.5 normal Hemoglobin [place] ([facility]) mean corpuscular hemoglobin 30.9 pg 27.0-33.0 normal Mean Corpuscular Hemoglobin [place] ([facility]) mean corpuscular HGB conc 31.4 g/dL 32.0-36.5 Below low kelsy l Mean Corpuscular HGB Conc [place] ([facility]) mean corpuscular volume 98.5 fL 80.0-96.0 Above high normal Mean Corpuscular Volume [place] ([facility]) red cell distribution width 12.7 % 11.5-14.5 normal Red Cell Distribution Width [place] ([facility]) lymph % 18.9 % 24.0-44.0 Below low normal Lymph % [place] ( [facility]) platelet count, automated 156 10 150-450 normal Platelet C ount, Automated [place] ([facility]) neutrophils % 63.6 % 36.0-66.0 normal Neutrophils % [place] ( [facility]) mono % 11.5 % 0.0-5.0 Above high normal [place] % [place] ([facility]) baso % 0.6 % 0.0-1.0 normal Baso % [place] ([facility]) immature granulocyte % 0.6 % 0-3.0 normal Immature Gran ulocyte % [place] ([facility]) eos % 4.8 % 0.0-3.0 Above high normal Eos % [place] ([facility]) nucleated red blood cell % 0.0 % 0-0 normal Nucleated Red Blood Cell % [place] ([facility]) neutrophils # 4.1 10 1.5-8.5 normal Neutrophils # [place] ( [facility]) mono # 0.8 10 0.0-0.8 normal [place] # [place] ([facility]) lymph # 1.2 10 1.5-5.0 Below low normal Lymph # [place] ( [facility]) baso # 0.0 10 0.0-0.2 normal Baso # [place] ([facility]) eos # 0.3 10 0.0-0.5 normal Eos # [place] ([facility]) ID Date Data Source [id number] 07/24/2020 08:20:00 AM EST [place] ([facility]) Name Value Range Interpretation Code Description Data Jennifer rce(s) Supporting Document(s) estimated average glucose 148 mg/dL 60-110 Above high norm al Estimated Average Glucose [place] ([facility]) Hemoglobin A1c/Hemoglobin.total in Blood 6.8 % normal Hemoglobin a1C [place] ([facility]) ID Date Data Source [id number] 07/24/2020 08:20:00 AM EST [place] ([facility]) Name Value Range Interpretation Code Description Data Jennifer rce(s) Supporting Document(s) total 25(oh) vitamin D 28.0 NG/mL 30.0-100.0 Below low normal T otal 25(Oh) Vitamin D [place] ([facility]) ID Date Data Source [id number] 07/24/2020 08:20:00 AM EST [place] ([facility]) Name Value Range Interpretation Code Description Data Jennifer rce(s) Supporting Document(s) thyroid stimulating hormone 1.260 uIU/mL 0.358-3.740 normal Thyroid Stimulating Hormone [place] ([facility]) free T4 1.31 NG/dL 0.76-1.46 normal Free T4 [place] ([facility]) ID Date Data Source [id number] 07/24/2020 08:20:00 AM EST [place] ([facility]) Name Value Range Interpretation Code Description Data Jennifer rce(s) Supporting Document(s) prostatic specific Ag monitor 0.71 NG/mL < 4.00 normal Prostatic Specific Ag Monitor [place] ([facility]) ID Date Data Source [id number] 07/24/2020 08:20:00 [facility] Name Value Range Interpretation Code Description Data Jennifer rce(s) Supporting Document(s) cholesterol level 184 mg/dL <200 normal Cholesterol Level [place] ([facility]) HDL cholesterol 27 mg/dL >40 Below low normal HDL Cholestero l [place] ([facility]) triglycerides level 146 mg/dL <150 normal Triglycerides Le al [place] ([facility]) Cholesterol in LDL [Mass/volume] in Serum or Plasma 128 mg/dL <100 Above high normal LDL Cholesterol [place] ([facility]) non-HDL-C 157 mg/dL normal Non-hdl-c [place] ([facility]) cholesterol risk ratio <5 Above high normal Choles terol Risk Ratio [place] ([facility]) ID Date Data Source [id number] 07/24/2020 08:20:00 AM EST [place] ([facility]) Name Value Range Interpretation Code Description Data Jennifer rce(s) Supporting Document(s) glucose, fasting 165 mg/dL 70-100 Above high normal Glucose, Fas ting [place] ([facility]) sodium level 142 mEq/L 136-145 normal Sodium Level [place] (No Counts include 234 beds at the [facility]) glomerular filtration rate > 60.0 >42 normal Glomerula r Filtration Rate [place] ([facility]) blood urea nitrogen 26 mg/dL 7-18 Above high normal Blood Ure a Nitrogen [place] ([facility]) creatinine for GFR 1.15 mg/dL 0.70-1.30 normal Creatinine for GF R [place] ([facility]) chloride level 108 mEq/L 98-107 Above high normal Chloride Level [place] ([facility]) anion gap 3 mEq/L 8-16 Below low normal Anion Gap [place] ( [facility]) carbon dioxide level 31 mEq/L 21-32 normal Carbon Dioxide Level [place] ([facility]) potassium serum 4.7 mEq/L 3.5-5.1 normal Potassium Serum ATHE NA ([facility]) calcium level 8.7 mg/dL 8.8-10.2 Below low normal Calcium Level AT [place] ([facility]) alkaline phosphatase 89 U/L 45-117 normal Alkaline Phosph atase [place] ([facility]) AST/SGOT 16 U/L 7-37 normal AST/SGOT [place] ([facility]) ALT/SGPT 30 U/L 12-78 normal ALT/SGPT [place] ([facility]) albumin 3.8 gm/dL 3.2-5.2 normal Albumin [place] ([facility]) total protein 6.5 gm/dL 6.4-8.2 normal Total Protein [place] ( [facility]) bilirubin,total 0.7 mg/dL 0.2-1.0 normal Bilirubin,total ATHE NA ([facility]) albumin/globulin ratio normal Albumin/globu vamshi Ratio [place] ([facility]) ID Date Data Source [id number] 07/24/2020 08:20:00 AM EST [place] ([facility]) Name Value Range Interpretation Code Description Data Jennifer rce(s) Supporting Document(s) white blood count 6.5 10 4.0-10.0 normal White Blood Count [place] ([facility]) hemoglobin 16.2 g/dL 13.5-17.5 normal Hemoglobin [place] ([facility]) red blood count 5.24 10 4.30-6.10 normal Red Blood Count [place] ([facility]) hematocrit 51.6 % 42.0-52.0 normal Hematocrit [place] ([facility]) mean corpuscular volume 98.5 fL 80.0-96.0 Above high normal Mean Corpuscular Volume [place] ([facility]) mean corpuscular hemoglobin 30.9 pg 27.0-33.0 normal Mean Corpuscular Hemoglobin [place] ([facility]) red cell distribution width 12.7 % 11.5-14.5 normal Red Cell Distribution Width [place] ([facility]) platelet count, automated 156 10 150-450 normal Platelet C ount, Automated [place] ([facility]) mean corpuscular HGB conc 31.4 g/dL 32.0-36.5 Below low kelsy l Mean Corpuscular [facility]GB Con[facility] lymph % 18.9 % 24.0-44.0 Below low normal Lymph % [place] ( [facility]) mono % 11.5 % 0.0-5.0 Above high normal [place] % [place] ([facility]) neutrophils % 63.6 % 36.0-66.0 normal Neutrophils % [place] ( [facility]) nucleated red blood cell % 0.0 % 0-0 normal Nucleated Red Blood Cell % [place] ([facility]) eos % 4.8 % 0.0-3.0 Above high normal Eos % [place] ([facility]) baso % 0.6 % 0.0-1.0 normal Baso % [place] ([facility]) immature granulocyte % 0.6 % 0-3.0 normal Immature Gran ulocyte % [place] ([facility]) lymph # 1.2 10 1.5-5.0 Below low normal Lymph # [place] ( [facility]) mono # 0.8 10 0.0-0.8 normal [place] # [place] ([facility]) neutrophils # 4.1 10 1.5-8.5 normal Neutrophils # [place] ( [facility]) eos # 0.3 10 0.0-0.5 normal Eos # [place] ([facility]) baso # 0.0 10 0.0-0.2 normal Baso # [place] ([facility]) Procedure Social History Code Duration Value Status Description Data Source(s ) Smoking 03/23/2020 12:00:00 AM EDT Former Smoker completed Former Smoker eC ([facility]) Smoking 03/23/2020 12:00:00 AM EDT Former Smoker completed Former Smoker eCW1 ([facility]) Smoking 01/14/2020 12:00:00 AM EDT Former Smoker completed Former Smoker eCW1 ([facility]) Smoking 01/14/2020 12:00:00 AM EDT Former Smoker completed Former Smoker eCW1 ([facility]) Smoking 01/14/2020 12:00:00 AM EDT Former Smoker completed Former Smoker eCW1 ([facility]) Vital Signs ID Date Data Source [id number] Name Value Range Interpretation Code Description Data Source(s) Body weight 4528 [oz_av] 4528 [oz_av] [place] ([facility]) Systolic blood pressure 166 mm[Hg] 166 mm[Hg] [facility] Body mass index (BMI) [Ratio] 33.6 kg/m2 33.6 k g/m2 [place] ([facility]) Body height 77 [in_i] 77 [in_i] [place] ([facility]) Diastolic blood pressure 91 mm[Hg] 91 mm[Hg] [place] ([facility]) Body weight 4572.8 [oz_av] 4572.8 [oz_av] ATHEN A ([facility]) Systolic blood pressure 102 mm[Hg] 102 mm[Hg] A [place] ([facility]) Body mass index (BMI) [Ratio] 33.9 kg/m2 33.9 k g/m2 [place] ([facility]) Body height 77 [in_i] 77 [in_i] [place] ([facility]) Diastolic blood pressure 66 mm[Hg] 66 mm[Hg] [place] ([facility]) Body weight 4572.8 [oz_av] 4572.8 [oz_av] ATHEN A ([facility]) Systolic blood pressure 102 mm[Hg] 102 mm[Hg] A [place] ([facility]) Body mass index (BMI) [Ratio] 33.9 kg/m2 33.9 k g/m2 [place] ([facility]) Body height 77 [in_i] 77 [in_i] [place] ([facility]) Diastolic blood pressure 66 mm[Hg] 66 mm[Hg] [place] ([facility]) Body weight 4572.8 [oz_av] 4572.8 [oz_av] ATHEN A ([facility]) Systolic blood pressure 102 mm[Hg] 102 mm[Hg] A [place] ([facility]) Body mass index (BMI) [Ratio] 33.9 kg/m2 33.9 k g/m2 [place] ([facility]) Body height 77 [in_i] 77 [in_i] [place] ([facility]) Diastolic blood pressure 66 mm[Hg] 66 mm[Hg] [place] ([facility]) Body weight 4572.8 [oz_av] 4572.8 [oz_av] ATHEN A ([facility]) Systolic blood pressure 102 mm[Hg] 102 mm[Hg] A [place] ([facility]) Body mass index (BMI) [Ratio] 33.9 kg/m2 33.9 k g/m2 [place] ([facility]) Body height 77 [in_i] 77 [in_i] [place] ([facility]) Diastolic blood pressure 66 mm[Hg] 66 mm[Hg] [place] ([facility]) Body weight 127.008 kg 127.008 kg [facility] ([facility], ) [place] body weight 208 [lb_av] 208 [lb_av] MEDEN T ([facility], ) Body mass index (BMI) [Ratio] 33.2 kg/m2 33.2 k g/m2 [facility] ([facility], ) Body weight 280.00 [lb_av] 280.00 [lb_av] MEDEN T ([facility], ) Body height 77 [in_i] 77 [in_i] [facility] ([facility], ) 6'5" Diastolic blood pressure 74 mm[Hg] 74 mm[Hg] [facility] ([facility], ) Left 132/75 Systolic blood pressure 148 mm[Hg] 148 mm[Hg] [facility] Left 132/75 Body weight 127.008 kg 127.008 kg [facility] [place] body weight 208 [lb_av] 208 [lb_av] MEDEN T ([facility], ) Body mass index (BMI) [Ratio] 33.2 kg/m2 33.2 k g/m2 [facility] Body weight 280.00 [lb_av] 280.00 [lb_av] MEDEN T ([facility], ) Stated Body height 77 [in_i] 77 [in_i] MED[facility] ([facility], ) 6'5" Diastolic blood pressure 95 mm[Hg] 95 mm[Hg] [facility] ([facility], ) Systolic blood pressure 167 mm[Hg] 167 mm[Hg] M EDENT ([facility], ) Diastolic blood pressure 70 mm[Hg] 70 mm[Hg] eCW1 ([facility]) Systolic blood pressure 110 mm[Hg] 110 mm[Hg] e CW1 ([facility]) Body temperature 97 [degF] 97 [degF] eCW1 ([facility]) Respiratory rate 20 /min 20 /min eCW1 ([facility]) Heart rate 88 /min 88 /min eCW1 [facility] Body mass index (BMI) [Ratio] 34.03 kg/m2 34.03 kg/m2 eCW1 ([facility]) Body height 77 [in_us] 77 [in_us] eCW1 ([facility]) Body weight Measured 287 [lb_av] 287 [lb_av] eC W1 ([facility]) Diastolic blood pressure 76 mm[Hg] 76 mm[Hg] eCW1 ([facility]) Systolic blood pressure 126 mm[Hg] 126 mm[Hg] e CW1 ([facility]) Body temperature 98.7 [degF] 98.7 [degF] eCW1 ( [facility]) Respiratory rate 20 /min 20 /min eCW1 ([facility]) Heart rate 76 /min 76 /min eCW1 ([facility] Body mass index (BMI) [Ratio] 34.67 kg/m2 34.67 kg/m2 eCW1 ([facility]) Body height 77 [in_us] 77 [in_us] eCW1 ([facility]) Body weight Measured 292.4 [lb_av] 292.4 [lb_av ] eCW1 ([facility]) Diastolic blood pressure 78 mm[Hg] 78 mm[Hg] eCW1 ([facility]) Systolic blood pressure 120 mm[Hg] 120 mm[Hg] e CW1 ([facility]) Body temperature 98.2 [degF] 98.2 [degF] eCW1 ( [facility]) Respiratory rate 20 /min 20 /min eCW1 ([facility]) Heart rate 102 /min 102 /min eCW1 ([facility] Body mass index (BMI) [Ratio] 34.48 kg/m2 34.48 kg/m2 W1 ([facility]) Body height 77 [in_us] 77 [in_us] [facility] ([facility]) Body weight Measured 290.8 [lb_av] 290.8 [lb_av ] W1 ([facility]) Body weight 132.168 kg 132.168 kg [facility] ([facility], ) Body mass index (BMI) [Ratio] 34.5 kg/m2 34.5 k g/m2 [facility] ([facility]) Body weight 291.38 [lb_av] 291.38 [lb_av] [facility] Body height 77 [in_i] 77 [in_i] [facility] ([facility]) 6'5" Diastolic blood pressure 78 mm[Hg] 78 mm[Hg] [facility] ([facility]) Systolic blood pressure 126 mm[Hg] 126 mm[Hg] [facility] Patient Treatment Plan of Care Planned Activity Planned Date Details Description Data Source (s) tramadol hydrochloride 50 MG Oral Tablet [Ultram] 01/14/2020 12: 00:00 AM EDT [facility] ([facility]) tramadol hydrochloride 50 MG Oral Tablet [Ultram] 01/14/2020 12: 00:00 AM EDT eCW ([facility]) tramadol hydrochloride 50 MG Oral Tablet [Ultram] 01/14/2020 12: 00:00 AM EDT eCW ([facility]) tramadol hydrochloride 50 MG Oral Tablet [Ultram] 01/14/2020 12: 00:00 AM EDT eCW1 ([facility]) tramadol hydrochloride 50 MG Oral Tablet [Ultram] 01/14/2020 12: 00:00 AM EDT eCW ([facility]) tramadol hydrochloride 50 MG Oral Tablet [Ultram] 01/14/2020 12: 00:00 AM EDT eCW ([facility]) Hospital bed 10/29/2019 12:00:00 AM EST e CW1 ([facility]) Aspirin 81 MG Delayed Release Oral Tablet 10/15/2019 12:00:00 AM ES T eCW1 ([facility]) Amlodipine 10 MG Oral Tablet [place] ([facility]) tramadol hydrochloride 50 MG Oral Tablet [place] ([facility]) Sucralfate 1000 MG Oral Tablet [place] ([facility]) pantoprazole 40 MG Delayed Release Oral Tablet [place] ([facility]) Lisinopril 10 MG Oral Tablet [place] ([facility]) Amlodipine 10 MG Oral Tablet [place] ([facility]) tramadol hydrochloride 50 MG Oral Tablet [place] ([facility]) Sucralfate 1000 MG Oral Tablet [place] ([facility]) pantoprazole 40 MG Delayed Release Oral Tablet [place] ([facility]) Lisinopril 10 MG Oral Tablet [place] ([facility]) Amlodipine 10 MG Oral Tablet [place] ([facility]) tramadol hydrochloride 50 MG Oral Tablet [place] ([facility]) Sucralfate 1000 MG Oral Tablet [place] ([facility]) pantoprazole 40 MG Delayed Release Oral Tablet [place] ([facility]) Lisinopril 10 MG Oral Tablet [place] ([facility]) Amlodipine 10 MG Oral Tablet [place] ([facility]) tramadol hydrochloride 50 MG Oral Tablet [place] ([facility]) Sucralfate 1000 MG Oral Tablet [place] ([facility]) pantoprazole 40 MG Delayed Release Oral Tablet [place] ([facility]) Lisinopril 10 MG Oral Tablet [place] ([facility])
--- NOTE | 2020-09-11 21:16 | HPEPDOC ---
[facility] Medical History & Physical Date of Admission Sep 11, 2020 Date of Service: Sep 11, 2020 History and Physical CHIEF COMPLAINT: shortness of breath, malaise HISTORY OF PRESENT ILLNESS: 75 yo M with a PMHx of syncope, afib (pt chose not to be anticoagulated), loop recorder, hypertension, presented to ER with 3 day hx of dyspnea, malaise and subjective chills. Patient found to be saturating 89% on RA. Tested positive for COVID-19 in the ED. Denies chest pain, palpitations, abdo pain, n/v/d. Labs reviewed. No WBC. Cr 1.37. BUN 33. D dimer> 4000. Fibrinogen 584. Ferritin 1967. LDH 359. CRP 16.3. LA 1.9. T bili 1.1. D bili 0.4. CXR showing subtle scattered opacities. PAST MEDICAL HISTORY: GI vleeding Syncope, thought to be vasovagal syncope. HTN Chronic Afib, has chosen not to be anticoagulated. History of schwannoma at T6-7 remote. Has a loop recorder in place- batteries ? Lower thoracic aneurysm which has been stented. Morbid obesity. Chronic back pain. PAST SURGICAL HISTORY: Loop recorder implantation removal of schwannoma from T6-T7 Stenting of thoracic aortic aneurysm L parotid resection Femoral bypass SOCIAL HISTORY: Former smoker Denies etoh Denies illicits FAMILY HISTORY: reviewed with patient, non contributory ALLERGIES: Please see below. REVIEW OF SYSTEMS: 10 point ROS completed, positives as per HPI HOME MEDICATIONS: Please see below. PHYSICAL EXAMINATION: VITAL SIGNS: please see below General: found lying at edge of bed, nasal canula off, food smeared on beal/nasal canula. somnolent HEENT: PERRLA, EOMI, sclerae clear Neck: supple, normal ROM, no JVD Respiratory: reduced air entry bilateraly, fine crackles/rales CVS: RRR, normal S1, S2, no murmurs Abdo: soft, no masses, no hepatosplenomegaly, BS+, no rebound tenderness Extremities: no edema, pulses 2+ MSK: no joint deformities, normal ROM Neuro: no focal neuro deficits, moving all 4 extremities, CN2-12 intact. Strength 5/5 in all 4 extremities. No nystagmus. Psych: calm, cooperative, AAO x 3. LABORATORY DATA: See below. IMAGING: CXR (09/11/20): Findings suggesting subtle scattered bilateral opacities/airspace disease. MICROBIOLOGY: Please see below. ASSESSMENT:75 yo M with a PMHx of syncope, afib (pt chose not to be anticoagulated), loop recorder, hypertension, admitted with covid-19 infection due to hypoxia. . PLAN: #Covid-19 infection - elevated inflammatory markers. D dimer> 4000. Fibrinogen 584. Ferritin 1967. LDH 359. CRP 16.3. - nasal canula, maintain saturation > 92% - droplet precautions - dexamethasone 6 mg IV daily - remdesivir x 5 days - monitor daily inflammatory labs - given no WBC, lack of productive cough, lack of fever, will hold off on abx. Procal pending. - weight based lovenox 0.5 mg/kg q12h #ASUTIN - mild, Cr 1.37 - NS 80 cc overnight #Chronic atrial fibrillation - not on anticoagulation per choice - s/p Watchmen device - Follows with Dr. Walton - c.w atenolol #hx of syncope - denies recent episodes - has loop recorder in place - on prior admission, batteries thought to be , as interrogation of device did not elicit response - follow with Dr. Walton (EP cardio) in [place] - patient does not remember if battery was replaced or if he followed up - telemetry, c/w home meds: atenolol. - PT eval #PAD - cw home meds, ASA #HTN - BP elevated, resume home meds: atenolol, amlodipine - labetalol 10 mg IV q6h for SBP > 170 #GERD - PPI DVT ppx: weight based lovenox, SCDs, TEDs. Dipo: admission expected to last > 2 days. Vital Signs Vital Signs Date Time Temp Pulse Resp B/P (MAP) Pulse Ox O2 Delivery O2 Flow Rate FiO2 09/11/20 19:46 104 09/11/20 19:45 22 142/81 (101) 95 Nasal Cannula 2.0 09/11/20 19:00 100.0 Laboratory Data Labs 24H Laboratory Tests 2 09/11/20 16:12: Prothrombin Time 15.1H, Prothromb Time International Ratio 1.16, Activated Partial Thromboplast Time 31.2, Fibrinogen 584H, D-Dimer, Quantitative > 4000H, Bedside Glucose (Misc Panel) 209H 09/11/20 16:18: Anion Gap 9, Glomerular Filtration Rate 53.6, Lactic Acid Level 1.9, Calcium Level 9.1, Magnesium Level 2.1, Ferritin 1967H, Total Bilirubin 1.1H, Direct Bilirubin 0.4H, Aspartate Amino Transf (AST/SGOT) 31, Alanine Aminotransferase (ALT/SGPT) 31, Alkaline Phosphatase 79, Lactate Dehydrogenase 359H, Total Creatine Kinase 113, Creatine Kinase MB 2.0, Creatine Kinase MB Relative Index 1.77, Troponin I < 0.02, C-Reactive Protein, Quantitative 16.30H, Total Protein 6.4, Albumin 3.5, Albumin/Globulin Ratio 1.2, Lipase 102, Thyroid Stimulating Hormone (TSH) 0.965 09/11/20 16:23: 09/11/20 17:09: Immature Granulocyte % (Auto) 1.2, Neutrophils (%) (Auto) 86.6H, Lymphocytes (%) (Auto) 3.9L, Monocytes (%) (Auto) 7.9H, Eosinophils (%) (Auto) 0.0, Basophils (%) (Auto) 0.4, Neutrophils # (Auto) 8.6H, Lymphocytes # (Auto) 0.4L, Monocytes # (Auto) 0.8, Eosinophils # (Auto) 0.0, Basophils # (Auto) 0.0, Nucleated Red Blood Cells % (auto) 0.0 09/11/20 18:19: POC pH (Misc Panel) 7.388, POC Base Excess (Misc Panel) -2.0, POC Saturated Percent O2 (Misc) 95, POC pO2 (Misc Panel) 78.0L, POC pCO2 (Misc Panel) 38.7, POC HCO3 (Misc Panel) 23.3, POC Total CO2 (Misc Panel) 24.0 CBC/BMP Laboratory Tests 09/11/20 16:18 09/11/20 17:09 Microbiology Microbiology 09/11/20 Blood Culture, Received Pending 09/11/20 Blood Culture, Received Pending 09/11/20 Respiratory Virus Panel (PCR) (MISTY) - Final, Complete SARS-CoV-2 (COVID 19) Home Medications Scheduled Amlodipine Besylate (Amlodipine Besylate) 5 Mg Tablet, 5 MG PO DAILY Ascorbic Acid (Vitamin C) 500 Mg Tab, 500 MG PO DAILY Aspirin (Aspirin EC) 81 Mg Tab, 81 MG PO DAILY Atenolol (Atenolol) 25 Mg Tab, 12.5 MG PO DAILY Baclofen (Baclofen) 10 Mg Tab, 10 MG PO BID Nitroglycerin (Nitroglycerin Patch) 0.4 Mg/Hr Dis, 0.4 MG TD DAILY APPLIES AT 0800 AND REMOVES AT 2000, EVEN DAYS RIGHT ARM, ODD DAYS LEFT ARM Scheduled PRN Sennosides/Docusate Sodium (Senna Plus Tablet) 1 Each Tablet, 2 TAB PO BIDP PRN for CONSTIPATION Allergies Coded Allergies: latex (Verified Allergy, Unknown, 12/29/19) A-FIB/CHADSVASC A-FIB History Current/History of A-Fib/PAF?: Yes Current PO Anticoag Therapy: No MALINDA GUZMAN MD Sep 11, 2020 21:16
[2020-09-11] MEDS ORDERED: SENOKOT S TAB PO PRN (21:30)
--- OUTSIDE RECORDS SUMMARY | 2020-09-11 21:35 | CCD ---
Author Author [facility] Organization [facility] Address Unknown Phone Unavailable Care Team Providers Care Clinical Appeals Reviewer Name Role Phone Camron, A Tierra APARTMENT MAINTENANCE SUPERVISOR Unavailable Unavailable Camron, A Tierra APARTMENT MAINTENANCE SUPERVISOR Unavailable Unavailable Camron, A Tierra APARTMENT MAINTENANCE SUPERVISOR Unavailable Unavailable Camron, A Tierra APARTMENT MAINTENANCE SUPERVISOR Unavailable Unavailable Camron, A Tierra APARTMENT MAINTENANCE SUPERVISOR Unavailable Unavailable Camron, A Tierra APARTMENT MAINTENANCE SUPERVISOR Unavailable Unavailable Camron, A Tierra APARTMENT MAINTENANCE SUPERVISOR Unavailable Unavailable Camron, A Tierra APARTMENT MAINTENANCE SUPERVISOR Unavailable Unavailable Camron, A Tierra APARTMENT MAINTENANCE SUPERVISOR Unavailable Unavailable Camron, A Tierra APARTMENT MAINTENANCE SUPERVISOR Unavailable Unavailable Camron, A Tierra APARTMENT MAINTENANCE SUPERVISOR Unavailable Unavailable Camron, A Tierra APARTMENT MAINTENANCE SUPERVISOR Unavailable Unavailable Camron, A Tierra APARTMENT MAINTENANCE SUPERVISOR Unavailable Unavailable Camron, A Tierra APARTMENT MAINTENANCE SUPERVISOR Unavailable Unavailable Camron, A Tierra APARTMENT MAINTENANCE SUPERVISOR Unavailable Unavailable Camron, A Tierra APARTMENT MAINTENANCE SUPERVISOR Unavailable Unavailable Camron, A Tierra APARTMENT MAINTENANCE SUPERVISOR Unavailable Unavailable Camron, A Tierra APARTMENT MAINTENANCE SUPERVISOR Unavailable Unavailable Camron, A Tierra APARTMENT MAINTENANCE SUPERVISOR Unavailable Unavailable Camron, A Tierra APARTMENT MAINTENANCE SUPERVISOR Unavailable Unavailable Camron, A Tierra APARTMENT MAINTENANCE SUPERVISOR Unavailable Unavailable Camron, A Tierra APARTMENT MAINTENANCE SUPERVISOR Unavailable Unavailable Camron, A Tierra APARTMENT MAINTENANCE SUPERVISOR Unavailable Unavailable Camron, A Tierra APARTMENT MAINTENANCE SUPERVISOR Unavailable Unavailable Camron, A Tierra APARTMENT MAINTENANCE SUPERVISOR Unavailable Unavailable Camron, A Tierra APARTMENT MAINTENANCE SUPERVISOR Unavailable Unavailable Camron, A Tierra APARTMENT MAINTENANCE SUPERVISOR Unavailable Unavailable Katarzyna Mcmillan RPA Unavailable Unavailable [...] is protected by Article 27-F of the [facility] Public Health law. If you continue you may have access to information: Regarding HIV / AIDS; Provided by facilities licensed or operated by the [facility] Office of Mental Health; or Provided by the [facility] Office for People With Developmental Disabilities. If such information is present, then the following [facility] mandated warning applies: This information has [...] law may result in a fine or usp sentence or both. A general authorization for the release of medical or other information is NOT sufficient authorization for further disc losure. Allergies and Adverse Reactions Type Description Substance Reaction Status Data Source(s ) Drug allergy Latex Gloves Drug allergy anaphylaxis Active eCW1 ( [facility]) Family History Family Member Name Family Member Gender Family Member Status Date o f Status Description Data Source(s) Unknown Female Problem MEDENT ([facility]) Encounters Encounter Providers Location Date Indications Data Source(s ) [facility] [address], [place] [address], Ph. Attender: Tierra Lyon [facility] Medical 08/03/2020 12:00:00 AM EST SAL[facility]ADOR ([facility]) UDAY Maciel: [address], [place] [address], Ph. Attender: Tierra Lyon [facility] Medical 07/24/2020 12:00:00 AM EST SAL[facility]ADOR ([facility]) UDAY Maciel: [address], [place] [address], Ph. Attender: Tierra Lyon [facility] Medical 07/24/2020 12:00:00 AM EST SALVADOR ([facility]) UDAY Maciel: [address], [place] [address], Ph. Attender: Tierra Lyon [facility] Medical 07/24/2020 12:00:00 AM EST SAL[facility]ADOR ([facility]) [facility] [address], [place] [address], Ph. Attender: Tierra Lyon [facility] Medical 07/04/2020 12:00:00 AM EST SALVADOR ([facility]) [facility] [address], [place] [address], Ph. Attender: Tierra Lyon [facility] Medical 07/04/2020 12:00:00 AM EST SALVADOR ([facility]) [facility] [address], [place] [address], Ph. Attender: Tierra Lyon [facility] Medical 07/04/2020 12:00:00 AM EST SALVADOR ([facility]) Unknown [address] [facility] [address] 07/04/2020 12:00:00 AM EST eCW1 ([facility]) [facility] [address] [place] [address], Ph. Attender: Tierra Lyon [facility] Medical 07/04/2020 12:00:00 AM EST SALVADOR ([facility]) Unknown [address] [facility] [address] 06/05/2020 12:00:00 AM EDT eCW1 ([facility]) Outpatient Attender: Brittany West/May/Wilfred/Adria craig 05/10/2020 11:15:00 AM EDT MEDENT ([facility]) [place] [address] [facility] [address] 02/08/2020 12:00:00 AM EDT eCW1 ([facility]) [place] [address] [facility] [address] 02/04/2020 12:00:00 AM EDT eCW1 ([facility]) [place] [address] [facility] [address] 02/03/2020 12:00:00 AM EDT eCW1 ([facility]) [facility] [address] [facility] [address] 01/19/2020 12:00:00 AM EDT eCW1 ([facility]) [facility] [address] [facility] [address] 01/18/2020 12:00:00 AM EDT eCW1 ([facility]) [facility] [address] [facility] [address] 01/14/2020 12:00:00 AM EDT eCW1 ([facility]) [facility] Resident [address] [place] [address] 01/14/2020 12:00:00 AM EDT eCW1 ([facility]) [facility] [address] [facility] [address] 01/12/2020 12:00:00 AM EDT eCW1 ([facility]) [facility] [address] [facility] [address] 01/07/2020 12:00:00 AM EDT eCW1 ([facility]) [facility] [address] [place] [address], [place] [address] 12/16/2019 12:00:00 AM EDT eCW1 ([facility]) [facility] [address] [place] [address], [place] [address] 11/22/2019 12:00:00 AM EDT eCW1 ([facility]) [facility] G[facility] Resident [address] [place] [address] 11/15/2019 12:00:00 AM EDT eCW1 ([facility]) [facility] [place] [address] [facility] [address] 10/29/2019 12:00:00 AM EST eCW1 ([facility]) Outpatient 10/21/2019 07:55:00 PM EST [facility] Resident [address] [place] [address] 10/15/2019 12:00:00 AM EST eCW1 ([facility]) Immunizations Vaccine Date Status Description Data Source(s) pneumococcal polysaccharide PPV23 01/14/2020 02:21:00 PM EDT comple faheem eCW1 ([facility]) pneumococcal polysaccharide PPV23 01/14/2020 02:21:00 PM EDT comple faheem eCW1 ([facility]) pneumococcal polysaccharide PPV23 01/14/2020 02:21:00 PM EDT comple faheem eCW1 ([facility]) pneumococcal polysaccharide PPV23 01/14/2020 02:21:00 PM EDT comple faheem eCW1 ([facility]) pneumococcal polysaccharide PPV23 01/14/2020 02:21:00 PM EDT comple faheem eCW1 ([facility]) pneumococcal polysaccharide PPV23 01/14/2020 02:21:00 PM EDT comple faheem eCW1 ([facility]) Medications Medication Brand Name Start Date Product [...] 1.0 {tablet_as_needed} active Ultram 50 MG eCW1 ([facility]) tramadol hydrochloride 50 MG Oral Tablet [Ultram] Ultram 50 MG Ultram 50 MG 01/14/2020 12:00:00 AM EDT 1.0 {tablet_as_needed} active Ultram 50 MG eCW1 ([facility]) tramadol hydrochloride 50 MG Oral Tablet [Ultram] Ultram 50 MG Ultram 50 MG 01/14/2020 12:00:00 AM EDT active 1 tablet as needed eCW1 ([facility]) tramadol hydrochloride 50 MG Oral Tablet [Ultram] Ultram 50 MG Ultram 50 MG 01/14/2020 12:00:00 AM EDT 1.0 {tablet_as_needed} active Ultram 50 MG eCW1 ([facility]) tramadol hydrochloride 50 MG Oral Tablet [Ultram] Ultram 50 MG Ultram 50 MG 01/14/2020 12:00:00 AM EDT 1.0 {tablet_as_needed} active Ultram 50 MG eCW1 ([facility]) tramadol hydrochloride 50 MG Oral Tablet [Ultram] Ultram 50 MG Ultram 50 MG 01/14/2020 12:00:00 AM EDT 1.0 {tablet_as_needed} active Ultram 50 MG eCW1 ([facility]) 25 mg 01/13/2020 12:00:00 AM EDT tablet [...] DAY SOLD: 01/13/2020 [facility] Hospital bed [facility] 10/29/2019 12:00:00 AM EST activ e Hospital bed [facility] ([facility]) Hospital bed [facility] 10/29/2019 12:00:00 AM EST activ e Hospital bed [facility] ([facility]) Hospital bed [facility] 10/29/2019 12:00:00 AM EST activ e Hospital bed [facility] ([facility]) Hospital bed [facility] 10/29/2019 12:00:00 AM EST activ e as directed eC ([facility]) Hospital bed [facility] 10/29/2019 12:00:00 AM EST activ e as directed eC ([facility]) Hospital bed [facility] 10/29/2019 12:00:00 AM EST activ e Hospital bed [facility] ([facility]) Hospital bed [facility] 10/29/2019 12:00:00 AM EST activ e as directed eC ([facility]) Hospital bed [facility] 10/29/2019 12:00:00 AM EST activ e as directed eC ([facility]) Hospital bed [facility] 10/29/2019 12:00:00 AM EST activ e Hospital bed [facility] ([facility]) Aspirin 81 MG Delayed Release Oral Tablet Aspirin Adul t Low Strength 81 MG Aspirin Adult Low Strength 81 MG 10/15/2019 12:00:00 AM EST active as directed eCW1 ([facility]) 50 mg 10/13/2019 12:00:00 AM EST tablet [...] completed lisinopril 10 MG Oral Tablet SAL[facility]ADOR ([facility]) Amlodipine 10 MG Oral Tablet amlodipine 10 mg tablet amlodipine 10 mg tablet completed amlodipine 10 MG Oral Tablet ROANOKE ([facility]) Lisinopril 10 MG Oral Tablet lisinopril 10 mg tablet lisinopril 10 mg tablet completed lisinopril 10 MG Oral Tablet [place] ([facility]) tramadol hydrochloride 50 MG Oral Tablet tramadol 50 m g tablet tramadol 50 mg tablet completed tramadol hydroc hloride 50 MG Oral Tablet [place] ([facility]) Lisinopril 10 MG Oral Tablet lisinopril 10 mg tablet lisinopril 10 mg tablet completed lisinopril 10 MG Oral Tablet [place] ([facility]) Sucralfate 1000 MG Oral Tablet sucralfate 1 gram table t sucralfate 1 gram tablet completed sucralfate 1000 MG Oral Tablet SAL[facility]ADOR ([facility]) tramadol hydrochloride 50 MG Oral Tablet tramadol 50 m g tablet tramadol 50 mg tablet completed tramadol hydroc hloride 50 MG Oral Tablet [facility]ADOR ([facility]) Sucralfate 1000 MG Oral Tablet sucralfate 1 gram table t sucralfate 1 gram tablet completed sucralfate 1000 MG Oral Tablet [place] ([facility]) pantoprazole 40 MG Delayed Release Oral Tablet pantoprazole 40 mg tablet,delayed release pantoprazole 40 mg tablet,delayed release completed pantoprazole 40 MG Delayed Release Oral Tablet [place] ([facility]) Amlodipine 10 MG Oral Tablet amlodipine 10 mg tablet amlodipine 10 mg tablet completed amlodipine 10 MG Oral Tablet [place] ([facility]) pantoprazole 40 MG Delayed Release Oral Tablet pantoprazole 40 mg tablet,delayed release pantoprazole 40 mg tablet,delayed release completed pantoprazole 40 MG Delayed Release Oral Tablet [place] ([facility]) Amlodipine 10 MG Oral Tablet amlodipine 10 mg tablet amlodipine 10 mg tablet completed amlodipine 10 MG Oral Tablet [place] ([facility]) pantoprazole 40 MG Delayed Release Oral Tablet pantoprazole 40 mg tablet,delayed release pantoprazole 40 mg tablet,delayed release completed pantoprazole 40 MG Delayed Release Oral Tablet [place] ([facility]) Sucralfate 1000 MG Oral Tablet sucralfate 1 gram table t sucralfate 1 gram tablet completed sucralfate 1000 MG Oral Tablet SAL[facility]ADOR ([facility]) Sucralfate 1000 MG Oral Tablet sucralfate 1 gram table t sucralfate 1 gram tablet completed sucralfate 1000 MG Oral Tablet [place] ([facility]) pantoprazole 40 MG Delayed Release Oral Tablet pantoprazole 40 mg tablet,delayed release pantoprazole 40 mg tablet,delayed release completed pantoprazole 40 MG Delayed Release Oral Tablet [place] ([facility]) tramadol hydrochloride 50 MG Oral Tablet tramadol 50 m g tablet tramadol 50 mg tablet completed tramadol hydroc hloride 50 MG Oral Tablet [facility]ADOR ([facility]) tramadol hydrochloride 50 MG Oral Tablet tramadol 50 m g tablet tramadol 50 mg tablet completed tramadol hydroc hloride 50 MG Oral Tablet [place] ([facility]) Amlodipine 10 MG Oral Tablet amlodipine 10 mg tablet amlodipine 10 mg tablet completed amlodipine 10 MG Oral Tablet [place] ([facility]) Lisinopril 10 MG Oral Tablet lisinopril 10 mg tablet lisinopril 10 mg tablet completed lisinopril 10 MG Oral Tablet [place] ([facility]) Insurance Providers Payer name Policy type / Coverage type Policy ID Covered republican ID Covered republican's relationship to keith Policy Keith Plan Information EMEDNY [id number] SP [id number] HUMANA GOLD [id number] SP [id number] [employer]MANA GOLD O [id number] S [id number] MEDICAID [id number] [employer] GOLD [id number] SP [id number] MEDICARE [id number] SP [id number] MEDICARE [id number] SP [id number] MEDICAID [id number] [facility] [id number] SP [id number] [facility] [id number] SP [id number] MEDICAID [id number] SP [id number] [facility] O [id number] S [id number] [facility] MCRO [id number] SP [id number] MEDICAID [id number] SP [id number] MEDICARE [id number] SP [id number] M MEDICARE A [id number] Self [id number] MEDICAID M [id number] Self [id number] MEDICARE A [id number] Self [id number] M Medicaid Medigap Part B [id number] Self [id number] Medicare Part B Medicare Primary [id number] Self [id number] MEDICARE PART A -O/P [id number] 18 [id number] MEDICAID-O/P [id number] 18 [id number] S MEDICARE -O/P [id number] 18 [id number] Medicaid Medigap Part B Self Medicare Part B Medicare Primary Self MEDICAID [id number] SP [id number] MEDICARE [id number] SP [id number] M Problems, Conditions, and Diagnoses Code Display Name Description Problem Type Effective Dates Data Source(s) K59.00 30288265 Constipation, unspecified constipation ty pe Problem 03/23/2020 12:00:00 AM EDT eCW1 ([facility]) E66.9 [id number] Obesity (BMI 30-39.9) Problem 01/14/2020 12: 00:00 AM EDT eCW1 ([facility]) E66.9 840137491 Obesity (BMI 30-39.9) Problem 01/14/2020 12: 00:00 AM EDT eCW1 ([facility]) Z98.41 [id number] Cataract extraction status, right eye Pro blem 11/15/2019 12:00:00 AM EDT eCW1 ([facility]) Z98.42 [id number] Cataract extraction status, left eye Prob sandeep 11/15/2019 12:00:00 AM EDT eCW1 ([facility]) Z98.42 [id number] Cataract extraction status, left eye Prob sandeep 11/15/2019 12:00:00 AM EDT eCW1 ([facility]) Z98.41 [id number] Cataract extraction status, right eye Pro blem 11/15/2019 12:00:00 AM EDT eCW1 ([facility]) I10 Essential hypertension Essential hypertension Problem 10/17/2019 12:00:00 AM EST eCW1 ([facility]) G89.29 Chronic pain Other chronic pain Problem 10/17/2019 12:0 0:00 AM EST eCW1 ([facility]) I10 Essential hypertension Essential hypertension Problem 10/17/2019 12:00:00 AM EST eCW1 ([facility]) G89.29 Chronic pain Other chronic pain Problem 10/17/2019 12:0 0:00 AM EST eCW1 ([facility]) I73.9 [id number] Peripheral vascular disease Problem 10/15/19 20 12:00:00 AM EST eCW1 ([facility]) Z95.818 [id number] Presence of Watchman left atrial appendage closure device Problem 10/15/2019 12:00:00 AM EST eCW1 ([facility]) I48.91 [id number] Unspecified atrial fibrillation Problem 10/15/2019 12:00:00 AM EST eCW1 ([facility]) I48.91 [id number] Atrial fibrillation, unspecified type Pro blem 10/15/2019 12:00:00 AM EST eCW1 ([facility]) I71.4 22716174 AAA (abdominal aortic aneurysm) without r upture Problem 10/15/2019 12:00:00 AM EST eCW1 ([facility]) Z95.818 [id number] Presence of Watchman left atrial appendage closure device Problem 10/15/2019 12:00:00 AM EST eCW1 ([facility]) I73.9 [id number] Peripheral vascular disease Problem 10/15/19 12:00:00 AM EST eCW1 ([facility]) I48.91 [id number] Atrial fibrillation, unspecified type Pro blem 10/15/2019 12:00:00 AM EST eCW1 ([facility]) I71.4 32307054 AAA (abdominal aortic aneurysm) without r upture Problem 10/15/2019 12:00:00 AM EST eCW1 ([facility]) F17.200 Smoking Smoking Problem 10/15/2019 12:00:00 AM ES T eCW1 ([facility]) Surgeries/Procedures Procedure Description Date Indications Data Source(s) TRANS CARE MGMT 7 DAY DISCH 01/14/2020 12:00:00 AM EDT eCW1 ([facility]) Pneumococcal Adult 0.5mL (Pneumovax 23) 01/14/2020 12: 00:00 AM EDT eCW1 ([facility]) Administration of pneumococcal vaccine 01/14/2020 12:0 0:00 AM EDT eCW1 ([facility]) Office Visit, Est Pt., Level 3 FC 01/14/2020 12:00:00 AM EDT eCW1 ([facility]) Office Visit, Est Pt., Level 4 PC 01/14/2020 12:00:00 AM EDT eCW1 ([facility]) Transitional Care NO CHARGE Visit 01/14/2020 12:00:00 AM EDT eCW1 ([facility]) Office Visit, New Pt., Level 3 FC 10/15/2019 12:00:00 AM EST eCW1 ([facility]) Office Visit, New Pt., Level 3 PC 10/15/2019 12:00:00 AM EST eCW1 ([facility]) Results ID Date Data Source [id number] 08/03/2020 11:00:00 AM EST SALVADOR ([facility]) Name Value Range Interpretation Code Description Data Jennifer rce(s) Supporting Document(s) magnesium level 2.3 mg/dL 1.8-2.4 normal Magnesium Level ATHE NA ([facility]) ID Date Data Source [id number] 08/03/2020 11:00:00 AM EST SALVADOR ([facility]) Name Value Range Interpretation Code Description Data Jennifer rce(s) Supporting Document(s) blood urea nitrogen 21 mg/dL 7-18 Above high normal Blood Ure a Nitrogen SALVADOR ([facility]) glucose, fasting 164 mg/dL 70-100 Above high normal Glucose, Fas ting SALVADOR ([facility]) creatinine for GFR 1.08 mg/dL 0.70-1.30 normal Creatinine for GF R SALVADOR ([facility]) sodium level 137 mEq/L 136-145 normal Sodium Level SALVADOR ([facility]) potassium serum 4.6 mEq/L 3.5-5.1 normal Potassium Serum ATHE NA ([facility]) glomerular filtration rate > 60.0 >42 normal Glomerula r Filtration Rate SALVADOR ([facility]) calcium level 9.2 mg/dL 8.8-10.2 normal Calcium Level SALVADOR ( [facility]) carbon dioxide level 27 mEq/L 21-32 normal Carbon Dioxide Level SALVADOR ([facility]) anion gap 5 mEq/L 8-16 Below low normal Anion Gap SALVADOR ( [facility]) chloride level 105 mEq/L 98-107 normal Chloride Level SALVADOR ([facility]) alkaline phosphatase 91 U/L 45-117 normal Alkaline Phosph atase SALVADOR ([facility]) ALT/SGPT 40 U/L 12-78 normal ALT/SGPT SALVADOR ([facility]) AST/SGOT 21 U/L 7-37 normal AST/SGOT SALVADOR ([facility]) albumin 4.1 gm/dL 3.2-5.2 normal Albumin SALVADOR ([facility]) total protein 7.1 gm/dL 6.4-8.2 normal Total Protein SALVADOR ( [facility]) albumin/globulin ratio normal Albumin/globu vamshi Ratio SALVADOR ([facility]) bilirubin,total 0.8 mg/dL 0.2-1.0 normal Bilirubin,total ATHE ([facility]) ID Date Data Source [id number] 07/24/2020 08:20:00 AM EST [facility]) Name Value Range Interpretation Code Description Data Jennifer rce(s) Supporting Document(s) Hemoglobin A1c/Hemoglobin.total in Blood 6.8 % normal Hemoglobin a1C SALVADOR ([facility]) estimated average glucose 148 mg/dL 60-110 Above high norm al Estimated Average Glucose SALVADOR ([facility]) ID Date Data Source [id number] 07/24/2020 08:20:00 [facility] Name Value Range Interpretation Code Description Data Jennifer rce(s) Supporting Document(s) total 25(oh) vitamin D 28.0 NG/mL 30.0-100.0 Below low normal T otal 25(Oh) Vitamin D SALVADOR ([facility]) ID Date Data Source [id number] 07/24/2020 08:20:00 AM EST [facility]) Name Value Range Interpretation Code Description Data Jennifer rce(s) Supporting Document(s) free T4 1.31 NG/dL 0.76-1.46 normal Free T4 SAL[facility]OR ([facility]) thyroid stimulating hormone 1.260 uIU/mL 0.358-3.740 normal Thyroid Stimulating Hormone SALVADOR ([facility]) ID Date Data Source [id number] 07/24/2020 08:20:00 AM EST SALVADOR ([facility]) Name Value Range Interpretation Code Description Data Jennifer rce(s) Supporting Document(s) prostatic specific Ag monitor 0.71 NG/mL < 4.00 normal Prostatic Specific Ag Monitor SALVADOR ([facility]) ID Date Data Source [id number] 07/24/2020 08:20:00 AM EST SALVADOR ([facility]) Name Value Range Interpretation Code Description Data Jennifer rce(s) Supporting Document(s) triglycerides level 146 mg/dL <150 normal Triglycerides Le al [facility]ADOR ([facility] [facility]) HDL cholesterol 27 mg/dL >40 Below low normal HDL Cholestero l [place] ([facility]) cholesterol level 184 mg/dL <200 normal Cholesterol Level [place] ([facility]) non-HDL-C 157 mg/dL normal Non-hdl-c [place] ([facility]) Cholesterol in LDL [Mass/volume] in Serum or Plasma 128 mg/dL <100 Above high normal LDL Cholesterol [place] ([facility]) cholesterol risk ratio <5 Above high normal Choles terol Risk Ratio [place] ([facility]) ID Date Data Source [id number] 07/24/2020 08:20:00 AM EST [place] ([facility]) Name Value Range Interpretation Code Description Data Jennifer rce(s) Supporting Document(s) blood urea nitrogen 26 mg/dL 7-18 Above high normal Blood Ure a Nitrogen [place] ([facility]) glucose, fasting 165 mg/dL 70-100 Above high normal Glucose, Fas ting [place] ([facility]) potassium serum 4.7 mEq/L 3.5-5.1 normal Potassium Serum ATHE NA ([facility]) creatinine for GFR 1.15 mg/dL 0.70-1.30 normal Creatinine for GF R [place] ([facility]) glomerular filtration rate > 60.0 >42 normal Glomerula r Filtration Rate [place] ([facility]) sodium level 142 mEq/L 136-145 normal Sodium Level [place] ([facility]) anion gap 3 mEq/L 8-16 Below low normal Anion Gap [place] ( [facility]) AST/SGOT 16 U/L 7-37 normal AST/SGOT [place] ([facility]) chloride level 108 mEq/L 98-107 Above high normal Chloride Level [place] ([facility]) carbon dioxide level 31 mEq/L 21-32 normal Carbon Dioxide Level [place] ([facility]) calcium level 8.7 mg/dL 8.8-10.2 Below low normal Calcium Level AT [facility]) bilirubin,total 0.7 mg/dL 0.2-1.0 normal Bilirubin,total [facility] ([facility]) alkaline phosphatase 89 U/L 45-117 normal Alkaline Phosph atase [place] ([facility]) ALT/SGPT 30 U/L 12-78 normal ALT/SGPT [place] ([facility]) total protein 6.5 gm/dL 6.4-8.2 normal Total Protein [place] ( [facility]) albumin/globulin ratio normal Albumin/globu vamshi Ratio [place] ([facility]) albumin 3.8 gm/dL 3.2-5.2 normal Albumin [place] ([facility]) ID Date Data Source [id number] 07/24/2020 08:20:00 AM EST [place] ([facility]) Name Value Range Interpretation Code Description Data Jennifer rce(s) Supporting Document(s) white blood count 6.5 10 4.0-10.0 normal White Blood Count [place] ([facility]) hematocrit 51.6 % 42.0-52.0 normal Hematocrit [place] ([facility]) red blood count 5.24 10 4.30-6.10 normal Red Blood Count [facility] ([facility]) hemoglobin 16.2 g/dL 13.5-17.5 normal Hemoglobin [place] ([facility]) mean corpuscular hemoglobin 30.9 pg 27.0-33.0 normal Mean Corpuscular Hemoglobin [place] ([facility]) mean corpuscular HGB conc 31.4 g/dL 32.0-36.5 Below low kelsy l Mean Corpuscular HGB Conc [place] ([facility]) mean corpuscular volume 98.5 fL 80.0-96.0 Above high normal Mean Corpuscular Volume [place] ([facility]) red cell distribution width 12.7 % 11.5-14.5 normal Red Cell Distribution Width [place] ([facility]) lymph % 18.9 % 24.0-44.0 Below low normal Lymph % [place] ( [facility]) platelet count, automated 156 10 150-450 normal Platelet C ount, Automated [place] ([facility]) neutrophils % 63.6 % 36.0-66.0 normal Neutrophils % [place] ( [facility]) mono % 11.5 % 0.0-5.0 Above high normal [place] % [place] ([facility]) baso % 0.6 % 0.0-1.0 normal Baso % [place] ([facility]) immature granulocyte % 0.6 % 0-3.0 normal Immature Gran ulocyte % [place] ([facility]) eos % 4.8 % 0.0-3.0 Above high normal Eos % [place] ([facility]) nucleated red blood cell % 0.0 % 0-0 normal Nucleated Red Blood Cell % [place] ([facility]) neutrophils # 4.1 10 1.5-8.5 normal Neutrophils # [place] ( [facility]) mono # 0.8 10 0.0-0.8 normal [place] # [place] ([facility]) lymph # 1.2 10 1.5-5.0 Below low normal Lymph # [place] ( [facility]) baso # 0.0 10 0.0-0.2 normal Baso # [place] ([facility]) eos # 0.3 10 0.0-0.5 normal Eos # [place] ([facility]) ID Date Data Source [id number] 07/24/2020 08:20:00 AM EST [place] ([facility]) Name Value Range Interpretation Code Description Data Jennifer rce(s) Supporting Document(s) estimated average glucose 148 mg/dL 60-110 Above high norm al Estimated Average Glucose [place] ([facility]) Hemoglobin A1c/Hemoglobin.total in Blood 6.8 % normal Hemoglobin a1C [place] ([facility]) ID Date Data Source [id number] 07/24/2020 08:20:00 AM EST [place] ([facility]) Name Value Range Interpretation Code Description Data Jennifer rce(s) Supporting Document(s) total 25(oh) vitamin D 28.0 NG/mL 30.0-100.0 Below low normal T otal 25(Oh) Vitamin D [place] ([facility]) ID Date Data Source [id number] 07/24/2020 08:20:00 AM EST [place] ([facility]) Name Value Range Interpretation Code Description Data Jennifer rce(s) Supporting Document(s) thyroid stimulating hormone 1.260 uIU/mL 0.358-3.740 normal Thyroid Stimulating Hormone [place] ([facility]) free T4 1.31 NG/dL 0.76-1.46 normal Free T4 [place] ([facility]) ID Date Data Source [id number] 07/24/2020 08:20:00 AM EST [place] ([facility]) Name Value Range Interpretation Code Description Data Jennifer rce(s) Supporting Document(s) prostatic specific Ag monitor 0.71 NG/mL < 4.00 normal Prostatic Specific Ag Monitor [place] ([facility]) ID Date Data Source [id number] 07/24/2020 08:20:00 [facility] Name Value Range Interpretation Code Description Data Jennifer rce(s) Supporting Document(s) cholesterol level 184 mg/dL <200 normal Cholesterol Level [place] ([facility]) HDL cholesterol 27 mg/dL >40 Below low normal HDL Cholestero l [place] ([facility]) triglycerides level 146 mg/dL <150 normal Triglycerides Le al [place] ([facility]) Cholesterol in LDL [Mass/volume] in Serum or Plasma 128 mg/dL <100 Above high normal LDL Cholesterol [place] ([facility]) non-HDL-C 157 mg/dL normal Non-hdl-c [place] ([facility]) cholesterol risk ratio <5 Above high normal Choles terol Risk Ratio [place] ([facility]) ID Date Data Source [id number] 07/24/2020 08:20:00 AM EST [place] ([facility]) Name Value Range Interpretation Code Description Data Jennifer rce(s) Supporting Document(s) glucose, fasting 165 mg/dL 70-100 Above high normal Glucose, Fas ting [place] ([facility]) sodium level 142 mEq/L 136-145 normal Sodium Level [place] ([facility]) glomerular filtration rate > 60.0 >42 normal Glomerula r Filtration Rate [place] ([facility]) blood urea nitrogen 26 mg/dL 7-18 Above high normal Blood Ure a Nitrogen [place] ([facility]) creatinine for GFR 1.15 mg/dL 0.70-1.30 normal Creatinine for GF R [place] ([facility]) chloride level 108 mEq/L 98-107 Above high normal Chloride Level [place] ([facility]) anion gap 3 mEq/L 8-16 Below low normal Anion Gap [place] ( [facility]) carbon dioxide level 31 mEq/L 21-32 normal Carbon Dioxide Level [place] ([facility]) potassium serum 4.7 mEq/L 3.5-5.1 normal Potassium Serum ATHE NA ([facility]) calcium level 8.7 mg/dL 8.8-10.2 Below low normal Calcium Level AT [place] ([facility]) alkaline phosphatase 89 U/L 45-117 normal Alkaline Phosph atase [place] ([facility]) AST/SGOT 16 U/L 7-37 normal AST/SGOT [place] ([facility]) ALT/SGPT 30 U/L 12-78 normal ALT/SGPT [place] ([facility]) albumin 3.8 gm/dL 3.2-5.2 normal Albumin [place] ([facility]) total protein 6.5 gm/dL 6.4-8.2 normal Total Protein [place] ( [facility]) bilirubin,total 0.7 mg/dL 0.2-1.0 normal Bilirubin,total [place] ([facility]) albumin/globulin ratio normal Albumin/globu vamshi Ratio [place] ([facility]) ID Date Data Source [id number] 07/24/2020 08:20:00 AM EST [place] ([facility]) Name Value Range Interpretation Code Description Data Jennifer rce(s) Supporting Document(s) white blood count 6.5 10 4.0-10.0 normal White Blood Count [place] ([facility]) hemoglobin 16.2 g/dL 13.5-17.5 normal Hemoglobin [place] ([facility]) red blood count 5.24 10 4.30-6.10 normal Red Blood Count [place] ([facility]) hematocrit 51.6 % 42.0-52.0 normal Hematocrit [place] ([facility]) mean corpuscular volume 98.5 fL 80.0-96.0 Above high normal Mean Corpuscular Volume [place] ([facility]) mean corpuscular hemoglobin 30.9 pg 27.0-33.0 normal Mean Corpuscular Hemoglobin [place] ([facility]) red cell distribution width 12.7 % 11.5-14.5 normal Red Cell Distribution Width [place] ([facility]) platelet count, automated 156 10 150-450 normal Platelet C ount, Automated [place] ([facility]) mean corpuscular HGB conc 31.4 g/dL 32.0-36.5 Below low kelsy l Mean Corpuscular [facility] Conc [facility] lymph % 18.9 % 24.0-44.0 Below low normal Lymph % [place] ( [facility]) mono % 11.5 % 0.0-5.0 Above high normal [place] % [place] ([facility]) neutrophils % 63.6 % 36.0-66.0 normal Neutrophils % [place] ( [facility]) nucleated red blood cell % 0.0 % 0-0 normal Nucleated Red Blood Cell % [place] ([facility]) eos % 4.8 % 0.0-3.0 Above high normal Eos % [place] ([facility]) baso % 0.6 % 0.0-1.0 normal Baso % [place] ([facility]) immature granulocyte % 0.6 % 0-3.0 normal Immature Gran ulocyte % [place] ([facility]) lymph # 1.2 10 1.5-5.0 Below low normal Lymph # [place] ( [facility]) mono # 0.8 10 0.0-0.8 normal [place] # [place] ([facility]) neutrophils # 4.1 10 1.5-8.5 normal Neutrophils # [place] ( [facility]) eos # 0.3 10 0.0-0.5 normal Eos # [place] ([facility]) baso # 0.0 10 0.0-0.2 normal Baso # [place] ([facility]) Procedure Social History Code Duration Value Status Description Data Source(s ) Smoking 03/23/2020 12:00:00 AM EDT Former Smoker completed Former Smoker eC ([facility]) Smoking 03/23/2020 12:00:00 AM EDT Former Smoker completed Former Smoker eCW1 ([facility]) Smoking 01/14/2020 12:00:00 AM EDT Former Smoker completed Former Smoker eCW1 ([facility]) Smoking 01/14/2020 12:00:00 AM EDT Former Smoker completed Former Smoker eCW1 ([facility]) Smoking 01/14/2020 12:00:00 AM EDT Former Smoker completed Former Smoker eCW1 ([facility]) Vital Signs ID Date Data Source UNK Name Value Range Interpretation Code Description Data Source(s) Body weight 4528 [oz_av] 4528 [oz_av] [place] ([facility]) Systolic blood pressure 166 mm[Hg] 166 mm[Hg] [facility] Body mass index (BMI) [Ratio] 33.6 kg/m2 33.6 k g/m2 [place] ([facility]) Body height 77 [in_i] 77 [in_i] [place] ([facility]) Diastolic blood pressure 91 mm[Hg] 91 mm[Hg] [place] ([facility]) Body weight 4572.8 [oz_av] 4572.8 [oz_av] ATHEN A ([facility]) Systolic blood pressure 102 mm[Hg] 102 mm[Hg] A [place] ([facility]) Body mass index (BMI) [Ratio] 33.9 kg/m2 33.9 k g/m2 [place] ([facility]) Body height 77 [in_i] 77 [in_i] [place] ([facility]) Diastolic blood pressure 66 mm[Hg] 66 mm[Hg] [place] ([facility]) Body weight 4572.8 [oz_av] 4572.8 [oz_av] ATHEN A ([facility]) Systolic blood pressure 102 mm[Hg] 102 mm[Hg] A [place] ([facility]) Body mass index (BMI) [Ratio] 33.9 kg/m2 33.9 k g/m2 [place] ([facility]) Body height 77 [in_i] 77 [in_i] [place] ([facility]) Diastolic blood pressure 66 mm[Hg] 66 mm[Hg] [place] ([facility]) Body weight 4572.8 [oz_av] 4572.8 [oz_av] ATHEN A ([facility]) Systolic blood pressure 102 mm[Hg] 102 mm[Hg] A [place] ([facility]) Body mass index (BMI) [Ratio] 33.9 kg/m2 33.9 k g/m2 [place] ([facility]) Body height 77 [in_i] 77 [in_i] [place] ([facility]) Diastolic blood pressure 66 mm[Hg] 66 mm[Hg] [place] ([facility]) Body weight 4572.8 [oz_av] 4572.8 [oz_av] ATHEN A ([facility]) Systolic blood pressure 102 mm[Hg] 102 mm[Hg] A [place] ([facility]) Body mass index (BMI) [Ratio] 33.9 kg/m2 33.9 k g/m2 [place] ([facility]) Body height 77 [in_i] 77 [in_i] [place] ([facility]) Diastolic blood pressure 66 mm[Hg] 66 mm[Hg] [place] ([facility]) Body weight 127.008 kg 127.008 kg MED[facility] ([facility], ) [place] body weight 208 [lb_av] 208 [lb_av] MEDEN T ([facility], ) Body mass index (BMI) [Ratio] 33.2 kg/m2 33.2 k g/m2 [facility] ([facility], ) Body weight 280.00 [lb_av] 280.00 [lb_av] MEDEN T ([facility], ) Body height 77 [in_i] 77 [in_i] MEDENT ([facility], ) 6'5" Diastolic blood pressure 74 mm[Hg] 74 mm[Hg] [facility] ([facility], ) Left 132/75 Systolic blood pressure 148 mm[Hg] 148 mm[Hg] [facility] Left 132/75 Body weight 127.008 kg 127.008 [facility] [place] body weight 208 [lb_av] 208 [lb_av] MEDEN T ([facility], ) Body mass index (BMI) [Ratio] 33.2 kg/m2 33.2 k g/m2 [facility] Body weight 280.00 [lb_av] 280.00 [lb_av] MEDEN T ([facility], ) Stated Body height 77 [in_i] 77 [in_i] MEDENT ([facility], ) 6'5" Diastolic blood pressure 95 mm[Hg] 95 mm[Hg] MEDENT ([facility], ) Systolic blood pressure 167 mm[Hg] 167 mm[Hg] M EDENT ([facility], ) Diastolic blood pressure 70 mm[Hg] 70 mm[Hg] eCW1 ([facility]) Systolic blood pressure 110 mm[Hg] 110 mm[Hg] e CW1 ([facility]) Body temperature 97 [degF] 97 [degF] eCW1 ([facility], [facility]) Respiratory rate 20 /min 20 /min eCW1 ([facility], [facility]) Heart rate 88 /min 88 /min eCW1 ([facility]) Body mass index (BMI) [Ratio] 34.03 kg/m2 34.03 kg/m2 eCW1 ([facility]) Body height 77 [in_us] 77 [in_us] eCW1 ([facility]) Body weight Measured 287 [lb_av] 287 [lb_av] eC W1 ([facility]) Diastolic blood pressure 76 mm[Hg] 76 mm[Hg] eCW1 ([facility]) Systolic blood pressure 126 mm[Hg] 126 mm[Hg] e CW1 ([facility]) Body temperature 98.7 [degF] 98.7 [degF] eCW1 ( [facility]) Respiratory rate 20 /min 20 /min eCW1 ([facility], [facility]) Heart rate 76 /min 76 /min eCW1 ([facility]) Body mass index (BMI) [Ratio] 34.67 kg/m2 34.67 kg/m2 eCW1 ([facility]) Body height 77 [in_us] 77 [in_us] eCW1 ([facility]) Body weight Measured 292.4 [lb_av] 292.4 [lb_av ] eCW1 ([facility]) Diastolic blood pressure 78 mm[Hg] 78 mm[Hg] eCW1 ([facility]) Systolic blood pressure 120 mm[Hg] 120 mm[Hg] e CW1 ([facility]) Body temperature 98.2 [degF] 98.2 [degF] eCW1 ( [facility]) Respiratory rate 20 /min 20 /min eCW1 ([facility], 1928[facility]) Heart rate 102 /min 102 /min eCW1 ([facility]) Body mass index (BMI) [Ratio] 34.48 kg/m2 34.48 kg/m2 W1 ([facility]) Body height 77 [in_us] 77 [in_us] [facility] ([facility]) Body weight Measured 290.8 [lb_av] 290.8 [lb_av ] W1 ([facility]) Body weight 132.168 kg 132.168 kg [facility] ([facility], ) Body mass index (BMI) [Ratio] 34.5 kg/m2 34.5 k g/m2 [facility] ([facility]) Body weight 291.38 [lb_av] 291.38 [lb_av] [facility] Body height 77 [in_i] 77 [in_i] [facility] ([facility]) 6'5" Diastolic blood pressure 78 mm[Hg] 78 mm[Hg] [facility] ([facility]) Systolic blood pressure 126 mm[Hg] 126 mm[Hg] [facility] Patient Treatment Plan of Care Planned Activity Planned Date Details Description Data Source (s) tramadol hydrochloride 50 MG Oral Tablet [Ultram] 01/14/2020 12: 00:00 AM EDT [facility] ([facility]) tramadol hydrochloride 50 MG Oral Tablet [Ultram] 01/14/2020 12: 00:00 AM EDT eCW ([facility]) tramadol hydrochloride 50 MG Oral Tablet [Ultram] 01/14/2020 12: 00:00 AM EDT eCW ([facility]) tramadol hydrochloride 50 MG Oral Tablet [Ultram] 01/14/2020 12: 00:00 AM EDT eCW1 ([facility]) tramadol hydrochloride 50 MG Oral Tablet [Ultram] 01/14/2020 12: 00:00 AM EDT eCW ([facility]) tramadol hydrochloride 50 MG Oral Tablet [Ultram] 01/14/2020 12: 00:00 AM EDT eCW ([facility]) Hospital bed 10/29/2019 12:00:00 AM EST e CW1 ([facility]) Aspirin 81 MG Delayed Release Oral Tablet 10/15/2019 12:00:00 AM ES T eCW1 ([facility]) Amlodipine 10 MG Oral Tablet [place] ([facility]) tramadol hydrochloride 50 MG Oral Tablet [place] ([facility]) Sucralfate 1000 MG Oral Tablet [place] ([facility]) pantoprazole 40 MG Delayed Release Oral Tablet [place] ([facility]) Lisinopril 10 MG Oral Tablet [place] ([facility]) Amlodipine 10 MG Oral Tablet [place] ([facility]) tramadol hydrochloride 50 MG Oral Tablet [place] ([facility]) Sucralfate 1000 MG Oral Tablet [place] ([facility]) pantoprazole 40 MG Delayed Release Oral Tablet [place] ([facility]) Lisinopril 10 MG Oral Tablet [place] ([facility]) Amlodipine 10 MG Oral Tablet [place] ([facility]) tramadol hydrochloride 50 MG Oral Tablet [place] ([facility] Sucralfate 1000 MG Oral Tablet [place] ([facility]) pantoprazole 40 MG Delayed Release Oral Tablet [place] ([facility]) Lisinopril 10 MG Oral Tablet [place] ([facility]) Amlodipine 10 MG Oral Tablet [place] ([facility]) tramadol hydrochloride 50 MG Oral Tablet [place] ([facility]) Sucralfate 1000 MG Oral Tablet [place] ([facility]) pantoprazole 40 MG Delayed Release Oral Tablet [place] ([facility]) Lisinopril 10 MG Oral Tablet [place] ([facility])
[2020-09-11] MEDS: **NOTE PATIENT COMMENT** MISC XX SCH (21:50)
[2020-09-11] MEDS: ENOXAPARIN 60MG/0.6ML SYRINGE (J1650 PER 10MG) SC SCH (21:50)
[2020-09-11] MEDS ORDERED: REMDESIVIR 200 MG in NS 250 ML IV ONE (22:30)
[2020-09-12] VITALS (9 sets, daily range): BP systolic 128–149; BP diastolic 73–89; O2SAT 91–94
[2020-09-12] MEDS ORDERED: LABETALOL 100MG/20ML VIAL IV PRN (00:30)
[2020-09-12] MEDS ORDERED: SODIUM CHLORIDE 0.9% INJ 10 ML SYR IV ONE (00:30)
[2020-09-12] MEDS: NS 1,000 ML IV SCH ×2 (04:00→12:28)
--- NOTE | 2020-09-12 08:56 | ECGEPIP ---
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
[2020-09-12] MEDS: ASPIRIN 81 MG ENTERIC TAB PO SCH (09:41)
[2020-09-12] MEDS: dexameTHASONE 4 MG/ML 1ML VIAL (J1100 PER 1MG) IV SCH (09:42)
[2020-09-12] MEDS: amLODIPine 5 MG TAB PO SCH (09:42)
[2020-09-12] MEDS: traMADol 50 MG TAB PO PRN ×2 (09:43→22:51)
[2020-09-12 10:15] LABS: BASO % 0.2 % (0.0-1.0); HEMATOCRIT 49.7 % (42.0-52.0); HEMOGLOBIN 15.7 g/dl (13.5-17.5); LYMPH # 0.5 10^3/uL (1.5-5.0); LYMPH % 3.7 % (24.0-44.0); MEAN CORPUSCULAR HEMOGLOBIN 31.3 pg (27.0-33.0); MEAN CORPUSCULAR HGB CONC 31.6 g/dl (32.0-36.5); MEAN CORPUSCULAR VOLUME 99.2 fl (80.0-96.0); MONO # 0.6 10^3/uL (0.0-0.8); MONO % 5.1 % (0.0-5.0); NEUTROPHILS # 10.9 10^3/uL (1.5-8.5); NEUTROPHILS % 90.4 % (36.0-66.0); PLATELET COUNT, AUTOMATED 129 10^3/uL (150-450); RED BLOOD COUNT 5.01 10^6/uL (4.30-6.10)
[2020-09-12 10:32] LABS: INR 1.19; PROTHROMBIN TIME 15.3 SECONDS (12.5-14.3)
[2020-09-12 10:33] LABS: PARTIAL THROMBOPLASTIN TIME 30.2 SECONDS (24.2-38.5)
[2020-09-12 10:43] LABS: ALBUMIN 3.3 GM/DL (3.2-5.2); BILIRUBIN,DIRECT 0.2 MG/DL (0.0-0.2); BILIRUBIN,TOTAL 0.6 MG/DL (0.2-1.0); CALCIUM LEVEL 8.9 MG/DL (8.8-10.2); CREATININE FOR GFR 1.3 MG/DL (0.70-1.30); MAGNESIUM LEVEL 2.3 MG/DL (1.8-2.4); POTASSIUM SERUM 4.3 MEQ/L (3.5-5.1); TOTAL PROTEIN 6.4 GM/DL (6.4-8.2)
[2020-09-12] MEDS: BACLOFEN 10 MG TAB PO SCH ×2 (12:13→22:51)
[2020-09-12] MEDS: NITROGLYCERIN 0.4 MG/HR PATCH TD SCH (12:13)
[2020-09-12] MEDS: ATENOLOL 12.5MG PER 1/2 TABLET PO SCH (12:14)
[2020-09-12] MEDS: ENOXAPARIN 60MG/0.6ML SYRINGE (J1650 PER 10MG) SC SCH ×2 (12:28→22:52)
[2020-09-12] MEDS ORDERED: FUROSEMIDE 40 MG TAB PO ONE (18:45)
--- NOTE | 2020-09-12 18:55 | IPNPDOC ---
Text Note Date of Service The patient was seen on 09/12/20. NOTE Subjective: No any acute events overnight. Patient continues to complain of s hortness of breath and generalized weakness Objective: GENERAL APPEARANCE: NAD HEENT: no scleral icterus, no JVD, EOMI CARDIOVASCULAR: S1S2 LUNGS: Diminished lung sounds bilaterally ABDOMEN: soft & not tender w palpitation MUSCULOSKELETAL: no cyanosis, no swelling INTEGUMENT: no generalized pallor NEUROLOGICAL: cranial nerve function from 2-12 intact intact, follows commands, speech not dysarthric ASSESSMENT: 75 yo M with a PMHx of syncope, afib (pt chose not to be anticoagulated), loop recorder, hypertension, admitted with covid-19 infection due to hypoxia. Community acquired pneumonia Secondary to Covid-19 infection Chest x-ray showed Findings suggesting subtle scattered bilateral opa cities/airspace disease. Continue dexamethasone, and remdesivir weight based lovenox 0.5 mg/kg q12h Pro calcitonin elevated, levofloxacin by mouth Labs per protocol Covid-19 infection See above CHF exacerbation Secondary to fluid overload due to IV therapy BNP elevated over 1000 Most likely diastolic I's and O's Lasix IV [place] Resolved Chronic atrial fibrillation not on anticoagulation per choice s/p Watchmen device PAD cw home meds, ASA HTN - BP elevated, resume home meds: atenolol, amlodipine - labetalol 10 mg IV q6h for SBP > 170 GERD PPI VS,Fishbone, I+O VS, Fishbone, I+O Laboratory Tests 09/12/20 09:39 Vital Signs Date Time Temp Pulse Resp B/P (MAP) Pulse Ox O2 Delivery O2 Flow Rate FiO2 09/12/20 16:00 97.1 21 104 139/87 (104) 95 Nasal Cannula 2.0 I&O- Last 24 Hours up to 6 AM 09/12/20 06:00 Intake Total 805 ml Balance 805 ml FRANCIE PENA DO Sep 12, 2020 18:54
[2020-09-12] MEDS ORDERED: ALBUTEROL 90 MCG/ACT 8GM HFA INHALER INH PRN (19:00)
[2020-09-12] MEDS ORDERED: LevoFLOXacin 500 MG TABLET PO ONE (19:00)
[2020-09-12] MEDS: ACETAMINOPHEN TAB 650MG DOSE (2X325MG) PO PRN (20:17)
[2020-09-12] MEDS: **NOTE PATIENT COMMENT** MISC XX SCH (20:28)
[2020-09-13] VITALS (9 sets, daily range): BP systolic 100–161; BP diastolic 59–85; O2SAT 92–93
[2020-09-13] MEDS: ACETAMINOPHEN TAB 650MG DOSE (2X325MG) PO PRN ×2 (01:33→07:04)
[2020-09-13 06:16] LABS: BASO % 0.2 % (0.0-1.0); HEMATOCRIT 50.9 % (42.0-52.0); HEMOGLOBIN 16.3 g/dl (13.5-17.5); LYMPH # 0.5 10^3/uL (1.5-5.0); LYMPH % 3.7 % (24.0-44.0); MEAN CORPUSCULAR HEMOGLOBIN 31.8 pg (27.0-33.0); MEAN CORPUSCULAR VOLUME 99.4 fl (80.0-96.0); MONO # 1.2 10^3/uL (0.0-0.8); NEUTROPHILS # 11.6 10^3/uL (1.5-8.5); NEUTROPHILS % 86.3 % (36.0-66.0); PLATELET COUNT, AUTOMATED 147 10^3/uL (150-450); RED BLOOD COUNT 5.12 10^6/uL (4.30-6.10); WHITE BLOOD COUNT 13.5 10^3/uL (4.0-10.0)
[2020-09-13 06:39] LABS: INR 1.16
[2020-09-13 06:40] LABS: PARTIAL THROMBOPLASTIN TIME 34.6 SECONDS (24.2-38.5)
[2020-09-13 06:50] LABS: ALBUMIN 3.3 GM/DL (3.2-5.2); BILIRUBIN,DIRECT 0.3 MG/DL (0.0-0.2); BILIRUBIN,TOTAL 0.7 MG/DL (0.2-1.0); CALCIUM LEVEL 8.6 MG/DL (8.8-10.2); CREATININE FOR GFR 1.44 MG/DL (0.70-1.30); GLOMERULAR FILTRATION RATE 50.6 (>42); MAGNESIUM LEVEL 2.3 MG/DL (1.8-2.4); TOTAL PROTEIN 6.3 GM/DL (6.4-8.2)
[2020-09-13] MEDS: REMDESIVIR 100 MG in NS 250 ML IV SCH (07:04)
[2020-09-13] MEDS: ATENOLOL 12.5MG PER 1/2 TABLET PO SCH (07:11)
[2020-09-13] MEDS ORDERED: VANCOMYCIN HCL 1,000 MG, VIAL MATE ADAPTER 1 EACH in D5W 250 ML IV SCH (08:15)
[2020-09-13] MEDS ORDERED: FUROSEMIDE 40 MG TAB PO SCH ×2 (09:00)
[2020-09-13] MEDS: PIPERACILLIN/TAZOBACTAM SOD 3.375 GM in D5W MINI-BAG PLUS 50 ML IV SCH ×3 (10:53→20:06)
[2020-09-13] MEDS: BACLOFEN 10 MG TAB PO SCH ×2 (10:55→20:05)
[2020-09-13] MEDS: dexameTHASONE 4 MG/ML 1ML VIAL (J1100 PER 1MG) IV SCH (10:55)
[2020-09-13] MEDS: ENOXAPARIN 60MG/0.6ML SYRINGE (J1650 PER 10MG) SC SCH ×2 (10:55→20:06)
[2020-09-13] MEDS: ASPIRIN 81 MG ENTERIC TAB PO SCH (10:55)
[2020-09-13] MEDS: amLODIPine 5 MG TAB PO SCH (10:56)
[2020-09-13] MEDS: traMADol 50 MG TAB PO PRN ×2 (11:11→20:45)
[2020-09-13] MEDS: NS 1,000 ML IV SCH ×2 (11:12→20:05)
[2020-09-13] MEDS: NITROGLYCERIN 0.4 MG/HR PATCH TD SCH (11:12)
[2020-09-13] MEDS: SODIUM CHLORIDE 0.9% INJ 10 ML SYR IV SCH (11:13)
[2020-09-13] MEDS ORDERED: VANCOMYCIN HCL 1,000 MG, VIAL MATE ADAPTER 1 EACH in D5W 250 ML IV ONE ×2 (13:00→14:00)
--- NOTE | 2020-09-13 16:07 | IPNPDOC ---
Text Note Date of Service The patient was seen on 09/13/20. NOTE Subjective: Patient continues to complain of generalized weakness and fatigue Objective: GENERAL APPEARANCE: NAD HEENT: no scleral icterus, no JVD, EOMI CARDIOVASCULAR: S1S2 LUNGS: Diminished lung sounds bilaterally ABDOMEN: soft & not tender w palpitation MUSCULOSKELETAL: no cyanosis, no swelling INTEGUMENT: no generalized pallor NEUROLOGICAL: cranial nerve function from 2-12 intact intact, follows commands, speech not dysarthric ASSESSMENT: 75 yo M with a PMHx of syncope, afib (pt chose not to be anticoagulated), loop recorder, hypertension, admitted with covid-19 infection due to hypoxia. Sepsis Secondary to pneumonia due to Covid-19 infection Patient has increased leukocytosis, tachypnea and tachycardia One set of blood culture positive for gram-positive cocci in clusters Gentle IV fluid in light of diastolic CHF Will repeat blood culture Continue broad-spectrum antibiotics Community acquired pneumonia Secondary to Covid-19 infection Chest x-ray showed Findings suggesting subtle scattered bilateral opacities/airspace disease. Continue dexamethasone, and remdesivir weight based lovenox 0.5 mg/kg q12h Pro calcitonin elevated One set of blood culture came back positive for gram-positive cocci in clusters Vancomycin IV, Zosyn IV MRSA screen Covid-19 infection See above CHF exacerbation Secondary to fluid overload due to IV therapy BNP elevated to 2643. IV the Lasix on hold due to sepsis Most likely diastolic I's and O's [place] Worsening today Continue IV fluid Continue to monitor Chronic atrial fibrillation not on anticoagulation per choice s/p Watchmen device PAD cw home meds, ASA HTN Blood pressure under control home meds: atenolol, amlodipine - labetalol 10 mg IV q6h for SBP > 170 GERD PPI VS,Fishbone, I+O VS, Fishbone, I+O Laboratory Tests 09/13/20 06:02 Vital Signs Date Time Temp Pulse Resp B/P (MAP) Pulse Ox O2 Delivery O2 Flow Rate FiO2 09/13/20 14:40 97.1 114 24 122/59 (80) 95 Nasal Cannula 2.0 I&O- Last 24 Hours up to 6 AM 09/13/20 06:00 Intake Total 1390 ml Output Total 400 ml Balance 990 ml FRANCIE PENA DO Sep 13, 2020 16:07
[2020-09-13] MEDS ORDERED: LevoFLOXacin 500 MG TABLET PO SCH (18:00)
[2020-09-13] MEDS: **NOTE PATIENT COMMENT** MISC XX SCH (20:00)
[2020-09-14] VITALS: BP 146/70
[2020-09-14] MEDS: ACETAMINOPHEN TAB 650MG DOSE (2X325MG) PO PRN ×4 (00:11→23:09)
[2020-09-14] MEDS ORDERED: VANCOMYCIN HCL 750 MG, VIAL MATE ADAPTER 1 EACH in D5W 250 ML IV SCH (02:00)
[2020-09-14] MEDS ORDERED: VANCOMYCIN HCL 500 MG in D5W MINI-BAG PLUS 100 ML IV SCH (03:00)
[2020-09-14 04:16] VITALS: BP 132/82
[2020-09-14] MEDS: PIPERACILLIN/TAZOBACTAM SOD 3.375 GM in D5W MINI-BAG PLUS 50 ML IV SCH ×4 (04:40→21:35)
[2020-09-14] MEDS ORDERED: ACETAMINOPHEN TAB 650MG DOSE (2X325MG) PO ONE (04:45)
[2020-09-14] MEDS: REMDESIVIR 100 MG in NS 250 ML IV SCH (05:55)
[2020-09-14 07:53] LABS: BASO % 0.1 % (0.0-1.0); HEMATOCRIT 43.7 % (42.0-52.0); LYMPH # 0.4 10^3/uL (1.5-5.0); LYMPH % 4.7 % (24.0-44.0); MEAN CORPUSCULAR HEMOGLOBIN 31.6 pg (27.0-33.0); MEAN CORPUSCULAR HGB CONC 32.5 g/dl (32.0-36.5); MEAN CORPUSCULAR VOLUME 97.3 fl (80.0-96.0); MONO # 0.7 10^3/uL (0.0-0.8); MONO % 9.2 % (0.0-5.0); NEUTROPHILS # 6.7 10^3/uL (1.5-8.5); NEUTROPHILS % 84.9 % (36.0-66.0); PLATELET COUNT, AUTOMATED 116 10^3/uL (150-450); RED BLOOD COUNT 4.49 10^6/uL (4.30-6.10); WHITE BLOOD COUNT 7.9 10^3/uL (4.0-10.0)
[2020-09-14 08:01] LABS: HEMOGLOBIN 14.2 g/dl (13.5-17.5)
[2020-09-14] MEDS: ENOXAPARIN 60MG/0.6ML SYRINGE (J1650 PER 10MG) SC SCH (08:17)
[2020-09-14] MEDS: dexameTHASONE 4 MG/ML 1ML VIAL (J1100 PER 1MG) IV SCH (08:17)
[2020-09-14 08:18] LABS: PARTIAL THROMBOPLASTIN TIME 39.5 SECONDS (24.2-38.5)
[2020-09-14] MEDS: NS 1,000 ML IV SCH (08:18)
[2020-09-14] MEDS: NITROGLYCERIN 0.4 MG/HR PATCH TD SCH (08:19)
[2020-09-14] MEDS: SODIUM CHLORIDE 0.9% INJ 10 ML SYR IV SCH (08:19)
[2020-09-14] MEDS: ASPIRIN 81 MG ENTERIC TAB PO SCH (08:19)
[2020-09-14] MEDS: amLODIPine 5 MG TAB PO SCH (08:20)
[2020-09-14] MEDS: ATENOLOL 12.5MG PER 1/2 TABLET PO SCH (08:20)
[2020-09-14] MEDS: BACLOFEN 10 MG TAB PO SCH ×2 (08:20→21:33)
[2020-09-14 08:28] LABS: ALBUMIN 2.5 GM/DL (3.2-5.2); ALT/SGPT 34 U/L (12-78); BILIRUBIN,DIRECT 0.4 MG/DL (0.0-0.2); BILIRUBIN,TOTAL 0.7 MG/DL (0.2-1.0); BLOOD UREA NITROGEN 40 MG/DL (7-18); CARBON DIOXIDE LEVEL 24 MEQ/L (21-32); CHLORIDE LEVEL 103 MEQ/L (98-107); CREATININE FOR GFR 1.22 MG/DL (0.70-1.30); FERRITIN 1580 NG/ML (26-388); GLOMERULAR FILTRATION RATE > 60.0 (>42); GLUCOSE, FASTING 263 MG/DL (70-100); MAGNESIUM LEVEL 2.2 MG/DL (1.8-2.4); NT-PRO BNP 1370 PG/ML (<450); POTASSIUM SERUM 4.2 MEQ/L (3.5-5.1); SODIUM LEVEL 136 MEQ/L (136-145)
[2020-09-14 08:53] LABS: INR 1.25
[2020-09-14] MEDS ORDERED: FUROSEMIDE 40MG/4ML VIAL (J1940) IV ONE (11:15)
--- NOTE | 2020-09-14 14:00 | IPNPDOC ---
Text Note Date of Service The patient was seen on 09/14/20. NOTE Subjective Patient is having slight worsening in the respiratory symptoms and currently is on 4 L. She has diffuse crackles and has been given some diuretics today. Objective: GENERAL APPEARANCE: NAD HEENT: no scleral icterus, no JVD, EOMI CARDIOVASCULAR: S1S2 LUNGS: Diminished lung sounds bilaterally along with 5 vessels or crackles, which are coarse ABDOMEN: soft & not tender w palpitation MUSCULOSKELETAL: no cyanosis, no swelling INTEGUMENT: no generalized pallor NEUROLOGICAL: cranial nerve function from 2-12 intact intact, follows commands, speech not dysarthric ASSESSMENT: 75 yo M with a PMHx of syncope, afib rate controlled (pt chose not to be anticoagulated), hypertension, admitted with covid-19 infection due to hypoxia. Initially was requiring 2 L and now is requiring 4-5 L. There were concerns of lactic acidosis and sepsis and for that reason, the patient got some IV fluids and potentially resulted in some fluid overload/exacerbation of diastolic CHF and now has been started on some diuretics. PT, OT is also working with the patient. 1. pneumonia due to Covid-19 infection. Continue monitoring and supplemental oxygen to maintain saturation about 92. He also has been started on IV Zosyn because of possibility of superimposed pneumonia and vancomycin has been discontinued because MRSA screen is negative. One set of blood culture positive for gram-positive cocci in clusters. All others have been negative. Possibly this is contamination. Procal was also elevated justifying the use of antibiotics. Lanoxin 0.5 mg per KG body weight twice a day 2. [place] : Stable. Continue to monitor input output monitoring. Avoid any nephrotoxic drugs. 3. Chronic atrial fibrillation: s/p Watchmen device 4. Diastolic heart failure exacerbation. The patient has bibasilar crackles and will be given 40 of IV Lasix. Input output monitoring. 2 g sodium restriction. All the IV fluids have been discontinued Disposition unknown at this time VS,Fishbone, I+O VS, Fishbone, I+O Laboratory Tests 09/14/20 06:49 Vital Signs Date Time Temp Pulse Resp B/P (MAP) Pulse Ox O2 Delivery O2 Flow Rate FiO2 09/14/20 08:20 109 146/74 09/14/20 08:00 99.2 21 89 Nasal Cannula 2.0 I&O- Last 24 Hours up to 6 AM 09/14/20 06:00 Intake Total 1740 ml Balance 1740 ml STIVEN WOODY MD Sep 14, 2020 14:00
[2020-09-14 18:00] VITALS: BP 114/76
[2020-09-14] MEDS: traMADol 50 MG TAB PO PRN ×2 (18:19→23:10)
--- NOTE | 2020-09-14 18:43 | IPNPDOC ---
Text Note Date of Service The patient was seen on 09/14/20. NOTE Interval update / Upgrade order: I was called at 5:22 and informed that patient has been having increasing oxygen requirements while on a non-rebreather mask. I have transferred the patient to PCU (currently in the ICU because of lack of Vapotherm capability). Patient has been started on Vapotherm therapy (30 L per min /FIO2 of 80%) with a saturation of >90%. Patient has indicated that his breathing has improved while on vaopotherm therapy. Patient has a history of atrial fibrillation and currently he is in a-fib with rates that are approximately 100-120. - Will check CXR / ABG / D-Dimer / CRP. - Will stop Atenolol; will start Metoprolol tartrate 12.5mg PO [id number] - Will increase anticoagulation to therapeutic dosing of Lovenox - c/w Telemetry monitoring VS,Fishbone, I+O VS, Fishbone, I+O Laboratory Tests 09/14/20 06:49 Vital Signs Date Time Temp Pulse Resp B/P (MAP) Pulse Ox O2 Delivery O2 Flow Rate FiO2 09/14/20 18:19 98.2 124 30 114/76 30.0 80 09/14/20 14:00 90 Nasal Cannula I&O- Last 24 Hours up to 6 AM 09/14/20 06:00 Intake Total 1740 ml Balance 1740 ml KODY FRAZIER MD Sep 14, 2020 18:43
[2020-09-14] MEDS: METOPROLOL TART 12.5 MG PER 1/2 TAB PO SCH ×2 (18:45→23:10)
[2020-09-14 18:47] LABS: ABG BASE EXCESS 2.3 (-2.0-2.0); ABG HCO3 24.9 MEQ/L (22.0-26.0); ABG O2 SATURATION 93.5 % (95.0-99.0); ABG PARTIAL PRESSURE O2 60.7 mmHg (75.0-100.0); ABG STANDARD HCO3 26.4 MEQ/L (22.0-26.0); ABG TOTAL CO2 25.9 MEQ/L (23.0-31.0); ABG pH (ARTERIAL) 7.495 UNITS (7.350-7.450)
--- NOTE | 2020-09-14 18:56 | REP ---
INDICATION: SOB. COMPARISON: 09/11/2020 TECHNIQUE: Portable exam. The patient is tilted and rotated to the left. The right lung apex has not been included on the portable radiograph. FINDINGS: The technique utilized in obtaining the radiograph has magnified the cardiac silhouette and accentuated the interstitial markings. Scattered patchy airspace opacities are present particularly right upper lobe and throughout the left lung. Although the examinations are markedly technically different the findings do appear to be increased compared to the latest prior exam. IMPRESSION: Abnormal lung field opacities as described above. Asymmetric pulmonary edema versus patchy pneumonia. Consider PA and lateral views of the chest. <Electronically signed by Jesus Vasquez > 09/14/20 [id number]
[2020-09-14 19:01] VITALS: BP 136/90
[2020-09-14 20:00] VITALS: BP 145/84
[2020-09-14 21:00] VITALS: BP 131/86
[2020-09-14] MEDS ORDERED: RAMELTEON 8 MG TAB (ROZEREM) PO SCH (21:00)
[2020-09-14] MEDS: ENOXAPARIN 150MG/ML SYRINGE (J1650 PER 10MG) SC SCH (21:33)
[2020-09-14] MEDS: **NOTE PATIENT COMMENT** MISC XX SCH (21:36)
[2020-09-15] VITALS (21 sets, daily range): BP systolic 10–148; BP diastolic 10–85
[2020-09-15] MEDS: PIPERACILLIN/TAZOBACTAM SOD 3.375 GM in D5W MINI-BAG PLUS 50 ML IV SCH ×4 (03:48→21:04)
[2020-09-15] MEDS: METOPROLOL TART 12.5 MG PER 1/2 TAB PO SCH (05:09)
[2020-09-15] MEDS: REMDESIVIR 100 MG in NS 250 ML IV SCH (05:09)
[2020-09-15 05:11] LABS: BASO % 0.4 % (0.0-1.0); HEMATOCRIT 47.2 % (42.0-52.0); HEMOGLOBIN 15.2 g/dl (13.5-17.5); LYMPH # 0.4 10^3/uL (1.5-5.0); LYMPH % 5.2 % (24.0-44.0); MEAN CORPUSCULAR HGB CONC 32.2 g/dl (32.0-36.5); MEAN CORPUSCULAR VOLUME 96.1 fl (80.0-96.0); MONO # 0.7 10^3/uL (0.0-0.8); MONO % 8.8 % (0.0-5.0); NEUTROPHILS % 84.8 % (36.0-66.0); PLATELET COUNT, AUTOMATED 121 10^3/uL (150-450); RED BLOOD COUNT 4.91 10^6/uL (4.30-6.10); WHITE BLOOD COUNT 8.3 10^3/uL (4.0-10.0)
[2020-09-15 05:33] LABS: FIBRINOGEN 639 MG/DL (221-452); INR 1.24; PARTIAL THROMBOPLASTIN TIME 38.7 SECONDS (24.2-38.5); PROTHROMBIN TIME 15.9 SECONDS (12.5-14.3)
[2020-09-15 05:53] LABS: ALBUMIN 2.6 GM/DL (3.2-5.2); BILIRUBIN,DIRECT 0.4 MG/DL (0.0-0.2); BILIRUBIN,TOTAL 0.8 MG/DL (0.2-1.0); CALCIUM LEVEL 8.1 MG/DL (8.8-10.2); CREATININE FOR GFR 1.43 MG/DL (0.70-1.30); MAGNESIUM LEVEL 2.3 MG/DL (1.8-2.4); POTASSIUM SERUM 4.3 MEQ/L (3.5-5.1); TOTAL PROTEIN 5.6 GM/DL (6.4-8.2)
[2020-09-15 06:00] LABS: D-DIMER QUANT > 4000 ng/ml (<500)
[2020-09-15] MEDS: SODIUM CHLORIDE 0.9% INJ 10 ML SYR IV SCH (06:41)
[2020-09-15] MEDS: NITROGLYCERIN 0.4 MG/HR PATCH TD SCH (08:34)
[2020-09-15] MEDS: ASPIRIN 81 MG ENTERIC TAB PO SCH ×2 (08:34→09:00)
[2020-09-15] MEDS: ACETAMINOPHEN TAB 650MG DOSE (2X325MG) PO PRN (08:34)
[2020-09-15] MEDS: BACLOFEN 10 MG TAB PO SCH ×2 (08:35→09:00)
[2020-09-15] MEDS: traMADol 50 MG TAB PO PRN (08:35)
[2020-09-15] MEDS: ENOXAPARIN 150MG/ML SYRINGE (J1650 PER 10MG) SC SCH ×2 (08:36→21:03)
[2020-09-15] MEDS ORDERED: FUROSEMIDE 20MG/2ML VIAL (J1940) IV ONE (10:00)
[2020-09-15] MEDS ORDERED: MORPHINE 2 MG/ML 1ML VIAL (J2270) As Ordered ONE (10:23)
[2020-09-15] MEDS ORDERED: MORPHINE 2 MG/ML 1ML VIAL (J2270) IV PRN (10:30)
[2020-09-15] MEDS ORDERED: ACETAMINOPHEN *IV* 1,000 MG in IV 1 EA IV PRN (11:30)
[2020-09-15] MEDS ORDERED: METOPROLOL 5 MG/5 ML VIAL IV SCH (12:00)
[2020-09-15] MEDS: ACETAMINOPHEN 650 MG SUPP PR PRN (12:23)
--- NOTE | 2020-09-15 13:13 | IPNPDOC ---
Text Note Date of Service The patient was seen on 09/15/20. NOTE Patient was seen and examined this morning. The patient is in ICU care. Right now, requiring 100% FiO2 and 40 L on Vapotherm. He also is more confused than yesterday and because of his A. fib and RVR has been started on Cardizem drip. Objective: GENERAL : He is is really arousable but not oriented to time, place and person HEENT: no scleral icterus, no JVD, EOMI CARDIOVASCULAR: S1S2 LUNGS: Diminished lung sounds bilaterally with diffuse rhonchi and bibasilar crackles. ABDOMEN: soft & not tender to palpitation MUSCULOSKELETAL: no cyanosis, no swelling INTEGUMENT: no generalized pallor NEUROLOGICAL: Limited as he is not following, aunts ASSESSMENT: 75 yo M with past medical history of syncope, afib rate status post watchman's device, hypertension, admitted with covid-19 infection due to hypoxia. Initially was requiring 2 L and now has to do dated and requiring 40 L and 100% FiO2 on Vapotherm. Initially there were concerns of lactic acidosis and sepsis and for that reason, the patient got some IV fluids and potentially resulted in some fluid overload/exacerbation of diastolic CHF and now has been started on some diuretics. Because of worsening hypoxemia. He has developed A. fib with RVR with rates in 120s to 140s and for that reason, he has been started on Cardizem drip. He also is on full dose anticoagulation as his d-dimer is more than 4000 1. Pneumonia due to Covid-19 infection. Continue monitoring and supplemental oxygen to maintain saturation about 92. He also has been started on IV Zosyn because of possibility of superimposed pneumonia and high procalcitonin and vancomycin has been discontinued because MRSA screen is negative. One set of blo od culture positive for gram-positive cocci in clusters. All others have been negative. Possibly this is contamination. Lanoxin at a therapeutic dose of 120 mg subcutaneous twice a day as a d-dimer are more than 4000 2. [place] : Stable. Continue to monitor input output monitoring. Avoid any nephrotoxic drugs. 3. A. fib with RVR. He does have watchman's device. currently he is in RVR and for that reason, he will be started on a Cardizem drip. 15 mg bolus is given and he'll be started on 5 mg per hour and titrated accordingly to maintain a heart rate below 100 4. Diastolic heart failure exacerbation. The patient had bibasilar crackles and will be given 40 of IV Lasix yesterday and will be given 20 more of IV Lasix today. Input output monitoring. 2 g sodium restriction. All the IV fluids have been discontinued CODE STATUS full code Disposition unknown at this time VS,Fishbone, I+O VS, Fishbone, I+O Laboratory Tests 09/15/20 05:02 Vital Signs Date Time Temp Pulse Resp B/P (MAP) Pulse Ox O2 Delivery O2 Flow Rate FiO2 09/15/20 12:01 146 136/74 (94) 92 09/15/20 12:00 101.3 HVNI-Vapotherm 40.0 100 09/15/20 10:40 30 I&O- Last 24 Hours up to 6 AM 09/15/20 06:00 Intake Total 1055 ml Output Total 2250 ml Balance -1195 ml STIVEN WOODY MD Sep 15, 2020 13:13
[2020-09-15] MEDS ORDERED: ACETAMINOPHEN *IV* 1,000 MG in IV 1 EA IV ONE (14:00)
[2020-09-15] MEDS: diltiaZEM 125 MG in NS 100 ML IV SCH ×2 (14:30→21:03)
[2020-09-15] MEDS ORDERED: DIGOXIN INJ 0.5 MG/2 ML AMP (J1160) IV ONE (16:45)
[2020-09-15] MEDS: dexameTHASONE 20MG/5ML VIAL (J1100 PER 1MG) IV SCH (17:00)
[2020-09-15] MEDS ORDERED: DEXTROSE 50% 50 ML SYRINGE IV PRN (17:30)
[2020-09-15] MEDS ORDERED: GLUCAGON INJ 1MG VIAL SC PRN (17:30)
[2020-09-15] MEDS ORDERED: GLUCOSE 4GM CHEW TABLET PO PRN (17:30)
[2020-09-15 17:44] LABS: ABG BASE EXCESS -0.9 (-2.0-2.0); ABG HCO3 22.7 MEQ/L (22.0-26.0); ABG O2 SATURATION 90.7 % (95.0-99.0); ABG PARTIAL PRESSURE CO2 34.9 mmHg (35.0-45.0); ABG PARTIAL PRESSURE O2 58.7 mmHg (75.0-100.0); ABG STANDARD HCO3 23.5 MEQ/L (22.0-26.0); ABG TOTAL CO2 23.8 MEQ/L (23.0-31.0); ABG pH (ARTERIAL) 7.431 UNITS (7.350-7.450)
[2020-09-15] MEDS: HumaLOG INSULIN (NovoLOG) PER UNIT SC SCH ×2 (17:48→23:20)
[2020-09-15 18:07] LABS: BASO % 0.5 % (0.0-1.0); HEMATOCRIT 47.1 % (42.0-52.0); HEMOGLOBIN 15.3 g/dl (13.5-17.5); LYMPH # 0.5 10^3/uL (1.5-5.0); LYMPH % 5.8 % (24.0-44.0); MEAN CORPUSCULAR HEMOGLOBIN 31.1 pg (27.0-33.0); MEAN CORPUSCULAR HGB CONC 32.5 g/dl (32.0-36.5); MEAN CORPUSCULAR VOLUME 95.7 fl (80.0-96.0); MONO # 0.7 10^3/uL (0.0-0.8); NEUTROPHILS # 7.3 10^3/uL (1.5-8.5); NEUTROPHILS % 84.3 % (36.0-66.0); PLATELET COUNT, AUTOMATED 127 10^3/uL (150-450); RED BLOOD COUNT 4.92 10^6/uL (4.30-6.10); WHITE BLOOD COUNT 8.7 10^3/uL (4.0-10.0)
--- NOTE | 2020-09-15 18:10 | IPNPDOC ---
Text Note Date of Service The patient was seen on 09/15/20. NOTE Interval update: I have provided cross-coverage for this patient between 4PM-7PM I was called and informed that patient is in A. fib with rate of 130-140 PROGRESS NOTE: Subjective: Patient is a 75-year-old male with a PMHx of Syncope, A.fib (s/p Watchman), HTN, Morbid obestiy, Chronic back pain, Hx of GI bleeding who presented to the ER after he had summoned EMS via his Life Alert button. Patient reported that he had fallen and landed on his bottom. Patient can get up and came to the emergency room for further evaluation. Patient had reported that he was short of breath, feeling weakness and chills over the last 3 days. In the ER, he had tested positive for COVID19. Patient was initially admitted to the COVID unit for continued to have deterioration. Patient was on dexamethasone, broad-spectrum antibiotics and Remdesivir. Patient was eventually transitioned to the ICU on 09/14; at that time was found to be in atrial fibrillation with RVR. Patient is currently on a Cardizem drip This morning patient was reported to be confused and unable to follow commands. Patient was seen and examined at the bedside. I had an extensive discussion with the patient, while on CPAP. Patient is oriented to person, place and time. He denies any chest pain. Reports that his breathing is doing better while on CPAP device. Denies any nausea, vomiting, abdominal pain, does report that he is thirsty. Patient has a Ochoa catheter in place. Objective: Vitals (See below) General: Lying in bed, appears comfortable, AAOx3 HEENT: NC, AT CVS: +S1S2 Lungs: Fair air entry b/l, course lung sounds bilaterally, difficulty to appreciate wheezing Abdomen: Soft, ND, NT, Obese Extremities: No appreciable pitting edema, - Calf tenderness Imaging: CXR (09/11): Findings suggesting subtle scattered bilateral opacities/airspace disease. CXR (09/14): Abnormal lung field opacities as described above. Asymmetric pulmonary edema versus patchy pneumonia. Consider PA and lateral views of the chest. Assessment and plan: Acute hypoxic respiratory failure - possibly 2/2 COVID19, possibly 2/2 superimposed bacterial infection - Currently patient is on VapoTherm therapy at 40L / 90% FIO2 - Will repeat inflammatory markers / Will check ABG - Will check CXR - Will c/w Zosyn (Day #3) - Will c/w Remdesivir (Day #3) - Will resume Corticosteroids (Dexamethasone Day #5) - Discussed with body team member; will start and continue CPAP at 10 A. fib with RVR - Hemodynamically stable - He has been given the maximum dose on his diltiazem drip - He has been given a dose of digoxin 0.5 mg IV - HR currently appears to have improved and is within 100-120s at the moment - Will continue telemetry monitoring - c/w Diltazem drip and Digoxin IV; will continue loading - c/w full anticoagulation with Lovenox therapeutic dosing (130 s/p Acute metabolic encephalopathy - possibly 2/2 medications - Currently patient is fully oriented to person, place and time - Is able to follow commands and has control of all 4 extremities - Will stop Morphine / Tramadol / Ramelteon / Baclofen - Will continue Neurological checks Blood contaminant - Repeat blood cultures negative [place] - Cr is currently trending up - Will avoid nephrotoxic medications - Will hold off on further diuresis - s/p Furosemide 20 IV from this morning - Has had significant diuresis at this time; >1000 within the last 12 hours Hyperglycemia - Will check HbA1c in M - Will start ISS [id number] - Will keep NPO Reported fall in while at home - Denied any lose of consciousness / head trauma - Moving all four extremities GERD - Hx of GI bleed - c/w Protonix DVT prophylaxis - Currently on full anticoagulation with Lovenox Code status: - Extensive discussion about goals of care - Currently patient wants to be full code and get intubated if the need arises - Patient does not want to a point anybody to become his healthcare proxy; reports that he has no children, no partner and no siblings [id number] Critical care time spent: 65 minutes (excluding advanced care planning) [id number] VS,Nayanbone, I+O VS, Fishbone, I+O Laboratory Tests 09/15/20 05:02 Vital Signs Date Time Temp Pulse Resp B/P (MAP) Pulse Ox O2 Delivery O2 Flow Rate FiO2 09/15/20 17:01 141 09/15/20 17:00 99.7 90/57 (68) 94 HVNI-Vapotherm 40.0 90 09/15/20 10:40 30 I&O- Last 24 Hours up to 6 AM 09/15/20 06:00 Intake Total 1055 ml Output Total 2250 ml Balance -1195 ml OKDY FRAZIER MD Sep 15, 2020 17:46
[2020-09-15 18:23] LABS: D-DIMER QUANT 3483.44 ng/ml (<500)
[2020-09-15 18:32] LABS: INR 1.26; PROTHROMBIN TIME 16.1 SECONDS (12.5-14.3)
--- NOTE | 2020-09-15 18:45 | REP ---
INDICATION: SOB. COMPARISON: 09/14/2020. TECHNIQUE: SINGLE PORTABLE AP VIEW OF THE CHEST WAS PERFORMED. FINDINGS: Scattered bilateral infiltrates are likely slightly improved. There appears to be chronic pleural thickening at the left costophrenic angle. The heart mediastinum are unchanged. IMPRESSION: Probable mild improvement of bilateral infiltrates. <Electronically signed by Yash Louie > 09/15/20 [id number]
[2020-09-15 18:55] LABS: ALBUMIN 2.5 GM/DL (3.2-5.2); BILIRUBIN,TOTAL 0.8 MG/DL (0.2-1.0); C REACTIVE PROTEIN QUANTITATIV 21.1 MG/DL (0.00-0.30); CALCIUM LEVEL 8.2 MG/DL (8.8-10.2); CREATININE FOR GFR 1.7 MG/DL (0.70-1.30); GLOMERULAR FILTRATION RATE 41.8 (>42); MAGNESIUM LEVEL 2.4 MG/DL (1.8-2.4); POTASSIUM SERUM 4.4 MEQ/L (3.5-5.1); TOTAL PROTEIN 5.4 GM/DL (6.4-8.2)
[2020-09-15] MEDS: **NOTE PATIENT COMMENT** MISC XX SCH (20:00)
[2020-09-15] MEDS: PANTOPRAZOLE 40MG VIAL (C9113 PER 1) IV SCH (21:07)
[2020-09-15] MEDS: DIGOXIN INJ 0.5 MG/2 ML AMP (J1160) IV SCH (23:17)
[2020-09-16] VITALS (41 sets, daily range): BP systolic 98–156; BP diastolic 51–89
[2020-09-16] MEDS: PIPERACILLIN/TAZOBACTAM SOD 3.375 GM in D5W MINI-BAG PLUS 50 ML IV SCH ×4 (03:17→20:17)
[2020-09-16 05:02] LABS: BASO % 0.2 % (0.0-1.0); HEMATOCRIT 45.6 % (42.0-52.0); HEMOGLOBIN 15.3 g/dl (13.5-17.5); LYMPH # 0.6 10^3/uL (1.5-5.0); LYMPH % 6.4 % (24.0-44.0); MEAN CORPUSCULAR HEMOGLOBIN 31.7 pg (27.0-33.0); MEAN CORPUSCULAR HGB CONC 33.6 g/dl (32.0-36.5); MEAN CORPUSCULAR VOLUME 94.4 fl (80.0-96.0); MONO # 0.6 10^3/uL (0.0-0.8); MONO % 6.3 % (0.0-5.0); NEUTROPHILS # 8.1 10^3/uL (1.5-8.5); NEUTROPHILS % 85.8 % (36.0-66.0); PLATELET COUNT, AUTOMATED 134 10^3/uL (150-450); RED BLOOD COUNT 4.83 10^6/uL (4.30-6.10); WHITE BLOOD COUNT 9.4 10^3/uL (4.0-10.0)
[2020-09-16] MEDS: DIGOXIN INJ 0.5 MG/2 ML AMP (J1160) IV SCH (05:05)
[2020-09-16] MEDS: HumaLOG INSULIN (NovoLOG) PER UNIT SC SCH ×4 (05:10→23:20)
[2020-09-16 05:11] LABS: INR 1.24; PROTHROMBIN TIME 15.9 SECONDS (12.5-14.3)
[2020-09-16 05:12] LABS: PARTIAL THROMBOPLASTIN TIME 38.7 SECONDS (24.2-38.5)
[2020-09-16] MEDS: diltiaZEM 125 MG in NS 100 ML IV SCH ×2 (05:29→13:40)
[2020-09-16 05:52] LABS: ALBUMIN 2.3 GM/DL (3.2-5.2); BILIRUBIN,DIRECT 0.4 MG/DL (0.0-0.2); BILIRUBIN,TOTAL 0.7 MG/DL (0.2-1.0); CALCIUM LEVEL 8.8 MG/DL (8.8-10.2); CREATININE FOR GFR 1.58 MG/DL (0.70-1.30); GLOMERULAR FILTRATION RATE 45.5 (>42); MAGNESIUM LEVEL 2.6 MG/DL (1.8-2.4); POTASSIUM SERUM 4.4 MEQ/L (3.5-5.1); TOTAL PROTEIN 5.3 GM/DL (6.4-8.2)
[2020-09-16] MEDS: REMDESIVIR 100 MG in NS 250 ML IV SCH (06:20)
[2020-09-16 09:07] LABS: C REACTIVE PROTEIN QUANTITATIV 18.3 MG/DL (0.00-0.30)
[2020-09-16] MEDS: ASPIRIN 81 MG ENTERIC TAB PO SCH (09:09)
[2020-09-16] MEDS: dexameTHASONE 20MG/5ML VIAL (J1100 PER 1MG) IV SCH (09:10)
[2020-09-16] MEDS: PANTOPRAZOLE 40MG VIAL (C9113 PER 1) IV SCH (09:10)
[2020-09-16] MEDS: ENOXAPARIN 150MG/ML SYRINGE (J1650 PER 10MG) SC SCH ×2 (09:10→19:48)
--- NOTE | 2020-09-16 12:52 | IPNPDOC ---
Text Note Date of Service The patient was seen on 09/16/20. NOTE Subjective: Patient is a 75-year-old male with a PMHx of Syncope, A.fib (s/p Watchman), HTN, Morbid obestiy, Chronic back pain, Hx of GI bleeding who pre sented to the ER after he had summoned EMS via his Life Alert button. Patient reported that he had fallen and landed on his bottom. Patient can get up and came to the emergency room for further evaluation. Patient had reported that he was short of breath, feeling weakness and chills over the last 3 days. In the ER, he had tested positive for COVID19. Patient was initially admitted to the COVID unit for continued to have deterioration. Patient was on dexamethasone, broad-spectrum antibiotics and Remdesivir. Patient was eventually transitioned to the ICU on 09/14; at that time was found to be in atrial fibrillation with RVR. Patient is currently on a Cardizem drip Patient was seen and examined at the bedside. Patient is able to follow commands, is oriented to person, place and time. Reports that he feels generally better than he did yesterday. Reports a cough. Reports that his breathing is doing better while on CPAP. Denies any chest pain, nausea, vomiting, abdominal pain. Patient has a Ochoa catheter in place. Objective: Vitals (See below) General: Sitting up in bed, appears to be comfortable, drowsy but awakes when talking; oriented to person, place and time HEENT: NC, AT CVS: +S1S2 Lungs: air entry appears to be fair bilaterally without any definitive crackles, Mild wheezing noted Abdomen: Soft, nondistended and nontender, Obese Extremities: No appreciable pitting edema, - Calf tenderness Imaging: CXR (09/11): Findings suggesting subtle scattered bilateral opacities/airspace disease. CXR (09/14): Abnormal lung field opacities as described above. Asymmetric pulmonary edema ve rsus patchy pneumonia. Consider PA and lateral views of the chest. CXR(09/15): Probable mild improvement of bilateral infiltrates. Assessment and plan: Acute hypoxic respiratory failure - possibly 2/2 COVID19, possibly 2/2 superimposed bacterial infection, possibly 2/2 PE - Patient was able to tolerate CPAP all night; Will attempt Vapotherm therapy throughout the day - Inflammatory markers remain elevated - Procalcitonin trending up; will continue to rend - Imaging noted above - c/w Zosyn (Day #4) - Will c/w Remdesivir (Day #5) - c/w Dexamethasone (Day #6) - c/w full anticoagulation with Lovenox therapeutic dosing; was increased upon arrival to ICU (09/14); D-dimers have trended down A. fib with RVR - Hemodynamically stable - Patient's heart rate has improved - s/p Digoxin loading - Will continue telemetry monitoring - Will reduce dose of Diltazem drip - s/p Watchman (Atrial appendage closure) s/p Acute metabolic encephalopathy - possibly 2/2 medications - Currently patient is fully oriented to person, place and time - Is able to follow commands and has control of all 4 extremities - Will stop Morphine / Tramadol / Ramelteon / Baclofen - Will continue Neurological checks Blood contaminant - Repeat blood cultures negative [place] - Cr is currently trending up - Will avoid nephrotoxic medications - Will hold off on further diuresis - s/p Furosemide 20 IV from this morning - Has had significant diuresis at this time; >1000 within the last 12 hours Hyperglycemia - Will check HbA1c in M - c/w ISS [id number] - Will keep NPO (except meds for now) Reported fall in while at home - Denied any lose of consciousness / head trauma - Moving all four extremities GERD - Hx of GI bleed - c/w Protonix DVT prophylaxis - Currently on full anticoagulation with Lovenox Code status: - Full code - Has not appointed a healthcare proxy VSJacqueline, I+O VSJacqueline, I+O Laboratory Tests 09/15/20 17:58 09/16/20 04:49 Vital Signs Date Time Temp Pulse Resp B/P (MAP) Pulse Ox O2 Delivery O2 Flow Rate FiO2 09/16/20 06:30 91 132/75 (94) 99 NIPPV (BIPAP/CPAP) 100 09/16/20 06:00 23 09/16/20 04:00 99.6 09/15/20 18:00 40.0 I&O- Last 24 Hours up to 6 AM 09/16/20 05:59 Intake Total 770 ml Output Total 1830 ml Balance -1060 ml KODY FRAZIER MD Sep 16, 2020 12:37
[2020-09-16 13:51] LABS: HEMOGLOBIN A1c 7.4 %
[2020-09-16] MEDS ORDERED: atenoloL 25 MG TAB PO ONE (14:30)
[2020-09-16] MEDS ORDERED: SODIUM CHLORIDE 0.9% INJ 10 ML SYR IV SCH (16:00)
[2020-09-16] MEDS ORDERED: REMDESIVIR 100 MG in NS 250 ML IV SCH (16:00)
[2020-09-16] MEDS: **NOTE PATIENT COMMENT** MISC XX SCH (20:00)
[2020-09-17] VITALS (10 sets, daily range): BP systolic 110–127; BP diastolic 58–76
[2020-09-17] MEDS: PIPERACILLIN/TAZOBACTAM SOD 3.375 GM in D5W MINI-BAG PLUS 50 ML IV SCH ×4 (02:26→20:47)
[2020-09-17] MEDS: ACETAMINOPHEN 650 MG SUPP PR PRN ×3 (03:15→05:49)
[2020-09-17] MEDS: HumaLOG INSULIN (NovoLOG) PER UNIT SC SCH ×3 (05:48→17:59)
[2020-09-17] MEDS: REMDESIVIR 100 MG in NS 250 ML IV SCH (06:29)
[2020-09-17] MEDS: SODIUM CHLORIDE 0.9% INJ 10 ML SYR IV SCH (06:47)
[2020-09-17 07:41] LABS: HEMATOCRIT 46.2 % (42.0-52.0); MEAN CORPUSCULAR HEMOGLOBIN 31.1 pg (27.0-33.0); MEAN CORPUSCULAR HGB CONC 32.5 g/dl (32.0-36.5); MEAN CORPUSCULAR VOLUME 95.9 fl (80.0-96.0); PLATELET COUNT, AUTOMATED 180 10^3/uL (150-450); RED BLOOD COUNT 4.82 10^6/uL (4.30-6.10); WHITE BLOOD COUNT 11.7 10^3/uL (4.0-10.0)
[2020-09-17 07:55] LABS: INR 1.36
[2020-09-17 07:56] LABS: PARTIAL THROMBOPLASTIN TIME 36.4 SECONDS (24.2-38.5)
[2020-09-17 07:58] LABS: D-DIMER QUANT 2300.99 ng/ml (<500)
[2020-09-17 08:35] LABS: ALBUMIN 2.3 GM/DL (3.2-5.2); ALT/SGPT 33 U/L (12-78); BILIRUBIN,DIRECT 0.3 MG/DL (0.0-0.2); BILIRUBIN,TOTAL 0.7 MG/DL (0.2-1.0); BLOOD UREA NITROGEN 84 MG/DL (7-18); CALCIUM LEVEL 8.9 MG/DL (8.8-10.2); CARBON DIOXIDE LEVEL 26 MEQ/L (21-32); CHLORIDE LEVEL 110 MEQ/L (98-107); CPK CREATINE PHOSPHOKINASE 58 U/L (39-308); CREATININE FOR GFR 1.74 MG/DL (0.70-1.30); FERRITIN 3861 NG/ML (26-388); GLOMERULAR FILTRATION RATE 40.7 (>42); GLUCOSE, FASTING 332 MG/DL (70-100); LDH LACTATE DEHYDROGENASE 632 U/L (87-241); SODIUM LEVEL 144 MEQ/L (136-145); TOTAL PROTEIN 5.3 GM/DL (6.4-8.2); TROPONIN I < 0.02 NG/ML (< 0.10)
[2020-09-17 09:21] LABS: ATYPICAL LYMPH 3 % (0-5); LYMPHOCYTES 7 % (16-44); MONOCYTES 4 % (0-5); NEUTROPHILS 83 % (28-66)
[2020-09-17 09:23] LABS: TOXIC GRANULATION 1+; TOXIC VACUOLATION 1+
[2020-09-17 09:26] LABS: GIANT PLATELETS 1+
[2020-09-17 09:27] LABS: PLATELET ESTIMATE NORMAL (NORMAL)
[2020-09-17] MEDS: atenoloL 25 MG TAB PO SCH (09:40)
[2020-09-17] MEDS: ASPIRIN 81 MG ENTERIC TAB PO SCH (09:41)
[2020-09-17] MEDS: dexameTHASONE 20MG/5ML VIAL (J1100 PER 1MG) IV SCH (09:41)
[2020-09-17] MEDS: PANTOPRAZOLE 40MG VIAL (C9113 PER 1) IV SCH ×2 (09:42→20:47)
[2020-09-17 12:16] LABS: HEMATOCRIT 43.5 % (42.0-52.0); HEMOGLOBIN 14.5 g/dl (13.5-17.5)
[2020-09-17] MEDS: SUCRALFATE SUSP 1GM/10ML UD PO SCH ×2 (12:18→17:58)
--- NOTE | 2020-09-17 12:29 | IPNPDOC ---
Text Note Date of Service The patient was seen on 09/17/20. NOTE Subjective: Patient is a 75-year-old male with a PMHx of Syncope, A.fib (s/p Watchman), HTN, Morbid obestiy, Chronic back pain, Hx of GI bleeding who pre sented to the ER after he had summoned EMS via his Life Alert button. Patient reported that he had fallen and landed on his bottom. Patient can get up and came to the emergency room for further evaluation. Patient had reported that he was short of breath, feeling weakness and chills over the last 3 days. In the ER, he had tested positive for COVID19. Patient was initially admitted to the COVID unit for continued to have deterioration. Patient was on dexamethasone, broad-spectrum antibiotics and Remdesivir. Patient was eventually transitioned to the ICU on 09/14; at that time was found to be in atrial fibrillation with RVR. Patient is currently on a Cardizem drip Patient was seen and examined at the bedside. Patient is sitting up in bed with CPAP device on. Reports his breathing is doing better. Denies any chest pain or to cough. Denies nausea, vomiting, abdominal pain. Patient has a Ochoa catheter that is in place. Notes he is having loose stools. Objective: Vitals (See below) General: Sitting up in bed, can answer questions; oriented x3 HEENT: NC, AT CVS: +S1S2 Lungs: Again, air entry appears to be fair bilaterally without any appreciable rhonchi or wheezing, no significant crackles Abdomen: Again, his abdomen is soft without any distention or tenderness. Obese Extremities: Lower extremities appear to be free of any pitting edema, - Calf tenderness Imaging: CXR (09/11): Findings suggesting subtle scattered bilateral opacities/airspace disease. CXR (09/14): Abnormal lung field opacities as described above. Asymmetric pulmonary edema versus patchy pneumonia. Consider PA and lateral views of the chest. CXR(09/15): Probable mild improvement of bilateral infiltrates. Assessment and plan: Acute hypoxic respiratory failure - possibly 2/2 COVID19, possibly 2/2 superimposed bacterial infection, possibly 2/2 PE - Patient continues to do well while on CPAP - Inflammatory markers improvign - Procalcitonin trending up; will continue to rend - Imaging noted above - c/w Zosyn (Day #5); s/p Vancomycin - Will c/w Remdesivir (Day #7) - c/w Dexamethasone (Day #7) - Will hold Lovenox (see below) A. fib with RVR - Hemodynamically stable - Patient's heart rate has improved - s/p Digoxin loading; Digoxin level noted - Will continue telemetry monitoring - s/p Diltiazem drip - c/w Atenolol - s/p Watchman (Atrial appendage closure) Dark stools - Heme occult positive - Will hold Lovenox - Will check H&H [id number] - Will increase frequency of Protonix / Start Carafate s/p Acute metabolic encephalopathy - possibly 2/2 medications - Remains oriented - Is able to follow commands and has control of all 4 extremities - s/p Morphine / Tramadol / Ramelteon / Baclofen - Will continue Neurological checks Blood contaminant - Repeat blood cultures negative [place] - Cr is currently trending up - Will avoid nephrotoxic medications - Will hold off on further diuresis Hyperglycemia - likely 2/2 DM2 - A1c: 7.4% - c/w ISS [id number] - Will keep NPO (except meds for now) Reported fall in while at home - Denied any lose of consciousness / head trauma - Moving all four extremities GERD - Hx of GI bleed - c/w Protonix DVT prophylaxis - Will hold Lovenox (re: Occult positive / dark stools) Code status: - Full code - Has not appointed a healthcare proxy VS,Jacqueline, I+O VS, Jacqueline, I+O Laboratory Tests 09/17/20 05:05 09/17/20 12:03 Vital Signs Date Time Temp Pulse Resp B/P (MAP) Pulse Ox O2 Delivery O2 Flow Rate FiO2 09/17/20 09:40 99 118/68 09/17/20 04:00 85 09/17/20 04:00 100.0 95 NIPPV (BIPAP/CPAP) 09/17/20 00:00 42 09/16/20 14:31 40.0 I&O- Last 24 Hours up to 6 AM 09/17/20 06:00 Intake Total 960 ml Output Total 1855 ml Balance -895 ml KODY FRAZIER MD Sep 17, 2020 12:29
[2020-09-17] MEDS ORDERED: NS 1,000 ML IV SCH (15:00)
[2020-09-17 18:37] LABS: HEMATOCRIT 44.2 % (42.0-52.0); HEMOGLOBIN 14.2 g/dl (13.5-17.5)
[2020-09-17] MEDS: **NOTE PATIENT COMMENT** MISC XX SCH ×2 (20:00→20:47)
[2020-09-18] VITALS (15 sets, daily range): BP systolic 85–139; BP diastolic 57–87
[2020-09-18] MEDS: SUCRALFATE SUSP 1GM/10ML UD PO SCH ×5 (00:05→18:00)
[2020-09-18] MEDS: HumaLOG INSULIN (NovoLOG) PER UNIT SC SCH ×4 (00:12→18:13)
[2020-09-18 00:21] LABS: HEMATOCRIT 44.1 % (42.0-52.0); HEMOGLOBIN 14.4 g/dl (13.5-17.5)
[2020-09-18 01:02] LABS: ABG BASE EXCESS 0.1 (-2.0-2.0); ABG HCO3 21.7 MEQ/L (22.0-26.0); ABG PARTIAL PRESSURE CO2 27.9 mmHg (35.0-45.0); ABG PARTIAL PRESSURE O2 142.7 mmHg (75.0-100.0); ABG STANDARD HCO3 24.6 MEQ/L (22.0-26.0); ABG TOTAL CO2 22.6 MEQ/L (23.0-31.0); ABG pH (ARTERIAL) 7.509 UNITS (7.350-7.450)
[2020-09-18 01:49] LABS: HEMOGLOBIN 14.6 g/dl (13.5-17.5); MEAN CORPUSCULAR HEMOGLOBIN 30.8 pg (27.0-33.0); MEAN CORPUSCULAR HGB CONC 32.4 g/dl (32.0-36.5); MEAN CORPUSCULAR VOLUME 94.9 fl (80.0-96.0); PLATELET COUNT, AUTOMATED 216 10^3/uL (150-450); RED BLOOD COUNT 4.74 10^6/uL (4.30-6.10); WHITE BLOOD COUNT 11.7 10^3/uL (4.0-10.0)
--- NOTE | 2020-09-18 01:54 | IPNPDOC ---
Text Note Date of Service The patient was seen on 09/18/20. NOTE While on nights with this hospitalists I was called to the floor at around 0120. Nursing was concerned that Mr. Al was tachypenic and not responding as well as he was in the past. An ABG was done 1-2 hours ago that showed a 7.5//142 which is consistent with an acute respiratory alkalosis. I examined Mr. Al and found his adventitial sounds to be a little course throughout, but no other concerning examination signs. He would not follow the nurse's commands, but he did open his eyes and look at me when I spoke calmly, but sternly to him. I think he is able to follow more commands than he is choosing to do at this time. I called the rental car ferry driver director education and spoke with him. He does not feel that bi- level NIPPV will help, in fact it will probably harm. He doesn't have hypercarbia he has hypocarbia. At this point in time we need to work to find ways to decrease his anxiety so he will slow his respiratory rate on his own, since there isn't a physiologic drive for it to be so high. I added a low dose benzodiazapine to his regimen and discussed changing him back to Vapotherm. The hypoxemia that necessitated his change to CPAP in the first place has resolved; maybe he will be more comfortable on the Vapotherm. VS,Fishbone, I+O VS, Fishbone, I+O Laboratory Tests 09/17/20 05:05 09/17/20 12:03 09/17/20 18:29 09/18/20 00:02 Vital Signs Date Time Temp Pulse Resp B/P (MAP) Pulse Ox O2 Delivery O2 Flow Rate FiO2 09/18/20 00:15 80 09/18/20 00:00 97.1 101 41 120/68 (85) 100 NIPPV (BIPAP/CPAP) 09/16/20 14:31 40.0 I&O- Last 24 Hours up to 6 AM 09/18/20 06:00 Intake Total 740 ml Output Total 1375 ml Balance -635 ml Chuck Santiago MD Sep 18, 2020 01:54
[2020-09-18 01:58] LABS: INR 1.35
[2020-09-18] MEDS ORDERED: LORazepam 2 MG/ML VIAL IV PRN (02:00)
[2020-09-18 02:01] LABS: D-DIMER QUANT 2147.28 ng/ml (<500)
[2020-09-18] MEDS ORDERED: LORazepam 2 MG/ML VIAL As Ordered ONE (02:03)
[2020-09-18] MEDS: PIPERACILLIN/TAZOBACTAM SOD 3.375 GM in D5W MINI-BAG PLUS 50 ML IV SCH ×4 (02:09→20:45)
[2020-09-18 02:45] LABS: ATYPICAL LYMPH 3 % (0-5); BLAST CELLS 1 % (0-0); LYMPHOCYTES 5 % (16-44); METAMYELOCYTES 1 % (0-0); MONOCYTES 5 % (0-5); NEUTROPHILS 85 % (28-66); PLATELET CLUMPS SMALL AMT; PLATELET ESTIMATE NORMAL (NORMAL)
[2020-09-18 02:46] LABS: TOXIC VACUOLATION 2+
[2020-09-18 02:47] LABS: ALBUMIN 2.1 GM/DL (3.2-5.2); BILIRUBIN,TOTAL 0.8 MG/DL (0.2-1.0); C REACTIVE PROTEIN QUANTITATIV 9.85 MG/DL (0.00-0.30); CALCIUM LEVEL 8.8 MG/DL (8.8-10.2); CREATININE FOR GFR 2.2 MG/DL (0.70-1.30); GLOMERULAR FILTRATION RATE 31.1 (>42); POTASSIUM SERUM 4.9 MEQ/L (3.5-5.1); TROPONIN I 0.02 NG/ML (< 0.10)
[2020-09-18 02:50] LABS: POLYCHROMASIA 1+
[2020-09-18] MEDS ORDERED: NS 1,000 ML IV SCH (04:00)
[2020-09-18] MEDS: REMDESIVIR 100 MG in NS 250 ML IV SCH (05:36)
[2020-09-18] MEDS: SODIUM CHLORIDE 0.9% INJ 10 ML SYR IV SCH (06:34)
[2020-09-18] MEDS ORDERED: MORPHINE 2 MG/ML 1ML VIAL (J2270) IV ONE (07:15)
--- NOTE | 2020-09-18 07:58 | REP ---
INDICATION: SOB COMPARISON: 09/15/2020, 12/29/2019 TECHNIQUE: Portable AP view of the chest FINDINGS: The mediastinum and cardiac silhouette are stable. Chronic left-sided pleuroparenchymal remain essentially stable. Right upper lobe, right lower lobe, and primarily left-sided opacities are again identified and similar to 09/15/2020. IMPRESSION: Multifocal opacities essentially unchanged compared to 09/15/2020. <Electronically signed by Lobo Bonner > 09/18/20 [id number]
[2020-09-18] MEDS: ASPIRIN 81 MG ENTERIC TAB PO SCH (09:00)
[2020-09-18] MEDS: atenoloL 25 MG TAB PO SCH (09:00)
[2020-09-18] MEDS: PANTOPRAZOLE 40MG VIAL (C9113 PER 1) IV SCH ×2 (09:02→20:45)
[2020-09-18] MEDS: dexameTHASONE 20MG/5ML VIAL (J1100 PER 1MG) IV SCH (09:02)
[2020-09-18 10:34] LABS: CALCIUM LEVEL 8.9 MG/DL (8.8-10.2); CREATININE FOR GFR 2.46 MG/DL (0.70-1.30); GLOMERULAR FILTRATION RATE 27.3 (>42)
[2020-09-18] MEDS: D5W 1,000 ML IV SCH ×2 (11:00→20:45)
--- NOTE | 2020-09-18 11:09 | IPNPDOC ---
Text Note Date of Service The patient was seen on 09/18/20. NOTE Subjective: Patient is a 75-year-old male with a PMHx of Syncope, A.fib (s/p Watchman), HTN, Morbid obestiy, Chronic back pain, Hx of GI bleeding who pre sented to the ER after he had summoned EMS via his Life Alert button. Patient reported that he had fallen and landed on his bottom. Patient can get up and came to the emergency room for further evaluation. Patient had reported that he was short of breath, feeling weakness and chills over the last 3 days. In the ER, he had tested positive for COVID19. Patient was initially admitted to the COVID unit for continued to have deterioration. Patient was on dexamethasone, broad-spectrum antibiotics and Remdesivir. Patient was eventually transitioned to the ICU on 09/14; at that time was found to be in atrial fibrillation with RVR. Patient is currently on a Cardizem drip Patient was seen and examined at the bedside. Currently does not follow commands; responds to painful stimuli. Objective: Vitals (See below) General: Sitting up in bed, currently on Vapotherm, responds to painful stimuli HEENT: NC, AT CVS: +S1S2 Lungs: Air entry is fair bilaterally. No significant crackles can be auscultated. Mild wheezing, no rhonchi Abdomen: Abdomen is soft, no distention or tenderness, obese Extremities: Again, lower extremities are without any edema, - Calf tenderness Imaging: CXR (09/11): Findings suggesting subtle scattered bilateral opacities/airspace disease. CXR (09/14): Abnormal lung field opacities as described above. Asymmetric pulmonary edema versus patchy pneumonia. Consider PA and lateral views of the chest. CXR(09/15): Probable mild improvement of bilateral infiltrates. CXR (09/18): Multifocal opacities essentially unchanged compared to 09/15/2020. Assessment and plan: Acute hypoxic respiratory failure - possibly 2/2 COVID19, possibly 2/2 superimposed bacterial infection, possibly 2/2 PE - Patient continues to do well while on CPAP - Inflammatory markers continue to be downtrending - Procalcitonin trending up; will continue to rend - Imaging noted above - c/w Zosyn (Day #6); s/p Vancomycin - Will c/w Remdesivir (Day #8) - c/w Dexamethasone (Day #8) - Will hold Lovenox (see below) Respiratory alkalosis - ABG noted at midnight to show respiratory alkalosis with appropriate oxygenation - Currently off of CPAP; tolerating Vapotherm - Will repeat ABG - Will control pain / anxiety Acute metabolic encephalopathy - possibly 2/2 medications - Arouses to painful stimuli - Will get CT head if aerosolization can be avoided - c/w Neurological checks A. fib with RVR - Hemodynamically stable - Patient's heart rate has improved - s/p Digoxin loading; Digoxin level noted; will repeat today - Will continue telemetry monitoring - s/p Diltiazem drip - c/w Atenolol - s/p Watchman (Atrial appendage closure) Dark stools - Hx of GI bleed - Heme occult positive - Will hold Lovenox - HG has remained stable - c/w Protonix / Carafate Blood contaminant - Repeat blood cultures negative Hypernatremia - Will adjust fluids to D5W - will follow BMP [id number] [place] - Cr continues to trend up - Ochoa catheter in place - Will check urine electrolytes / renal US - Will avoid nephrotoxic medications - Will hold off on further diuresis - Nephrology consulted this morning Hyperglycemia - likely 2/2 DM2 - A1c: 7.4% - c/w ISS [id number] - Will keep NPO (except meds for now) Reported fall in while at home - Denied any lose of consciousness / head trauma - Moving all four extremities GERD - Hx of GI bleed - c/w Protonix / Carafate DVT prophylaxis - Will hold Lovenox (re: Occult positive / dark stools) Code status: - Full code - Has not appointed a healthcare proxy Jacqueline LARRY, I+O VSJacqueline, I+O Laboratory Tests 09/17/20 12:03 09/17/20 18:29 09/18/20 00:02 09/18/20 01:41 09/18/20 09:55 Vital Signs Date Time Temp Pulse Resp B/P (MAP) Pulse Ox O2 Delivery O2 Flow Rate FiO2 09/18/20 09:01 36 09/18/20 04:00 40.0 100 09/18/20 04:00 98.7 106 128/66 (86) 95 HVNI-Vapotherm I&O- Last 24 Hours up to 6 AM 09/18/20 06:00 Intake Total 1265 ml Output Total 1775 ml Balance -510 ml KODY FRAZIER MD Sep 18, 2020 11:09
[2020-09-18 11:11] LABS: SODIUM,RANDOM URINE 16 MEQ/L
[2020-09-18] MEDS ORDERED: LEVEMIR (INSULIN DETEMIR) 1 UNITS/0.01ML SC SCH (12:15)
[2020-09-18 12:30] LABS: ABG BASE EXCESS -2.6 (-2.0-2.0); ABG HCO3 22.9 MEQ/L (22.0-26.0); ABG PARTIAL PRESSURE CO2 42.4 mmHg (35.0-45.0); ABG PARTIAL PRESSURE O2 53.7 mmHg (75.0-100.0); ABG TOTAL CO2 24.2 MEQ/L (23.0-31.0); ABG pH (ARTERIAL) 7.351 UNITS (7.350-7.450)
[2020-09-18] MEDS ORDERED: LIDOCAINE 1% MDV 20ML VIAL As Ordered ONE (13:08)
[2020-09-18 13:20] LABS: HEMATOCRIT 44.6 % (42.0-52.0); HEMOGLOBIN 14.2 g/dl (13.5-17.5)
--- NOTE | 2020-09-18 15:37 | REP ---
INDICATION: channing. COMPARISON: Comparison CT imaging September 30, 2019. Comparison renal sonography December 31, 2019.. TECHNIQUE: Renal urinary tract sonography. FINDINGS: Scanning at the level of the urinary bladder demonstrates that it is empty and a Ochoa catheter is noted in place.. Renal cortical echogenicity pattern is normal bilaterally and contours are smooth. There is no evidence of hydronephrosis on either side. No mass lesion is seen. A 1.4 cm cyst is noted in the periphery of the lower pole region of the left kidney. This is visible on CT. Only 1 of the 2 previously visualized cyst is seen on today's sonography. Left renal dimensions are 12.0 x 4.5 x 5.5 cm. The right kidney measures 12.3 x 4.8 x 5.6 cm. IMPRESSION: A 1.4 cm cyst is seen at the lower pole the left kidney. The previously noted 2nd cyst or nodule is not visible sonographically. There is no evidence of hydronephrosis or mass on either side. Ochoa catheter.. <Electronically signed by Vinnie Rodarte > 09/18/20 [id number]
[2020-09-18 15:38] LABS: CALCIUM LEVEL 8.8 MG/DL (8.8-10.2); CREATININE FOR GFR 2.94 MG/DL (0.70-1.30); GLOMERULAR FILTRATION RATE 22.2 (>42); POTASSIUM SERUM 5.3 MEQ/L (3.5-5.1)
--- NOTE | 2020-09-18 18:08 | REP ---
PROCEDURE NAME: PICC LINE INSERTION W/SITERITE CLINICAL INFORMATION: TPN. COMPARISON: None. PROCEDURE DESCRIPTION: The procedure was performed by ANGELA Salvador, under the direct supervision of Dr. Louie. The risks and benefits of the procedure were explained to the patient and an informed consent was obtained both verbally and written. Directly prior to the start of the procedure a formal time-out was completed at the patient's bedside considering this exam was done portably.. The right basilic vein was localized using ultrasound guidance. The skin was prepped and draped in sterile fashion. One mL of 1% lidocaine 10 mg/mL was used as a local anesthetic. Using ultrasound guidance the right basilic vein was cannulated, and a 0.018 guidewire was inserted and advanced to the level of SVC using portable x-ray guidance. The needle was removed and a 5.5 [place]serratian dilator and peel-away sheath was inserted over the guidewire. A 5.5 [place]ian dual lumen catheter was cut to a length of 35 cm. The dilator was removed and the catheter was inserted over the guidewire with the tip ending at the level of the SVC. The peel-away sheath was removed and the catheter was flushed with heparinized saline as per hospital protocol. The catheter was affixed to the skin and a sterile dressing was applied. The patient tolerated the procedure well and there were no immediate complications. CONCLUSION: PICC line insertion into the right basilic vein. No fluoroscopy was utilized for this procedure. Imaging was obtained by portable x-ray. <Electronically signed by Sarah Ceja > 09/18/20 [id number] <Electronically signed by Yash Louie > 09/18/20 0531
[2020-09-18 18:49] LABS: HEMATOCRIT 42.1 % (42.0-52.0); HEMOGLOBIN 13.4 g/dl (13.5-17.5)
[2020-09-18] MEDS ORDERED: SODIUM CHLORIDE 0.9% INJ 10 ML SYR IV PRN (19:30)
[2020-09-18] MEDS: **NOTE PATIENT COMMENT** MISC XX SCH (20:00)
[2020-09-18 20:28] LABS: ABG BASE EXCESS -3.1 (-2.0-2.0); ABG HCO3 20.6 MEQ/L (22.0-26.0); ABG O2 SATURATION 99.4 % (95.0-99.0); ABG PARTIAL PRESSURE O2 164.6 mmHg (75.0-100.0); ABG STANDARD HCO3 21.9 MEQ/L (22.0-26.0); ABG TOTAL CO2 21.6 MEQ/L (23.0-31.0); ABG pH (ARTERIAL) 7.413 UNITS (7.350-7.450)
[2020-09-18] MEDS: LEVEMIR (INSULIN DETEMIR) 1 UNITS/0.01ML SC SCH (20:46)
[2020-09-18] MEDS: ACETAMINOPHEN 650 MG SUPP PR PRN (20:47)
--- NOTE | 2020-09-18 20:54 | REPVR ---
PROCEDURE INFORMATION: Exam: XR Chest, 1 View Exam date and time: 09/18/2020 8:31 PM Age: 75 years old Clinical indication: Device placement; Other: Ng; Additional info: S/P ng tube placement TECHNIQUE: Imaging protocol: XR of the chest Views: 1 view. COMPARISON: CR PORTABLE CHEST X-RAY 09/18/2020 7:25 AM FINDINGS: Tubes, catheters and devices: NG tube tip located in the left upper quadrant consistent with an intravascular location. Lungs: Bilateral pulmonary parenchymal infiltrates most pronounced in the right upper and throughout the left lung, findings appear grossly stable in comparison to the prior study of 09/18/2020. Pleural space: Unremarkable. No pleural effusion. No pneumothorax. Heart/Mediastinum: Unremarkable. No cardiomegaly. Bones/joints: Unremarkable. IMPRESSION: Bilateral pulmonary parenchymal infiltrates most pronounced in the right upper and throughout the left lung, findings appear grossly stable in comparison to the prior study of 09/18/2020. Electronically signed by: Sinan Mcclelland On 09/18/2020 20:54:06 PM
[2020-09-18 21:20] LABS: OSMOLALITY URINE 768 MOSM/KG (500-800)
[2020-09-19] VITALS (22 sets, daily range): BP systolic 84–134; BP diastolic 53–80
[2020-09-19] MEDS: HumaLOG INSULIN (NovoLOG) PER UNIT SC SCH ×5 (00:09→23:35)
[2020-09-19] MEDS: SUCRALFATE SUSP 1GM/10ML UD PO SCH ×5 (00:09→23:35)
[2020-09-19 00:44] LABS: HEMATOCRIT 44.2 % (42.0-52.0); HEMOGLOBIN 14.1 g/dl (13.5-17.5)
[2020-09-19 01:11] LABS: CALCIUM LEVEL 8.3 MG/DL (8.8-10.2); CREATININE FOR GFR 2.91 MG/DL (0.70-1.30); GLOMERULAR FILTRATION RATE 22.5 (>42); POTASSIUM SERUM 4.4 MEQ/L (3.5-5.1)
[2020-09-19] MEDS: PIPERACILLIN/TAZOBACTAM SOD 3.375 GM in D5W MINI-BAG PLUS 50 ML IV SCH ×4 (03:38→21:39)
[2020-09-19] MEDS: D5W 1,000 ML IV SCH ×3 (04:25→18:30)
[2020-09-19 05:11] LABS: BASO % 0.3 % (0.0-1.0); EOS % 0.1 % (0.0-3.0); HEMATOCRIT 42.9 % (42.0-52.0); HEMOGLOBIN 13.5 g/dl (13.5-17.5); LYMPH # 1.1 10^3/uL (1.5-5.0); LYMPH % 7.4 % (24.0-44.0); MEAN CORPUSCULAR HEMOGLOBIN 31.5 pg (27.0-33.0); MEAN CORPUSCULAR HGB CONC 31.5 g/dl (32.0-36.5); MEAN CORPUSCULAR VOLUME 100.2 fl (80.0-96.0); MONO # 0.4 10^3/uL (0.0-0.8); MONO % 3.1 % (0.0-5.0); NEUTROPHILS # 12.3 10^3/uL (1.5-8.5); NEUTROPHILS % 86.8 % (36.0-66.0); PLATELET COUNT, AUTOMATED 131 10^3/uL (150-450); RED BLOOD COUNT 4.28 10^6/uL (4.30-6.10); WHITE BLOOD COUNT 14.2 10^3/uL (4.0-10.0)
[2020-09-19] MEDS: REMDESIVIR 100 MG in NS 250 ML IV SCH (05:34)
[2020-09-19] MEDS: SODIUM CHLORIDE 0.9% INJ 10 ML SYR IV SCH ×3 (05:35→18:31)
[2020-09-19 05:37] LABS: D-DIMER QUANT 658.69 ng/ml (<500)
[2020-09-19 05:57] LABS: C REACTIVE PROTEIN QUANTITATIV 5.48 MG/DL (0.00-0.30); CALCIUM LEVEL 8.5 MG/DL (8.8-10.2); CREATININE FOR GFR 3.11 MG/DL (0.70-1.30); GLOMERULAR FILTRATION RATE 20.8 (>42); MAGNESIUM LEVEL 3.4 MG/DL (1.8-2.4); POTASSIUM SERUM 4.2 MEQ/L (3.5-5.1); TOTAL PROTEIN 5.5 GM/DL (6.4-8.2)
[2020-09-19] MEDS: LEVEMIR (INSULIN DETEMIR) 1 UNITS/0.01ML SC SCH ×2 (08:40→21:41)
[2020-09-19] MEDS: ASPIRIN 81 MG ENTERIC TAB PO SCH (08:40)
[2020-09-19] MEDS: dexameTHASONE 20MG/5ML VIAL (J1100 PER 1MG) IV SCH (08:41)
[2020-09-19] MEDS: PANTOPRAZOLE 40MG VIAL (C9113 PER 1) IV SCH ×2 (08:41→21:39)
[2020-09-19] MEDS: atenoloL 25 MG TAB PO SCH (08:41)
--- NOTE | 2020-09-19 10:57 | IPNPDOC ---
Date Seen The patient was seen on 09/19/20. Progress Note SUBJECTIVE: 75 yo M hx of syncope, afib s/p watchman device, HTN, morbid obesity, chronic back pain, hx of GIB, presented to ER c/o SOB, weakness, chills, tested positive for COVID-19 infection. Received dexamethasone, broad- spectrum abx and remdesivir. He was transitioned to ICU for need for CPAP and management of afib with RVR, requiring cardizem infusion. I examined pt at bedside, and d/w RN. Patient continues to be confused, but is able to squeeze hands on command and finds pupil exam with flashlight irritating, closing his eyes which is encouraging from a neurological standpoint. He is making appropriate urine. OBJECTIVE PHYSICAL EXAMINATION: VITAL SIGNS: please see below General: on CPAP. Tolerating. Squeezes hands on command. Non verbal. HEENT: patient refuses Neck: supple, normal ROM, no JVD Respiratory: lungs CTAB, no wheeze, no rales, no crackles CVS: RRR, normal S1, S2, no murmurs Abdo: soft, no masses, no hepatosplenomegaly, BS+, no rebound tenderness Extremities: no edema, pulses 2+ MSK: no joint deformities, normal ROM Neuro: no focal neuro deficits, moving all 4 extremities, CN2-12 intact. Strength 5/5 in all 4 extremities. No nystagmus. Psych: non verbal LABORATORY DATA, IMAGING STUDIES, MICROBIOLOGY: Please see below. CXR (09/11): Findings suggesting subtle scattered bilateral opacities/airspace disease. CXR (09/14): Abnormal lung field opacities as described above. Asymmetric pulmonary edema ve rsus patchy pneumonia. Consider PA and lateral views of the chest. CXR(09/15): Probable mild improvement of bilateral infiltrates. CXR (09/18): Multifocal opacities essentially unchanged compared to 09/15/2020. DVT prophylaxis ordered?: SCDs, TEDs, off of chemoprophylaxis given positive FOBT and prior hx of GIB. PROBLEMS: Acute hypoxic respiratory failure - possibly 2/2 COVID19, possibly 2/2 superimposed bacterial infection, possibly 2/2 PE - able to tolerate CPAP, doing well from oxygen saturation standpoint - Inflammatory markers continue to be downtrending - Procalcitonin trending up; will continue to rend - c/w Zosyn (Day #7); s/p Vancomycin - Will c/w Remdesivir (Day #9) - c/w Dexamethasone (Day #9) - Will hold Lovenox (see below) given positive FOBT and hx of GIB. - procalcitonin pending. Respiratory alkalosis - ABG noted at midnight to show respiratory alkalosis with appropriate oxygenation - on CPAP this morning, will attempt to transition to vapotherm - perhaps resp alkalosis contributing to metabolic encephalopathy - tolerating CPAP Acute metabolic encephalopathy - possibly 2/2 medications - Arouses to painful stimuli - Will get CT head if aerosolization can be avoided, however, patient continues to require CPAP - c/w Neurological checks A. fib with RVR - Hemodynamically stable - Patient's heart rate has improved - s/p Digoxin loading, digoxin level on 09/18/20 wnl - repeat level on 09/20/20 - Will continue telemetry monitoring - s/p Diltiazem drip - c/w Atenolol - s/p Watchman (Atrial appendage closure) Dark stools - Hx of GI bleed - Heme occult positive - Will hold Lovenox - HG has remained stable - c/w Protonix / Carafate Blood contaminant - Repeat blood cultures negative Hypernatremia - Na 151 - nephrology was consulted, and I discussed with Dr. Blanca Simmons - recommending to continue D5W and increased insulin as needed - increased levemir 30 units q12h [place] - Cr continues to trend up - Ochoa catheter in place - D/w Dr. Blanca Simmons, renal function continues to worsen - HD may be indicated if no improvement - GOC discussion with family Hyperglycemia - likely 2/2 DM2 - A1c: 7.4% - c/w ISS [id number] - Will keep NPO (except meds for now) - increase levemir to 30 units q12h Reported fall in while at home - Denied any lose of consciousness / head trauma - Moving all four extremities GERD - Hx of GI bleed - c/w Protonix / Carafate DVT prophylaxis - Will hold Lovenox (re: Occult positive / dark stools) Code status: - Full code - Has not appointed a healthcare proxy VS, I&O, 24H, Fishbone Vital Signs/I&O Vital Signs Date Time Temp Pulse Resp B/P (MAP) Pulse Ox O2 Delivery O2 Flow Rate FiO2 09/19/20 09:33 50 09/19/20 09:00 92 19 114/66 (82) 93 NIPPV (BIPAP/CPAP) 09/19/20 08:00 98.5 09/18/20 20:00 40.0 I&O- Last 24 Hours up to 6 AM 09/19/20 06:00 Intake Total 3265 ml Output Total 970 ml Balance 2295 ml Laboratory Data 24H LABS Laboratory Tests 2 09/18/20 10:33: Urine Color YELLOW, Urine Appearance HAZY, Urine pH 5.0, Urine Specific [place] 1.026, Urine Protein NEGATIVE, Urine Glucose (UA) NEGATIVE, Urine Ketones NEGATIVE, Urine Blood 1+H, Urine Nitrite NEGATIVE, Urine Bilirubin NEGATIVE, Urine Urobilinogen 0.2, Urine Leukocyte Esterase NEGATIVE, Urine WBC (Auto) 1, Urine RBC (Auto) 5H, Urine Hyaline Casts (Auto) 0, Urine Bacteria (Auto) NEGATIVE, Urine Squamous Epithelial Cells 0, Urine Mucus (Auto) SMALL, Urine Sperm (Auto) , Urine Random Osmolality 768, Urine Random Creatinine 111.0, Urine Random Sodium 16 09/18/20 12:15: Blood Gas Bicarbonate Standard 22.0, Arterial Blood pH 7.351, Arterial Blood Partial Pressure CO2 42.4, Arterial Blood Partial Pressure O2 53.7L, Arterial Blood Total CO2 24.2, Arterial Blood HCO3 22.9, Arterial Blood Base Excess -2. 6L, Arterial Blood Oxygen Saturation 83.0L 09/18/20 13:04: Digoxin Level 1.2 09/18/20 15:07: Anion Gap 9, Glomerular Filtration Rate 22.2L, Calcium Level 8.8 09/18/20 18:09: Bedside Glucose (Misc Panel) 385H 09/18/20 20:15: Blood Gas Bicarbonate Standard 21.9L, Arterial Blood pH 7.413, Arterial Blood Partial Pressure CO2 33.0L, Arterial Blood Partial Pressure O2 164.6H, Arterial Blood Total CO2 21.6L, Arterial Blood HCO3 20.6L, Arterial Blood Base Excess - 3.1L, Arterial Blood Oxygen Saturation 99.4H 09/18/20 23:47: Bedside Glucose (Misc Panel) > 600*H 09/18/20 23:50: Bedside Glucose (Misc Panel) 367H 09/19/20 00:37: Anion Gap 8, Glomerular Filtration Rate 22.5L, Calcium Level 8.3L 09/19/20 04:39: Anion Gap 6L, Glomerular Filtration Rate 20.8L, Calcium Level 8.5L, Immature Granulocyte % (Auto) 2.3, Neutrophils (%) (Auto) 86.8H, Lymphocytes (%) (Auto) 7.4L, Monocytes (%) (Auto) 3.1, Eosinophils (%) (Auto) 0.1, Basophils (%) (Auto) 0.3, Neutrophils # (Auto) 12.3H, Lymphocytes # (Auto) 1.1L, Monocytes # (Auto) 0.4, Eosinophils # (Auto) 0.0, Basophils # (Auto) 0.0, Nucleated Red Blood Cells % (auto) 2.2H, Fibrinogen 425, D-Dimer, Quantitative 658.69H, Magnesium Level 3.4H, Ferritin 3274H, Total Bilirubin 1.0, Aspartate Amino Transf (AST/SGOT) 45H, Alanine Aminotransferase (ALT/SGPT) 34, Alkaline Phosphatase 66, C-Reactive Protein, Quantitative 5.48H, [id number]-Type Natriuretic Peptide 1544H, Total Protein 5.5L, Albumin 2.0L, Albumin/Globulin Ratio 0.6 09/19/20 05:41: Bedside Glucose (Misc Panel) 394H CBC/BMP Laboratory Tests 09/18/20 13:04 09/18/20 15:07 09/18/20 18:15 09/19/20 00:37 09/19/20 04:39 Microbiology Microbiology 09/17/20 Stool Occult Blood (MIST[facility]) - Final, Complete 09/15/20 Blood Culture - Preliminary, Resulted No Growth after 72 hours. All specime... 09/15/20 Blood Culture - Preliminary, Resulted No Growth after 72 hours. All specime... 09/13/20 Blood Culture - Final, Complete NO GROWTH AFTER 5 DAYS 09/13/20 Blood Culture - Final, Complete NO GROWTH AFTER 5 DAYS 09/11/20 Blood Culture - Final, Complete Micrococcus Luteus 09/11/20 Blood Culture - Final, Complete Micrococcus Luteus 09/11/20 Respiratory Virus Panel (PCR) ([facility]) - Final, Complete SARS-CoV-2 (COVID 19) POLINKEVYCH,MALINDA MD Sep 19, 2020 10:57
[2020-09-19] MEDS ORDERED: LEVEMIR (INSULIN DETEMIR) 1 UNITS/0.01ML SC ONE (11:00)
[2020-09-19] MEDS ORDERED: NS 1,000 ML IV SCH (11:00)
[2020-09-19] MEDS ORDERED: D5W 1000ML IV ONE (11:00)
[2020-09-19] MEDS: **NOTE PATIENT COMMENT** MISC XX SCH (20:00)
--- NOTE | 2020-09-19 20:47 | IPN ---
NEPHROLOGY PROGRESS NOTE DATE: 09/19/2020 SUBJECTIVE: The patient's chart was reviewed and 24-hour events are noted and his progress and clinical condition were discussed by myself with the Hospitalist, Dr. Elliot Long. The patient continues to be altered and has been spiking high grade fevers, T-max up to 104.7. His blood pressures were quite soft the previous 24 hours with multiple readings showing systolic in the 80's. His Cardizem drip was subsequently held along with his Atenolol dose. His urine output was 1.2 liters in the past 24 hours while being on d5w at 150 mL an hour and laboratory studies show a corrected sodium level this morning is 157 (actual lab sodium 151 with a glucose of 463). His BNP is also up trending from 1,100 to 1,500 today. However his oxygen requirements are fairly stable and he remains on 40-50% FiO2. In terms of renal function, his blood urea nitrogen continues to rise and is up to 127 this morning and creatinine is also up to 3.1. This in the setting of hypotension as previously discussed. I discussed with Hospitalist that we should reach out to his yard goods salesperson to discuss goals of care including their input on dialysis should he develop further worsening renal function. ASSESSMENT: 1. Hypernatremia the patient's corrected sodium is 157. He has at least a 9 liter free water deficit. He is receiving hypotonic fluid, d5w at 150, however I dare not increase the rate of fluids given his ongoing respiratory issues and risk of pulmonary edema. 2. Insulin dependent diabetes mellitus his glucose levels are very high, up to greater than 600 yesterday evening. It is in the setting of d5w and IV steroids and insulin has been adjusted by the primary service. 3. Hypotension - The patient is spiking high grade fevers. His blood pressures were very soft over the past 24 hours. Multiple readings with systolic in the 80's. It is contributing to his renal failure. His Cardizem drip was held and so was his Atenolol. We cannot expect improvement in renal function if he does not stabilize from hemodynamic point of view. This was discussed with Hospitalist service. His most recent MAPs are above 65 this morning. 4. Non-oliguric renal failure his BUN is disproportionately elevated as compared to his creatinine. It is in the setting of GI bleed and IV steroid use along with considerable free water deficit. He is also altered and there may be a component of uremia. We will discuss goals of care with his yard goods salesperson. 5. Acute hypoxic respiratory failure with COVID-19 infection managed by the Hospitalist service - The patient is on IV steroids along with Remdesivir (literature was reviewed and I see that IV Remdesivir is usually held for GFR less than 30). He only has one more dose pending. I will defer to the Hospitalist. He is also on broad spectrum antibiotics and oxygen requirements appear to be stable although his white count has risen.
[2020-09-20] VITALS (18 sets, daily range): BP systolic 93–141; BP diastolic 53–78
[2020-09-20] MEDS: PIPERACILLIN/TAZOBACTAM SOD 3.375 GM in D5W MINI-BAG PLUS 50 ML IV SCH ×4 (02:22→20:04)
[2020-09-20] MEDS: D5W 1,000 ML IV SCH ×4 (04:00→21:08)
[2020-09-20 05:31] LABS: BASO # 0.1 10^3/uL (0.0-0.2); BASO % 0.3 % (0.0-1.0); HEMATOCRIT 41.5 % (42.0-52.0); HEMOGLOBIN 13.4 g/dl (13.5-17.5); LYMPH # 0.5 10^3/uL (1.5-5.0); LYMPH % 2.5 % (24.0-44.0); MEAN CORPUSCULAR HEMOGLOBIN 30.9 pg (27.0-33.0); MEAN CORPUSCULAR HGB CONC 32.3 g/dl (32.0-36.5); MEAN CORPUSCULAR VOLUME 95.8 fl (80.0-96.0); MONO # 0.4 10^3/uL (0.0-0.8); MONO % 2.2 % (0.0-5.0); NEUTROPHILS % 92.2 % (36.0-66.0); PLATELET COUNT, AUTOMATED 109 10^3/uL (150-450); RED BLOOD COUNT 4.33 10^6/uL (4.30-6.10); WHITE BLOOD COUNT 18.4 10^3/uL (4.0-10.0)
[2020-09-20 05:47] LABS: FIBRINOGEN 297 MG/DL (221-452)
[2020-09-20 06:21] LABS: ALBUMIN 2.1 GM/DL (3.2-5.2); BILIRUBIN,TOTAL 1.2 MG/DL (0.2-1.0); C REACTIVE PROTEIN QUANTITATIV 3.27 MG/DL (0.00-0.30); CALCIUM LEVEL 8.3 MG/DL (8.8-10.2); CREATININE FOR GFR 2.12 MG/DL (0.70-1.30); GLOMERULAR FILTRATION RATE 32.4 (>42); MAGNESIUM LEVEL 3.1 MG/DL (1.8-2.4); POTASSIUM SERUM 4.1 MEQ/L (3.5-5.1)
[2020-09-20] MEDS: PANTOPRAZOLE 40MG VIAL (C9113 PER 1) IV SCH ×2 (07:39→20:03)
[2020-09-20] MEDS: SUCRALFATE SUSP 1GM/10ML UD PO SCH ×4 (07:39→23:43)
[2020-09-20] MEDS: REMDESIVIR 100 MG in NS 250 ML IV SCH (07:40)
[2020-09-20] MEDS: SODIUM CHLORIDE 0.9% INJ 10 ML SYR IV SCH ×3 (07:40→18:22)
[2020-09-20] MEDS: dexameTHASONE 20MG/5ML VIAL (J1100 PER 1MG) IV SCH (07:41)
[2020-09-20] MEDS: HumaLOG INSULIN (NovoLOG) PER UNIT SC SCH ×4 (07:41→23:49)
[2020-09-20] MEDS: LEVEMIR (INSULIN DETEMIR) 1 UNITS/0.01ML SC SCH ×2 (07:41→20:03)
[2020-09-20] MEDS: atenoloL 25 MG TAB PO SCH (07:42)
[2020-09-20] MEDS: ASPIRIN 81 MG ENTERIC TAB PO SCH (07:42)
[2020-09-20 07:55] LABS: D-DIMER QUANT > 4000 ng/ml (<500)
--- NOTE | 2020-09-20 09:53 | IPNPDOC ---
Date Seen The patient was seen on 09/20/20. Progress Note SUBJECTIVE: 75 yo M hx of syncope, afib s/p watchman device, HTN, morbid obesity, chronic back pain, hx of GIB, presented to ER c/o SOB, weakness, chills, tested positive for COVID-19 infection. Received dexamethasone, broad- spectrum abx and remdesivir. He was transitioned to ICU for need for CPAP and management of afib with RVR, requiring cardizem infusion. I examined pt at bedside, and d/w RN. Patient continues to be altered/obtunded but is able to squeeze hands on command and finds pupil exam with flashlight irritating, closing his eyes which is encouraging from a neurological standpo int. Continues to require CPAP. Has not shown improvement in encephalopathy. Urine output improved, 1800 cc in 24 hrs. Febrile overnight, T 100.7. OBJECTIVE PHYSICAL EXAMINATION: VITAL SIGNS: please see below General: on CPAP. Tolerating. Squeezes hands on command. Non verbal. HEENT: patient refuses Neck: supple, normal ROM, no JVD Respiratory: lungs CTAB, no wheeze, no rales, no crackles CVS: RRR, normal S1, S2, no murmurs Abdo: soft, no masses, no hepatosplenomegaly, BS+, no rebound tenderness Extremities: no edema, pulses 2+ MSK: no joint deformities, normal ROM Neuro: no focal neuro deficits, moving all 4 extremities, CN2-12 intact. Strength 5/5 in all 4 extremities. No nystagmus. Psych: non verbal LABORATORY DATA, IMAGING STUDIES, MICROBIOLOGY: Please see below. CT head wo contrast (09/20/20): Bone window settings demonstrate an intact bony calvarium. There is no evidence of skull fracture or incidental bony calvarial lesion. The visualized paranasal sinuses appear clear. No intraorbital abnormality is seen. On soft tissue window setting images; the lateral, third, and fourth ventricles are normal in size and position. Louie-white differentiation pattern is normal above and below the tentorium. There are is no evidence of intracranial hemorrhage. No mass, edema, infarction, or midline shift is seen. No extra-axial fluid collection is appreciated. There is moderate vascular calcification in the distal internal carotid arteries bilaterally again noted. Generalized volume loss is again observed with concordant ventricular enlargement unchanged from the comparison study December 29, 2019. There are mild periventricular small vessel changes. There is no evidence of acute intracranial abnormality. IMPRESSION: Generalized volume loss vascular calcification. No acute intracranial abnormality CXR (09/11): Findings suggesting subtle scattered bilateral opacities/airspace disease. CXR (09/14): Abnormal lung field opacities as described above. Asymmetric pulmonary edema versus patchy pneumonia. Consider PA and lateral views of the chest. CXR(09/15): Probable mild improvement of bilateral infiltrates. CXR (09/18): Multifocal opacities essentially unchanged compared to 09/15/2020. DVT prophylaxis ordered?: SCDs, TEDs, off of chemoprophylaxis given positive FOBT and prior hx of GIB. PROBLEMS: Acute hypoxic respiratory failure - possibly 2/2 COVID19, possibly 2/2 superimposed bacterial infection, possibly 2/2 PE - able to tolerate CPAP, doing well from oxygen saturation standpoint - Inflammatory markers continue to be downtrending - c/w Zosyn (Day #7); s/p Vancomycin - Will c/w Remdesivir (Day #9) - c/w Dexamethasone (Day #9) - Will hold Lovenox (see below) given positive FOBT and hx of GIB. - will continue to follow procal, ranging between 0.98 and 1.4. - ASA 325 mg MT daily Respiratory alkalosis - ABG noted at midnight to show respiratory alkalosis with appropriate oxygenation - on CPAP this morning Acute metabolic encephalopathy - multifactorial - Arouses to painful stimuli - Will get CT head if aerosolization can be avoided, however, patient continues to require CPAP - c/w Neurological checks - unable to examine eyes, patient continues to flex eyelids forcefully A. fib with RVR - Hemodynamically stable - Patient's heart rate has improved - s/p Digoxin loading, digoxin level on 09/18/20 wnl - repeat level on 09/20/20 - Will continue telemetry monitoring - s/p Diltiazem drip - c/w Atenolol, digoxin 0.125 mcg daily - s/p Watchman (Atrial appendage closure) Dark stools - Hx of GI bleed - Heme occult positive - HG has remained stable - c/w Protonix / Carafate - continue with ASA 300 mg MT - will resume lovenox 30 mg SC daily, hold if Hgb drops. Procoagulable in covid setting. Blood contaminant - Repeat blood cultures negative Hypernatremia - Na 151 - nephrology was consulted, and I discussed with Dr. Blanca Simmons - recommending to continue D5W and increased insulin as needed - increased levemir 30 units q12h [place] - Cr continues to trend up - Ochoa catheter in place - D/w Dr. Blanca Simmons, renal function somewhat improved as evidenced by his improved urine output, decreasing BUN and Cr. Hyperglycemia - likely 2/2 DM2 - A1c: 7.4% - c/w ISS [id number] - Will keep NPO (except meds for now) - increase levemir to 30 units q12h Reported fall in while at home - Denied any lose of consciousness / head trauma - Moving all four extremities GERD - Hx of GI bleed - c/w Protonix / Carafate DVT prophylaxis - Will hold Lovenox (re: Occult positive / dark stools) Code status: - Full code - Has not appointed a healthcare proxy - only contact is an employee benefits attorney at paralegal supervisor clinic in [place], Mr. Kobe Mathias. He has not personal connection to Mr. Al, but will attempt to find any documentation which may indicate any family members. - PFS to assist. VS, I&O, 24H, Fishbone Vital Signs/I&O Vital Signs Date Time Temp Pulse Resp B/P (MAP) Pulse Ox O2 Delivery O2 Flow Rate FiO2 09/20/20 09:00 89 28 115/59 (77) 94 NIPPV (BIPAP/CPAP) 50 09/20/20 08:00 100.7 09/18/20 20:00 40.0 I&O- Last 24 Hours up to 6 AM 09/20/20 06:00 Intake Total 3320 ml Output Total 1800 ml Balance 1520 ml Laboratory Data 24H LABS Laboratory Tests 2 09/19/20 11:51: Bedside Glucose (Misc Panel) 350H 09/19/20 18:24: Bedside Glucose (Misc Panel) 335H 09/19/20 23:28: Bedside Glucose (Misc Panel) 356H 09/20/20 05:03: Immature Granulocyte % (Auto) 2.8, Neutrophils (%) (Auto) 92.2H, Lymphocytes (%) (Auto) 2.5L, Monocytes (%) (Auto) 2.2, Eosinophils (%) (Auto) 0.0, Basophils (%) (Auto) 0.3, Neutrophils # (Auto) 17.0H, Lymphocytes # (Auto) 0.5L, Monocytes # (Auto) 0.4, Eosinophils # (Auto) 0.0, Basophils # (Auto) 0.1, Nucleated Red Blood Cells % (auto) 5.4H, Fibrinogen 297, D-Dimer, Quantitative > 4000H, Anion Gap 6L, Glomerular Filtration Rate 32.4L, Calcium Level 8.3L, Magnesium Level 3.1H, Ferritin 2206H, Total Bilirubin 1.2H, Aspartate Amino Transf (AST/SGOT) 32, Alanine Aminotransferase (ALT/SGPT) 33, Alkaline Phosphatase 75, C-Reactive Protein, Quantitative 3.27H, CD-Vpl-F-Type Natriuretic Peptide 1008H, Total Protein 5.0L, Albumin 2.1L, Albumin/Globulin Ratio 0.7 CBC/BMP Laboratory Tests 09/20/20 05:03 Microbiology Microbiology 09/17/20 Stool Occult Blood (MISTY) - Final, Complete 09/15/20 Blood Culture - Preliminary, Resulted No Growth after 72 hours. All specime... 09/15/20 Blood Culture - Preliminary, Resulted No Growth after 72 hours. All specime... 09/13/20 Blood Culture - Final, Complete NO GROWTH AFTER 5 DAYS 09/13/20 Blood Culture - Final, Complete NO GROWTH AFTER 5 DAYS 09/11/20 Blood Culture - Final, Complete Micrococcus Luteus 09/11/20 Blood Culture - Final, Complete Micrococcus Luteus 09/11/20 Respiratory Virus Panel (PCR) (MISTY) - Final, Complete SARS-CoV-2 (COVID 19) MALINDA GUZMAN MD Sep 20, 2020 09:53
[2020-09-20] MEDS: DIGOXIN 0.125 MG TAB PO SCH (10:34)
--- NOTE | 2020-09-20 10:50 | REP ---
INDICATION: fever. COMPARISON: Comparison radiograph September 18, 2020. TECHNIQUE: Portable upright AP chest radiograph. FINDINGS: Monitoring electrodes are seen. There is a loop recorder in the left precordium. A right-sided PICC line is seen with its tip terminating in the region of the subclavian vein unchanged. NG tube enters the left upper quadrant of the abdomen. Heart is not enlarged. The aorta is tortuous as before. There is slight blunting of the left lateral pleural angle. There are areas of infiltrate in the left base and right upper lobe although these appear a little less prominent today than on the prior study. No new infiltrate is appreciated. IMPRESSION: Previously noted infiltrate superior little less prominent. No new infiltrates seen.. <Electronically signed by Vinnie Rodarte > 09/20/20 [id number]
[2020-09-20] MEDS: ASPIRIN 300 MG SUPP PR SCH (12:33)
--- NOTE | 2020-09-20 14:39 | REP ---
INDICATION: AMS. COMPARISON: Comparison head CT study December 29, 2019.. TECHNIQUE: Helical scanning is acquired. 5 mm axial images were reformatted. Coronal MPR images were generated. FINDINGS: Bone window settings demonstrate an intact bony calvarium. There is no evidence of skull fracture or incidental bony calvarial lesion. The visualized paranasal sinuses appear clear. No intraorbital abnormality is seen. On soft tissue window setting images; the lateral, third, and fourth ventricles are normal in size and position. Louie-white differentiation pattern is normal above and below the tentorium. There are is no evidence of intracranial hemorrhage. No mass, edema, infarction, or midline shift is seen. No extra-axial fluid collection is appreciated. There is moderate vascular calcification in the distal internal carotid arteries bilaterally again noted. Generalized volume loss is again observed with concordant ventricular enlargement unchanged from the comparison study December 29, 2019. There are mild periventricular small vessel changes. There is no evidence of acute intracranial abnormality. IMPRESSION: Generalized volume loss vascular calcification. No acute intracranial abnormality.. <Electronically signed by Vinnie Rodarte > 09/20/20 [id number]
[2020-09-20] MEDS: ENOXAPARIN 40MG/0.4ML SYRINGE (J1650 PER 10MG) SC SCH (15:13)
[2020-09-20] MEDS: **NOTE PATIENT COMMENT** MISC XX SCH (20:04)
[2020-09-21] VITALS (16 sets, daily range): BP systolic 87–135; BP diastolic 44–83
[2020-09-21] MEDS: PIPERACILLIN/TAZOBACTAM SOD 3.375 GM in D5W MINI-BAG PLUS 50 ML IV SCH ×3 (02:15→15:29)
[2020-09-21] MEDS: D5W 1,000 ML IV SCH ×3 (03:48→23:14)
[2020-09-21 04:42] LABS: BASO # 0.1 10^3/uL (0.0-0.2); BASO % 0.3 % (0.0-1.0); HEMATOCRIT 41.1 % (42.0-52.0); HEMOGLOBIN 13.4 g/dl (13.5-17.5); LYMPH # 0.4 10^3/uL (1.5-5.0); LYMPH % 1.7 % (24.0-44.0); MEAN CORPUSCULAR HEMOGLOBIN 31.5 pg (27.0-33.0); MEAN CORPUSCULAR HGB CONC 32.6 g/dl (32.0-36.5); MEAN CORPUSCULAR VOLUME 96.7 fl (80.0-96.0); MONO # 0.3 10^3/uL (0.0-0.8); MONO % 1.5 % (0.0-5.0); NEUTROPHILS # 20.2 10^3/uL (1.5-8.5); NEUTROPHILS % 93.3 % (36.0-66.0); RED BLOOD COUNT 4.25 10^6/uL (4.30-6.10); WHITE BLOOD COUNT 21.6 10^3/uL (4.0-10.0)
[2020-09-21 04:47] LABS: FIBRINOGEN 208 MG/DL (221-452)
[2020-09-21 04:57] LABS: BILIRUBIN,TOTAL 1.4 MG/DL (0.2-1.0); C REACTIVE PROTEIN QUANTITATIV 2.51 MG/DL (0.00-0.30); CALCIUM LEVEL 8.3 MG/DL (8.8-10.2); CREATININE FOR GFR 1.86 MG/DL (0.70-1.30); GLOMERULAR FILTRATION RATE 37.7 (>42); TOTAL PROTEIN 5.1 GM/DL (6.4-8.2)
[2020-09-21 05:05] LABS: PLATELET COUNT, AUTOMATED 81 10^3/uL (150-450)
[2020-09-21] MEDS: SUCRALFATE SUSP 1GM/10ML UD PO SCH ×4 (05:09→23:14)
[2020-09-21] MEDS: SODIUM CHLORIDE 0.9% INJ 10 ML SYR IV SCH ×2 (05:10→17:44)
[2020-09-21] MEDS: HumaLOG INSULIN (NovoLOG) PER UNIT SC SCH ×4 (05:10→23:22)
[2020-09-21 06:53] LABS: D-DIMER QUANT > 4000 ng/ml (<500)
[2020-09-21] MEDS: ASPIRIN 300 MG SUPP PR SCH (08:51)
[2020-09-21] MEDS: dexameTHASONE 20MG/5ML VIAL (J1100 PER 1MG) IV SCH (09:15)
[2020-09-21] MEDS: DIGOXIN 0.125 MG TAB PO SCH (09:15)
[2020-09-21] MEDS: atenoloL 25 MG TAB PO SCH (09:15)
[2020-09-21] MEDS: PANTOPRAZOLE 40MG VIAL (C9113 PER 1) IV SCH ×2 (09:15→20:06)
[2020-09-21] MEDS: ENOXAPARIN 40MG/0.4ML SYRINGE (J1650 PER 10MG) SC SCH (09:15)
[2020-09-21] MEDS: LEVEMIR (INSULIN DETEMIR) 1 UNITS/0.01ML SC SCH ×2 (09:15→20:06)
--- NOTE | 2020-09-21 11:01 | IPNPDOC ---
Date Seen The patient was seen on 09/21/20. Progress Note SUBJECTIVE: 75 yo M hx of syncope, afib s/p watchman device, HTN, morbid obesity, chronic back pain, hx of GIB, presented to ER c/o SOB, weakness, chills, tested positive for COVID-19 infection. Received dexamethasone, broad- spectrum abx and remdesivir. He was transitioned to ICU for need for CPAP and management of afib with RVR, requiring cardizem infusion. I examined pt at bedside, and d/w RN. Patient continues to be altered/obtunded but is able to squeeze hands on command and finds pupil exam with flashlight irritating, closing his eyes which is encouraging from a neurological standpo int. Continues to require CPAP. Has not shown improvement in encephalopathy. Urine output improved. OBJECTIVE PHYSICAL EXAMINATION: VITAL SIGNS: please see below General: on CPAP. Tolerating. Squeezes hands on command. Non verbal. HEENT: PERRLA, symmetrical pupils Neck: supple, normal ROM, no JVD Respiratory: lungs CTAB, no wheeze, no rales, no crackles CVS: RRR, normal S1, S2, no murmurs Abdo: soft, no masses, no hepatosplenomegaly, BS+, no rebound tenderness Extremities: no edema, pulses 2+ MSK: no joint deformities, normal ROM Neuro: no focal neuro deficits, moving all 4 extremities, CN2-12 intact. Strength 5/5 in all 4 extremities. No nystagmus. Psych: non verbal LABORATORY DATA, IMAGING STUDIES, MICROBIOLOGY: Please see below. CT head wo contrast (09/20/20): Bone window settings demonstrate an intact bony calvarium. There is no evidence of skull fracture or incidental bony calvarial lesion. The visualized paranasal sinuses appear clear. No intraorbital abnormality is seen. On soft tissue window setting images; the lateral, third, and fourth ventricles are normal in size and position. Louie-white differentiation pattern is normal above and below the tentorium. There are is no evidence of intracranial hemorrhage. No mass, edema, infarction, or midline shift is seen. No extra-axial fluid collection is appreciated. There is moderate vascular calcification in the distal internal carotid arteries bilaterally again noted. Generalized volume loss is again observed with concordant ventricular enlargement unchanged from the comparison study December 29, 2019. There are mild periventricular small vessel changes. There is no evidence of acute intracranial abnormality. IMPRESSION: Generalized volume loss vascular calcification. No acute intracranial abnormality CXR (09/11): Findings suggesting subtle scattered bilateral opacities/airspace disease. CXR (09/14): Abnormal lung field opacities as described above. Asymmetric pulmonary edema versus patchy pneumonia. Consider PA and lateral views of the chest. CXR(09/15): Probable mild improvement of bilateral infiltrates. CXR (09/18): Multifocal opacities essentially unchanged compared to 09/15/2020. DVT prophylaxis ordered?: SCDs, TEDs, off of chemoprophylaxis given positive FOBT and prior hx of GIB. PROBLEMS: Acute hypoxic respiratory failure - possibly 2/2 COVID19, possibly 2/2 superimposed bacterial infection, possibly 2/2 PE - able to tolerate CPAP, doing well from oxygen saturation standpoint - ABG repeated on 09/21/19, 7.41/38.3/92.3/23.9 - Inflammatory markers continue to be downtrending - D/w Dr. Kramer, recommends DC abx since appropriat duration completed. s/p Zosyn (Day #7); s/p Vancomycin - s/p Remdesivir (Day #10) - s/p Dexamethasone (10 days), will taper down with prednisone - will continue to follow procal, ranging between 0.98 and 1.4. - ASA 325 mg WI daily Respiratory alkalosis - ABG noted at midnight to show respiratory alkalosis with appropriate oxygenation - on CPA, saturating 94% with FiO2 50%. Acute metabolic encephalopathy - multifactorial - Arouses to painful stimuli - CT head showing no acute changes - c/w Neurological checks A. fib with RVR - Hemodynamically stable - Patient's heart rate has improved - s/p Digoxin loading, digoxin level on 09/18/20 wnl - repeat level on 09/20/20 - Will continue telemetry monitoring - s/p Diltiazem drip - c/w Atenolol, digoxin 0.125 mcg daily - s/p Watchman (Atrial appendage closure) Dark stools - Hx of GI bleed - Heme occult positive - HG has remained stable - c/w Protonix / Carafate - continue with ASA 300 mg WI - will resume lovenox 30 mg SC daily, hold if Hgb drops. Procoagulable in covid setting. Blood contaminant - Repeat blood cultures negative Hypernatremia - Na 151 - nephrology was consulted, and I discussed with Dr. Blanca Simmons - recommending to reduce D5W to 75 cc/hr, hypotonic TPN running at 75 cc/hr - levemir 30 units q12h [place] - renal function improving, UOP improved - Ochoa catheter in place - c/w D5W. Hyperglycemia - likely 2/2 DM2 - A1c: 7.4% - c/w ISS [id number] - Will keep NPO (except meds for now) - levemir to 30 units q12h - hypotonic TPN started, 75 cc/hr. Dr Fermin will assist, insulin added 20 units to tpn Reported fall in while at home - Denied any lose of consciousness / head trauma - Moving all four extremities GERD - Hx of GI bleed - c/w Protonix / Carafate DVT prophylaxis - resume lovenox as Hgb has been stable, however will DC if thrombocytopenia worsens Code status: - Full code - Has not appointed a healthcare proxy - Spoke to Mrs. Thi Zepeda, who is a retirement friend for the past 14 years. There is no family available. PFS assisting on case. Tel /[phone] VS, I&O, 24H, Fishbone Vital Signs/I&O Vital Signs Date Time Temp Pulse Resp B/P (MAP) Pulse Ox O2 Delivery O2 Flow Rate FiO2 09/21/20 10:01 100.0 85 96/44 (61) 93 NIPPV (BIPAP/CPAP) 60 09/21/20 09:01 26 09/20/20 14:19 15.0 I&O- Last 24 Hours up to 6 AM 09/21/20 06:00 Intake Total 3770 ml Output Total 1500 ml Balance 2270 ml Laboratory Data 24H LABS Laboratory Tests 2 09/20/20 12:26: Bedside Glucose (Misc Panel) 355H 09/20/20 17:55: Bedside Glucose (Misc Panel) 354H 09/20/20 23:46: Bedside Glucose (Misc Panel) 330H 09/21/20 04:00: Immature Granulocyte % (Auto) 3.2H, Neutrophils (%) (Auto) 93.3H, Lymphocytes (%) (Auto) 1.7L, Monocytes (%) (Auto) 1.5, Eosinophils (%) (Auto) 0.0, Basophils (%) (Auto) 0.3, Neutrophils # (Auto) 20.2H, Lymphocytes # (Auto) 0.4L, Monocytes # (Auto) 0.3, Eosinophils # (Auto) 0.0, Basophils # (Auto) 0.1, Nucleated Red Blood Cells % (auto) 6.4H, Immature Platelet Fraction 18.5H, Fibrinogen 208L, D-Dimer, Quantitative > 4000H, Anion Gap 9, Glomerular Filtration Rate 37.7L, Calcium Level 8.3L, Magnesium Level 3.0H, Ferritin 1690H, Total Bilirubin 1.4H, Aspartate Amino Transf (AST/SGOT) 53H, Alanine Aminotransferase (ALT/SGPT) 36, Alkaline Phosphatase 88, C-Reactive Protein, Quantitative 2.51H, SX-Rof-N-Type Natriuretic Peptide 1379H, Total Protein 5.1L, Albumin 2.0L, Albumin/Globulin Ratio 0.6, Procalcitonin 0.60 CBC/BMP Laboratory Tests 09/21/20 04:00 Microbiology Microbiology 09/17/20 Stool Occult Blood (MISTY) - Final, Complete 09/15/20 Blood Culture - Final, Complete NO GROWTH AFTER 5 DAYS 09/15/20 Blood Culture - Final, Complete NO GROWTH AFTER 5 DAYS 09/13/20 Blood Culture - Final, Complete NO GROWTH AFTER 5 DAYS 09/13/20 Blood Culture - Final, Complete NO GROWTH AFTER 5 DAYS 09/11/20 Blood Culture - Final, Complete Micrococcus Luteus 09/11/20 Blood Culture - Final, Complete Micrococcus Luteus 09/11/20 Respiratory Virus Panel (PCR) (MISTY) - Final, Complete SARS-CoV-2 (COVID 19) MALINDA GUZMAN MD Sep 21, 2020 11:01
--- NOTE | 2020-09-21 12:57 | REP ---
INDICATION: elevated bili. COMPARISON: CT 09/30/2019. TECHNIQUE: Real-time sonographic evaluation of right upper quadrant performed. FINDINGS: Gallstones are seen in the gallbladder without evidence of gallbladder wall thickening or pericholecystic fluid.. There is no intrahepatic or extrahepatic biliary dilatation, common bile duct measures 4 mm in maximum diameter. The liver appears somewhat increased in echotexture diffusely suggesting some degree of fibrofatty infiltration. No liver mass is seen. Visualized pancreas appears unremarkable, not optimally seen due to overlying bowel gas. The right kidney demonstrates no hydronephrosis, with a normal size of 13.0 cm in length. No free fluid is seen. IMPRESSION: Gallstones in the gallbladder without evidence of gallbladder wall thickening, pericholecystic fluid or biliary dilatation. Diffuse fibrofatty infiltration of the liver. <Electronically signed by Yash Louie > 09/21/20 [id number]
[2020-09-21 17:42] LABS: ABG BASE EXCESS -0.4 (-2.0-2.0); ABG HCO3 23.9 MEQ/L (22.0-26.0); ABG O2 SATURATION 96.8 % (95.0-99.0); ABG PARTIAL PRESSURE CO2 38.3 mmHg (35.0-45.0); ABG PARTIAL PRESSURE O2 92.3 mmHg (75.0-100.0); ABG STANDARD HCO3 24.1 MEQ/L (22.0-26.0); ABG TOTAL CO2 25.1 MEQ/L (23.0-31.0); ABG pH (ARTERIAL) 7.413 UNITS (7.350-7.450)
[2020-09-21] MEDS ORDERED: INSULIN HUMAN REGULAR IV SCH (18:00)
[2020-09-21] MEDS ORDERED: AMINO AC/ELECTROLYTE/DEX/CALC 2,000 ML IV SCH (18:00)
[2020-09-21] MEDS ORDERED: CALCIUM GLUCONATE IV SCH (18:00)
[2020-09-21] MEDS ORDERED: [UNRECOGNIZED DRUG - OTHER] IV SCH (18:00)
[2020-09-21] MEDS ORDERED: FAT EMULSION IV 20% 500 ML IV SCH (18:00)
[2020-09-21] MEDS: **NOTE PATIENT COMMENT** MISC XX SCH (20:00)
[2020-09-22] VITALS (40 sets, daily range): BP systolic 61–136; BP diastolic 32–80; O2SAT 98
--- NOTE | 2020-09-22 00:15 | IPN ---
PROGRESS NOTE DATE: 09/21/2020 SUBJECTIVE: Chart is reviewed and previous 24-hour events are noted. Patient's clinical course is discussed with Dr. Long. Mr. Al remains on CPAP with stable FiO2 requirements of 50%. He remains altered and obtunded. He was started on TPN for nutritional support. He continues as well on D5W. His hypernatremia is slowly improving, but corrected sodium is still around 154. His renal function has significantly improved over the past 48 hours with BUN declining from 127 down to 75. In terms of his atrial fibrillation, he is presently rate controlled with Atenolol and Digoxin. The Cardizem drip has been discontinued. His I.V. steroids have now been switched over to oral prednisone. PHYSICAL EXAMINATION: VITAL SIGNS: Temperature 99.5, pulse 81, respiratory rate 28, blood pressure 104/66, saturating 93% on CPAP, FiO2 50%. INTAKE AND OUTPUT: Intake yesterday 3.7 liters. Urine output 1.3 liters, net positive 2.4 liters. Weight in the bed scale today is 121.1 kg, which is similar to his weight over the past 5-6 days. MOST RECENT LABORATORY TESTS: Sodium 150 with glucose 369, potassium 4.0, bicarbonate 29, BUN 75, creatinine 1.8. Magnesium 3.0. BNP 1,300 up from 1,000. INPATIENT MEDICATIONS: Special formula TPN is written. He continues on D5W, the rate was cut to 75 cc an hour. TPN is also running at 75 cc an hour. He is off the Diltiazem drip. He is now on Digoxin 0.125 mg p.o. daily. He is also receiving Atenolol 25 mg p.o. daily. His I.V. Decadron was discontinued and switched over to prednisone 40 mg p.o. daily. His insulin was adjusted by the primary team. The remainder of his medications are unchanged as compared to yesterday. NEPHROLOGY ASSESSMENT AND RECOMMENDATIONS: 1. [place] on CKD stage 2: The patient is in nonoliguric renal failure, however, his renal function has nicely improved over the past 48 hours. I am pleased to see particularly the improvement in blood urea nitrogen down from 128 48-hours ago to now 75. He is off of I.V. steroids and now on oral prednisone, and that will help in terms of his further correction of blood urea nitrogen levels. His urine output is adequate and his serum creatinine continues to down trend. At this point uremia should not be a cause of his encephalopathy given that the BUN levels have significantly decreased. 2. Hypernatremia: Patient has free water deficit of 7 liters. Continue hypotonic fluids at this time. He is getting D5W at 75 cc an hour and special formula TPN is written as a hypotonic formulation as well, also to run at 75 cc an hour. I would not increase the rate of the fluids further given his oxygen requirements and risk of pulmonary edema in the setting of COVID infection. 3. Atrial fibrillation: Rate is now controlled with Digoxin and Atenolol, and his blood pressures have happily been stable, and that is conducive towards further recovery of renal function. 4. Metabolic encephalopathy: It is multifactorial, his CT head yesterday showed no acute changes. His blood urea nitrogen levels have significantly improved and I do not feel that uremia is a current cause of his altered mentation. We will continue with correction of his electrolyte abnormality. 5. Type 2 diabetes mellitus: Insulin is added to the special order TPN formula. His I.V. steroids have been discontinued and he is now on oral prednisone. I am hopeful his sugars will further improve.
[2020-09-22 04:47] LABS: BASO # 0.1 10^3/uL (0.0-0.2); BASO % 0.3 % (0.0-1.0); HEMATOCRIT 43.7 % (42.0-52.0); HEMOGLOBIN 13.7 g/dl (13.5-17.5); LYMPH # 0.4 10^3/uL (1.5-5.0); LYMPH % 1.6 % (24.0-44.0); MEAN CORPUSCULAR HEMOGLOBIN 31.4 pg (27.0-33.0); MEAN CORPUSCULAR HGB CONC 31.4 g/dl (32.0-36.5); MEAN CORPUSCULAR VOLUME 100.2 fl (80.0-96.0); MONO # 0.3 10^3/uL (0.0-0.8); MONO % 1.1 % (0.0-5.0); NEUTROPHILS # 22.8 10^3/uL (1.5-8.5); NEUTROPHILS % 93.7 % (36.0-66.0); RED BLOOD COUNT 4.36 10^6/uL (4.30-6.10); WHITE BLOOD COUNT 24.4 10^3/uL (4.0-10.0)
[2020-09-22 04:52] LABS: PLATELET COUNT, AUTOMATED 59 10^3/uL (150-450)
[2020-09-22 05:09] LABS: FIBRINOGEN 224 MG/DL (221-452)
[2020-09-22 05:48] LABS: D-DIMER QUANT > 4000 ng/ml (<500)
[2020-09-22 06:06] LABS: ALBUMIN 2.1 GM/DL (3.2-5.2); BILIRUBIN,TOTAL 1.5 MG/DL (0.2-1.0); C REACTIVE PROTEIN QUANTITATIV 3.59 MG/DL (0.00-0.30); CALCIUM LEVEL 8.2 MG/DL (8.8-10.2); CREATININE FOR GFR 2.02 MG/DL (0.70-1.30); DIGOXIN LEVEL 0.7 NG/ML (0.5-2.0); GLOMERULAR FILTRATION RATE 34.3 (>42); MAGNESIUM LEVEL 2.9 MG/DL (1.8-2.4); POTASSIUM SERUM 4.5 MEQ/L (3.5-5.1); TOTAL PROTEIN 4.8 GM/DL (6.4-8.2)
[2020-09-22] MEDS: SUCRALFATE SUSP 1GM/10ML UD PO SCH ×3 (06:10→19:29)
[2020-09-22] MEDS: HumaLOG INSULIN (NovoLOG) PER UNIT SC SCH ×5 (06:10→21:26)
[2020-09-22] MEDS: SODIUM CHLORIDE 0.9% INJ 10 ML SYR IV SCH ×2 (06:11→19:30)
[2020-09-22] MEDS ORDERED: LACTULOSE 20 GM/30 ML SYRUP UD PR ONE (08:00)
[2020-09-22] MEDS: atenoloL 25 MG TAB PO SCH ×2 (08:45→09:11)
[2020-09-22] MEDS: predniSONE 10 MG TAB PO SCH ×2 (08:45→09:10)
[2020-09-22] MEDS: DIGOXIN 0.125 MG TAB PO SCH ×2 (08:45→09:11)
[2020-09-22] MEDS: LEVEMIR (INSULIN DETEMIR) 1 UNITS/0.01ML SC SCH ×2 (08:46→21:27)
[2020-09-22] MEDS: PANTOPRAZOLE 40MG VIAL (C9113 PER 1) IV SCH ×2 (08:47→21:27)
[2020-09-22] MEDS: ENOXAPARIN 40MG/0.4ML SYRINGE (J1650 PER 10MG) SC SCH (08:47)
[2020-09-22] MEDS: ASPIRIN 300 MG SUPP PR SCH (08:47)
--- NOTE | 2020-09-22 09:16 | IPNPDOC ---
Date Seen The patient was seen on 09/22/20. Progress Note SUBJECTIVE: 75 yo M hx of syncope, afib s/p watchman device, HTN, morbid obesity, chronic back pain, hx of GIB, presented to ER c/o SOB, weakness, chills, tested positive for COVID-19 infection. Received dexamethasone, broad- spectrum abx and remdesivir. He was transitioned to ICU for need for CPAP and management of afib with RVR, requiring cardizem infusion. I examined pt at bedside, and d/w RN. Patient continues to be altered/obtunded but is able to squeeze hands on command and finds pupil exam with flashlight irritating, closing his eyes which is encouraging from a neurological standpo int. Continues to require CPAP. There is perhaps mild improvement in cognition, patient seems to respond to his name being called. Was febrile overnight to 100.4. OBJECTIVE PHYSICAL EXAMINATION: VITAL SIGNS: please see below General: on CPAP. Tolerating. Squeezes hands on command. Non verbal. HEENT: PERRLA, symmetrical pupils Neck: supple, normal ROM, no JVD Respiratory: lungs CTAB, no wheeze, no rales, no crackles CVS: RRR, normal S1, S2, no murmurs Abdo: soft, no masses, no hepatosplenomegaly, BS+, no rebound tenderness Extremities: no edema, pulses 2+ MSK: no joint deformities, normal ROM Neuro: no focal neuro deficits, moving all 4 extremities, CN2-12 intact. Strength 5/5 in all 4 extremities. No nystagmus. Psych: non verbal LABORATORY DATA, IMAGING STUDIES, MICROBIOLOGY: Please see below. CT head wo contrast (09/20/20): Bone window settings demonstrate an intact bony calvarium. There is no evidence of skull fracture or incidental bony calvarial lesion. The visualized paranasal sinuses appear clear. No intraorbital abnormality is seen. On soft tissue window setting images; the lateral, third, and fourth ventricles are normal in size and position. Louie-white differentiation pattern is normal above and below the tentorium. There are is no evidence of intracranial hemorrhage. No mass, edema, infarction, or midline shift is seen. No extra-axial fluid collection is appreciated. There is moderate vascular calcification in the distal internal carotid arteries bilaterally again noted. Generalized volume loss is again observed with concordant ventricular enlargement unchanged from the comparison study December 29, 2019. There are mild periventricular small vessel changes. There is no evidence of acute intracranial abnormality. IMPRESSION: Generalized volume loss vascular calcification. No acute intracranial abnormality CXR (09/11): Findings suggesting subtle scattered bilateral opacities/airspace disease. CXR (09/14): Abnormal lung field opacities as described above. Asymmetric pulmonary edema versus patchy pneumonia. Consider PA and lateral views of the chest. CXR(09/15): Probable mild improvement of bilateral infiltrates. CXR (09/18): Multifocal opacities essentially unchanged compared to 09/15/2020. DVT prophylaxis ordered?: SCDs, TEDs, off of chemoprophylaxis given positive FOBT and prior hx of GIB. PROBLEMS: Acute hypoxic respiratory failure - possibly 2/2 COVID19, possibly 2/2 superimposed bacterial infection, possibly 2/2 PE - able to tolerate CPAP, doing well from oxygen saturation standpoint - ABG repeated on 09/21/19, 7.41/38.3/92.3/23.9 - Inflammatory markers continue to be downtrending - DC abx per ID recs. s/p Zosyn (7 days); s/p Vancomycin - s/p Remdesivir (Day #10) - s/p Dexamethasone (10 days), will taper down with prednisone 40 mg daily. - will continue to follow procal, ranging between 0.98 and 1.4. - ASA 325 mg WI daily #sepsis - source unclear - elevated WBC, tachycardia, fevers - d/w Dr. Castillo. - repeat blood, urine cultures - resume empiric vanco and cefepime - vitals remain stable, will check LA Respiratory alkalosis - ABG noted at midnight to show respiratory alkalosis with appropriate oxygenati on - on CPA, saturating 94% with FiO2 50%. Acute metabolic encephalopathy - likely 2/2 sepsis - [place] to painful stimuli - CT head showing no acute changes - c/w Neurological checks - elevated ammonia, 38 possibly related to high dose dexamethasone Hyperammonenia - ammonia level 38 on 09/22/20 - possibly steroid induced - reduced IV dexamethasone to prednisone taper A. fib with RVR - Hemodynamically stable - Patient's heart rate has improved - s/p Digoxin loading, digoxin level on 09/18/20 wnl - repeat level on 09/20/20 - Will continue telemetry monitoring - s/p Diltiazem drip - c/w Atenolol, digoxin 0.125 mcg daily - s/p Watchman (Atrial appendage closure) Dark stools - Hx of GI bleed - Heme occult positive - HG has remained stable - c/w Protonix / Carafate - DC ASA - DC lovenox due to thrombocytopenia Thrombocytopenia - likely in setting of acute illness - trend - hold ASA, lovenox, given recent GIB Blood contaminant - Repeat blood cultures negative Hypernatremia - Na 151 - nephrology was consulted, and I discussed with Dr. Blanca Simmons - recommending to reduce D5W to 75 cc/hr, hypotonic TPN running at 75 cc/hr - levemir 30 units q12h [place] - renal function improving, UOP improved - Ochoa catheter in place - c/w D5W. Hyperglycemia - likely 2/2 DM2 - A1c: 7.4% - c/w ISS [id number] - Will keep NPO (except meds for now) - levemir to 30 units q12h - hypotonic TPN started, 75 cc/hr. Dr Fermin will assist, insulin added 20 units to tpn Reported fall in while at home - Denied any lose of consciousness / head trauma - Moving all four extremities GERD - Hx of GI bleed - c/w Protonix / Carafate DVT prophylaxis - worsening thrombocytopenia, DC lovenox - TEDs, SCDs. Code status: - Full code - Has not appointed a healthcare proxy - Spoke to Mrs. Thi Zepeda, who is a [facility] friend for the past 14 years. There is no family available. PFS assisting on case. /[phone] VS, I&O, 24H, Fishbone Vital Signs/I&O Vital Signs Date Time Temp Pulse Resp B/P (MAP) Pulse Ox O2 Delivery O2 Flow Rate FiO2 09/22/20 08:44 50 09/22/20 04:00 100.4 94 24 122/65 (84) 90 NIPPV (BIPAP/CPAP) 09/20/20 14:19 15.0 I&O- Last 24 Hours up to 6 AM 09/22/20 06:00 Intake Total 3265 ml Output Total 1325 ml Balance 1940 ml Laboratory Data 24H LABS Laboratory Tests 2 09/21/20 11:49: Bedside Glucose (Misc Panel) 314H 09/21/20 17:27: Blood Gas Bicarbonate Standard 24.1, Arterial Blood pH 7.413, Arterial Blood Partial Pressure CO2 38.3, Arterial Blood Partial Pressure O2 92.3, Arterial Blood Total CO2 25.1, Arterial Blood HCO3 23.9, Arterial Blood Base Excess -0.4, Arterial Blood Oxygen Saturation 96.8 09/21/20 17:49: Bedside Glucose (Misc Panel) 293H 09/21/20 23:17: Bedside Glucose (Misc Panel) 423H 09/22/20 04:30: Immature Granulocyte % (Auto) 3.3H, Neutrophils (%) (Auto) 93.7H, Lymphocytes (%) (Auto) 1.6L, Monocytes (%) (Auto) 1.1, Eosinophils (%) (Auto) 0.0, Basophils (%) (Auto) 0.3, Neutrophils # (Auto) 22.8H, Lymphocytes # (Auto) 0.4L, Monocytes # (Auto) 0.3, Eosinophils # (Auto) 0.0, Basophils # (Auto) 0.1, Nucleated Red Blood Cells % (auto) 6.5H, Immature Platelet Fraction 18.5H, Fibrinogen 224, D- Dimer, Quantitative > 4000H, Anion Gap 7L, Glomerular Filtration Rate 34.3L, Calcium Level 8.2L, Magnesium Level 2.9H, Ferritin 1464H, Total Bilirubin 1.5H, Aspartate Amino Transf (AST/SGOT) 44H, Alanine Aminotransferase (ALT/SGPT) 37, Alkaline Phosphatase 93, Ammonia 38H, C-Reactive Protein, Quantitative 3.59H, JY-Uzj-G-Type Natriuretic Peptide 1281H, Total Protein 4.8L, Albumin 2.1L, A lbumin/Globulin Ratio 0.8, Digoxin Level 0.7 CBC/BMP Laboratory Tests 09/22/20 04:30 Microbiology Microbiology 09/17/20 Stool Occult Blood (MISTY) - Final, Complete 09/15/20 Blood Culture - Final, Complete NO GROWTH AFTER 5 DAYS 09/15/20 Blood Culture - Final, Complete NO GROWTH AFTER 5 DAYS 09/13/20 Blood Culture - Final, Complete NO GROWTH AFTER 5 DAYS 09/13/20 Blood Culture - Final, Complete NO GROWTH AFTER 5 DAYS MALINDA GUZMAN MD Sep 22, 2020 09:16
[2020-09-22 09:30] LABS: FOLATE 11.4 NG/ML (>5.4)
[2020-09-22] MEDS ORDERED: PILL CUTTER 1 EACH XX PRN (12:45)
[2020-09-22] MEDS: CEFEPIME HCL 2 GM in D5W MINI-BAG PLUS 50 ML IV SCH (13:04)
[2020-09-22] MEDS: VANCOMYCIN HCL 1,000 MG, VIAL MATE ADAPTER 1 EACH in D5W 250 ML IV SCH (13:20)
[2020-09-22] MEDS ORDERED: ETOMIDATE INJ 20MG/10ML VIAL IV ONE (13:30)
[2020-09-22] MEDS ORDERED: VANCOMYCIN HCL 1,000 MG, VIAL MATE ADAPTER 1 EACH in D5W 250 ML IV ONE (14:00)
[2020-09-22] MEDS ORDERED: MIDAZOLAM INJ 2MG/2ML VIAL (J2250 PER 1MG) IV PRN (14:30)
--- NOTE | 2020-09-22 14:48 | REP ---
INDICATION: post intubation. COMPARISON: 09/20/2020. TECHNIQUE: SINGLE PORTABLE AP VIEW OF THE CHEST WAS PERFORMED. FINDINGS: There has been placement of an endotracheal tube. The tip is approximately 4.5 cm above the alice. Nasogastric tube is seen traversing into the stomach. A right arm PICC line is present. The tip appears to be in the central right brachiocephalic vein. Bilateral parenchymal opacities and blunting of the left costophrenic angle is all unchanged. The heart mediastinum are unchanged. IMPRESSION: Placement of endotracheal tube, tip approximately 4.5 cm above the alice. Otherwise no change. <Electronically signed by Yash Louie > 09/22/20 [id number]
[2020-09-22] MEDS ORDERED: CALCIUM GLUCONATE IV SCH ×5 (18:00)
[2020-09-22] MEDS ORDERED: MULTIVITAMIN ADULT IV SCH ×5 (18:00)
[2020-09-22] MEDS ORDERED: [UNRECOGNIZED DRUG - OTHER] IV SCH ×5 (18:00)
--- NOTE | 2020-09-22 18:43 | CR ---
CRITICAL CARE CONSULTATION DATE: 09/22/2020 History is obtained from the chart and from other collateral information as the patient is obtunded and not able to provide history. HISTORY OF PRESENT ILLNESS: Mr. Al is a 75-year-old male with a past medical history of atrial fibrillation, hypertension, morbid obesity, prior history of GI bleed and a lower thoracic aneurysm, status post stent who presented initially with complaints of dyspnea as well as malaise and chills. The patient was hypoxic on admission and was found to be COVID-19 positive. He was initially treated with remdesivir as well as dexamethasone. The patient also had issues during his stay of atrial fibrillation with rapid ventricular response and had initially required diltiazem drip and then with digoxin loading, he was rate controlled. The patient also had issues during his admission of altered mental status with metabolic encephalopathy. He initially was lethargic but conversive and able to follow commands and was oriented. Initially during his admission, he had reported to the house staff that he did want a full code including intubation. The patient was transferred to the ICU given his worsening hypoxic respiratory failure. He was placed on CPAP and was also alternating with Vapotherm. The patient unfortunately, however, was noted to have worsening mental status. He also had continued to remain on CPAP for his respiratory support. The patient was initially on tube feeds. However, as he was continued on CPAP, he was changed to TPN instead for nutritional support. The patient had been having intermittent fevers and was on broad spectrum antibiotics. His cultures, however, had only been positive initially for micrococcus luteus in his blood with the repeat blood cultures negative. This morning, the patient was noted to have more persistent fevers. He was on a cooling blanket and continued to have fevers. He also has continued to be significantly obtunded while on his CPAP and this morning was noted to have almost agonal breathing while on the CPAP. The patient's close family friend was finally able to be contacted. He does not have any other family members listed and so she would be the next possible health care surrogate. After discussion with his friend, Ms. Hogan, given his respiratory status and mental status that he would need to be intubated. As he had previously desired for intubation, he was intubated. There was discussion, however, about his overall prognosis and goals of care and she stated that he would not want any prolonged intubation or mechanical ventilation and so he was made a DNR with only a trial intubation. PAST MEDICAL AND SURGICAL HISTORY: 1. GI bleeding. 2. Syncope. 3. Hypertension. 4. Chronic atrial fibrillation. 5. History of schwannoma. 6. Loop recorder in place. 7. Lower thoracic aneurysm, status post stent. 8. Morbid obesity. 9. Chronic back pain. 10. Left parotid resection. 11. Femoral bypass. HOME MEDICATIONS: 1. Amlodipine. 2. Vitamin C. 3. Aspirin. 4. Atenolol. 5. Baclofen. 6. Nitro patch. 7. Senna. ALLERGIES: LATEX. SOCIAL HISTORY: Former smoker, no alcohol use, no other drug use. FAMILY HISTORY: Unable to be obtained as patient is obtunded. PHYSICAL EXAMINATION: Vitals: Temperature 101.5, T current 100.4, pulse 104, respirations 24, blood pressure 119/72. O2 sat 50% on CPAP, in 3.3 liters, out 1.3 liters. General: The patient is on CPAP and is obtunded. He is not responsive to any painful stimuli or verbal stimuli. HEENT: Normocephalic, atraumatic. Mucous membranes are dry. The patient's mouth is open while on CPAP and he has poor dentition and dried, somewhat bloody secretions noted in his oral cavity. Eyes: Pupils are small and sluggish. There appears to be almost beating nystagmus in the left eye. Neck: Supple. Trachea is midline. Unable to palpate any adenopathy. Cardiac: Tachycardic, irregularly irregular, Normal S-1, S-2. Unable to clearly appreciate murmurs. Respiratory: There are coarse breath sounds with rhonchi bilaterally. No wheezes noted. Abdomen: Obese, soft, nontender. There are no masses palpated. Extremities: There is trace pitting edema in the bilateral lower extremities. LABORATORY DATA: WBC 24.4, hemoglobin 13.7. Platelets are 59. Chemistries: Sodium is 145. Potassium is 4.5. Chloride is 109. Bicarb is 29, BUN 84. Creatinine 2.02. Glucose is 464. Calcium is 8.2. Magnesium is 2.9. Ferritin is 1464. T bili is 1.5. AST, ALT is 44/36. Procalcitonin 0.60. Ammonia level is 38. BNP is 1281. D-dimer is greater than 4000. ABG: pH 7.413, pCO2of 38.3, pO2 of 92.3. IMAGING: Liver ultrasound on 09/21/20 showed gallstones in the gallbladder without evidence of thickening or pericholecystic fluid. There is no biliary ductal dilation. No liver mass seen. There appears to be some diffuse fibrofatty infiltration of the liver. Head CT, 09/20/20 shows generalized volume loss and vascular calcification with no acute intracranial abnormality. Chest x-ray on 09/20/[address] There is a right-sided PICC line in place. There is NG tube in place. There is slight blunting of the left costophrenic angle and areas of infiltrate in the left trace and the right upper lobes. ASSESSMENT AND PLAN: Mr. Al is a 75-year-old male with a past medical history of atrial fibrillation, hypertension and prior GI bleed who presented with acute hypoxemic respiratory failure and metabolic encephalopathy in the setting of COVID-19 pneumonia with possible superimposed bacterial pneumonia. The patient was treated with a course of remdesivir and dexamethasone initially. He also had issues during his hospitalization of metabolic encephalopathy thought to be in the setting of medications as well as with his illness. He, however, has had worsening mentation and has now been completely obtunded. He also had required CPAP as well as Vapotherm for oxygenation and has now been maintained on CPAP for respiratory support. This morning, he was also febrile and noted to have more agonal breathing. After discussion with patient's friend and given his previous wishes, the decision was made for intubation and placement on mechanical ventilation. Neuro: The patient with encephalopathy likely multifactorial. It may in the setting of his worsening severe sepsis with increasing leukocytosis and fever. - The patient is intubated and will be given sedation with p.r.n. Versed. We will continue monitoring his mental status. His head CT the other day did not show day acute intracranial abnormality. There is a possibility as well of seizures contributing to his altered mental status. He will be getting p.r.n. benzos if there is any seizure activity noted. Cardiac: History of atrial fibrillation. He was in rapid ventricular response earlier in this admission but he was a diltiazem drip but is now on digoxin for rate control. - We will continue with digoxin with some monitoring of levels as well. - We will continue with aspirin 300 mg. - We will continue to monitor blood pressure and maintain a MAP above 65. He may require p.r.n. fluid boluses or pressors to maintain his MAP. Pulmonary: Patient with COVID-19 pneumonia and acute hypoxemic respiratory failure with possible superimposed bacterial pneumonia. The patient has been on broad spectrum antibiotics since his admission but he has had increasing leukocytosis and fever and to was brought into vancomycin and cefepime and recultured today. - The patient is now also on mechanical ventilation with PRVC at settings of 470/18/75 and 10. We will continue to wean down his PEEP and FIO2 as tolerated. - We will continue with daily ABGs while intubated. - We will continue with vent bundle care with head of bed elevation and chlorhexidine mouth wash. - The patient was changed to Solu-Medrol and now is on prednisone taper. We will continue to taper to prednisone. GI: The patient has been NPO given his altered mental status. He did have an NG tube in place. However, as he was on CPAP, he was not started on tube feeds given risk of aspiration. He was on TPN therefore for nutritional support. - Now that patient has an OG tube in place and he is intubated, we will discontinue TPN and start him on tube feeds and slowly titrate up as tolerated with monitoring of residuals. - With his increased leukocytosis and being on broad spectrum antibiotics for a prolonged course, there was concern for a possible C diff infection. He has not had any bowel movements. However, he also has been NPO for most of his admission. If he does have any bowel movements, we will send him for a C diff. If there is worsening leukocytosis, would consider empiric treatment for C diff infection as well. - Continue with Protonix b.i.d. There was concern for a possible GI bleed initially with some black stools. His occult blood was negative, however, Renal: The patient has [place] on CKD. He also had issues with hypernatremia in the setting of decreased p.o. intake as he has been NPO. The patient is having decent urine output and his creatinine is improving. - Appreciate renal consult and recommendations. The patient does continue to need free water flushes but would discontinue the D5W as his glucose has been increasing. We will change him to free water flushes via his OG tube. - We will continue with his Levemir with sliding scale coverage. We will increase to q.4 hour cover given his hyperglycemia. - We will discontinue TPN. - We will continue to monitor electrolytes, repeat as needed. Heme: The patient with thrombocytopenia, likely multifactorial, suspected to be the setting of his sepsis and possibly from medications. - We will continue to monitor his platelets. He does not appear to have active sign of bleeding at this time and so we will transfuse yet. - We will hold his Lovenox, however and continue with TEDs and SCDs for DVT prophylaxis. Code Status: After discussion with the patient's close friend about his overall prognosis and his goals of care, the patient was made DNR WITH A TRIAL OF INTUBATION. Total critical care time not including procedures approximately one hour and 55 minutes. MTDD
[2020-09-22] MEDS ORDERED: ACETAMINOPHEN 325 MG/10.15 ML UDC GT PRN (19:00)
[2020-09-22 19:53] LABS: PHOSPHORUS LEVEL 3.7 MG/DL (2.5-4.9)
[2020-09-22] MEDS: **NOTE PATIENT COMMENT** MISC XX SCH (20:00)
--- NOTE | 2020-09-22 21:23 | IPN ---
NEPHROLOGY PROGRESS NOTE DATE: 09/22/2020 SUBJECTIVE: Mr. Al continues in the ICU and chart is reviewed and the previous 24-hour events are noted. He remains altered and obtunded and continues on CPAP with stable FiO2 requirements of 50-60%. He continues to spike fevers. T-max today 101.5. His MAP remains above 65 and his urine output is adequate. His fingersticks are very elevated, up to 480 today and laboratory studies reveal improving hypernatremia and mild rise in creatinine from 1.8 up to 2.0. He remains on d5w at 75 mL an hour along with hypotonic TPN at 75 mL an hour. LABORATORY STUDIES: Today's laboratory studies show hemoglobin 13.7, white count increased up to 24.4 and it was 14.2 seventy-two hours ago. Platelets are down to 59. Sodium 145 with glucose of 464, potassium 4.5, bicarbonate 29, BUN 84, creatinine 2.0, BNP 1,200 from 1,370 yesterday. Magnesium 2.9. Chest x-ray this afternoon shows bilateral parenchymal opacities and blunted left costophrenic angle. INPATIENT MEDICATIONS: The patient's medications were reviewed by myself. He continues on TPN. He continues on Vancomycin and Cefepime. His Aspirin was discontinued. His platelets have been down trending. He continues on Atenolol and Digoxin. His insulin was increased. He continues on IV Protonix, oral Prednisone and Sucralfate. NEPHROLOGY RECOMMENDATIONS: 1. Acute kidney injury on chronic kidney disease stage 2 overall in the past 72 hours his renal function has improved. His urine output remains adequate. His mean arterial pressures have been above 65. He has been receiving d5w for several days now and his hypernatremia is continuing to improve, but his sugars have become more uncontrolled. His acid base status is acceptable. There are no dialysis indications at present. 2. Hypernatremia it is improving although his corrected sodium is still around 150. I recommend to stop d5w at this time and he can continue with hypotonic special formula TPN to run at 80 mL an hour. Tube requirements remain at 50%. 3. Insulin dependent diabetes mellitus his sugars are uncontrolled due to steroids, TPN and d5w. I have increased the amount of regular insulin and the TPN to 25 units. We can stop his d5w at this time and his steroids have already been switched from IV Decadron over to oral Prednisone. 4. Acute hypoxic respiratory failure in the setting of COVID-19 infection The patient is noted to be restarted on Vancomycin, continues as well on Cefepime and on oral Prednisone, managed by the Hospitalist Service. His platelet counts have also dropped this week and down to 59 today. There is a question of P.E. I note that his Aspirin was discontinued. His hemoglobin remains stable.
[2020-09-22] MEDS: CHLORHEXIDINE GLUCONATE 0.12 % 15ML UDC (PERIDEX ORAL RINSE) MT SCH (21:26)
[2020-09-22] MEDS ORDERED: NOREPINEPHRINE BITARTRATE 8 MG in D5W 492 ML IV SCH (22:00)
[2020-09-23] VITALS (33 sets, daily range): BP systolic 70–119; BP diastolic 33–68; O2SAT 90–98
[2020-09-23] MEDS: CEFEPIME HCL 2 GM in D5W MINI-BAG PLUS 50 ML IV SCH (00:23)
[2020-09-23] MEDS: SUCRALFATE SUSP 1GM/10ML UD PO SCH ×2 (00:23→05:42)
[2020-09-23] MEDS: HumaLOG INSULIN (NovoLOG) PER UNIT SC SCH ×3 (00:54→09:40)
[2020-09-23] MEDS: VANCOMYCIN HCL 1,000 MG, VIAL MATE ADAPTER 1 EACH in D5W 250 ML IV SCH (00:54)
[2020-09-23] MEDS ORDERED: NS 500 ML IV ONE (01:00)
[2020-09-23 05:11] LABS: ABG BASE EXCESS -6.9 (-2.0-2.0); ABG HCO3 22.6 MEQ/L (22.0-26.0); ABG PARTIAL PRESSURE O2 81.6 mmHg (75.0-100.0); ABG STANDARD HCO3 18.8 MEQ/L (22.0-26.0); ABG TOTAL CO2 24.5 MEQ/L (23.0-31.0)
[2020-09-23 05:15] LABS: ABG PARTIAL PRESSURE CO2 63.3 mmHg (35.0-45.0)
[2020-09-23] MEDS: SODIUM CHLORIDE 0.9% INJ 10 ML SYR IV SCH (05:43)
[2020-09-23] MEDS ORDERED: NOREPINEPHRINE BITARTRATE 8 MG in D5W 492 ML IV SCH (06:00)
[2020-09-23 06:23] LABS: HEMATOCRIT 45.2 % (42.0-52.0); HEMOGLOBIN 13.4 g/dl (13.5-17.5); MEAN CORPUSCULAR HEMOGLOBIN 31.7 pg (27.0-33.0); MEAN CORPUSCULAR HGB CONC 29.6 g/dl (32.0-36.5); MEAN CORPUSCULAR VOLUME 106.9 fl (80.0-96.0); RED BLOOD COUNT 4.23 10^6/uL (4.30-6.10); WHITE BLOOD COUNT 27.4 10^3/uL (4.0-10.0)
[2020-09-23] MEDS ORDERED: NS 1,000 ML IV ONE (06:30)
[2020-09-23 06:37] LABS: INR 1.59; PROTHROMBIN TIME 19.3 SECONDS (12.5-14.3)
[2020-09-23 06:38] LABS: FIBRINOGEN 264 MG/DL (221-452); PARTIAL THROMBOPLASTIN TIME 39.9 SECONDS (24.2-38.5)
[2020-09-23 06:40] LABS: PLATELET COUNT, AUTOMATED 51 10^3/uL (150-450)
[2020-09-23 07:01] LABS: BILIRUBIN,TOTAL 1.9 MG/DL (0.2-1.0); CALCIUM LEVEL 8.2 MG/DL (8.8-10.2); CREATININE FOR GFR 2.86 MG/DL (0.70-1.30); GLOMERULAR FILTRATION RATE 22.9 (>42); POTASSIUM SERUM 5.8 MEQ/L (3.5-5.1); TOTAL PROTEIN 4.9 GM/DL (6.4-8.2)
[2020-09-23 07:10] LABS: D-DIMER QUANT > 4000 ng/ml (<500)
[2020-09-23] MEDS: CHLORHEXIDINE GLUCONATE 0.12 % 15ML UDC (PERIDEX ORAL RINSE) MT SCH (08:19)
[2020-09-23] MEDS: PANTOPRAZOLE 40MG VIAL (C9113 PER 1) IV SCH (08:19)
[2020-09-23] MEDS: predniSONE 10 MG TAB PO SCH (08:20)
[2020-09-23] MEDS: LEVEMIR (INSULIN DETEMIR) 1 UNITS/0.01ML SC SCH (08:24)
[2020-09-23 08:32] LABS: ABG BASE EXCESS -3.3 (-2.0-2.0); ABG HCO3 25.7 MEQ/L (22.0-26.0); ABG O2 SATURATION 97.4 % (95.0-99.0); ABG PARTIAL PRESSURE O2 100.4 mmHg (75.0-100.0); ABG STANDARD HCO3 21.7 MEQ/L (22.0-26.0); ABG TOTAL CO2 27.6 MEQ/L (23.0-31.0)
[2020-09-23 08:33] LABS: ABG PARTIAL PRESSURE CO2 64.6 mmHg (35.0-45.0); ABG pH (ARTERIAL) 7.217 UNITS (7.350-7.450)
[2020-09-23] MEDS: atenoloL 25 MG TAB PO SCH (09:00)
[2020-09-23] MEDS ORDERED: CALCIUM GLUCONATE 1,000 MG in NS MINI-BAG PLUS 100 ML IV ONE (09:00)
[2020-09-23] MEDS ORDERED: VASOPRESSIN INJ 20 UNITS in NS 499 ML IV SCH (10:00)
--- NOTE | 2020-09-23 10:06 | ECGEPIP ---
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
--- NOTE | 2020-09-23 10:14 | IPNPDOC ---
Date Seen The patient was seen on 09/23/20. Progress Note Patient was seen and examined at bedside. Severe sepsis. Source GI/cdiff vs COVID-19. Currently intubated, difficulty with oxygenation, worsened respiratory acidosis. Given severity of critical illness, I discussed with Dr. Castillo who has kindly accepted care of this patient. Care transferred to inspector bicycle. VS, I&O, 24H, Fishbone Vital Signs/I&O Vital Signs Date Time Temp Pulse Resp B/P (MAP) Pulse Ox O2 Delivery O2 Flow Rate FiO2 09/23/20 07:59 90 Ventilator 55 09/23/20 07:59 27 09/23/20 06:15 99.8 94 109/65 (80) 09/20/20 14:19 15.0 I&O- Last 24 Hours up to 6 AM 09/23/20 06:00 Intake Total 2454 ml Output Total 1185 ml Balance 1269 ml Laboratory Data 24H LABS Laboratory Tests 2 09/22/20 12:47: Bedside Glucose (Misc Panel) 482H 09/22/20 18:45: Bedside Glucose (Misc Panel) 397H 09/22/20 21:25: Bedside Glucose (Misc Panel) 347H 09/23/20 00:26: Bedside Glucose (Misc Panel) 346H 09/23/20 04:59: Blood Gas Bicarbonate Standard 18.8L, Arterial Blood pH 7.170*L, Arterial Blood Partial Pressure CO2 63.3*H, Arterial Blood Partial Pressure O2 81.6, Arterial Blood Total CO2 24.5, Arterial Blood HCO3 22.6, Arterial Blood Base Excess - 6.9L, Arterial Blood Oxygen Saturation 94.0L 09/23/20 05:00: Bedside Glucose (Misc Panel) 301H 09/23/20 06:00: Nucleated Red Blood Cells % (auto) 7.3H, Immature Platelet Fraction 25.5H, Prothrombin Time 19.3H, Prothromb Time International Ratio 1.59, Activated Partial Thromboplast Time 39.9H, Fibrinogen 264, D-Dimer, Quantitative > 4000H, Anion Gap 5L, Glomerular Filtration Rate 22.9L, Lactic Acid Level 2.7*H, Calcium Level 8.2L, Total Bilirubin 1.9H, Aspartate Amino Transf (AST/SGOT) 83H, Alanine Aminotransferase (ALT/SGPT) 57, Alkaline Phosphatase 96, Total Protein 4.9L, Albumin 2.0L, Albumin/Globulin Ratio 0.7 09/23/20 07:25: Blood Gas Bicarbonate Standard 21.7L, Arterial Blood pH 7.217*L, Arterial Blood Partial Pressure CO2 64.6*H, Arterial Blood Partial Pressure O2 100.4H, Arterial Blood Total CO2 27.6, Arterial Blood HCO3 25.7, Arterial Blood Base Excess - 3.3L, Arterial Blood Oxygen Saturation 97.4 09/23/20 08:27: Bedside Glucose (Misc Panel) 298H 09/23/20 09:37: Bedside Glucose (Misc Panel) 251H CBC/BMP Laboratory Tests 09/23/20 06:00 Microbiology Microbiology 09/23/20 Respiratory Virus Panel (PCR) ([facility]) - Final, Complete SARS-CoV-2 (COVID 19) 09/22/20 Blood Culture, Received Pending 09/22/20 Blood Culture, Received Pending 09/17/20 Stool Occult Blood ([facility]) - Final, Complete 09/15/20 Blood Culture - Final, Complete NO GROWTH AFTER 5 DAYS 09/15/20 Blood Culture - Final, Complete NO GROWTH AFTER 5 DAYS 09/13/20 Blood Culture - Final, Complete NO GROWTH AFTER 5 DAYS 09/13/20 Blood Culture - Final, Complete NO GROWTH AFTER 5 DAYS MALINDA GUZMAN MD Sep 23, 2020 10:14
[2020-09-23] MEDS ORDERED: ETOMIDATE INJ 20MG/10ML VIAL ONE (10:36)
[2020-09-23] MEDS ORDERED: VANCOMYCIN ORAL SOL 250MG/5ML ORAL SYRINGE PO SCH (12:00)
--- NOTE | 2020-09-24 17:48 | RO ---
OPERATIVE NOTE DATE OF OPERATION: 09/22/2020 PROCEDURE: Endotracheal intubation. PROCEDURE BEHAVIORAL HEALTH THERAPIST: Contreras Mcclure DO, internal medicine resident, PGY 3 ATTENDING PHYSICIAN: Nicole Castillo M.D, in attendance throughout the entire procedure. INDICATION: Hypoxic respiratory failure with altered mental status, inability to protect airway. PROCEDURE SUMMARY: Due to the patient's COVID status, my hands were washed frequently prior to the procedure, surgical cap, mask, protective eyewear, gown and gloves were worn throughout the procedure. The patient was placed on cardiac monitoring with continuos pulse oximetry. He was preoxygenated with 100% oxygen and with a [id number]. The patient received 20 mg of etomidate for induction. Using a glidescope and a size 8 endotracheal tube stylet, the patient was intubated on the first attempt. The glidescope was inserted and the vocal cords were visualized. The endotracheal tube was passed through the cords with direct visualization. The stylet was removed and the cuff balloon was inflated. Appropriate endotracheal tube position was confirmed by direct visualization and Co2 colorimetric indicator with symmetric breath sounds. The tube was secured at approximately 24 cm at the lips. Post-intubation chest x-ray is currently pending at this time. The patient tolerated this procedure well. There was no hemodynamic compromise at the conclusion of the procedure. CHANELLE
--- NOTE | 2020-09-25 13:37 | IPN ---
NEPHROLOGY PROGRESS NOTE DATE: 09/18/2020 SUBJECTIVE: I was called by Dr. Reba Martell for a tele consult for Mr. Al, who is admitted to the [facility] ICU and has had worsening renal function since September 15. The chart was reviewed and the case was discussed with Dr. Martell. The patient is a 75-year-old male with a past medical history of atrial fibrillation, morbid obesity, hypertension, history of GI bleed, and peripheral vascular disease. His baseline creatinine is 1.0 and he was admitted on September after a fall at home with complaints dyspnea and weakness and was found to have COVID-19 and was treated with Dexamethasone, Remdesivir, Vancomycin and Zosyn. Over the course of this admission, he had dark stool and his FOBP returned positive and his Lovenox anticoagulation was held. He also went into rapid ventricular response and has been on rate controlling medications including a Diltiazem drip, Digoxin and Atenolol. He has also received several doses of IV Lasix for diuresis with the last dose on September 15. He has not had any IV contrast imagings on this admission. His admission creatinine was 1.3 and this was fairly stable until September, when it increased to 1.7 and today up to 2.4. He has also had asymmetric increase in his blood urea nitrogen levels and has become significantly hypernatremic with BUN of 111 and sodium of 156 on the latest labs. He has been receiving normal saline for the past day and Nephrology recommendations are requested in view of electrolyte abnormality and derangement in renal function. PHYSICAL EXAMINATION: VITAL SIGNS: Temperature 97.9, pulse 100, respiratory rate 25-28, blood pressure 139/61, saturating 93% on 40% Vapotherm. INTAKE AND OUTPUT: Review of I.'s and O.'s over the past several days shows daily net negative fluid balance. LABORATORY STUDIES: Most recent laboratories show sodium 156 with a glucose of 300, giving a corrected sodium of 159, potassium 5.0, bicarbonate 26, BUN 111, creatinine 2.4, serum osmolality 369, BNP 1,100, hemoglobin 14.2, platelet count 216. Stool occult blood yesterday was positive. IMAGING: Chest x-ray done today reviewed and discussed with Dr. Martell shows stable multifocal opacities. INPATIENT MEDICATIONS: The patient is receiving normal saline at 125 mL an hour, Diltiazem drip, Zosyn 3.375 grams IV q. 6 hourly, Remdesivir 100 mg IV daily, Tylenol p.r.n., Aspirin 81 mg daily, Atenolol 25 mg daily, Dexamethasone 6 mg IV daily, Protonix 40 mg IV twice daily, Carafate one gram p.o. q. 6 hourly. PROBLEMS: 1. Hypernatremia the patient's corrected sodium is 159. He was initially diuresed earlier during the admission, but his renal function worsened and instead he has been receiving normal saline and diuretics have been held since his last dose on September 15. The patient has a free water deficit of 9 liters. Recommend to discontinue normal saline and switch to d5w at 150 mL an hour. If he remains stable from a respiratory point of view and has adequate urine output, we can increase the fluid rate tomorrow. 2. Acute kidney injury superimposed on chronic kidney disease stage 3A his blood urea nitrogen levels are significantly and disproportionately elevated as compared to the creatinine level. This is likely due to IV steroids plus FOBT positivity and compounded by his significant free water deficit as well. His BNP has actually been down trending the past several days. Diuretics remain on hold. We are switching to d5w, also request a renal ultrasound. He does have a Ochoa catheter. To the best of my knowledge, Remdesivir is not known to cause an acute crystal nephropathy (unlike other antiviral agents such as IV Acyclovir), but I will do a literature review. 3. Altered mental status, metabolic encephalopathy there may very well be a component of uremia. We will see how his blood urea nitrogen levels trend with correction of the free water deficit. 4. Hyperkalemia it will improve with dextrose containing fluids. 5. Nephrology recommendations were discussed with Dr. Martell labs are repeated q. 6 hourly. I will follow along remotely with you.
--- NOTE | 2020-09-25 13:46 | CCN ---
CRITICAL CARE NOTE DATE: 09/23/2020 Yesterday, patient was intubated for respiratory distress and for his worsening mental status. Initially post intubation, patient's blood pressures had remained stable, and he did not require any vasopressor administration. Overnight, however, patient was noted to become hypotensive with decreased urine output. He was given 500 mL bolus with no improvement, and he was started on Levophed. Patient was up to 15 mcg per minute this morning on his Levophed to maintain his mean arterial pressure (MAP) above 65. He also continued to be febrile overnight and was on cooling blankets. This morning he was more hypothermic off of the cooling blanket. He continues to not be on any sedation and is minimally responsive. He only has some reflexes to painful stimuli with coughing and gagging and mild withdrawal. Patient was started on tube feeds yesterday. He was up to 30 mL an hour but this morning was noted to have increased residuals. This morning, patient's ABG was noted to have worsening respiratory acidosis. His ventilator settings were adjusted. He was also given 1 liter normal saline bolus and did have some increased urine output with the fluids. PHYSICAL EXAMINATION: VITAL SIGNS: Maximum temperature 103.5, current temperature 97, pulse 94, respirations 28, blood pressure 109/65, oxygen saturation was 96% on 55% FiO2 and a positive end-expiratory pressure (PEEP) of 10. Input 1.8 liters, output 1.4 liters. Since this morning, however, he has only had minimal urine output until his fluid bolus. GENERAL: Patient is intubated. He is not on any sedation and is responsive minimally only to painful stimuli. HEENT: Normocephalic, atraumatic. Mucous membranes are dry but improved mouth care. He has skin breakdown and pressure ulcers on his face from his continuous positive airway pressure (CPAP) mask. His pupils are reactive to light bilaterally. Neck is supple. Trachea is midline. Unable to appreciate any jugular venous distention (JVD). CARDIAC: Irregularly irregular. Normal S1, S2. Unable to clearly appreciate any murmur. RESPIRATORY: There are some coarse breath sounds noted bilaterally with occasional rhonchi. There are no wheezes. ABDOMEN: Obese, soft, and nontender. There are no masses palpated. EXTREMITIES: There is trace pitting edema in the bilateral lower extremities. LABORATORY DATA: WBC 27.4, hemoglobin 13.4, platelets 51. Chemistry: Sodium is 143, potassium 5.8, chloride 110, bicarbonate 28, BUN 111, creatinine 2.86, glucose 336. Calcium is 8.2. Total bilirubin 1.9, albumin 2.0, AST/ALT 83/57. Lactic acid is 2.7. Fibrinogen was 264. PT 19.3, PTT is 39.9, INR is 1.59. ABG this morning was pH 7.170, pCO2 of 63.3, pO2 of 81.6. Repeat ABG after ventilator adjustment was pH 7.217, pCO2 of 64.6, pO2 of 100.4. ASSESSMENT AND PLAN: Mr. Al is a 75-year-old male with a past medical history of atrial fibrillation, hypertension, previous gastrointestinal (GI) bleed, who presented with acute hypoxemic respiratory failure and metabolic encephalopathy in the setting COVID-19 pneumonia with possible superimposed bacterial pneumonia. Patient was treated initially with remdesivir and a dexamethasone course. His hospital course was complicated by acute kidney injury (AUSTIN) on chronic kidney disease (CKD) as well as continued metabolic encephalopathy, which was worsening. Patient had remained on CPAP for ventilator support and for oxygenation. He was nothing by mouth and on total parenteral nutrition (TPN) for nutritional support. On 09/22/2020 patient was noted to have increased respiratory distress and worsening obtundation. He had a friend who was identified as his healthcare agent, and based on his previous wishes patient was made DO NOT RESUSCITATE with a trial of intubation. He was therefore intubated yesterday and placed on mechanical ventilation. 1. Neurologic. Patient with continued encephalopathy, likely multifactorial. He has severe sepsis and now in septic shock. - Will continue with Versed as needed for sedation. He has not received an as-needed Versed overnight and continues to be minimally responsive to painful stimuli. 2. Cardiac. History of atrial fibrillation. Was in rapid ventricular response earlier in this admission. He had received diltiazem drip but is now rate controlled on digoxin. - Patient is still on digoxin. Given his recent worsening renal failure, will hold his dose tomorrow and recheck a digoxin level and adjust accordingly. - Will discontinue aspirin given his thrombocytopenia. - Patient now with septic shock. He is on Levophed and was up to 15 mcg per minute this morning. Will add Vasopressin to maintain a mean arterial pressure (MAP) above 65. - He did have lactic acidosis, which we will continue to trend. - We will continue with as-needed fluid boluses, as he did appear to respond favorably to the liter bolus this morning. 3. Pulmonary. Patient with acute hypoxemic respiratory failure in the setting of COVID-19 pneumonia and possible superimposed bacterial pneumonia. - Patient is on mechanical ventilation with pressure-regulated volume control (PRVC) with settings now of 470/28/65 and 10. Will continue wean down h is PEEP and FiO2 as tolerated. - Will continue with daily arterial blood gases (ABGs) while intubated. - Will continue with chest x-ray as needed. - Will continue with ventilator bundle care with head of bed elevation and chlorhexidine mouthwash. - Patient is on a prednisone taper currently, which we will continue. - Patient is a trial of intubation only as per his healthcare agent, his close friend. We will continue to address with her his goals of care, as she is understanding his poor prognosis and has been considering comfort measures only. 4. Gastrointestinal (GI). Patient was started on tube feeds yesterday after intubation and his TPN was on hold. He was up to 30 mL an hour but had some increased residuals this morning. - Will hold his tube feeds for now and continue to hold TPN. - Patient continues to have increased leukocytosis and has been on broad-spectrum antibiotics during his hospitalization for prolonged course. As his leukocytosis is worsening and he is in septic shock despite being on broad-spectrum antibiotics, suspect he may have Clostridium (C) difficile infection. He has not had any bowel movements; however, he has been nothing by mouth for almost the entirety of his admission. Would therefore empirically treat him with oral vancomycin and when he does have a bowel movement can check for C. difficile at that time. - Continue with Protonix twice a day. He had a possible GI bleed suspected initially with black stools, although his hemoglobin has remained stable, and he has not had further episodes. 5. Renal. Patient with worsening AUSTIN on CKD, now in the setting of his septic shock. - His D5 fluids have been discontinued, as he was having worsening hyperglycemia. Will continue with free water flushes via his orogastric (OG) tube. - Will continue Levemir with sliding-scale coverage and fingerstick glucose checks every 4 hours. - Patient appears to have hyperkalemia, likely in the setting of his worsening acidosis. Will continue to monitor his potassium but will give a dose of calcium gluconate and normal saline today and repeat his chemistry. - Will continue to monitor his renal function and renally dose medications. - Appreciate renal consult and recommendations. 6. Hematology. Patient with thrombocytopenia, likely multifactorial in the setting of his severe sepsis and possibly from antibiotics. He does have mildly low fibrinogen but is not currently in disseminated intravascular coagulation (DIC), although he does have some mild coagulopathy. - Will continue to monitor his DIC panel and his platelets. His aspirin has been on hold, and his Lovenox is also on hold. - Continue with thromboembolic deterrents (TEDs) and sequential compression devices (SCDs) for DVT prophylaxis. 7. Code status. Patient is DO NOT RESUSCITATE with trial of intubation. Will update patient's close friend, Ms. Zepeda, today about his prognosis, as she had previously mentioned the possibility of comfort measures if he is not improving clinically. Total critical care time spent not including procedure: Approximately 50 minutes. ADDENDUM: Patient later in the morning was requiring increasing amounts of pressors and was on maximum levophed and vasopressin. Patient's health care agent his close friend was updated on his condition and after discussion of GOC the decision was made for comfort measures only with a palliative extubation. Patient's pressors were therefore discontinued and other medications except those for comfort and he was palliatively extubated. CHANELLE
--- NOTE | 2020-10-03 08:25 | DS.PDOC ---
Discharge Summary General Date of Admission Sep 11, 2020 at 21:18 Date of Discharge 09/23/20 Discharge Summary PROCEDURES PERFORMED DURING STAY: PICC line placement, endotracheal intubation ADMITTING DIAGNOSES: 1. COVID-19 PNA 2. Encephalopathy 3. AUSTIN 4. Acute hypoxemic respiratory failure DISCHARGE DIAGNOSES: 1. COVID-19 PNA 2. Encephalopathy 3. AUSTIN 4. Acute hypoxemic respiratory failure requiring mechanical ventilation 5. Septic shock 6. Protein malnutrition 7. Atrial fibrillation with RVR COMPLICATIONS/CHIEF COMPLAINT: Covid-19, Hypoxia. HISTORY OF PRESENT ILLNESS: 75 yo M with a PMHx of syncope, afib (pt chose not to be anticoagulated), loop recorder, hypertension, presented to ER with 3 day hx of dyspnea, malaise and subjective chills. Patient found to be saturating 89% on RA. Tested positive for COVID-19 in the ED. Denies chest pain, palpitations, abdo pain, n/v/d. HOSPITAL COURSE: He was initially treated with remdesivir as well as dexamethasone. The patient also had issues during his stay of atrial fibrillation with rapid ventricular response and had initially required diltiazem drip and then with digoxin loading, he was rate controlled. The patient also had issues during his admission of altered mental status with metabolic encephalopathy. He initially was lethargic but conversive and able to follow commands and was oriented. Initially during his admission, he had reported to the house staff that he did want a full code including intubation. The patient was transferred to the ICU given his worsening hypoxic respiratory failure. He was placed on CPAP and was also alternating with Vapotherm. The patient unfortunately, however, was noted to have worsening mental status. He also had continued to remain on CPAP for his respiratory support. The patient was initially on tube feeds. However, as he was continued on CPAP, he was changed to TPN instead for nutritional support. The patient had been having intermittent fevers and was on broad spectrum antibiotics. His cultures, however, had only been positive initially for micrococcus luteus in his blood with the repeat blood cultures negative. This morning, the patient was noted to have more persistent fevers. He was on a cooling blanket and continued to have fevers. He also has continued to be significantly obtunded while on his CPAP and on morning of 09/22/20 was noted to have almost agonal breathing while on the CPAP. The patient's close family friend was finally able to be contacted. He does not have any other family members listed and so she would be the next possible health care surrogate. After discussion with his friend, Ms. Sabillon, given his respiratory status and mental status that he would need to be intubated. As he had previously desired for intubation, he was intubated. There was discussion, however, about his overall prognosis and goals of care and she stated that he would not want any prolonged intubation or mechanical ventilation and so he was made a DNR with only a trial intubation. Patient was then noted to have hypotension, minimally improved with IVF and required pressors for septic shock. He continued to be febrile requiring cooling blankets and then was hypothermic. Patient was also noted to be minimally responsive even to pain while still off of sedation. Patient's health care agent was updated as to his condition and as patient later in the day required maximum vasopressors based on his previously discussed GOC with her he was palliatively extubated and made SAMPLE BODY BUILDER. Patient shortly after his palliative extubation. DISCHARGE MEDICATIONS: Please see below. ALLERGIES: Please see below. PHYSICAL EXAMINATION ON DISCHARGE: VITAL SIGNS: Please see below. VITAL SIGNS: Maximum temperature 103.5, current temperature 97, pulse 94, respirations 28, blood pressure 109/65, oxygen saturation was 96% on 55% FiO2 and a positive end-expiratory pressure (PEEP) of 10. Input 1.8 liters, output 1.4 liters. Since this morning, however, he has only had minimal urine output until his fluid bolus. GENERAL: Patient is intubated. He is not on any sedation and is responsive minimally only to painful stimuli. HEENT: Normocephalic, atraumatic. Mucous membranes are dry but improved mouth care. He has skin breakdown and pressure ulcers on his face from his continuous positive airway pressure (CPAP) mask. His pupils are reactive to light bilaterally. Neck is supple. Trachea is midline. Unable to appreciate any jugular venous distention (JVD). CARDIAC: Irregularly irregular. Normal S1, S2. Unable to clearly appreciate any murmur. RESPIRATORY: There are some coarse breath sounds noted bilaterally with occasional rhonchi. There are no wheezes. ABDOMEN: Obese, soft, and nontender. There are no masses palpated. EXTREMITIES: There is trace pitting edema in the bilateral lower extremities. LABORATORY DATA: Please see below. IMAGING: Liver ultrasound on 09/21/20 showed gallstones in the gallbladder without evidence of thickening or pericholecystic fluid. There is no biliary ductal dilation. No liver mass seen. There appears to be some diffuse fibrofatty infiltration of the liver. Head CT, 09/20/20 shows generalized volume loss and vascular calcification with no acute intracranial abnormality. Chest x-ray on 09/20/[address] There is a right-sided PICC line in place. There is NG tube in place. There is slight blunting of the left costophrenic angle and areas of infiltrate in the left trace and the right upper lobes. ACTIVITY: DISCHARGE PLAN: DISPOSITION: 20 . DISCHARGE INSTRUCTIONS: ITEMS TO FOLLOWUP ON ON OUTPATIENT: None, DISCHARGE CONDITION: TIME SPENT ON DISCHARGE: Greater than 30minutes. Microbiology Microbiology 09/23/20 Respiratory Virus Panel (PCR) ([facility]) - Final, Complete SARS-CoV-2 (COVID 19) Discharge Medications Scheduled Amlodipine Besylate (Amlodipine Besylate) 5 Mg Tablet, 5 MG PO DAILY, (Reported) Ascorbic Acid (Vitamin C) 500 Mg Tab, 500 MG PO DAILY, (Reported) Aspirin (Aspirin EC) 81 Mg Tab, 81 MG PO DAILY, (Reported) Atenolol (Atenolol) 25 Mg Tab, 12.5 MG PO DAILY, (Reported) Baclofen (Baclofen) 10 Mg Tab, 10 MG PO BID, (Reported) Nitroglycerin (Nitroglycerin Patch) 0.4 Mg/Hr Dis, 0.4 MG TD DAILY, (Reported) APPLIES AT 0800 AND REMOVES AT 2000, EVEN DAYS RIGHT ARM, ODD DAYS LEFT ARM Scheduled PRN Sennosides/Docusate Sodium (Senna Plus Tablet) 1 Each Tablet, 2 TAB PO BIDP PRN for CONSTIPATION Allergies Coded Allergies: latex (Verified Allergy, Unknown, 12/29/19) PRASHANT PADILLA MD Oct 03, 2020 08:25
== END 2020-09-23 13:57 | disposition expired | DRG 871 ==
LOC: M ED 15:58 → M ED INP 21:18 → M 4MAIN 09-12 09:15 → M ICU 09-14 17:51
PROVIDERS: ADMIT Family Medicine; ATTEND Internal Medicine
PROC: 5A1935Z Respiratory Ventilation, Less than 24 Consecutive Hours (ICD-10-PCS; principal; 2020-09-15)
PROC: 02HV33Z Insertion of Infusion Device into Superior Vena Cava, Percutaneous Approach (ICD-10-PCS; 2020-09-18)
DX: A41.9 Sepsis, unspecified organism (principal); U07.1 COVID-19; J12.89 Other viral pneumonia; I50.31 Acute diastolic (congestive) heart failure; J96.01 Acute respiratory failure with hypoxia; G93.41 Metabolic encephalopathy; I26.99 Other pulmonary embolism without acute cor pulmonale; I48.20 Chronic atrial fibrillation, unspecified; N17.9 Acute kidney failure, unspecified; E87.3 Alkalosis; K92.2 Gastrointestinal hemorrhage, unspecified; E87.0 Hyperosmolality and hypernatremia; I13.0 Hypertensive heart and chronic kidney disease with heart failure and stage 1 through stage 4 chronic kidney disease, or unspecified chronic kidney disease; E66.01 Morbid (severe) obesity due to excess calories; E11.65 Type 2 diabetes mellitus with hyperglycemia; N18.2 Chronic kidney disease, stage 2 (mild); R65.20 Severe sepsis without septic shock; Z79.82 Long term (current) use of aspirin; Z79.899 Other long term (current) drug therapy; Z91.040 Latex allergy status; K21.9 Gastro-esophageal reflux disease without esophagitis; Z79.4 Long term (current) use of insulin